=== PATIENT | female | born 1965 | race Two or more races ===

== ENCOUNTER → 2020-05-14 12:33 | Outpatient (REF) | payer OTHER, SELFPAY ==
--- NOTE | 2020-05-14 13:00 | CA_ITS ---
Transthoracic Echocardiogram Patient (Last, First, Middle): Michelle Berkowitz, Gender: Female Date of : 1965 Age: 54 Procedure Date: 05/14/2020 Procedure Type: Transthoracic Echocardiogram Location: OP Height: 157.48 cm Weight: 81.65 kg BSA: 1.83 m2 Heart Rate: bpm BP: 154 / 70 mmHg [employer]airer: QAMAR Villalta MD: Garry Bonner MD Symptoms: r06.02 sob Study Quality: Good ECG Rhythm: Sinus Conclusions: - The left ventricular systolic function is normal. The visually estimated ejection fraction is between 55-60%. - E/E prime ratio is between 8 and 15 consistent with indeterminate filling pressures. Evidence suggests grade I (mild) diastolic dysfunction. - There is mild mitral valve regurgitation. Findings Left Ventricle Normal left ventricular cavity size. There is normal left ventricular wall thickness. The left ventricular systolic function is normal. The visually estimated ejection fraction is between 55-60%. There is no evidence of regional wall motion abnormalities. E/E prime ratio is between 8 and 15 consistent with indeterminate filling pressures. Evidence suggests grade I (mild) diastolic dysfunction. Right Ventricle Normal right ventricular cavity size and systolic function. Atria Both atria are normal in size. Aortic Valve There is a normal trileaflet aortic valve. There is no aortic valve stenosis. Trivial to mild aortic regurgitation. Mitral Valve The mitral valve appears normal. There is mild mitral valve regurgitation. There is no mitral valve stenosis. Pulmonic Valve The pulmonic valve was not well visualized. Tricuspid Valve Normal tricuspid valve structure. There is trace tricuspid valve regurgitation. The pulmonary artery systolic pressure is normal. Great Vessels The aortic annulus, sinuses of valsalva, and asc aorta are normal in size. Venous The inferior vena cava is normal in size and collapses greater than 50% with inspiration. Pericardium/Pleural There is no evidence of pericardial effusion. Prior Study Comparison No significant change compared to prior study dated: 03/24/2017. Measurements 2D Linear Measurements RVIDd: 2.94 RVIDd Index: 1.61 IVSd: 0.96 0.6-0.9/0.6-1.0 cm LVIDd: 4.19 3.9-5.3/4.2-5.9 cm LVIDd Index: 2.29 2.4-3.2/2.2-3.1 cm/m2 LVIDs: 3.01 2.0-3.6 cm LVPWd: 1.27 0.7-1.1 cm Ao Root: 2.70 2.1-3.5 cm LA Diam: 3.50 2.7-3.8/3.0-4.0 cm LAIDs Index: 1.91 1.5-2.3 cm/m2 LV Mass: 198.69 67-162/88-224 g LV Mass Index: 108.57 43-95/49-115 g/m2 LVOT Diam: 2.10 3.0+(-)1.3 cm 2D Systolic Function EF 4C: 52.30 >55% EF 2C: 56.10 >55% EF BiP: 54.50 >55% Mitral Valve MV Pk E: 0.72 MV PK A: 0.79 MV Decel Time: 211.00 E/A: 0.90 E'Lateral: 5.61 E'Medial: 5.03 E/E' Med: 14.40 E/E' Lat: 12.90 Aortic Valve AoV Pk Fausto: 1.62 AoV Mn Fausto: 1.05 AoV VTI: 0.31 AoV Pk Grad: 10.00 Aov Mn Grad: 5.00 ARELI Cont.VTI: 2.39 AI Pk Fausto: 3.96 AI Schuyler: 1.08 LVOT LVOT Pk Fausto: 1.00 LVOT Mn Fausto: 0.72 LVOT VTI: 0.22 LVOT Pk Grad: 4.00 LVOT Mn Grad: 2.00 LVOT Diam: 2.10 LVOT Area: 3.46 Diastolic Function MV Pk E: 0.72 MV Pk A: 0.79 E/A: 0.90 E'Medial: 5.03 E/E' Med: 14.40 E' Laterial: 5.61 E/E' Lat: 12.90 Tricuspid Valve TR Pk Fausto: 1.79 TR Pk Grad: 13.00 RA Press: 3.00 RVSP: 16.00 Great Vessels Aorta Ao Root-2D: 2.70 2.0-3.7 cm Ao Asc: 2.70 2.1-3.4 cm Ao Arch: 2.60 Updated in Other Vendor System with Status of Final Garry Bonner MD electronically signed on 05/15/2020 2:23:17 PM with status of Final
[2020-05-14 14:33] LABS: MANUAL DIFF FLAG NO
[2020-05-14 14:38] LABS: Basophils Percent Auto 0.8 % (0-2); Eosinophils Absolute Auto 0.1 X10*3/uL (0.0-0.4); Eosinophils Percent Auto 2.3 % (0-4); Hemoglobin 11.7 g/dl (12.0-16.0); Imm Gran Abs Auto 0.01 X10*3/uL (0.00-0.03); Imm Gran Pct Auto 0.2 % (0.0-0.4); Lymphocytes Absolute Auto 1.9 X10*3/uL (1.2-4.9); Mean Corpuscular HGB Conc 31.6 g/dl (31.0-35.0); Mean Corpuscular Hemoglobin 27.1 pg (27.0-33.0); Mean Corpuscular Volume 85.6 fL (80-98); Mean Platelet Volume 11.9 fL (9.4-12.3); Monocytes Absolute Auto 0.4 X10*3/uL (0.1-1.2); Monocytes Percent Auto 7.9 % (2-11); Neutrophils Absolute Auto 2.7 X10*3/uL (2.0-8.3); Neutrophils Percent Auto 51.8 % (45-73); Platelet Count 279 X10*3/uL (160-400); Red Blood Count 4.32 X10*6/uL (4.20-5.50); White Blood Count 5.2 X10*3/uL (4.8-10.8)
[2020-05-14 14:41] LABS: Glucose Urine UA NEG (NEG); Leukocyte Esterase Urine NEG (NEG); Nitrite Urine NEG (NEG); Urine Blood NEG (NEG); Urine Ketones NEG (NEG); Urine Protein NEG (NEG-TRACE)
[2020-05-14 14:42] LABS: Appearance Urine HAZY; Color Urine YELLOW
[2020-05-14 15:20] LABS: Estimated Average Glucose 148 mg/dL; Hemoglobin A1c % 6.8 %
[2020-05-14 15:38] LABS: Creatinine Urine 83.65 mg/dL; Microalbumin Urine < 5.0 mg/L
[2020-05-14 15:47] LABS: Alanine Aminotransferase 15 U/L (0-31); Alkaline Phosphatase 70 U/L (39-117); Anion Gap 9 (12-20); Aspartate Amino Transferase 15 U/L (5-31); Bilirubin Total 0.5 mg/dL (0.0-1.0); Blood Urea Nitrogen 10 mg/dL (9-16); Calcium 9.1 mg/dL (8.4-10.2); Carbon Dioxide 33 mmol/L (22-29); Chloride 105 mmol/L (96-108); Cholesterol 138 mg/dL; Estimated Glomerular Filt Rate > 60; Glucose Random 118 mg/dL (60-115); HDL Cholesterol 36 mg/dL; LDL Cholesterol Calculated 81 mg/dl; Potassium 4.5 mmol/l (3.3-5.1); Sodium 142 mmol/L (135-145); Total Protein 7.3 g/dL (6.5-8.0); Triglycerides 107 mg/dL
[2020-05-14 16:03] LABS: Free T4 (Free Thyroxine) 1.16 ng/dL (0.71-1.85); Thyroid Stimulating Hormone 2.81 mIU/mL (0.32-4.0)
[2020-05-14 16:15] LABS: Folate 5.5 ng/mL (> or = 4.0); Vitamin B12 301 pg/mL (200-900)
[2020-05-19 15:52] LABS: Vitamin A 33 mcg/dL (38-98)
== END ==
LOC: HO.CARD 12:33
PROVIDERS: PCP Internal Medicine; Referring Provider Nurse Practitioner Gerontology; Visit Provider Internal Medicine
DX: E11.65 Type 2 diabetes mellitus with hyperglycemia (principal); E11.22 Type 2 diabetes mellitus with diabetic chronic kidney disease; I12.9 Hypertensive chronic kidney disease with stage 1 through stage 4 chronic kidney disease, or unspecified chronic kidney disease; N18.2 Chronic kidney disease, stage 2 (mild); E78.5 Hyperlipidemia, unspecified; M51.36 Other intervertebral disc degeneration, lumbar region; E03.9 Hypothyroidism, unspecified; E66.9 Obesity, unspecified; E53.8 Deficiency of other specified B group vitamins; R06.02 Shortness of breath
CPT/HCPCS: 36415; 80053; 80061; 81003; 82043; 82607; 82746; 83036; 84439; 84443; 84590; 85025; 93306

== ENCOUNTER 2020-05-21 16:54 | Outpatient (REF) | payer OTHER, SELFPAY ==
[2020-05-21 18:28] LABS: Thyroid Stimulating Hormone 7.09 mIU/mL (0.32-4.0)
== END 2020-05-21 16:55 | disposition home or self-care (01) ==
LOC: HO.MAMMO 16:54
PROVIDERS: Absent Provider Nurse Practitioner Gerontology; PCP Internal Medicine; Visit Provider Internal Medicine
DX: E06.3 Autoimmune thyroiditis (principal)
CPT/HCPCS: 84443

== ENCOUNTER → 2020-06-09 11:00 | Outpatient (BNVA) | payer OTHER, SELFPAY | PROVIDERS: PCP Internal Medicine; Referring Provider Internal Medicine; Visit Provider Internal Medicine | DX: M79.602 Pain in left arm (principal); E66.09 Other obesity due to excess calories; Z68.34 Body mass index [BMI] 34.0-34.9, adult; I10 Essential (primary) hypertension; E11.8 Type 2 diabetes mellitus with unspecified complications; E78.5 Hyperlipidemia, unspecified | CPT/HCPCS: 99212 ==

== ENCOUNTER 2020-07-01 11:08 | Outpatient (REF) | payer OTHER, SELFPAY ==
--- NOTE | 2020-07-01 | US_ITS ---
EXAMINATION: US THYROID CLINICAL INFORMATION: Nontoxic multinodular goiter. COMPARISON: Thyroid ultrasound 10/10/2019 and 07/06/2018. Ultrasound-guided thyroid biopsy 12/20/2019. TECHNIQUE: Linear transducer menjivar-scale and color Doppler examination with attention to the region of the thyroid. FINDINGS: SIZE: Measurements of the thyroid lobes and nodules are given in sagittal, anteroposterior and transverse dimensions respectively. Right Thyroid Lobe: 5.0 x 2.0 x 1.8 cm, volume 9.5 mL. Previously 5.1 x 2.1 x 1.9 cm, volume 10.6 mL. Parenchyma: The gland echotexture is heterogeneous. Thyroid vascularity is normal. Left Thyroid Lobe: 3.7 x 2.1 x 1.5 cm, volume 5.9 mL. Previously 4.6 x 2.2 x 1.9 cm, volume 10.1 mL. Parenchyma: The gland echotexture is heterogeneous. Thyroid vascularity is normal. Isthmus: 0.6 cm in maximum AP dimension. Previously 0.6 cm. RIGHT THYROID LOBE: There are 2 nodules seen. 1. Location: Lower pole. Size: 1.3 x 1.2 x 1.5 cm. Previous: 1.4 x 1.4 x 1.2 cm. Nodule characteristics: Hyperechoic with a hypoechoic rind and peripheral flow. 2. Location: Lower pole. Size: 0.6 x 0.7 x 0.6 cm. Previous: 1.2 x 1.2 x 1.4 cm. Nodule characteristics: Hyperechoic, hypoechoic rind with peripheral flow. ISTHMUS: No nodules. LEFT THYROID LOBE: No nodules. NODES: No lymphadenopathy is seen in the tissue surrounding the thyroid gland. US/US thyroid IMPRESSION: No significant change in size of the nodules in right lobe from previous study 07/06/2018. Previously seen thyroid nodule in right lobe is not visualized at this time.
== END 2020-07-01 11:09 | disposition home or self-care (01) ==
LOC: HO.US 11:08
PROVIDERS: PCP Internal Medicine; Visit Provider Internal Medicine Endocrinology, Diabetes & Metabolism
DX: E04.2 Nontoxic multinodular goiter (principal)
CPT/HCPCS: 76536

== ENCOUNTER 2020-07-15 13:35 | Outpatient (REF) | payer OTHER, SELFPAY ==
[2020-07-15 16:16] LABS: Free T4 (Free Thyroxine) 1.07 ng/dL (0.71-1.85); Thyroid Stimulating Hormone 6.74 uIU/mL (0.32-4.0)
== END 2020-07-15 13:36 | disposition home or self-care (01) ==
LOC: HO.LAB 13:35
PROVIDERS: Absent Provider Nurse Practitioner Gerontology; PCP Internal Medicine; Visit Provider Internal Medicine Endocrinology, Diabetes & Metabolism
DX: E03.8 Other specified hypothyroidism (principal); E04.2 Nontoxic multinodular goiter; E06.3 Autoimmune thyroiditis
CPT/HCPCS: 84439; 84443; 99212

== ENCOUNTER 2020-08-07 12:20 | Outpatient (REF) | payer OTHER, SELFPAY ==
[2020-08-07 12:55] LABS: MANUAL DIFF FLAG NO
[2020-08-07 13:02] LABS: Basophils Percent Auto 0.8 % (0-2); Eosinophils Absolute Auto 0.1 X10*3/uL (0.0-0.4); Eosinophils Percent Auto 2.2 % (0-4); Hematocrit 35.8 % (37-47); Hemoglobin 11.3 g/dl (12.0-16.0); Imm Gran Abs Auto 0.01 X10*3/uL (0.00-0.03); Imm Gran Pct Auto 0.2 % (0.0-0.4); Lymphocytes Absolute Auto 1.7 X10*3/uL (1.2-4.9); Lymphocytes Percent Auto 34.7 % (20-40); Mean Corpuscular HGB Conc 31.6 g/dl (31.0-35.0); Mean Corpuscular Hemoglobin 27.1 pg (27.0-33.0); Mean Corpuscular Volume 85.9 fL (80-98); Mean Platelet Volume 11.3 fL (9.4-12.3); Monocytes Absolute Auto 0.3 X10*3/uL (0.1-1.2); Monocytes Percent Auto 6.7 % (2-11); Neutrophils Absolute Auto 2.7 X10*3/uL (2.0-8.3); Neutrophils Percent Auto 55.4 % (45-73); Platelet Count 290 X10*3/uL (160-400); Red Blood Count 4.17 X10*6/uL (4.20-5.50); Red Cell Distribution Width 12.1 % (11.0-16.0); White Blood Count 4.9 X10*3/uL (4.8-10.8)
[2020-08-07 13:06] LABS: Glucose Urine UA NEG (NEG); Leukocyte Esterase Urine NEG (NEG); Nitrite Urine NEG (NEG); Urine Blood NEG (NEG); Urine Ketones NEG (NEG); Urine Protein NEG (NEG-TRACE)
[2020-08-07 13:07] LABS: Appearance Urine CLEAR; Color Urine YELLOW
[2020-08-07 13:30] LABS: Alanine Aminotransferase 15 U/L (0-31); Alkaline Phosphatase 80 U/L (39-117); Anion Gap 11 (12-20); Aspartate Amino Transferase 13 U/L (5-31); Bilirubin Total 0.4 mg/dL (0.0-1.0); Blood Urea Nitrogen 12 mg/dL (9-16); Carbon Dioxide 30 mmol/L (22-29); Chloride 105 mmol/L (96-108); Cholesterol 113 mg/dL; Estimated Glomerular Filt Rate 54; Glucose Fasting 128 mg/dL (60-99); HDL Cholesterol 37 mg/dL; LDL Cholesterol Calculated 63 mg/dl; Potassium 4.5 mmol/l (3.3-5.1); Sodium 141 mmol/L (135-145); Total Protein 7.2 g/dL (6.5-8.0); Triglycerides 69 mg/dL
[2020-08-07 13:52] LABS: TSH reflex Free T4 0.25 mIU/mL (0.32-4.0); Vitamin D 25-OH Total 22.5 ng/mL (>30)
[2020-08-07 13:58] LABS: Creatinine Urine 142.53 mg/dL; Microalbumin Urine < 5.0 mg/L
[2020-08-07 14:08] LABS: Folate 10.9 ng/mL (> or = 4.0); Vitamin B12 158 pg/mL (200-900)
[2020-08-07 14:28] LABS: Free T4 (Free Thyroxine) 1.23 ng/dL (0.71-1.85)
== END 2020-08-07 12:21 | disposition home or self-care (01) ==
LOC: HO.LAB 12:20
PROVIDERS: Visit Provider Internal Medicine
DX: E11.22 Type 2 diabetes mellitus with diabetic chronic kidney disease (principal); I12.9 Hypertensive chronic kidney disease with stage 1 through stage 4 chronic kidney disease, or unspecified chronic kidney disease; N18.2 Chronic kidney disease, stage 2 (mild); Z79.4 Long term (current) use of insulin; E53.8 Deficiency of other specified B group vitamins; E78.00 Pure hypercholesterolemia, unspecified; E66.9 Obesity, unspecified; E55.9 Vitamin D deficiency, unspecified
CPT/HCPCS: 36415; 80053; 80061; 81003; 82043; 82306; 82607; 82746; 84439; 84443; 85025

== ENCOUNTER 2020-09-05 10:21 | Outpatient (REF) | payer OTHER, SELFPAY | END 2020-09-05 10:22 | disposition home or self-care (01) | LOC: HO.WFDLDS 10:21 | PROVIDERS: PCP Internal Medicine; Visit Provider Internal Medicine | DX: Z20.822 Contact with and (suspected) exposure to COVID-19 (principal) | CPT/HCPCS: 36415; U0003; U0005 ==

== ENCOUNTER 2020-09-26 11:53 | Outpatient (REF) | payer OTHER, SELFPAY | END 2020-09-26 11:54 | disposition home or self-care (01) | LOC: HO.WFDLDS 11:53 | PROVIDERS: PCP Internal Medicine; Visit Provider Internal Medicine | DX: Z20.822 Contact with and (suspected) exposure to COVID-19 (principal) | CPT/HCPCS: 36415; C9803; U0003; U0005 ==

== ENCOUNTER 2020-11-07 10:20 | Outpatient (REF) | payer OTHER, SELFPAY ==
[2020-11-07 11:25] LABS: MANUAL DIFF FLAG NO
[2020-11-07 11:40] LABS: Basophils Percent Auto 0.7 % (0-2); Eosinophils Absolute Auto 0.2 X10*3/uL (0.0-0.4); Eosinophils Percent Auto 3.4 % (0-4); Hematocrit 36.5 % (37-47); Hemoglobin 11.4 g/dl (12.0-16.0); Imm Gran Abs Auto 0.02 X10*3/uL (0.00-0.03); Imm Gran Pct Auto 0.3 % (0.0-0.4); Lymphocytes Absolute Auto 2.1 X10*3/uL (1.2-4.9); Lymphocytes Percent Auto 35.5 % (20-40); Mean Corpuscular HGB Conc 31.2 g/dl (31.0-35.0); Mean Corpuscular Hemoglobin 26.6 pg (27.0-33.0); Mean Corpuscular Volume 85.3 fL (80-98); Mean Platelet Volume 11.5 fL (9.4-12.3); Monocytes Absolute Auto 0.5 X10*3/uL (0.1-1.2); Monocytes Percent Auto 8.1 % (2-11); Platelet Count 284 X10*3/uL (160-400); Red Blood Count 4.28 X10*6/uL (4.20-5.50); Red Cell Distribution Width 12.4 % (11.0-16.0); White Blood Count 5.8 X10*3/uL (4.8-10.8)
[2020-11-07 11:44] LABS: Glucose Urine UA NEG (NEG); Leukocyte Esterase Urine NEG (NEG); Nitrite Urine NEG (NEG); Urine Blood NEG (NEG); Urine Ketones NEG (NEG); Urine Protein NEG (NEG-TRACE)
[2020-11-07 11:52] LABS: Appearance Urine CLEAR; Color Urine YELLOW
[2020-11-07 12:02] LABS: Estimated Average Glucose 169 mg/dL; Hemoglobin A1c % 7.5 %
[2020-11-07 12:05] LABS: Creatinine Urine 80.61 mg/dL; Microalbumin Urine < 5.0 mg/L
[2020-11-07 12:17] LABS: Alanine Aminotransferase 22 U/L (0-31); Alkaline Phosphatase 80 U/L (39-117); Anion Gap 11 (12-20); Aspartate Amino Transferase 14 U/L (5-31); Bilirubin Total 0.3 mg/dL (0.0-1.0); Blood Urea Nitrogen 16 mg/dL (9-16); Calcium 9.4 mg/dL (8.4-10.2); Carbon Dioxide 30 mmol/L (22-29); Chloride 104 mmol/L (96-108); Cholesterol 150 mg/dL; Estimated Glomerular Filt Rate 48; Glucose Fasting 177 mg/dL (60-99); HDL Cholesterol 43 mg/dL; LDL Cholesterol Calculated 89 mg/dl; Potassium 4.7 mmol/L (3.3-5.1); Sodium 140 mmol/L (135-145); Total Protein 7.2 g/dL (6.5-8.0); Triglycerides 90 mg/dL
[2020-11-07 12:28] LABS: Free T4 (Free Thyroxine) 0.69 ng/dL (0.71-1.85); Thyroid Stimulating Hormone 8.49 uIU/mL (0.32-4.0)
[2020-11-07 12:33] LABS: Folate 9.3 ng/mL (> or = 4.0); Vitamin B12 293 pg/mL (200-900)
== END 2020-11-07 10:21 | disposition home or self-care (01) ==
LOC: HO.LAB 10:20
PROVIDERS: Absent Provider Nurse Practitioner Gerontology; PCP Internal Medicine; Visit Provider Internal Medicine Endocrinology, Diabetes & Metabolism
DX: E11.22 Type 2 diabetes mellitus with diabetic chronic kidney disease (principal); I12.9 Hypertensive chronic kidney disease with stage 1 through stage 4 chronic kidney disease, or unspecified chronic kidney disease; N18.2 Chronic kidney disease, stage 2 (mild); E66.9 Obesity, unspecified; E53.8 Deficiency of other specified B group vitamins; E78.00 Pure hypercholesterolemia, unspecified; E03.9 Hypothyroidism, unspecified; Z79.4 Long term (current) use of insulin
CPT/HCPCS: 36415; 80053; 80061; 81003; 82043; 82607; 82746; 83036; 84439; 84443; 85025

== ENCOUNTER → 2020-12-03 08:09 | Outpatient (BNVA) | payer OTHER, SELFPAY | PROVIDERS: PCP Internal Medicine; Visit Provider Nurse Practitioner Gerontology ==

== ENCOUNTER 2021-01-09 13:38 | Outpatient (REF) | payer OTHER, SELFPAY ==
--- NOTE | ~2021-01-09 | XR_ITS ---
EXAMINATION: BILATERAL KNEES CLINICAL INFORMATION: Bilateral knee pain COMPARISON: None TECHNIQUE: 4 views each knee FINDINGS: Left: There is some minimal narrowing of the medial compartment with the patellofemoral compartment with some posterior osteophytes. No joint effusion is seen. No chondrocalcinosis is present. Right: Some mild tricompartmental degenerative changes are present with some narrowing of the medial compartment and some lateral femoral condyle osteophytes in the lateral compartment. Some posterior patellar osteophytes are present. A joint effusion is not seen. No chondrocalcinosis. XR/XR knee RT 4V IMPRESSION: Mild degenerative changes both knees, bicompartmental left, tricompartmental on right
--- NOTE | ~2021-01-09 | XR_ITS ---
EXAMINATION: BILATERAL KNEES CLINICAL INFORMATION: Bilateral knee pain COMPARISON: None TECHNIQUE: 4 views each knee FINDINGS: Left: There is some minimal narrowing of the medial compartment with the patellofemoral compartment with some posterior osteophytes. No joint effusion is seen. No chondrocalcinosis is present. Right: Some mild tricompartmental degenerative changes are present with some narrowing of the medial compartment and some lateral femoral condyle osteophytes in the lateral compartment. Some posterior patellar osteophytes are present. A joint effusion is not seen. No chondrocalcinosis. XR/XR knee LT 4V IMPRESSION: Mild degenerative changes both knees, bicompartmental left, tricompartmental on right
--- NOTE | ~2021-01-09 | XR_ITS ---
EXAMINATION: XR HIP, LEFT CLINICAL INFORMATION: Left hip pain. COMPARISON: 08/21/2015 left hip radiographs. TECHNIQUE: Two views of the left hip. FINDINGS: Mild left hip degenerative joint changes are seen. There is no acute fracture or dislocation. The soft tissues are unremarkable. XR/XR hip LT min 2V IMPRESSION: Mild left hip degenerative joint changes most consistent with osteoarthritis. These findings appear similar, if not minimally increased from the previous study.
[2021-01-09 15:14] LABS: Free T4 (Free Thyroxine) 1.66 ng/dL (0.71-1.85); Thyroid Stimulating Hormone 0.05 uIU/mL (0.32-4.0)
== END 2021-01-09 13:39 | disposition home or self-care (01) ==
LOC: HO.LAB 13:38
PROVIDERS: Absent Provider Internal Medicine Endocrinology, Diabetes & Metabolism; PCP Internal Medicine; Visit Provider Internal Medicine
DX: M25.552 Pain in left hip (principal); M25.562 Pain in left knee; M25.561 Pain in right knee; E03.9 Hypothyroidism, unspecified
CPT/HCPCS: 36415; 73502; 73564; 84439; 84443

== ENCOUNTER 2021-02-09 12:29 | Outpatient (REF) | payer OTHER, SELFPAY ==
[2021-02-09 13:33] LABS: MANUAL DIFF FLAG NO
[2021-02-09 13:35] LABS: Basophils Percent Auto 0.5 % (0-2); Eosinophils Absolute Auto 0.2 X10*3/uL (0.0-0.4); Eosinophils Percent Auto 2.5 % (0-4); Hematocrit 37.4 % (37-47); Hemoglobin 12.1 g/dl (12.0-16.0); Imm Gran Abs Auto 0.01 X10*3/uL (0.00-0.03); Imm Gran Pct Auto 0.2 % (0.0-0.4); Lymphocytes Absolute Auto 2.2 X10*3/uL (1.2-4.9); Mean Corpuscular HGB Conc 32.4 g/dl (31.0-35.0); Mean Corpuscular Hemoglobin 27.1 pg (27.0-33.0); Mean Corpuscular Volume 83.7 fL (80-98); Mean Platelet Volume 11.3 fL (9.4-12.3); Monocytes Absolute Auto 0.5 X10*3/uL (0.1-1.2); Neutrophils Absolute Auto 3.1 X10*3/uL (2.0-8.3); Neutrophils Percent Auto 51.8 % (45-73); Platelet Count 335 X10*3/uL (160-400); Red Blood Count 4.47 X10*6/uL (4.20-5.50); Red Cell Distribution Width 12.3 % (11.0-16.0)
[2021-02-09 14:02] LABS: Alanine Aminotransferase 20 U/L (0-31); Albumin Level 4.2 g/dL (3.5-5.0); Alkaline Phosphatase 88 U/L (39-117); Anion Gap 15 (12-20); Aspartate Amino Transferase 16 U/L (5-31); Bilirubin Total 0.5 mg/dL (0.0-1.0); Blood Urea Nitrogen 13 mg/dL (9-16); Calcium 10.1 mg/dL (8.4-10.2); Carbon Dioxide 26 mmol/L (22-29); Chloride 104 mmol/L (96-108); Cholesterol 212 mg/dL; Estimated Glomerular Filt Rate 53; Glucose Fasting 133 mg/dL (60-99); HDL Cholesterol 45 mg/dL; LDL Cholesterol Calculated 141 mg/dl; Potassium 4.7 mmol/L (3.3-5.1); Sodium 140 mmol/L (135-145); Total Protein 7.7 g/dL (6.5-8.0); Triglycerides 132 mg/dL
[2021-02-09 14:17] LABS: Estimated Average Glucose 166 mg/dL; Hemoglobin A1c % 7.4 %
[2021-02-09 14:26] LABS: Free T4 (Free Thyroxine) 1.15 ng/dL (0.71-1.85); Thyroid Stimulating Hormone 4.73 uIU/mL (0.32-4.0); Vitamin D 25-OH Total 33.9 ng/mL (>30)
[2021-02-09 14:48] LABS: Glucose Urine UA NEG (NEG); Leukocyte Esterase Urine NEG (NEG); Nitrite Urine NEG (NEG); Urine Blood NEG (NEG); Urine Ketones NEG (NEG); Urine Protein NEG (NEG-TRACE)
[2021-02-09 14:52] LABS: Appearance Urine CLEAR; Color Urine YELLOW
[2021-02-09 15:12] LABS: Creatinine Urine 93.32 mg/dL; Microalbumin Urine < 5.0 mg/L
== END 2021-02-09 12:30 | disposition home or self-care (01) ==
LOC: HO.LAB 12:29
PROVIDERS: Absent Provider Internal Medicine; PCP Internal Medicine; Visit Provider Internal Medicine Endocrinology, Diabetes & Metabolism
DX: E11.9 Type 2 diabetes mellitus without complications (principal); E78.00 Pure hypercholesterolemia, unspecified; E03.9 Hypothyroidism, unspecified; I10 Essential (primary) hypertension; E55.9 Vitamin D deficiency, unspecified
CPT/HCPCS: 36415; 80053; 80061; 81003; 82043; 82306; 83036; 84439; 84443; 85025

== ENCOUNTER → 2021-03-04 09:11 | Outpatient (BNVA) | payer OTHER, SELFPAY | PROVIDERS: PCP Internal Medicine; Visit Provider Nurse Practitioner Gerontology | DX: E11.22 Type 2 diabetes mellitus with diabetic chronic kidney disease (principal); I12.9 Hypertensive chronic kidney disease with stage 1 through stage 4 chronic kidney disease, or unspecified chronic kidney disease; N18.2 Chronic kidney disease, stage 2 (mild); E78.5 Hyperlipidemia, unspecified; E55.9 Vitamin D deficiency, unspecified; E66.09 Other obesity due to excess calories; E06.3 Autoimmune thyroiditis; Z68.34 Body mass index [BMI] 34.0-34.9, adult; Z79.4 Long term (current) use of insulin | CPT/HCPCS: 82947; 99212 ==

== ENCOUNTER 2021-04-21 09:59 | Emergency (ER) | payer OTHER, SELFPAY ==
--- NOTE | ~2021-04-21 | XR_ITS ---
EXAMINATION: XR CHEST CLINICAL INFORMATION: Chest pain COMPARISON: None TECHNIQUE: Frontal view of the chest was obtained. FINDINGS: The lungs are well-expanded and clear. Heart size and pulmonary vascularity is normal. No gross bony abnormality. XR/XR chest 1V IMPRESSION: Unremarkable chest exam.
--- NOTE | 2021-04-21 10:04 | ECG_ITS ---
Test Reason : CHEST PAIN Blood Pressure : / mmHG Vent. Rate : 074 BPM Atrial Rate : 074 BPM P-R Int : 156 ms QRS Dur : 086 ms QT Int : 398 ms P-R-T Axes : 101 030 096 degrees QTc Int : 441 ms Normal sinus rhythm Nonspecific T wave abnormality Cannot rule out Anterior infarct , age undetermined Abnormal ECG When compared with ECG of 19-FEB-2017 06:28, T wave inversion no longer evident in Anterior leads Referred By: Generic ED Physician Electronically Signed By:CARLY MEEKS
--- NOTE | 2021-04-21 10:20 | ED.CHESTPAIN ---
HPI - Chest Pain General Chief Complaint: Chest Pain Stated Complaint: Chest pain for 3 days Time Seen by Provider: 04/21/21 10:18 Source: patient Mode of arrival: ambulatory Limitations: no limitations History of Present Illness HPI narrative: 55 years old female came in for evaluation of chest pain. Chest pain started 3 days ago, initially started as painful screw wheezing of the right arm that radiated to the left arm with numbness down to the left arm and forearm with the arm pressure feels left-sided chest pressure, described as intermittent for the past 3 days, moderate in severity about 6/10, happened during rest, no aggravating factor, no relieving factor, pain relief and its own after few minutes. Patient declined any trauma to the chest. Patient declined recent travel, no prolonged had lower extremity swelling or tenderness, no history of PE or DVT. Related Data Home Medications Medication Instructions Recorded Confirmed albuterol sulfate 90 mcg/actuation 2 puff PO QID PRN 05/16/20 03/04/21 aerosol inhaler cyclobenzaprine 10 mg tablet 10 mg PO TID 05/16/20 03/04/21 lorazepam 0.5 mg tablet 0.5 mg PO TID PRN 05/16/20 03/04/21 paroxetine HCl 40 mg tablet 40 mg PO DAILY 05/16/20 03/04/21 risperidone 1 mg tablet 1 mg PO BEDTIME 05/16/20 03/04/21 ferrous fumarate 325 mg (106 mg 325 mg PO QWEEK tab 12/03/20 03/04/21 iron) tablet Previous Rx's Medication Instructions Recorded blood sugar diagnostic (FreeStyle #100 ea 05/16/20 Lite Strips) albuterol sulfate 90 mcg/actuation 2 puff INHALATION Q6H PRN 30 Days 08/11/20 aerosol inhaler (ProAir HFA) #18 g Tirosint 175 mcg capsule 175 mcg PO DAILY 30 Days #30 cap NS 11/07/20 (levothyroxine) dulaglutide 3 mg/0.5 mL 3 mg SUBCUT QWEEK 28 Days #2 ml 12/03/20 subcutaneous pen injector (Trulicity) insulin glargine 100 unit/mL (3 20 unit SUBCUT QPM #15 ml 12/03/20 mL) subcutaneous pen (Lantus Solostar U-100 Insulin) metformin 1,000 mg tablet 1,000 mg PO BID #60 tab 02/07/21 cholecalciferol (vitamin D3) 50 50 mcg PO DAILY #30 cap 02/09/21 mcg (2,000 unit) capsule alzcmbaxze-fbbxeugeitmzx-nnljbfuy 1 cap PO BID-TID PRN 30 Days #60 02/11/21 50 mg-325 mg-40 mg capsule cap orphenadrine citrate 100 mg 100 mg PO BID PRN 30 Days #60 tab 02/12/21 tablet,extended release topiramate 50 mg tablet 50 mg PO BEDTIME 90 Days #90 tab 02/12/21 atorvastatin 80 mg tablet 80 mg PO BEDTIME #90 tab 03/04/21 lisinopril 30 mg tablet 30 mg PO DAILY #90 tab 03/04/21 Allergies Allergy/AdvReac Type Severity Reaction Status Date / Time aspirin [ASPIRIN] Allergy Severe RASH, Verified 04/21/21 10:44 itchiness Penicillins [PENICILLINS] Allergy Mild RASH Verified 04/21/21 10:44 Review of Systems Review of Systems: All other systems are reviewed and are negative Constitutional: Reports as per HPI and Reports no additional constitutional complaints Eyes: Reports as per HPI and Reports no additional eye complaints Reports system reviewed and no additional complaints, except as documented Cardiovascular: Reports as per HPI and Reports no additional cardiovascular complaints Respiratory: Reports as per HPI and Reports no additional respiratory complaints Gastrointestinal: Reports as per HPI and Reports no additional gastrointestinal complaints Genitourinary: Reports no additional female genitourinary complaints Musculoskeletal: Reports no additional musculoskeletal complaints Skin/Breast: Reports system reviewed and no additional complaints, except as docu Psychiatric: Reports no additional psychiatric complaints Endocrine: Reports no additional endocrine complaints Hematologic/Lymphatic: Reports no additional hematologic/lymphatic complaints Allergic/Immunologic: Reports no additional allergic/immunologic complaints Reports system reviewed and no additional complaints, except as documented and Reports Abnormal speech present COUNTS INCLUDE 234 BEDS AT THE [facility] Past Medical History Medical History Abnormal thyroid biopsy Acquired hypothyroidism Anxiety Asthma Autoimmune thyroiditis B12 deficiency Benign essential hypertension Chronic abdominal pain Chronic kidney disease, stage 2 (mild) Depression Essential hypertension Hernia Hx of headache Hyperlipidemia LDL goal <100 Hypothyroidism IBS (irritable bowel syndrome) Knee pain, bilateral Left hip pain Lumbar degenerative disc disease Lumbar disc disease Neck pain Non-toxic multinodular goiter Nonintractable headache Obesity (BMI 30-39.9) Obesity due to excess calories Other and unspecified hyperlipidemia Pure hypercholesterolemia Tendonitis Type 2 diabetes mellitus with diabetic chronic kidney disease Type 2 diabetes mellitus with hyperglycemia Type 2 diabetes mellitus with unspecified complications Visual loss Vitamin B12 deficiency Vitamin D deficiency Surgical History History of hernia repair Hx of exploratory laparotomy S/P laparoscopy (~11/20/10) Family History Family History Father Medical history unknown Mother Medical history unknown Social History Social History Housing: Apartment Alcohol intake: never Patient Tobacco Use Status: Never used Tobacco Second Hand Smoke Exposure: Yes Use of substances other than those prescribed or required for medical reasons: No Advance Directives: No Advance Directives Information Provided: No Patient : No service: No Current occupational status: disabled Physical Exam Vital Signs: Vital Signs: Last Vital Signs Temp 98.2 F 04/21/21 10:44 Pulse 71 04/21/21 10:44 Resp 18 04/21/21 10:44 BP 138/70 04/21/21 10:44 Pulse Ox 98 04/21/21 10:44 Body Mass Index 32.3 Vital signs have been reviewed as appeared to be correct. Blood pressure normal. Heart rate normal. Respiration rate normal. Temperature normal. Oxygen saturation normal. Appearance: Alert. Oriented X3. No acute distress. Head: Normal external exam. Normocephalic. Atraumatic. No Moran signs noted. No raccoon eyes noted Eyes: PERRLA. EOMI. Conjunctiva and sclera normal. Eyelids normal. ENT: TM's Normal. Pharynx normal. Uvula midline. Moist mucous membranes. No trismus noted. No drooling noted. No muffled voice noted. Neck: Normal inspection. Neck supple. FROM. No adenopathy. Thyroid Normal. No meningeal signs. No neck mass noted. CVS: Normal heart rate and rhythm. Heart sound normal. No murmurs noted. Pulses normal throughout. Respiratory: No respiratory distress. Painless inspiration. Breath sounds normal. No wheezes/rales/rhonchi noted. Chest nontender. No accessory muscle usage noted or decreased air movement noted. Abdomen: Soft and nontender. Bowel sounds normal in all 4 quadrants. No distention noted. No organomegaly noted. No visible injury noted. Back: No CVA tenderness. Full range of motion noted. Skin: Skin warm and dry. Normal skin color. Normal skin turgor. No rashes/lesions/lacerations noted. Extremities: No lower extremity edema. Extremities exhibit normal range of motion. Extremities nontender. Neuro: Oriented X 3. Cranial nerve exam: II-XII are grossly intact No motor deficit. No sensory deficit. Reflexes normal. Course Course Course Narrative: Assessment and plan. 55-year-old female with 3 days of chest pain, patient had unremarkable labs including high sensitive troponin and D-dimer, unremarkable chest x-ray, unremarkable EKG. Patient was reassured and will discharge to follow-up with PCP and Cardiology referral as per PCP. [facility] - Chest Pain Medical Records Data Attestation: I reviewed the patient's medical records. Lab Data Attestation: I reviewed the patient's lab results. Result diagrams: 04/21/21 11:00 04/21/21 11:00 Labs: Lab Results 04/21/21 04/21/21 04/21/21 Range/Units 10:59 10:59 10:59 WBC (4.8-10.8) X10*3/uL RBC (4.20-5.50) X10*6/uL Hgb (12.0-16.0) g/dl Hct (37-47) % MCV (80-98) fL MCH (27.0-33.0) pg MCHC (31.0-35.0) g/dl RDW (11.0-16.0) % Plt Count (160-400) X10*3/uL MPV (9.4-12.3) fL Immature Gran % (Auto) (0.0-0.4) % Neut % (Auto) (45-73) % Lymph % (Auto) (20-40) % [place] % (Auto) (2-11) % Eos % (Auto) (0-4) % Baso % (Auto) (0-2) % Lymph # (Auto) (1.2-4.9) X10*3/uL [place] # (Auto) (0.1-1.2) X10*3/uL Eos # (Auto) (0.0-0.4) X10*3/uL Baso # (Auto) (0.0-0.2) X10*3/uL Abs Immat Gran (auto) (0.00-0.03) X10*3/uL Absolute Neuts (auto) (2.0-8.3) X10*3/uL Absolute Nucleated RBC (0.0-0.012) X10*3/uL Nucleated RBC % (auto) (0.0-0.2) /100WBC D-Dimer < 200 NG/ML Sodium (135-145) mmol/L Potassium (3.3-5.1) mmol/L Chloride (96-108) mmol/L Carbon Dioxide (22-29) mmol/L Anion Gap (12-20) BUN (9-16) mg/dL Creatinine (0.5-1.4) mg/dL Estim Creat Clear Calc Estimated GFR Random Glucose (60-115) mg/dL Calcium (8.4-10.2) mg/dL Total Creatine Kinase (26-140) U/L Troponin I High Sens < 3.5 (<3.5-17.0) ng/L B-Natriuretic Peptide < 10 (<100) pg/mL Lipase (8-78) U/L Urine Color Urine Appearance Urine pH (5.0-8.0) Ur Specific [place] (1.005-1.025) Urine Protein (NEG-TRACE) MG/DL Urine Glucose (UA) (NEG) MG/DL Urine Ketones (NEG) MG/DL Urine Blood (NEG) Urine Nitrite (NEG) Ur Leukocyte Esterase (NEG) 04/21/21 04/21/21 04/21/21 Range/Units 10:59 11:00 11:00 WBC 6.2 (4.8-10.8) X10*3/uL RBC 4.35 (4.20-5.50) X10*6/uL Hgb 11.7 L (12.0-16.0) g/dl Hct 37.0 (37-47) % MCV 85.1 (80-98) fL MCH 26.9 L (27.0-33.0) pg MCHC 31.6 (31.0-35.0) g/dl RDW 12.6 (11.0-16.0) % Plt Count 309 (160-400) X10*3/uL MPV 11.5 (9.4-12.3) fL Immature Gran % (Auto) 0.3 (0.0-0.4) % Neut % (Auto) 49.5 (45-73) % Lymph % (Auto) 37.4 (20-40) % [place] % (Auto) 9.9 (2-11) % Eos % (Auto) 2.1 (0-4) % Baso % (Auto) 0.8 (0-2) % Lymph # (Auto) 2.3 (1.2-4.9) X10*3/uL [place] # (Auto) 0.6 (0.1-1.2) X10*3/uL Eos # (Auto) 0.1 (0.0-0.4) X10*3/uL Baso # (Auto) 0.1 (0.0-0.2) X10*3/uL Abs Immat Gran (auto) 0.02 (0.00-0.03) X10*3/uL Absolute Neuts (auto) 3.1 (2.0-8.3) X10*3/uL Absolute Nucleated RBC 0.000 (0.0-0.012) X10*3/uL Nucleated RBC % (auto) 0.0 (0.0-0.2) /100WBC D-Dimer NG/ML Sodium 142 (135-145) mmol/L Potassium 4.4 (3.3-5.1) mmol/L Chloride 106 (96-108) mmol/L Carbon Dioxide 30 H (22-29) mmol/L Anion Gap 10 L (12-20) BUN 12 (9-16) mg/dL Creatinine 0.97 (0.5-1.4) mg/dL Estim Creat Clear Calc 62.7 Estimated GFR 59 Random Glucose 116 H (60-115) mg/dL Calcium 9.9 (8.4-10.2) mg/dL Total Creatine Kinase 71 (26-140) U/L Troponin I High Sens (<3.5-17.0) ng/L B-Natriuretic Peptide (<100) pg/mL Lipase 54 (8-78) U/L Urine Color YELLOW Urine Appearance CLEAR Urine pH 6.0 (5.0-8.0) Ur Specific [place] 1.010 (1.005-1.025) Urine Protein NEG (NEG-TRACE) MG/DL Urine Glucose (UA) NEG (NEG) MG/DL Urine Ketones NEG (NEG) MG/DL Urine Blood NEG (NEG) Urine Nitrite NEG (NEG) Ur Leukocyte Esterase NEG (NEG) Imaging Data Chest x-ray: Radiologist's impression: Unremarkable chest exam. ECG Data ECG #1: Attestation: I personally reviewed and interpreted this ECG as follows: Interpretation: Normal sinus rhythm at 74 beats per minutes, normal axis deviation, no ST-T changes. Discharge Plan Discharge Clinical Impression: Chest pain Patient Disposition: Home, Self-Care Instructions: Chest Pain (ED) Prescriptions: No Action levothyroxine [Tirosint] 175 mcg capsule 175 mcg PO DAILY 30 Days Qty: 30 RF: 8 metformin 1,000 mg tablet 1,000 mg PO BID Qty: 60 RF: 0 cholecalciferol (vitamin D3) 50 mcg (2,000 unit) capsule 50 mcg PO DAILY Qty: 30 RF: 3 jbwamikbyz-vgdsxfeeqaeqy-bogp 50-325-40 mg capsule 1 cap PO BID-TID PRN (Reason: headaches) 30 Days Qty: 60 RF: 0 albuterol sulfate [ProAir HFA] 90 mcg/actuation HFA aerosol inhaler 2 puff inhalation Q6H PRN (Reason: shortness of breath or wheezing) 30 Days Qty: 18 RF: 5 risperidone 1 mg tablet 1 mg PO BEDTIME RF: 0 paroxetine HCl 40 mg tablet 40 mg PO DAILY RF: 0 lorazepam 0.5 mg tablet 0.5 mg PO TID PRNRF: 0 albuterol sulfate 90 mcg/actuation HFA aerosol inhaler 2 puff PO QID PRNRF: 0 cyclobenzaprine 10 mg tablet 10 mg PO TID RF: 0 (DME) FreeStyle Lite Strips Strip See Rx Instructions .ROUTE .MEDSUPPLY Qty: 100 RF: 11 orphenadrine citrate 100 mg tablet extended release 100 mg PO BID PRN (Reason: pain) 30 Days Qty: 60 RF: 3 topiramate 50 mg tablet 50 mg PO BEDTIME 90 Days Qty: 90 RF: 1 ferrous fumarate 325 mg (106 mg iron) tablet 325 mg PO QWEEK RF: 0 Trulicity 3 mg/0.5 mL pen injector 3 mg subcut QWEEK 28 Days Qty: 2 RF: 3 Lantus Solostar U-100 Insulin 100 unit/mL (3 mL) insulin pen 20 unit subcut QPM Qty: 15 RF: 0 lisinopril 30 mg tablet 30 mg PO DAILY Qty: 90 RF: 1 atorvastatin 80 mg tablet 80 mg PO BEDTIME Qty: 90 RF: 0 Referrals: Hernesto Obregon MD [Primary Care Provider] - 2 days Garry Bonner MD [Physician] - 2 days
[2021-04-21 10:44] VITALS: BP 138/70; PULSE 71; RESP 18; TEMP 36.8; O2SAT 98; BMI 32.3
[2021-04-21 11:06] LABS: MANUAL DIFF FLAG NO
[2021-04-21 11:08] LABS: Basophils Absolute Auto 0.1 X10*3/uL (0.0-0.2); Basophils Percent Auto 0.8 % (0-2); Eosinophils Absolute Auto 0.1 X10*3/uL (0.0-0.4); Eosinophils Percent Auto 2.1 % (0-4); Hemoglobin 11.7 g/dl (12.0-16.0); Imm Gran Abs Auto 0.02 X10*3/uL (0.00-0.03); Imm Gran Pct Auto 0.3 % (0.0-0.4); Lymphocytes Absolute Auto 2.3 X10*3/uL (1.2-4.9); Lymphocytes Percent Auto 37.4 % (20-40); Mean Corpuscular HGB Conc 31.6 g/dl (31.0-35.0); Mean Corpuscular Hemoglobin 26.9 pg (27.0-33.0); Mean Corpuscular Volume 85.1 fL (80-98); Mean Platelet Volume 11.5 fL (9.4-12.3); Monocytes Absolute Auto 0.6 X10*3/uL (0.1-1.2); Monocytes Percent Auto 9.9 % (2-11); Neutrophils Absolute Auto 3.1 X10*3/uL (2.0-8.3); Neutrophils Percent Auto 49.5 % (45-73); Platelet Count 309 X10*3/uL (160-400); Red Blood Count 4.35 X10*6/uL (4.20-5.50); Red Cell Distribution Width 12.6 % (11.0-16.0); White Blood Count 6.2 X10*3/uL (4.8-10.8)
[2021-04-21 11:17] LABS: Appearance Urine CLEAR; Color Urine YELLOW; Glucose Urine UA NEG (NEG); Leukocyte Esterase Urine NEG (NEG); Nitrite Urine NEG (NEG); Urine Blood NEG (NEG); Urine Ketones NEG (NEG); Urine Protein NEG (NEG-TRACE)
[2021-04-21 11:20] LABS: D Dimer < 200 NG/ML
[2021-04-21 11:23] LABS: Anion Gap 10 (12-20); Blood Urea Nitrogen 12 mg/dL (9-16); Calcium 9.9 mg/dL (8.4-10.2); Carbon Dioxide 30 mmol/L (22-29); Chloride 106 mmol/L (96-108); Creatinine Clr Calc Pharmacy 62.7; Estimated Glomerular Filt Rate 59; Glucose Random 116 mg/dL (60-115); Lipase 54 U/L (8-78); Potassium 4.4 mmol/L (3.3-5.1); Sodium 142 mmol/L (135-145)
[2021-04-21 11:28] LABS: Troponin-I High Sensitivity < 3.5 ng/L (<3.5-17.0)
[2021-04-21 11:29] LABS: B Type Natriuretic Peptide < 10 pg/mL (<100)
[2021-04-21 12:40] VITALS: BP 149/65; PULSE 73; RESP 18
== END 2021-04-21 12:41 | disposition home or self-care (01) ==
PROVIDERS: Emergency Provider Emergency Medicine; PCP Internal Medicine
DX: R07.9 Chest pain, unspecified (principal); M79.601 Pain in right arm; R20.0 Anesthesia of skin; R06.02 Shortness of breath; Z79.899 Other long term (current) drug therapy
CPT/HCPCS: 36415; 71045; 80048; 81003; 82550; 83690; 83880; 84484; 85025; 85379; 93005; 99283; 99284

== ENCOUNTER → 2021-04-23 14:06 | Outpatient (BNVA) | payer OTHER, SELFPAY | PROVIDERS: PCP Internal Medicine; Referring Provider Internal Medicine; Visit Provider Nurse Practitioner Family | DX: R07.89 Other chest pain (principal); I10 Essential (primary) hypertension; E66.9 Obesity, unspecified | CPT/HCPCS: 99212 ==

== ENCOUNTER 2021-05-12 10:42 | Outpatient (REF) | payer OTHER, SELFPAY ==
[2021-05-12 10:48] LABS: MANUAL DIFF FLAG NO
[2021-05-12 11:05] LABS: Basophils Percent Auto 0.6 % (0-2); Eosinophils Absolute Auto 0.1 X10*3/uL (0.0-0.4); Eosinophils Percent Auto 2.5 % (0-4); Hematocrit 35.1 % (37-47); Hemoglobin 11.3 g/dl (12.0-16.0); Imm Gran Abs Auto 0.02 X10*3/uL (0.00-0.03); Imm Gran Pct Auto 0.4 % (0.0-0.4); Lymphocytes Absolute Auto 1.7 X10*3/uL (1.2-4.9); Lymphocytes Percent Auto 33.1 % (20-40); Mean Corpuscular HGB Conc 32.2 g/dl (31.0-35.0); Mean Corpuscular Hemoglobin 27.2 pg (27.0-33.0); Mean Corpuscular Volume 84.4 fL (80-98); Mean Platelet Volume 11.2 fL (9.4-12.3); Monocytes Absolute Auto 0.5 X10*3/uL (0.1-1.2); Monocytes Percent Auto 8.8 % (2-11); Neutrophils Absolute Auto 2.8 X10*3/uL (2.0-8.3); Neutrophils Percent Auto 54.6 % (45-73); Platelet Count 271 X10*3/uL (160-400); Red Blood Count 4.16 X10*6/uL (4.20-5.50); Red Cell Distribution Width 12.7 % (11.0-16.0); White Blood Count 5.1 X10*3/uL (4.8-10.8)
[2021-05-12 11:12] LABS: Estimated Average Glucose 157 mg/dL; Hemoglobin A1C 149.3607 umol/L; Hemoglobin A1c % 7.1 %
[2021-05-12 11:31] LABS: Alanine Aminotransferase 18 U/L (0-31); Alkaline Phosphatase 77 U/L (39-117); Anion Gap 10 (12-20); Aspartate Amino Transferase 15 U/L (5-31); Bilirubin Total 0.3 mg/dL (0.0-1.0); Blood Urea Nitrogen 14 mg/dL (9-16); Calcium 9.4 mg/dL (8.4-10.2); Carbon Dioxide 30 mmol/L (22-29); Chloride 108 mmol/L (96-108); Cholesterol 145 mg/dL; Estimated Glomerular Filt Rate 53; Glucose Fasting 166 mg/dL (60-99); HDL Cholesterol 39 mg/dL; LDL Cholesterol Calculated 84 mg/dl; Potassium 4.7 mmol/L (3.3-5.1); Sodium 143 mmol/L (135-145); Total Protein 7.2 g/dL (6.5-8.0); Triglycerides 114 mg/dL
[2021-05-12 11:34] LABS: Appearance Urine CLEAR; Color Urine STRAW; Glucose Urine UA NEG (NEG); Leukocyte Esterase Urine NEG (NEG); Nitrite Urine NEG (NEG); Urine Blood NEG (NEG); Urine Ketones NEG (NEG); Urine Protein NEG (NEG-TRACE)
[2021-05-12 11:53] LABS: Free T4 (Free Thyroxine) 0.99 ng/dL (0.71-1.85)
[2021-05-12 12:05] LABS: Folate 6.5 ng/mL (> or = 4.0); Vitamin B12 237 pg/mL (200-900)
[2021-05-12 12:30] LABS: Creatinine Urine 65.95 mg/dL; Microalbumin Urine < 5.0 mg/L
== END 2021-05-12 10:43 | disposition home or self-care (01) ==
LOC: HO.LAB 10:42
PROVIDERS: Absent Provider Internal Medicine; PCP Internal Medicine; Visit Provider Nurse Practitioner Gerontology
DX: E53.8 Deficiency of other specified B group vitamins (principal); I12.9 Hypertensive chronic kidney disease with stage 1 through stage 4 chronic kidney disease, or unspecified chronic kidney disease; E11.22 Type 2 diabetes mellitus with diabetic chronic kidney disease; N18.2 Chronic kidney disease, stage 2 (mild); E03.9 Hypothyroidism, unspecified; E78.00 Pure hypercholesterolemia, unspecified; Z79.4 Long term (current) use of insulin
CPT/HCPCS: 36415; 80053; 80061; 81003; 82043; 82607; 82746; 83036; 84439; 84443; 85025

== ENCOUNTER 2021-05-15 13:45 | Outpatient (REF) | payer OTHER, SELFPAY ==
--- NOTE | ~2021-05-15 | XR_ITS ---
EXAMINATION: XR SHOULDER, LEFT CLINICAL INFORMATION: Left shoulder pain status post fall 4 days ago. COMPARISON: None TECHNIQUE: AP external rotation, Grashey, scapular Y, and axillary views of the left shoulder. FINDINGS: The bones and soft tissues are normal. No fracture. Glenohumeral and acromioclavicular alignment is anatomic with normal joint space. No abnormal soft tissue calcifications. XR/XR shoulder LT min 2V IMPRESSION: Unremarkable left shoulder.
== END 2021-05-15 13:46 | disposition home or self-care (01) ==
LOC: HO.XRAY 13:45
PROVIDERS: PCP Internal Medicine; Visit Provider Internal Medicine
DX: M25.512 Pain in left shoulder (principal); Z91.81 History of falling
CPT/HCPCS: 73030

== ENCOUNTER 2021-06-30 10:00 | Outpatient (REF) | payer OTHER, SELFPAY ==
--- NOTE | ~2021-06-30 | XR_ITS ---
EXAMINATION: XR CHEST CLINICAL INFORMATION: Dyspnea COMPARISON: Previous chest x-ray April 2021 TECHNIQUE: 2 views of the chest were obtained. FINDINGS: The cardiac silhouette does not appear enlarged. Hilar and mediastinal contours are unremarkable. There are new nodular opacities in the peripheral right mid and lower lung and left lower lung. Largest nodular opacity measures 1 cm in between the left seventh and eighth anterior ribs at the lateral costophrenic angle. This is a new finding from recent exam June 2021 favoring an infectious or inflammatory process. There is no pleural effusion or pneumothorax. Bony structures are unremarkable. XR/XR chest 2V IMPRESSION: New bibasilar peripheral nodular opacities, question representing an infectious or inflammatory process/infiltrate. Chest x-ray follow-up following treatment recommended. Findings will be communicated by the [place] work flow sales floor manager Jaylin Loja.
== END 2021-06-30 10:01 | disposition home or self-care (01) ==
LOC: HO.XRAY 10:00
PROVIDERS: PCP Internal Medicine; Visit Provider Internal Medicine
DX: R06.00 Dyspnea, unspecified (principal)
CPT/HCPCS: 71046

== ENCOUNTER 2021-07-15 09:10 | Outpatient (REF) | payer OTHER, SELFPAY ==
--- NOTE | 2021-07-15 09:13 | EMG_ITS ---
This is a 55-year-old woman with a 6 month history of bilateral upper extremity pain, numbness, and tingling. Neurological examination is normal. No Tinel or Phalen sign. IMPRESSION: Rule out carpal tunnel syndrome. Nerve conduction EMG study: Early carpal tunnel syndrome bilaterally. Normal EMG of the left C5-T1 innervated muscles. MD MINOO Putnam/DEANGELO / [phone]
== END 2021-07-15 09:11 | disposition home or self-care (01) ==
LOC: HO.NEURO 09:10
PROVIDERS: PCP Internal Medicine; Visit Provider Internal Medicine
DX: G62.9 Polyneuropathy, unspecified (principal)
CPT/HCPCS: 95885; 95913

== ENCOUNTER 2021-07-17 09:38 | Outpatient (REF) | payer OTHER, SELFPAY ==
--- NOTE | ~2021-07-17 | XR_ITS ---
EXAMINATION: CR CHEST CLINICAL INFORMATION: Other nonspecific abnormal finding of lung field. Previous chest x-ray had shown new bibasilar peripheral nodular opacities, question representing infectious or inflammatory process. COMPARISON: Chest x-ray dated 06/30/2021. TECHNIQUE: 2 views of the chest were obtained. FINDINGS: The cardiomediastinal silhouette is within normal limits in size. Mild asymmetric elevation of the right hemidiaphragm is again seen with crowding of bronchovascular markings in the right lung base. There is a faint nodular density versus summation shadow in the lateral right lower lung, superimposed upon the inferior margin of the anterior right fifth rib. Other previously seen nodular opacities in the lung bases are not reproduced on this exam. No focal consolidation, effusion or pneumothorax is seen. Bony structures are unremarkable. XR/XR chest 2V IMPRESSION: Single nodular opacity remains in the lower right chest, superimposed upon the anterior right fifth rib. While this nodular density remains indeterminate in etiology, a benign etiology is favored given resolution of other previously seen nodular opacities in the lower lungs and relatively short time interval of appearance of these nodular densities with previous chest x-ray from 04/21/2021 showing no focal nodularity. Close clinical correlation is requested. Depending on clinical risk factors, additional imaging with CT scan of the chest versus continued serial plain film follow-up could be performed.
== END 2021-07-17 09:39 | disposition home or self-care (01) ==
LOC: HO.XRAY 09:38
PROVIDERS: Absent Provider Internal Medicine; PCP Internal Medicine; Visit Provider Internal Medicine Endocrinology, Diabetes & Metabolism
DX: R91.8 Other nonspecific abnormal finding of lung field (principal)
CPT/HCPCS: 71046

== ENCOUNTER 2021-07-17 09:41 | Outpatient (REF) | payer OTHER, SELFPAY ==
[2021-07-17 10:30] LABS: COVID-19 Test Negative (Negative)
[2021-07-17 10:52] LABS: Free T4 (Free Thyroxine) 1.13 ng/dL (0.71-1.85); Thyroid Stimulating Hormone 2.58 uIU/mL (0.32-4.0)
== END 2021-07-17 09:42 | disposition home or self-care (01) ==
LOC: HO.LAB 09:41
PROVIDERS: Internal Medicine Endocrinology, Diabetes & Metabolism; Visit Provider Internal Medicine
DX: Z20.822 Contact with and (suspected) exposure to COVID-19 (principal); E03.8 Other specified hypothyroidism; E04.2 Nontoxic multinodular goiter; E06.3 Autoimmune thyroiditis
CPT/HCPCS: 36415; 84439; 84443; 87635; C9803

== ENCOUNTER 2021-08-31 13:43 | Outpatient (REF) | payer OTHER, SELFPAY | END 2021-08-31 13:44 | disposition home or self-care (01) | LOC: HO.LNP 13:43 | PROVIDERS: Visit Provider Hospitalist | DX: Z20.822 Contact with and (suspected) exposure to COVID-19 (principal); R06.02 Shortness of breath; J45.20 Mild intermittent asthma, uncomplicated | CPT/HCPCS: U0003; U0005 ==

== ENCOUNTER 2021-09-14 11:46 | Outpatient (REF) | payer OTHER, SELFPAY ==
--- NOTE | ~2021-09-14 | XR_ITS ---
EXAMINATION: XR CHEST CLINICAL INFORMATION: Other nonspecific abnormal finding or lung fletcher. COMPARISON: Chest radiograph 07/17/2021. TECHNIQUE: 2 views of the chest were obtained. FINDINGS: No significant abnormality is noted involving the heart, lungs, mediastinum, bony thorax or soft tissues. Previously seen equivocal right lung nodule is not appreciated on the current exam. XR/XR chest 2V IMPRESSION: Normal chest.
== END 2021-09-14 11:47 | disposition home or self-care (01) ==
LOC: HO.XRAY 11:46
PROVIDERS: PCP Internal Medicine; Visit Provider Internal Medicine
DX: R91.8 Other nonspecific abnormal finding of lung field (principal)
CPT/HCPCS: 71046

== ENCOUNTER → 2021-10-08 12:38 | Outpatient (BNVA) | payer OTHER, SELFPAY | PROVIDERS: PCP Internal Medicine; Visit Provider Internal Medicine Endocrinology, Diabetes & Metabolism | DX: E03.8 Other specified hypothyroidism (principal); E06.3 Autoimmune thyroiditis; E04.2 Nontoxic multinodular goiter | CPT/HCPCS: 99212 ==

== ENCOUNTER → 2021-10-27 12:45 | Outpatient (BNVA) | payer OTHER, SELFPAY | PROVIDERS: PCP Internal Medicine; Visit Provider Nurse Practitioner Gerontology | DX: E11.22 Type 2 diabetes mellitus with diabetic chronic kidney disease (principal); I12.9 Hypertensive chronic kidney disease with stage 1 through stage 4 chronic kidney disease, or unspecified chronic kidney disease; N18.2 Chronic kidney disease, stage 2 (mild); E78.5 Hyperlipidemia, unspecified; E06.3 Autoimmune thyroiditis; E55.9 Vitamin D deficiency, unspecified; E66.09 Other obesity due to excess calories; Z68.32 Body mass index [BMI] 32.0-32.9, adult | CPT/HCPCS: 82947; 99212 ==

== ENCOUNTER 2021-11-03 10:29 | Outpatient (REF) | payer OTHER, SELFPAY ==
--- NOTE | ~2021-11-03 | US_ITS ---
EXAMINATION: US THYROID CLINICAL INFORMATION: Nontoxic multinodular goiter. COMPARISON: Ultrasound thyroid 07/01/2020. Ultrasound thyroid soft tissue neck 10/10/2019. TECHNIQUE: Linear transducer grayscale and color Doppler examination with attention to the region of the thyroid. FINDINGS: SIZE: Measurements of the thyroid lobes and nodules are given in sagittal, anteroposterior and transverse dimensions respectively. Right Thyroid Lobe: 4.6 x 1.7 x 2.0 cm, volume 8.2 mL. Previously 5.0 x 2.0 x 1.8 cm, volume 9.5 mL. Parenchyma: The gland echotexture is heterogeneous. Thyroid vascularity is normal. Left Thyroid Lobe: 3.5 x 1.4 x 1.6 cm, volume 4.1 mL. Previously 3.7 x 2.1 x 1.5 cm, volume 5.9 mL. Parenchyma: The gland echotexture is heterogeneous. Thyroid vascularity is normal. Isthmus: 0.5 cm in maximum AP dimension. Previously 0.6 cm. Estimated total number of nodules greater than or equal to 1 cm: 1. Help Desk Support nodules are described as follows: 1. Location: Right lower pole. Size: 1.4 x 1.2 x 1.2 cm, volume 1.0 mL. Previously: 1.3 x 1.2 x 1.5 cm, volume 1.2 mL. Nodule characteristics: Composition: Solid (2). Echogenicity: Hyperechoic (1). Shape: Not taller than wide (0). Margins: Ill-defined (0). Echogenic Foci: None (0). ACR TI-RADS total points: 1 Previous: 1 ACR TI-RADS category: 3 Previous: 1 Significant change in size (>/= 20% in 2 dimensions and minimal increase of 2 mm or 50% or greater increase in volume): None Change in features: None Change in ACR TI-RADS risk category: Not applicable 2. Location: Right lower pole. Size: 0.6 x 0.6 x 0.6 cm, volume 0.1 mL. Previously: 0.6 x 0.7 x 0.6 cm, volume 0.1 mL. Nodule characteristics: Composition: Solid (2). Echogenicity: Hyperechoic (1). Shape: Not taller than wide (0). Margins: Smooth (0). Echogenic Foci: None (0). ACR TI-RADS total points: 3 Previous: 1 ACR TI-RADS category: 3 Previous: 1 Significant change in size (>/= 20% in 2 dimensions and minimal increase of 2 mm or 50% or greater increase in volume): None Change in features: None Change in ACR TI-RADS risk category: Not applicable NODES: No lymphadenopathy is seen in the tissue surrounding the thyroid gland. US/US thyroid IMPRESSION: No major change in the size of the nodules and thyroid gland. ACR TI-RADS RECOMMENDATION REFERENCE: Ultrasound-guided fine-needle aspiration, followup ultrasound, no further follow up. * TR1 (0 point) and TR 2 (2 points): No FNA or follow up * TR3 (3 points): FNA if more than or equal to 2.5 cm in maximum dimension, followup ultrasound in 1, 3 and 5 years if 1.5 to 2.4 cm in maximum dimension. * TR4 (4-6 points): FNA if more than or equal to 1.5 cm in maximum dimension, followup ultrasound in 1, 2, 3 and 5 years if 1 to 1.4 cm in maximum dimension. * TR5 (more than or equal to 7 points): FNA if more than or equal to 1 cm in maximum dimension, followup ultrasound every year for 5 years if 0.5 to 0.9 cm in maximum dimension. * TR3, TR4 or TR5 nodules that are below the size threshold for follow up receive no follow up.
[2021-11-03 11:11] LABS: MANUAL DIFF FLAG NO
[2021-11-03 11:48] LABS: Basophils Absolute Auto 0.1 X10*3/uL (0.0-0.2); Basophils Percent Auto 0.9 % (0-2); Eosinophils Absolute Auto 0.1 X10*3/uL (0.0-0.4); Eosinophils Percent Auto 2.5 % (0-4); Hemoglobin 11.7 g/dl (12.0-16.0); Imm Gran Abs Auto 0.02 X10*3/uL (0.00-0.03); Imm Gran Pct Auto 0.4 % (0.0-0.4); Lymphocytes Absolute Auto 2.3 X10*3/uL (1.2-4.9); Lymphocytes Percent Auto 40.4 % (20-40); Mean Corpuscular HGB Conc 32.5 g/dl (31.0-35.0); Mean Corpuscular Hemoglobin 27.9 pg (27.0-33.0); Mean Corpuscular Volume 85.9 fL (80.0-98.0); Mean Platelet Volume 11.2 fL (9.4-12.3); Monocytes Absolute Auto 0.5 X10*3/uL (0.1-1.2); Monocytes Percent Auto 9.5 % (2-11); Neutrophils Absolute Auto 2.6 x10*3/uL (2.0-8.3); Neutrophils Percent Auto 46.3 % (45-73); Platelet Count 313 X10*3/uL (160-400); Red Blood Count 4.19 X10*6/uL (4.20-5.50); Red Cell Distribution Width 12.5 % (11.0-16.0); White Blood Count 5.6 X10*3/uL (4.8-10.8)
[2021-11-03 12:01] LABS: Estimated Average Glucose 180 mg/dL; Hemoglobin A1c % 7.9 %
[2021-11-03 12:27] LABS: Alanine Aminotransferase 18 U/L (0-31); Alkaline Phosphatase 74 U/L (39-117); Anion Gap 10 (12-20); Aspartate Amino Transferase 15 U/L (5-31); Bilirubin Total 0.3 mg/dL (0.0-1.0); Blood Urea Nitrogen 7 mg/dL (9-16); Calcium 9.4 mg/dL (8.4-10.2); Carbon Dioxide 28 mmol/L (22-29); Chloride 105 mmol/L (96-108); Cholesterol 171 mg/dL; Estimated Glomerular Filt Rate 54; Glucose Fasting 131 mg/dL (60-99); HDL Cholesterol 35 mg/dL; LDL Cholesterol Calculated 115 mg/dl; Potassium 4.4 mmol/L (3.3-5.1); Sodium 139 mmol/L (135-145); Total Protein 7.2 g/dL (6.5-8.0); Triglycerides 109 mg/dL
[2021-11-03 12:30] LABS: Appearance Urine CLEAR; Color Urine YELLOW; Glucose Urine UA NEG (NEG); Leukocyte Esterase Urine NEG (NEG); Nitrite Urine NEG (NEG); PH 5.5 (5.0-8.0); Urine Blood NEG (NEG); Urine Ketones NEG (NEG); Urine Protein NEG (NEG-TRACE)
[2021-11-03 12:52] LABS: Free T4 (Free Thyroxine) 1.11 ng/dL (0.71-1.85)
[2021-11-03 13:04] LABS: Creatinine Urine 74.31 mg/dL; Microalbumin Urine < 5.0 mg/L
== END 2021-11-03 10:30 | disposition home or self-care (01) ==
LOC: HO.US 10:29
PROVIDERS: PCP Internal Medicine; Visit Provider Internal Medicine Endocrinology, Diabetes & Metabolism
DX: E55.9 Vitamin D deficiency, unspecified (principal); I10 Essential (primary) hypertension; E03.9 Hypothyroidism, unspecified; E04.2 Nontoxic multinodular goiter; E11.9 Type 2 diabetes mellitus without complications; E78.00 Pure hypercholesterolemia, unspecified
CPT/HCPCS: 36415; 76536; 80053; 80061; 81003; 82043; 82306; 83036; 84439; 84443; 85025

== ENCOUNTER → 2022-01-12 13:12 | Outpatient (BNVA) | payer OTHER, SELFPAY | PROVIDERS: PCP Internal Medicine; Visit Provider Registered Nurse Diabetes Educator | DX: E11.9 Type 2 diabetes mellitus without complications (principal) | CPT/HCPCS: 95250 ==

== ENCOUNTER → 2022-01-26 13:55 | Outpatient (BNVA) | payer OTHER, SELFPAY | PROVIDERS: PCP Internal Medicine; Visit Provider Nurse Practitioner Gerontology | DX: E11.22 Type 2 diabetes mellitus with diabetic chronic kidney disease (principal); I12.9 Hypertensive chronic kidney disease with stage 1 through stage 4 chronic kidney disease, or unspecified chronic kidney disease; N18.2 Chronic kidney disease, stage 2 (mild); E06.3 Autoimmune thyroiditis; E55.9 Vitamin D deficiency, unspecified; E78.5 Hyperlipidemia, unspecified; E66.09 Other obesity due to excess calories; Z68.34 Body mass index [BMI] 34.0-34.9, adult; Z79.4 Long term (current) use of insulin; Z79.899 Other long term (current) drug therapy | CPT/HCPCS: 82947; 83036; 99212 ==

== ENCOUNTER 2022-04-10 10:19 | Outpatient (REF) | payer OTHER, SELFPAY ==
--- NOTE | ~2022-04-10 | MM_ITS ---
EXAMINATION: MM SCREENING DIGITAL BREAST TOMOSYNTHESIS, BILATERAL CLINICAL INFORMATION: Screening. Asymptomatic. The lifetime risk of breast cancer based on the Tyrer-Cuzick Model is 4%. COMPARISON: Mammography: 07/16/2019, 07/10/2018, 07/06/2017 TECHNIQUE: Digital breast tomosynthesis is performed in both the craniocaudal and mediolateral oblique views along with computer-aided detection (CAD). Synthesized 2D images are generated from the tomosynthesis. Additional left cleavage view is provided. FINDINGS: The breasts are almost entirely fatty (ACR BI-RADS breast composition Category a). There are no significant masses, abnormal calcifications, or other abnormalities. Background fibroglandular densities and stromal markings are similar to prior studies. No developing density. No significant changes. MM/MM tomosynthesis screening BI IMPRESSION: No mammographic evidence of malignancy. ASSESSMENT: BI-RADS 1: Negative RECOMMENDATION: Routine annual mammography screening. This patient's information was entered into a reminder system with a target due date for their next mammogram.
== END 2022-04-10 10:20 | disposition home or self-care (01) ==
LOC: HO.MAMMO 10:19
PROVIDERS: PCP Internal Medicine; Visit Provider Internal Medicine
DX: Z12.31 Encounter for screening mammogram for malignant neoplasm of breast (principal)
CPT/HCPCS: 77063; 77067

== ENCOUNTER 2022-04-22 11:41 | Outpatient (REF) | payer OTHER, SELFPAY ==
[2022-04-22 12:23] LABS: MANUAL DIFF FLAG NO
[2022-04-22 12:54] LABS: Basophils Absolute Auto 0.1 X10*3/uL (0.0-0.2); Basophils Percent Auto 0.9 % (0-2); Eosinophils Absolute Auto 0.1 X10*3/uL (0.0-0.4); Eosinophils Percent Auto 2.2 % (0-4); Hematocrit 38.5 % (37.0-47.0); Hemoglobin 12.3 g/dl (12.0-16.0); Imm Gran Abs Auto 0.01 X10*3/uL (0.00-0.03); Imm Gran Pct Auto 0.2 % (0.0-0.4); Lymphocytes Absolute Auto 2.1 X10*3/uL (1.2-4.9); Mean Corpuscular HGB Conc 31.9 g/dl (31.0-35.0); Mean Corpuscular Hemoglobin 27.4 pg (27.0-33.0); Mean Corpuscular Volume 85.7 fL (80.0-98.0); Mean Platelet Volume 11.9 fL (9.4-12.3); Monocytes Absolute Auto 0.5 X10*3/uL (0.1-1.2); Monocytes Percent Auto 8.7 % (2-11); Platelet Count 274 X10*3/uL (160-400); Red Blood Count 4.49 X10*6/uL (4.20-5.50); Red Cell Distribution Width 12.4 % (11.0-16.0); White Blood Count 5.8 X10*3/uL (4.8-10.8)
[2022-04-22 13:05] LABS: Appearance Urine Clear; Color Urine Yellow; Glucose Urine UA Negative (Negative); Leukocyte Esterase Urine Negative (Negative); Nitrite Urine Negative (Negative); Specific Gravity - Urine 1.015 (1.005-1.025); Urine Blood Negative (Negative); Urine Ketones Negative (Negative); Urine Protein Negative (Neg-Trace)
[2022-04-22 13:13] LABS: Estimated Average Glucose 194 mg/dL; Hemoglobin A1c % 8.4 %
[2022-04-22 13:24] LABS: Alanine Aminotransferase 17 U/L (0-31); Albumin Level 4.3 g/dL (3.5-5.0); Alkaline Phosphatase 82 U/L (39-117); Anion Gap 14 (12-20); Aspartate Amino Transferase 16 U/L (5-31); Bilirubin Total 0.4 mg/dL (0.0-1.0); Blood Urea Nitrogen 13 mg/dL (9-16); Calcium 9.6 mg/dL (8.4-10.2); Carbon Dioxide 27 mmol/L (22-29); Chloride 103 mmol/L (96-108); Cholesterol 197 mg/dL; Estimated Glomerular Filt Rate 45; Glucose Fasting 155 mg/dL (60-99); HDL Cholesterol 37 mg/dL; LDL Cholesterol Calculated 139 mg/dl; Potassium 4.2 mmol/L (3.3-5.1); Sodium 140 mmol/L (135-145); Total Protein 7.7 g/dL (6.5-8.0); Triglycerides 107 mg/dL
[2022-04-22 13:28] LABS: Creatinine Urine 127.05 mg/dL; Microalbumin Urine < 5.0 mg/L
[2022-04-22 13:37] LABS: Free T4 (Free Thyroxine) 0.98 ng/dL (0.71-1.85); Thyroid Stimulating Hormone 9.36 uIU/mL (0.32-4.0); Vitamin D 25-OH Total 22.6 ng/mL (>30)
== END 2022-04-22 11:42 | disposition home or self-care (01) ==
LOC: HO.LAB 11:41
PROVIDERS: PCP Internal Medicine; Visit Provider Internal Medicine
DX: E78.00 Pure hypercholesterolemia, unspecified (principal); E11.9 Type 2 diabetes mellitus without complications; E03.9 Hypothyroidism, unspecified; E55.9 Vitamin D deficiency, unspecified; I10 Essential (primary) hypertension
CPT/HCPCS: 36415; 80053; 80061; 81003; 82043; 82306; 83036; 84439; 84443; 85025

== ENCOUNTER → 2022-04-29 13:20 | Outpatient (BNVA) | payer OTHER, SELFPAY | PROVIDERS: PCP Internal Medicine; Visit Provider Internal Medicine Endocrinology, Diabetes & Metabolism | DX: E11.8 Type 2 diabetes mellitus with unspecified complications (principal); E03.8 Other specified hypothyroidism; E06.3 Autoimmune thyroiditis; E78.5 Hyperlipidemia, unspecified; E04.2 Nontoxic multinodular goiter; E78.00 Pure hypercholesterolemia, unspecified | CPT/HCPCS: 82947; 99212 ==

== ENCOUNTER 2022-05-11 10:01 | Outpatient (REF) | payer OTHER, SELFPAY ==
[2022-05-11 10:26] LABS: MANUAL DIFF FLAG NO
[2022-05-11 10:56] LABS: Basophils Percent Auto 0.7 % (0-2); Eosinophils Absolute Auto 0.1 X10*3/uL (0.0-0.4); Eosinophils Percent Auto 1.8 % (0-4); Hematocrit 35.6 % (37.0-47.0); Hemoglobin 11.7 g/dl (12.0-16.0); Imm Gran Abs Auto 0.02 X10*3/uL (0.00-0.03); Imm Gran Pct Auto 0.3 % (0.0-0.4); Lymphocytes Absolute Auto 2.1 X10*3/uL (1.2-4.9); Lymphocytes Percent Auto 35.5 % (20-40); Mean Corpuscular HGB Conc 32.9 g/dl (31.0-35.0); Mean Corpuscular Hemoglobin 27.8 pg (27.0-33.0); Mean Corpuscular Volume 84.6 fL (80.0-98.0); Mean Platelet Volume 11.2 fL (9.4-12.3); Monocytes Absolute Auto 0.5 X10*3/uL (0.1-1.2); Monocytes Percent Auto 8.7 % (2-11); Neutrophils Absolute Auto 3.2 x10*3/uL (2.0-8.3); Platelet Count 284 X10*3/uL (160-400); Red Blood Count 4.21 X10*6/uL (4.20-5.50)
[2022-05-11 11:03] LABS: Estimated Average Glucose 177 mg/dL; Hemoglobin A1c % 7.8 %
[2022-05-11 11:11] LABS: Alanine Aminotransferase 20 U/L (0-31); Albumin Level 4.3 g/dL (3.5-5.0); Alkaline Phosphatase 81 U/L (39-117); Anion Gap 13 (12-20); Aspartate Amino Transferase 19 U/L (5-31); Bilirubin Total 0.2 mg/dL (0.0-1.0); Blood Urea Nitrogen 14 mg/dL (9-16); Calcium 9.7 mg/dL (8.4-10.2); Carbon Dioxide 26 mmol/L (22-29); Chloride 105 mmol/L (96-108); Cholesterol 171 mg/dL; Estimated Glomerular Filt Rate 47; Glucose Fasting 147 mg/dL (60-99); HDL Cholesterol 37 mg/dL; LDL Cholesterol Calculated 118 mg/dl; Potassium 4.2 mmol/L (3.3-5.1); Sodium 140 mmol/L (135-145); Total Protein 7.6 g/dL (6.5-8.0); Triglycerides 82 mg/dL
[2022-05-11 11:34] LABS: TSH reflex Free T4 3.02 uIU/mL (0.32-4.0); Vitamin D 25-OH Total 22.5 ng/mL (>30)
[2022-05-11 11:53] LABS: Appearance Urine Clear; Color Urine Yellow; Glucose Urine UA >=1000 mg/dL (Negative); Leukocyte Esterase Urine Negative (Negative); Nitrite Urine Negative (Negative); PH 5.5 (5.0-9.0); Specific Gravity - Urine 1.025 (1.005-1.025); UMIC TRIGGER UACC YES; Urine Blood Negative (Negative); Urine Ketones Negative (Negative); Urine Protein Negative (Neg-Trace)
[2022-05-11 12:01] LABS: Bacteria Urine Trace (None Seen); Hyaline Casts Urine 0-2 /LPF (0-2); RBC Urine 0-2 /HPF (0-2); WBC Urine 0-5 /HPF (0-5)
[2022-05-11 12:15] LABS: Creatinine Urine 97.07 mg/dL; Microalbumin Urine < 5.0 mg/L
== END 2022-05-11 10:02 | disposition home or self-care (01) ==
LOC: HO.LAB 10:01
PROVIDERS: Absent Provider Internal Medicine; PCP Internal Medicine; Visit Provider Internal Medicine Endocrinology, Diabetes & Metabolism
DX: E78.00 Pure hypercholesterolemia, unspecified (principal); E11.8 Type 2 diabetes mellitus with unspecified complications; E04.2 Nontoxic multinodular goiter; E03.8 Other specified hypothyroidism; E06.3 Autoimmune thyroiditis; E78.5 Hyperlipidemia, unspecified; I10 Essential (primary) hypertension; E55.9 Vitamin D deficiency, unspecified
CPT/HCPCS: 36415; 80048; 80053; 80061; 81001; 82043; 82306; 83036; 84443; 85025

== ENCOUNTER 2022-05-24 14:00 | Outpatient (REF) | payer OTHER, SELFPAY ==
[2022-05-24 15:38] LABS: Appearance Urine Clear; Color Urine Yellow; Glucose Urine UA >=1000 mg/dL (Negative); Leukocyte Esterase Urine Negative (Negative); Nitrite Urine Negative (Negative); PH 5.5 (5.0-9.0); UMIC TRIGGER UACC YES; Urine Blood Negative (Negative); Urine Ketones Negative (Negative); Urine Protein Negative (Neg-Trace)
[2022-05-24 15:40] LABS: Cholesterol 118 mg/dL; HDL Cholesterol 36 mg/dL; LDL Cholesterol Calculated 64 mg/dl; Triglycerides 93 mg/dL
[2022-05-24 15:43] LABS: Bacteria Urine 1+ (None Seen); Hyaline Casts Urine 0-2 /LPF (0-2); RBC Urine 0-2 /HPF (0-2); WBC Urine 0-5 /HPF (0-5)
[2022-05-24 16:01] LABS: Free T4 (Free Thyroxine) 1.25 ng/dL (0.71-1.85); Thyroid Stimulating Hormone 0.55 uIU/mL (0.32-4.0)
== END 2022-05-24 14:01 | disposition home or self-care (01) ==
LOC: HO.LAB 14:00
PROVIDERS: PCP Internal Medicine; Visit Provider Internal Medicine Endocrinology, Diabetes & Metabolism
DX: E11.8 Type 2 diabetes mellitus with unspecified complications (principal); E03.8 Other specified hypothyroidism; E04.2 Nontoxic multinodular goiter; E06.3 Autoimmune thyroiditis; E78.5 Hyperlipidemia, unspecified
CPT/HCPCS: 36415; 80061; 81001; 84439; 84443; 99211

== ENCOUNTER 2022-06-15 15:57 | Outpatient (AMB) | payer OTHER, SELFPAY ==
[2022-06-15 16:00] VITALS: BP 126/84; PULSE 85; O2SAT 98; BMI 31.6
--- NOTE | 2022-06-15 16:00 | A.OFFPC_ITS ---
Vital Signs 06/15/22 16:00 Height 5 ft 2 in Weight 173 lb BMI 31.6 BP 126/84 Blood Pressure Location Rt brachial Position Sitting Pulse 85 Pulse Source Pulse Oximeter Pulse Oximetry (%) 98 Oxygen Delivery Method Room Air Intake Visit Reasons: Shoulder pain Intake Note: Patient is here for shoulder pain she is experiencing. She states that this pain / discomfort has been going on for 3 months. 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 Required: No Accompanied by: Self / Same As Patient Allergies aspirin [ASPIRIN] Allergy (Severe, Verified 04/29/23 15:23) RASH, itchiness Penicillins [PENICILLINS] Allergy (Mild, Verified 04/29/23 15:23) RASH Medication List - Last Reconciled 05/01/23 by Hernesto Obregon MD [ABDOMINAL BINDER (elastic) - LARGE As directed] albuterol sulfate 90 mcg/actuation 2 puffs PO QID PRN albuterol sulfate 90 mcg/actuation (ProAir HFA) 2 puffs inhalation Q6H PRN 30 days albuterol sulfate 2.5 mg (3 mL) continuous nebulization Q6H PRN 30 days atorvastatin 80 mg PO BEDTIME blood pressure monitor As directed blood sugar diagnostic (FreeStyle Lite Strips) As directed 3 times a day gyygzjylhi-mpxjntcypnrdi-zzoz 50-325-40 mg 1 cap PO BID-TID PRN 30 days cholecalciferol (vitamin D3) 50 mcg PO DAILY cyclobenzaprine 10 mg PO TID PRN 30 days dapagliflozin propanediol (Farxiga) 5 mg PO DAILY dulaglutide (Trulicity) 4.5 mg (0.5 mL) subcut QWEEK ferrous fumarate 325 mg PO QWEEK flash glucose scanning reader (FreeStyle Galina 2 Elmo) As directed flash glucose sensor (FreeStyle Galina 2 Sensor kit) As directed change every 14 days insulin glargine (Lantus Solostar U-100 Insulin) 20 units (0.2 mL) subcut QPM lancets (FreeStyle Lancets) As directed checks 4 X/day lidocaine 5% 1 patch topical DAILY PRN 30 days lisinopril 30 mg PO DAILY lorazepam 0.5 mg PO TID PRN 30 days lubiprostone 24 mcg PO DAILY 30 days metformin 1,000 mg PO BID miscellaneous medical supply 1 ea miscellaneous DAILY montelukast 10 mg PO QPM 90 days [NEBULIZER and all related accessories As directed] orphenadrine citrate ER 100 mg PO BID PRN 30 days paroxetine HCl 40 mg PO DAILY 30 days risperidone 1 mg PO BEDTIME 30 days Tirosint (levothyroxine) 175 mcg PO DAILY 30 days NS tirzepatide (Mounjaro) 5 mg (0.5 mL) subcut QWEEK topiramate 50 mg PO BEDTIME 90 days tramadol 50 mg PO TID PRN Tobacco use date assessed: 01/27/22 HPI Shoulder pain HPI Details Patient comes in today for her follow up visit States that she has been experiencing increased pain over her left shoulder for the past few months Does not recall any recent injury or trauma to her shoulder She denies any fever or sore throat; denies any headaches or dizziness Denies any chest pains, no increased shortness of breath but feels that her asthma symptoms have been flaring up more often than usual lately States that her asthma has been well-controlled for a while now and she rarely has to use her Albuterol inhaler but recently has been noticing some on and off chest tightness - states that these are quickly relieved when she uses her Albuterol inhaler Denies any recent cough/cold symptoms lately No nausea/vomiting, no abdominal pain No change in bowel habits noted Had her follow-up labs done last month - to discuss her results [facility] Medical History Recurrent ventral incisional hernia Bipolar depression Anxiety Depression Left hip pain B12 deficiency Abnormal thyroid biopsy Non-toxic multinodular goiter Hypothyroidism Other and unspecified hyperlipidemia Type 2 diabetes mellitus with unspecified complications Obesity (BMI 30-39.9) Lumbar degenerative disc disease Vitamin B12 deficiency Acquired hypothyroidism Nonintractable headache Pure hypercholesterolemia Benign essential hypertension Chronic kidney disease, stage 2 (mild) Type 2 diabetes mellitus with diabetic chronic kidney disease Knee pain, bilateral Anxiety IBS (irritable bowel syndrome) Visual loss Tendonitis Neck pain Hernia Chronic abdominal pain Lumbar disc disease Depression Asthma Hx of headache Type 2 diabetes mellitus with hyperglycemia Autoimmune thyroiditis Hyperlipidemia LDL goal <100 Essential hypertension Vitamin D deficiency Obesity due to excess calories Surgical History S/P laparoscopy (~11/20/10) History of hernia repair Hx of exploratory laparotomy Family History Father Medical history unknown Mother Medical history unknown Social History Housing: Apartment Alcohol intake: never Patient Tobacco Use Status: Never used Tobacco e-Cigarette/Vaping Use: Never Used Second Hand Smoke Exposure: Yes service: No Current occupational status: disabled Cognitive needs: No Hearing needs: No Vision needs: Yes Questionnaire Thrive Questionnaire Date Thrive assessed: 01/27/22 STALIN-7 AMB Questionnaire STALIN-7 Date STALIN - 7 assessed: 01/27/22 Source: Developed by Drs. Ryland Guzman, Livia Donohue, Kristian Heredia and colleagues, with an educational ojno from [employer]. Review of Systems Const Denies chills, Reports fatigue, Denies fever(s) and Denies headache(s) ENT Denies dysphagia, Denies dizziness, Denies otalgia, Denies headache(s), Denies nasal congestion, Denies odynophagia and Denies sore throat Card Denies chest pain, Denies palpitations and Denies dyspnea Resp Denies chest congestion (but notes that her chest feels slightly tight at times lately), Denies cough, Denies dyspnea and Denies wheezing GI Denies abdominal pain, Denies constipation, Denies dysphagia, Denies heartburn, Denies diarrhea, Denies nausea, Denies odynophagia and Denies vomiting Denies difficulty voiding, Denies nocturia and Denies dysuria Musc Reports back pain and Reports arthralgias (both knees and left hip, on and off; chronic, over the left shoulder) Neuro Denies dizziness and Denies headache(s) Endo Reports fatigue and Denies palpitations Aller/Immun Denies wheezing Physical exam (Primary Care) Vital Signs: Last Vital Signs Pulse 85 06/15/22 16:00 BP 126/84 06/15/22 16:00 Pulse Ox 98 06/15/22 16:00 Oxygen Delivery Method Room Air 06/15/22 16:00 BMI result Body Mass Index 31.6 Tobacco/Smoking Status: Tobacco use Status Tobacco use date assessed 01/27/22 06/15/22 16:01 Patient Tobacco Use Status Never used Tobacco 06/15/22 16:01 Thrive Assessment: Date of Thrive Assessment Date Thrive assessed 01/27/22 06/15/22 16:01 Const General: no acute distress and alert HENMT Ears: TM's normal bilaterally and EAC's normal Throat: Yes posterior oropharynx normal and Yes tonsils normal (no TP congestion noted) Neck Neck: Yes no lymphadenopathy and Yes supple Resp Auscultation: clear to auscultation bilaterally, no crackles, no rales and no wheezes Cardio Rate: regular rate Rhythm: regular rhythm Heart sounds: no murmurs GI Palpation (GI): Soft to palpation and nontender Auscultation: normal bowel sounds Back/Spine/Pelvis Thoracic/Lumbar Spine: lumbar spinal tenderness Skin Rashes: no rashes Extrem General: Yes no clubbing, cyanosis or edema Left upper extremity: shoulder/upper arm Details: tenderness and abnormal ROM (limited ROM due to pain) Results Reviewed Results Reviewed: Laboratory Tests 05/11/22 05/11/22 05/11/22 10:23 10:23 10:23 WBC 6.0 Hgb 11.7 L Hct 35.6 L Plt Count 284 Sodium 140 Potassium 4.2 Creatinine 1.18 Estimated GFR 47 Fasting Glucose 147 H Hemoglobin A1c % 7.8 Calcium 9.7 AST 19 ALT 20 Triglycerides Cholesterol LDL Cholesterol, Calc HDL Cholesterol 25-OH Vitamin D Total 22.5 TSH Free T4 Ur Specific [place] Urine Protein Urine Glucose (UA) Urine Blood 05/24/22 05/24/22 14:28 14:34 WBC Hgb Hct Plt Count Sodium Potassium Creatinine Estimated GFR Fasting Glucose Hemoglobin A1c % Calcium AST ALT Triglycerides 93 Cholesterol 118 D LDL Cholesterol, Calc 64 HDL Cholesterol 36 25-OH Vitamin D Total TSH 0.55 Free T4 1.25 Ur Specific [place] 1.020 Urine Protein Negative Urine Glucose (UA) >=1000 H Urine Blood Negative Assessment and Plan Assessment & Plan (1) Left shoulder pain: Code(s): M25.512 - Pain in left shoulder Qualifiers: Chronicity: acute Qualified Code(s): M25.512 - Pain in left shoulder Plan: Patient states that her left shoulder has been bothering her for almost 3 months now X-rays of the shoulder done last year in May 2021 came out normal Will send for repeat left shoulder x-rays for further evaluation (2) Type 2 diabetes mellitus with diabetic chronic kidney disease: Code(s): E11.22 - Type 2 diabetes mellitus with diabetic chronic kidney disease Qualifiers: Chronic kidney disease stage: stage 2 (mild) Diabetes mellitus long distance operator insulin use: with alf use Qualified Code(s): E11.22 - Type 2 diabetes mellitus with diabetic chronic kidney disease; N18.2 - Chronic kidney disease, stage 2 (mild); Z79.4 - terminal makeup operator (current) use of insulin Plan: HgbA1c was at 7.8% on her labs done last month (in-office HgbA1c was at 7.3% when she was seen at the endocrinology office a few months ago) - goal is < 7.0% Reinforced diabetic diet Continue Trulicity 4.5 mg SQ once a week, Metformin 1000 mg BID, Basaglar 25 units SQ at bedtime Follow up with endocrinology as scheduled (3) Benign essential hypertension: Code(s): I10 - Essential (primary) hypertension Plan: Reinforced low sodium diet - goal is systolic BP of at least 120 mm or less Continue Lisinopril 30 mg QD (4) Pure hypercholesterolemia: Code(s): E78.00 - Pure hypercholesterolemia, unspecified Plan: Results of her labs done last month reviewed and discussed with patient Reinforced low cholesterol diet Continue Atorvastatin 20 mg QD Will recheck her labs again in 3 months for follow up (5) Chronic kidney disease, stage 2 (mild): Code(s): N18.2 - Chronic kidney disease, stage 2 (mild) Plan: Stable - will continue to monitor her renal function regularly/closely (6) Neuropathy: Code(s): G62.9 - Polyneuropathy, unspecified Plan: Patient's recurrent right hand numbness/symptoms suggest neuropathy as the most likely etiology EMG and NCV done a few months ago revealed findings of early CTS bilaterally Is encouraged to continue wearing her wrist braces as needed to help manage her symptoms (7) Acquired hypothyroidism: Code(s): E03.9 - Hypothyroidism, unspecified Plan: Her TFTs were normal on her labs done last month Continue Tirosint 175 mcg QD Will continue to monitor her TFTs regularly Follow up with endocrinology as scheduled (8) Asthma: Code(s): J45.909 - Unspecified asthma, uncomplicated Qualifiers: Asthma severity: moderate Asthma persistence: persistent Asthma complication type: uncomplicated Qualified Code(s): J45.40 - Moderate pe rsistent asthma, uncomplicated Plan: Continue Albuterol HFA 1 to 2 inhalations Q 6 hours PRN Will start her additionally on Montelukast 10 mg Q PM to help get her asthma symptoms back under control (9) Lumbar degenerative disc disease: Code(s): M51.36 - Other intervertebral disc degeneration, lumbar region Plan: Reinforced activity and weight lifting restrictions Continue Cyclobenzaprine 10 mg TID PRN and Orphenadrine 100 mg BID PRN with food; Lidocaine patches help as well (10) Vitamin B12 deficiency: Code(s): E53.8 - Deficiency of other specified B group vitamins Plan: Continue Vitamin B12 1000 mcg QD and B12 injection once a month (11) Vitamin D deficiency: Code(s): E55.9 - Vitamin D deficiency, unspecified Plan: Advised that her Vitamin D level is still low on her recent labs Continue Vitamin D3 2000 units QD for now (12) Obesity (BMI 30-39.9): Code(s): E66.9 - Obesity, unspecified Plan: Reinforced diet/exercise as tolerated/ lose weight Plan Follow up in 3 months Orders: Orders XR shoulder LT min 2V /16/22 M25.512 - Pain in left shoulder Lipid Panel 3 Months E78.00 - Pure hypercholesterolemia, unspecified Comprehensive Simpson. Panel Fast 3 Months E78.00 - Pure hypercholesterolemia, unspecified Hemoglobin A1c 3 Months E11.9 - Type 2 diabetes mellitus without complications Medications: New montelukast 10 mg PO QPM 90 tabs 1RF 90 days Coding Level of Care Code Est Pt Level 4 (65573) Diagnoses Acute pain of left shoulder M25.512 Chronicity: acute Type 2 diabetes mellitus with stage 2 chronic kidney disease, with long-term current use of insulin E11.22; N18.2; Z79.4 Chronic kidney disease stage: stage 2 (mild) Diabetes mellitus alf insulin use: with long distance operator use Benign essential hypertension I10 Pure hypercholesterolemia E78.00 Chronic kidney disease, stage 2 (mild) N18.2 Neuropathy G62.9 Acquired hypothyroidism E03.9 Moderate persistent asthma without complication J45.40 Asthma severity: moderate Asthma persistence: persistent Asthma complication type: uncomplicated Lumbar degenerative disc disease M51.36 Vitamin B12 deficiency E53.8 Vitamin D deficiency E55.9 Obesity (BMI 30-39.9) E66.9
== END 2022-06-15 16:36 | disposition home or self-care (01) ==
LOC: HO.HMGH 15:57
PROVIDERS: PCP Internal Medicine; Visit Provider Internal Medicine
DX: M25.512 Pain in left shoulder (principal); E11.22 Type 2 diabetes mellitus with diabetic chronic kidney disease; I12.9 Hypertensive chronic kidney disease with stage 1 through stage 4 chronic kidney disease, or unspecified chronic kidney disease; N18.2 Chronic kidney disease, stage 2 (mild)
CPT/HCPCS: 99214

== ENCOUNTER 2022-06-16 12:59 | Outpatient (REF) | payer OTHER, SELFPAY ==
--- NOTE | ~2022-06-16 | XR_ITS ---
EXAMINATION: XR SHOULDER, LEFT CLINICAL INFORMATION: M25.512 - Pain in left shoulder COMPARISON: Radiographs left shoulder 05/13/2017 TECHNIQUE: Left shoulder is imaged in 4 views. FINDINGS: No fracture, dislocation, or destructive process. Glenohumeral joint is normal. The acromioclavicular alignment normal. There is minor spurring from the superior lateral acromium likely at origin deltoid. No visible rotator cuff calcifications. XR/XR shoulder LT min 2V IMPRESSION: -No fracture, dislocation, or visible rotator cuff calcifications. -Minor spurring superior lateral acromium at origin deltoid.
== END 2022-06-16 13:00 | disposition home or self-care (01) ==
LOC: HO.XRAY 12:59
PROVIDERS: PCP Internal Medicine; Visit Provider Internal Medicine
DX: M25.512 Pain in left shoulder (principal)
CPT/HCPCS: 73030

== ENCOUNTER 2022-07-19 10:14 | Outpatient (REF) | payer OTHER, SELFPAY ==
[2022-07-19 11:04] LABS: Appearance Urine Clear; Color Urine Yellow; Glucose Urine UA >=1000 mg/dL (Negative); Leukocyte Esterase Urine Negative (Negative); Nitrite Urine Negative (Negative); PH 5.5 (5.0-9.0); UMIC TRIGGER UACC YES; Urine Blood Negative (Negative); Urine Ketones Negative (Negative); Urine Protein Negative (Neg-Trace)
[2022-07-19 11:15] LABS: Bacteria Urine 2+ (None Seen); Hyaline Casts Urine 0-2 /LPF (0-2); RBC Urine 0-2 /HPF (0-2); WBC Urine 0-5 /HPF (0-5)
[2022-07-19 11:50] LABS: Vitamin D 25-OH Total 26.1 ng/mL (>30)
== END 2022-07-19 10:15 | disposition home or self-care (01) ==
LOC: HO.LAB 10:14
PROVIDERS: PCP Internal Medicine; Visit Provider Internal Medicine Endocrinology, Diabetes & Metabolism
DX: E55.9 Vitamin D deficiency, unspecified (principal)
CPT/HCPCS: 36415; 81001; 81003; 82306

== ENCOUNTER → 2022-07-29 12:15 | Outpatient (BNVA) | payer OTHER, SELFPAY | PROVIDERS: PCP Internal Medicine; Visit Provider Internal Medicine Endocrinology, Diabetes & Metabolism | DX: E11.8 Type 2 diabetes mellitus with unspecified complications (principal); E03.8 Other specified hypothyroidism; E06.3 Autoimmune thyroiditis; E04.2 Nontoxic multinodular goiter; E78.00 Pure hypercholesterolemia, unspecified | CPT/HCPCS: 82947; 99212 ==

== ENCOUNTER 2022-09-15 11:46 | Outpatient (REF) | payer OTHER, SELFPAY ==
[2022-09-15 13:15] LABS: Estimated Average Glucose 169 mg/dL; Hemoglobin A1c % 7.5 %
[2022-09-15 13:30] LABS: Alanine Aminotransferase 19 U/L (0-31); Albumin Level 4.1 g/dL (3.5-5.0); Alkaline Phosphatase 78 U/L (39-117); Anion Gap 14 (12-20); Aspartate Amino Transferase 19 U/L (5-31); Bilirubin Total 0.3 mg/dL (0.0-1.0); Blood Urea Nitrogen 11 mg/dL (9-16); Calcium 9.7 mg/dL (8.4-10.2); Carbon Dioxide 28 mmol/L (22-29); Chloride 107 mmol/L (96-108); Cholesterol 130 mg/dL; Estimated Glomerular Filt Rate 57; Glucose Fasting 151 mg/dL (60-99); HDL Cholesterol 41 mg/dL; LDL Cholesterol Calculated 74 mg/dl; Potassium 4.8 mmol/L (3.3-5.1); Sodium 144 mmol/L (135-145); Triglycerides 75 mg/dL
[2022-09-15 13:34] LABS: Appearance Urine Clear; Color Urine Yellow; Glucose Urine UA Negative (Negative); Leukocyte Esterase Urine Negative (Negative); Nitrite Urine Negative (Negative); Specific Gravity - Urine 1.015 (1.005-1.025); Urine Blood Negative (Negative); Urine Ketones Negative (Negative); Urine Protein Negative (Neg-Trace)
== END 2022-09-15 11:47 | disposition home or self-care (01) ==
LOC: HO.LAB 11:46
PROVIDERS: PCP Internal Medicine; Visit Provider Internal Medicine
DX: E78.00 Pure hypercholesterolemia, unspecified (principal); E11.9 Type 2 diabetes mellitus without complications; I10 Essential (primary) hypertension
CPT/HCPCS: 36415; 80053; 80061; 81003; 83036

== ENCOUNTER 2022-11-29 12:48 | Outpatient (REF) | payer OTHER, SELFPAY ==
[2022-11-29 13:24] LABS: MANUAL DIFF FLAG NO
[2022-11-29 14:22] LABS: Basophils Absolute Auto 0.1 X10*3/uL (0.0-0.2); Basophils Percent Auto 0.8 % (0-2); Eosinophils Absolute Auto 0.1 X10*3/uL (0.0-0.4); Hematocrit 37.3 % (37.0-47.0); Hemoglobin 11.9 g/dl (12.0-16.0); Imm Gran Abs Auto 0.01 X10*3/uL (0.00-0.03); Imm Gran Pct Auto 0.2 % (0.0-0.4); Lymphocytes Absolute Auto 2.2 X10*3/uL (1.2-4.9); Lymphocytes Percent Auto 36.5 % (20-40); Mean Corpuscular HGB Conc 31.9 g/dl (31.0-35.0); Mean Corpuscular Volume 84.6 fL (80.0-98.0); Mean Platelet Volume 11.6 fL (9.4-12.3); Monocytes Absolute Auto 0.5 X10*3/uL (0.1-1.2); Monocytes Percent Auto 7.6 % (2-11); Neutrophils Absolute Auto 3.1 x10*3/uL (2.0-8.3); Neutrophils Percent Auto 52.9 % (45-73); Platelet Count 278 X10*3/uL (160-400); Red Blood Count 4.41 X10*6/uL (4.20-5.50); Red Cell Distribution Width 12.4 % (11.0-16.0); White Blood Count 5.9 X10*3/uL (4.8-10.8)
[2022-11-29 14:28] LABS: Appearance Urine Clear; Color Urine Yellow; Glucose Urine UA Negative (Negative); Leukocyte Esterase Urine Negative (Negative); Nitrite Urine Negative (Negative); PH 5.5 (5.0-9.0); Specific Gravity - Urine 1.015 (1.005-1.025); Urine Blood Negative (Negative); Urine Ketones Negative (Negative); Urine Protein Negative (Neg-Trace)
[2022-11-29 14:40] LABS: Estimated Average Glucose 180 mg/dL; Hemoglobin A1c % 7.9 %
[2022-11-29 15:00] LABS: Alanine Aminotransferase 23 U/L (0-31); Albumin Level 3.9 g/dL (3.5-5.0); Alkaline Phosphatase 83 U/L (39-117); Anion Gap 12 (12-20); Aspartate Amino Transferase 18 U/L (5-31); Bilirubin Total 0.3 mg/dL (0.0-1.0); Blood Urea Nitrogen 14 mg/dL (9-16); Calcium 9.2 mg/dL (8.4-10.2); Carbon Dioxide 28 mmol/L (22-29); Chloride 108 mmol/L (96-108); Cholesterol 186 mg/dL; Estimated Glomerular Filt Rate 57; Glucose Fasting 157 mg/dL (60-99); HDL Cholesterol 43 mg/dL; LDL Cholesterol Calculated 117 mg/dl; Potassium 4.5 mmol/L (3.3-5.1); Sodium 143 mmol/L (135-145); Triglycerides 133 mg/dL
[2022-11-29 15:22] LABS: Folate 5.4 ng/mL (> or = 4.0); Free T4 (Free Thyroxine) 0.49 ng/dL (0.71-1.85); Thyroid Stimulating Hormone 15.02 uIU/mL (0.32-4.0); Vitamin B12 210 pg/mL (200-900)
== END 2022-11-29 12:49 | disposition home or self-care (01) ==
LOC: HO.LAB 12:48
PROVIDERS: Absent Provider Internal Medicine; PCP Internal Medicine; Visit Provider Internal Medicine Endocrinology, Diabetes & Metabolism
DX: E11.9 Type 2 diabetes mellitus without complications (principal); R30.0 Dysuria; E55.9 Vitamin D deficiency, unspecified; E78.00 Pure hypercholesterolemia, unspecified; E53.8 Deficiency of other specified B group vitamins; I10 Essential (primary) hypertension; E03.9 Hypothyroidism, unspecified; M75.102 Unspecified rotator cuff tear or rupture of left shoulder, not specified as traumatic
CPT/HCPCS: 36415; 80053; 80061; 81003; 82043; 82306; 82607; 82746; 83036; 84439; 84443; 85025; 99202

== ENCOUNTER → 2022-12-23 15:49 | Outpatient (BNVA) | payer OTHER, SELFPAY | PROVIDERS: PCP Internal Medicine; Visit Provider Internal Medicine Endocrinology, Diabetes & Metabolism | DX: E03.8 Other specified hypothyroidism (principal); E11.8 Type 2 diabetes mellitus with unspecified complications; E06.3 Autoimmune thyroiditis; E04.2 Nontoxic multinodular goiter; E78.00 Pure hypercholesterolemia, unspecified; E03.9 Hypothyroidism, unspecified | CPT/HCPCS: 82947; 99212 ==

== ENCOUNTER 2022-12-31 11:00 | Outpatient (RCR) | payer OTHER, SELFPAY ==
--- NOTE | 2022-12-14 14:41 | MHC.PT.EP ---
[facility] [place] [facility] [place] [facility] [place] [facility] [address] Volodymyr Villarreal [address] [phone] F: [phone] F: [phone] F: [phone] F: [phone] Physical Therapy Plan of Care Date of Evaluation: Date of Surgery: Diagnosis: PT eval and treat. M75.102 Unspecified rotato cuff tear or rupture of left shoulder not specified as traumatic, painful arc syndrome of left shoulder signed by Elsie Venegas PA-C 11/29/22 Assessment: PT is RHD 57 y/o female, referred to PT by [facility] orthopedics date of referral PT jennifer. M75.102 Unspecified rotator cuff tear or rupture of left shoulder not specified as traumatic, painful arc syndrome of left shoulder signed by Elsie Venegas PA-C 11/29/22, pt's xray shows X-rays of the left shoulder, obtained on 06/16/2022, revealed:-No fracture, dislocation, or visible rotator cuff calcifications. -Minor spurring superior lateral acromium at origin deltoid. Pt expressing onset of sx which began in March 2022, shortly after lifting/supporting/unclear as to exact event involving a vibrating wood board when helping her . She reports inability to lift her arm approximately two days later after this incident with worsening night pain with inability to lift arm, roll, or sleep on L side. Pt expresses pain at rest in L UE. Pt has not tried icing but has reported use of lidocaine patches with some relief. Pt exhibits impaired AROM/AAROM of the L shoulder, painful arc, (+) Fields Santosh, impaired GH/scapulohumeral mechanics, and impaired elevation of the L shoulder with concern for RTC compromise/injury observed. Pt would benefit from attending skilled PT at a frequency of 2x/week x 4 weeks to address impairments, implement HEP, and restore mobility. 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 PMH is complex including significant diagnosis including, DMII hyperglycemia, asthma, bipolar disorder (reports currently being managed by Dr. Obregon PCP does not have an active psychiatrist per pt), HTN, and depression. 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 Pt is currently on disability secondary to medical conditions. Concern for RTC compromise is present and may benefit from MRI to rule out RTC pathology (+) history of hooked acromion. Pt would benefit from attending skilled PT services at afrequency of2x/week x 4 weeks to address impairment, implement HEP, and restore functional mobility tolerance to resume PLOF. Frequency and Duration: The patient will be seen 2x/week x 4 weeks Short Term Goals: 1. AAROM L shoulder flexion 100 degrees. 2. AAROM L shoulder scaption 100 degrees. 3. Reduce pain by 25% L shoulder. 4. Initiate AAROM shoulder program for the L UE. 5. Improve postural education/awareness in relationship to sx. Computer Support Specialist Goals: 1. I HEP. 2. Demonstrate strength shoulder 4/5 globally. 3. AAROM program to decrease IR to midline. 4. Functional adventism of L UE for ADLS/IADLS. Treatment Plan: Modalities to reduce pain, spasms and effusion. Manual therapy to restore motion and function. Therapeutic exercise to improve strength and flexibility. Neuromuscular re-education for posture and balance. Therapeutic activities to return to functional activities of daily living. Electronically signed by: Belén Scott, PT, DPT Please sign and return to therapist. Thank you for your referral.
== END 2023-07-19 11:18 | disposition home or self-care (01) ==
LOC: HO.PTWFD 11:00
PROVIDERS: PCP Internal Medicine; Visit Provider Physician Assistant
DX: M75.102 Unspecified rotator cuff tear or rupture of left shoulder, not specified as traumatic (principal)
CPT/HCPCS: 97110; 97140; 97162; 97535

== ENCOUNTER → 2023-01-10 12:52 | Outpatient (BNVA) | payer OTHER, SELFPAY | PROVIDERS: PCP Internal Medicine; Visit Provider Physician Assistant | DX: M75.102 Unspecified rotator cuff tear or rupture of left shoulder, not specified as traumatic (principal) | CPT/HCPCS: 99212 ==

== ENCOUNTER 2023-03-07 10:33 | Outpatient (REF) | payer OTHER, SELFPAY ==
[2023-03-07 14:14] LABS: MANUAL DIFF FLAG NO
[2023-03-07 14:32] LABS: Basophils Percent Auto 0.7 % (0-2); Eosinophils Absolute Auto 0.1 X10*3/uL (0.0-0.4); Eosinophils Percent Auto 1.7 % (0-4); Hematocrit 40.7 % (37.0-47.0); Hemoglobin 12.7 g/dl (12.0-16.0); Imm Gran Abs Auto 0.01 X10*3/uL (0.00-0.03); Imm Gran Pct Auto 0.2 % (0.0-0.4); Lymphocytes Absolute Auto 2.1 X10*3/uL (1.2-4.9); Lymphocytes Percent Auto 35.4 % (20-40); Mean Corpuscular HGB Conc 31.2 g/dl (31.0-35.0); Mean Corpuscular Volume 83.2 fL (80.0-98.0); Mean Platelet Volume 11.5 fL (9.4-12.3); Monocytes Absolute Auto 0.4 X10*3/uL (0.1-1.2); Neutrophils Absolute Auto 3.2 x10*3/uL (2.0-8.3); Platelet Count 344 X10*3/uL (160-400); Red Blood Count 4.89 X10*6/uL (4.20-5.50); Red Cell Distribution Width 12.2 % (11.0-16.0); White Blood Count 5.9 X10*3/uL (4.8-10.8)
[2023-03-07 15:01] LABS: Alanine Aminotransferase 18 U/L (0-31); Albumin Level 3.8 g/dL (3.5-5.0); Alkaline Phosphatase 70 U/L (39-117); Anion Gap 11 (12-20); Aspartate Amino Transferase 16 U/L (5-31); Bilirubin Total 0.3 mg/dL (0.0-1.0); Blood Urea Nitrogen 9 mg/dL (9-16); Calcium 9.3 mg/dL (8.4-10.2); Carbon Dioxide 29 mmol/L (22-29); Chloride 104 mmol/L (96-108); Cholesterol 151 mg/dL; Estimated Glomerular Filt Rate 59; Glucose Fasting 179 mg/dL (60-99); HDL Cholesterol 42 mg/dL; LDL Cholesterol Calculated 92 mg/dl; Potassium 3.8 mmol/L (3.3-5.1); Sodium 140 mmol/L (135-145); Total Protein 7.2 g/dL (6.5-8.0); Triglycerides 87 mg/dL
[2023-03-07 15:04] LABS: Cholesterol 154 mg/dL; HDL Cholesterol 42 mg/dL; LDL Cholesterol Calculated 95 mg/dl; Triglycerides 86 mg/dL
[2023-03-07 15:05] LABS: Appearance Urine Clear; Color Urine Yellow; Glucose Urine UA >=1000 mg/dL (Negative); Leukocyte Esterase Urine Negative (Negative); Nitrite Urine Negative (Negative); UMIC TRIGGER UACC YES; Urine Blood Negative (Negative); Urine Ketones Negative (Negative); Urine Protein Negative (Neg-Trace)
[2023-03-07 15:08] LABS: Bacteria Urine 2+ (None Seen); Hyaline Casts Urine 0-2 /LPF (0-2); RBC Urine 0-2 /HPF (0-2); WBC Urine 0-5 /HPF (0-5)
[2023-03-07 15:09] LABS: Free T4 (Free Thyroxine) 0.42 ng/dL (0.71-1.85)
[2023-03-07 15:10] LABS: Free T4 (Free Thyroxine) 0.47 ng/dL (0.71-1.85); Thyroid Stimulating Hormone 50.62 uIU/mL (0.32-4.0); Vitamin D 25-OH Total 43.3 ng/mL (>30)
[2023-03-07 15:19] LABS: Estimated Average Glucose 180 mg/dL; Hemoglobin A1c % 7.9 %
[2023-03-07 15:21] LABS: Folate 7.3 ng/mL (> or = 4.0); Vitamin B12 420 pg/mL (200-900)
[2023-03-07 16:03] LABS: Creatinine Urine 158.44 mg/dL; Microalbum/Creatinine Ratio Ur 6.3 ug/mg cr
== END 2023-03-07 10:34 | disposition home or self-care (01) ==
LOC: HO.WFDLDS 10:33
PROVIDERS: Internal Medicine Endocrinology, Diabetes & Metabolism; Visit Provider Internal Medicine
DX: E78.00 Pure hypercholesterolemia, unspecified (principal); E11.9 Type 2 diabetes mellitus without complications; I10 Essential (primary) hypertension; E53.8 Deficiency of other specified B group vitamins; E55.9 Vitamin D deficiency, unspecified; E03.9 Hypothyroidism, unspecified
CPT/HCPCS: 36415; 80053; 80061; 81001; 81003; 82043; 82306; 82607; 82746; 83036; 84439; 84443; 85025

== ENCOUNTER 2023-03-24 10:52 | Outpatient (AMB) | payer OTHER, SELFPAY ==
--- NOTE | 2023-03-24 10:53 | A.OFFVIS_ITS ---
Intake Vital Signs 03/24/23 10:54 Height 5 ft 2 in Weight 169 lb 8.568 oz BMI 31.0 BP 132/68 Blood Pressure Location Lt brachial Position Sitting Pulse 68 Pulse Source Pulse Oximeter Intake Visit Reasons: DM/hypothyroidism and MNG Intake Note: Patient presents today to follow up on Type 2 Diabetes Mellitus, Hypothyroidism and MNG. Patient receives DME supplies through: Last Diabetic Eye exam: 2 years ago Last Podiatry Visit: 03/10/2023 Random Glucose: 116 mg/dl HgA1C: 7.5% Clerical Assistant Required: No Accompanied by: Self / Same As Patient Allergies aspirin [ASPIRIN] Allergy (Severe, Verified 03/24/23 11:03) RASH, itchiness Penicillins [PENICILLINS] Allergy (Mild, Verified 03/24/23 11:03) RASH HPI HPI Comments History of Present Illness Details Patient is 57 yo female with DM type 2 diagnosed 2013 who presents for management of diabetes and hypothyroidism. Past medical history: DM2, hypothyroidism, MNG , HTN, HLD, asthma, osteoarthritis 1) Diabetes Type 2 diabetes diagnosed in 2013. . She was really checking blood glucose in advised check frequently. Her Trulicity was increased. Diabetes medication: Lantus 20 units once a day. Trulicity 4.5 mg per week. metformin 1000mg BID, Farxiga 5 mg QD Symptoms reported: occasional cramping numbness/tingling in legs. Hypoglycemia: denies Hyperglycemia: denies urinary frequency, nocturia, polydypsia Blood glucose monitoring: [employer] download shows she is wearing the sensor 90% of the time average glucose is 145 with G mi of 6.8% and variability 23.2%. 86% of glucoses are in target range with 14% hyperglycemia and no hypoglycemia Exercise: limited due to pain in knees. Saw optho in 2 yrs ago. Needs to make appt 2) Hypothyroidism Tironsint 175mcg daily and once a month takes 2 pills since October 2020 Pt reports that takes Tirosint on daily basis at 6am and if forgets will take 2 the next day. Takes iron once a week at 1pm well after Tirosint administration. was out of medicine for 1 1/2 weeks . Family Hx: none known Laboratory Tests 08/10/21 11/03/21 11/03/21 14:22 11:10 11:10 Creatinine 1.04 Estimated GFR 54 Hgb A1c (Clinic) 7.2 H Hemoglobin A1c % 7.9 Triglycerides 109 Cholesterol 171 LDL Cholesterol, C alc 115 HDL Cholesterol 35 25-OH Vitamin D To bobyb 20.0 TSH 3.30 Free T4 1.11 Microalb/Creat Rat io 11/03/21 11:10 Creatinine Estimated GFR Hgb A1c (Clinic) Hemoglobin A1c % Triglycerides Cholesterol LDL Cholesterol, C alc HDL Cholesterol 25-OH Vitamin D To bobby TSH Free T4 Microalb/Creat Rat io [facility]NP [facility] Medical History Abnormal thyroid biopsy Acquired hypothyroidism Anxiety Anxiety Asthma Autoimmune thyroiditis B12 deficiency Benign essential hypertension Bipolar depression Chronic abdominal pain Chronic kidney disease, stage 2 (mild) Depression Depression Essential hypertension Hernia Hx of headache Hyperlipidemia LDL goal <100 Hypothyroidism IBS (irritable bowel syndrome) Knee pain, bilateral Left hip pain Lumbar degenerative disc disease Lumbar disc disease Neck pain Non-toxic multinodular goiter Nonintractable headache Obesity (BMI 30-39.9) Obesity due to excess calories Other and unspecified hyperlipidemia Pure hypercholesterolemia Recurrent ventral incisional hernia Tendonitis Type 2 diabetes mellitus with diabetic chronic kidney disease Type 2 diabetes mellitus with hyperglycemia Type 2 diabetes mellitus with unspecified complications Visual loss Vitamin B12 deficiency Vitamin D deficiency Surgical History History of hernia repair Hx of exploratory laparotomy S/P laparoscopy (~11/20/10) Family History Father Medical history unknown Mother Medical history unknown Social History Housing: Apartment Alcohol intake: never Patient Tobacco Use Status: Never used Tobacco e-Cigarette/Vaping Use: Never Used Second Hand Smoke Exposure: Yes service: No Current occupational status: disabled Cognitive needs: No Hearing needs: No Vision needs: Yes Physical Exam Vital Signs: Last Vital Signs Pulse 68 03/24/23 10:54 BP 132/68 03/24/23 10:54 BMI result Body Mass Index 31.0 Absence of Cushingoid features. Absence of acromegalic features. Neck exam reveals nl size thyroid about 15 gms. No thyroid nodules palpable. No carotid bruits present. Lungs CTA. Heart S1 S2, Reg R/R. No M/R/ G. Skin exam reveals absence of vitiligo or acanthosis nigricans. Abdominal exam reveals Soft NT/ND with NA BS. No organomegaly present. Neck Other: . Extrem Other: Visual exam of foot performed. No ulcerations or open lesions. No onchomycosis, no callouses.Pulses 2 + distally Sensation intact to monofilament exam. Vibratory sensation sensed is intact with 128 Hz tuning fork Results AMB Hemoglobin A1c AMB Hemoglobin A1c 7.5 % Last Edit by Gilma Thurman on 03/24/23 11:20 Results Reviewed Results Reviewed: 03/24/23 11:08 Glucose, Whole Blood Routine Laboratory Last Values Glucose (Clinic) 116 mg/dL (60-115) H 03/24/23 11:08 Hgb A1c (Clinic) 7.5 % (4.0-6.0) H 03/24/23 11:14 Assessment & Plan Assessment & Plan (1) Type 2 diabetes mellitus with unspecified complications: Code(s): E11.8 - Type 2 diabetes mellitus with unspecified complications Plan: This is a 57-year-old female with history of type 2 diabetes being treated with metformin, Trulicity, Farxiga and Lantus with good improved but not at goal glycemic control and known microvascular complications namely CKD. The plan is to change the Trulicity to Mounjaro 2.5 mg Q weekly and titrate as tolerated. Went over side effects of Mounjaro including but not limited to nausea, vomiting risk of pancreatitis. 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 She appears to be clinically euthyroid . She missed several doses recently. She has been on consistent dose for the l plan is to recheck TSH and free T4 in weeks time adjust the tirosint (3) Non-toxic multinodular goiter: Code(s): E04.2 - Nontoxic multinodular goiter Plan: She is status post FNA of a right thyroid nodule with indeterminate cytology and negative Affirma. Recent thyroid ultrasound shows stability in the size of the nodule Plan is continued observation. Perhaps repeat thyroid ultrasound could be performed in 1 year's time (4) Pure hypercholesterolemia: Code(s): E78.00 - Pure hypercholesterolemia, unspecified Plan: LDL cholesterol at goal on 80 mg of atorvastatin (5) Acquired hypothyroidism: Code(s): E03.9 - Hypothyroidism, unspecified Orders: Orders AMB Hemoglobin A1c Today E11.8 - Type 2 diabetes mellitus with unspecified complications Medications: Refilled dapagliflozin propanediol (Farxiga) 5 mg PO DAILY 30 tabs 5RF Coding Level of Care Code Est Pt Level 4 (08656) Diagnoses Type 2 diabetes mellitus with unspecified complications E11.8 Hypothyroidism E03.8; E06.3 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
[2023-03-24 10:54] VITALS: BP 132/68; PULSE 68; BMI 31.0
[2023-03-24 11:13] LABS: Glucose, Whole Blood 116 mg/dL (60-115)
== END 2023-03-24 11:47 | disposition home or self-care (01) ==
PROVIDERS: PCP Internal Medicine; Visit Provider Internal Medicine Endocrinology, Diabetes & Metabolism
DX: E11.8 Type 2 diabetes mellitus with unspecified complications (principal); E03.8 Other specified hypothyroidism; E06.3 Autoimmune thyroiditis; E04.2 Nontoxic multinodular goiter; E78.00 Pure hypercholesterolemia, unspecified; E03.9 Hypothyroidism, unspecified
CPT/HCPCS: 99214

== ENCOUNTER → 2023-03-24 10:52 | Outpatient (BNVA) | payer OTHER, SELFPAY | PROVIDERS: Visit Provider Internal Medicine Endocrinology, Diabetes & Metabolism | DX: E11.22 Type 2 diabetes mellitus with diabetic chronic kidney disease (principal); N18.2 Chronic kidney disease, stage 2 (mild); E03.8 Other specified hypothyroidism; E06.3 Autoimmune thyroiditis; E04.2 Nontoxic multinodular goiter; E78.00 Pure hypercholesterolemia, unspecified; E03.9 Hypothyroidism, unspecified; Z79.4 Long term (current) use of insulin; Z79.899 Other long term (current) drug therapy | CPT/HCPCS: 82947; 83036; 99212 ==

== ENCOUNTER 2023-04-16 10:17 | Outpatient (REF) | payer OTHER, SELFPAY ==
--- NOTE | ~2023-04-16 | MM_ITS ---
EXAMINATION: MM SCREENING DIGITAL BREAST TOMOSYNTHESIS, BILATERAL CLINICAL INFORMATION: Screening. Asymptomatic. COMPARISON: Mammography: This study is compared with prior exams dating back to 2017. TECHNIQUE: Digital breast tomosynthesis is performed in both the craniocaudal and mediolateral oblique views along with computer-aided detection (CAD). Synthesized 2D images are generated from the tomosynthesis. FINDINGS: The breasts are almost entirely fatty (ACR BI-RADS breast composition Category a). There are no significant masses, abnormal calcifications, or other abnormalities. MM/MM tomosynthesis screening BI IMPRESSION: No mammographic evidence of malignancy. ASSESSMENT: BI-RADS BI-RADS 1 - Negative RECOMMENDATION: Routine annual mammography screening. 1 year F/U This examination should not preclude the clinical evaluation of a suspicious palpable abnormality. This patient's information was entered into a reminder system with a target due date for their next mammogram.
== END 2023-04-16 10:18 | disposition home or self-care (01) ==
LOC: HO.MAMMO 10:17
PROVIDERS: PCP Internal Medicine; Visit Provider Internal Medicine
DX: Z12.31 Encounter for screening mammogram for malignant neoplasm of breast (principal)
CPT/HCPCS: 77063; 77067

== ENCOUNTER → 2023-04-16 10:30 | Outpatient (BNV) | payer OTHER, SELFPAY | PROVIDERS: PCP Internal Medicine; Visit Provider Radiology Diagnostic Radiology | DX: Z12.31 Encounter for screening mammogram for malignant neoplasm of breast (principal) | CPT/HCPCS: 77063; 77067 ==

== ENCOUNTER 2023-04-29 14:44 | Outpatient (AMB) | payer OTHER, SELFPAY ==
[2023-04-29 14:45] VITALS: BP 122/78; PULSE 80; O2SAT 99; BMI 31.6
--- NOTE | 2023-04-29 14:45 | MHC.PC.OV ---
Vital Signs 04/29/23 14:45 Height 5 ft 2 in Weight 173 lb BMI 31.6 BP 122/78 Blood Pressure Location Lt brachial Position Sitting Pulse 80 Pulse Source Pulse Oximeter Pulse Oximetry (%) 99 Oxygen Delivery Method Room Air Intake Visit Reasons: Fell in [facility] Radio Broadcaster Required: No Accompanied by: Self / Same As Patient Allergies aspirin [ASPIRIN] Allergy (Severe, Verified 04/29/23 15:23) RASH, itchiness Penicillins [PENICILLINS] Allergy (Mild, Verified 04/29/23 15:23) RASH Medication List - Last Reconciled 04/29/23 by Hernesto Obregon MD [ABDOMINAL BINDER (elastic) - LARGE As directed] albuterol sulfate 90 mcg/actuation 2 puffs PO QID PRN albuterol sulfate 90 mcg/actuation (ProAir HFA) 2 puffs inhalation Q6H PRN 30 days albuterol sulfate 2.5 mg (3 mL) continuous nebulization Q6H PRN 30 days atorvastatin 80 mg PO BEDTIME blood pressure monitor As directed blood sugar diagnostic (FreeStyle Lite Strips) As directed 3 times a day iwyynsjdjh-[id number]-[id number] 50-325-40 mg 1 cap PO BID-TID PRN 30 days cholecalciferol (vitamin D3) 50 mcg PO DAILY cyclobenzaprine 10 mg PO TID PRN 30 days dapagliflozin propanediol (Farxiga) 5 mg PO DAILY dulaglutide (Trulicity) 4.5 mg (0.5 mL) subcut QWEEK ferrous fumarate 325 mg PO QWEEK flash glucose scanning reader (FreeStyle [place] 2 [place]) As directed flash glucose sensor (FreeStyle Galina 2 Sensor kit) As directed change every 14 days insulin glargine (Lantus Solostar U-100 Insulin) 20 units (0.2 mL) subcut QPM lancets (FreeStyle Lancets) As directed checks 4 X/day lidocaine 5% 1 patch topical DAILY PRN 30 days lisinopril 30 mg PO DAILY lorazepam 0.5 mg PO TID PRN 30 days lubiprostone 24 mcg PO DAILY 30 days metformin 1,000 mg PO BID miscellaneous medical supply 1 ea miscellaneous DAILY montelukast 10 mg PO QPM 90 days orphenadrine citrate ER 100 mg PO BID PRN 30 days paroxetine HCl 40 mg PO DAILY 30 days risperidone 1 mg PO BEDTIME 30 days Tirosint (levothyroxine) 175 mcg PO DAILY 30 days NS tirzepatide (Mounjaro) 5 mg (0.5 mL) subcut QWEEK topiramate 50 mg PO BEDTIME 90 days Tobacco use date assessed: 04/29/23 Dental Screening Dental Screen Date: 04/29/23 Did you have a dental visit in the last 12 months?: No Did you have a dental problem in the last 6 months where you did not have access to dental care?: No Was dental information given to patient?: Patient has dentist HPI Fell in [facility] HPI Details Patient comes in today for follow-up of her recent injuries She reportedly slipped and fell when she was at her local [employer] earlier today Relates that she stepped on a wet area, slipped and fell sitting down on the floor with her right leg bent under her and the left leg straightened up in front of her States that she has been experiencing increased pain over her left knee since Has also been experiencing increased pain over her sacral area right around where she fell sitting down and notes that the pain over her sacral area as well as over her left knee increase with movement and activity States that she did not going to get medical attention when she fell and instead called up here to schedule an appointment for today Would like to get something to help with the pain while we are checking her out States that she also need a prescription for a new nebulizer as her old unit broke down recently She denies any headaches or dizziness - did not hit her head when she fell earlier today Denies any chest pains, no increased shortness of breath No nausea/vomiting, no abdominal pain No change in bowel habits noted [facility] Medical History Recurrent ventral incisional hernia Bipolar depression Anxiety Depression Left hip pain B12 deficiency Abnormal thyroid biopsy Non-toxic multinodular goiter Hypothyroidism Other and unspecified hyperlipidemia Type 2 diabetes mellitus with unspecified complications Obesity (BMI 30-39.9) Lumbar degenerative disc disease Vitamin B12 deficiency Acquired hypothyroidism Nonintractable headache Pure hypercholesterolemia Benign essential hypertension Chronic kidney disease, stage 2 (mild) Type 2 diabetes mellitus with diabetic chronic kidney disease Knee pain, bilateral Anxiety IBS (irritable bowel syndrome) Visual loss Tendonitis Neck pain Hernia Chronic abdominal pain Lumbar disc disease Depression Asthma Hx of headache Type 2 diabetes mellitus with hyperglycemia Autoimmune thyroiditis Hyperlipidemia LDL goal <100 Essential hypertension Vitamin D deficiency Obesity due to excess calories Surgical History S/P laparoscopy (~11/20/10) History of hernia repair Hx of exploratory laparotomy Family History Father Medical history unknown Mother Medical history unknown Social History Housing: Apartment Alcohol intake: never Patient Tobacco Use Status: Never used Tobacco e-Cigarette/Vaping Use: Never Used Second Hand Smoke Exposure: Yes service: No Current occupational status: disabled Cognitive needs: No Hearing needs: No Vision needs: Yes Questionnaire PHQ-9 Over the last 2 weeks, how often have you been bothered by any of the following problems? 1. Little interest or pleasure in doing things: not at all 2. Feeling down, depressed, or hopeless: not at all 3. Trouble falling or staying asleep, or sleeping too much: not at all 4. Feeling tired or having little energy: not at all 5. Poor appetite or overeating: not at all 6. Feeling bad about yourself - or that you are a failure or have let yourself or your family down: not at all 7. Trouble concentrating on things, such as reading the newspaper or watching television: not at all 8. Moving or speaking so slowly that other people could have noticed. Or the opposite - being so fidgety or restless that you have been moving around a lot more than usual: not at all 9. Thoughts that you would be better off or of hurting yourself in some way: not at all Total score: 0 Depression Screening Interpretation: Negative 41783 - PHQ-9 Billing: Yes Source: Developed by Drs. Ryland Guzman, Livia Donohue, Kristian Heredia and colleagues, with an educational jono from [employer]. Thrive Questionnaire Date Thrive assessed: 04/29/23 I am a: Patient What is your living situation today?: I have a steady place to live Within the past 12 months, did the food you bought not last and you didn't have the money to get more?: Never true Within the past 12 months, did you worry whether your food would run out before you got money to buy more?: Never true Do you have trouble paying for medicines?: No Do you have trouble getting transportation to medical appointments?: No Do you have trouble paying your heating and electricity bill?: No Do you have trouble taking care of your child, family member or friend?: No Do you have trouble with day-to-day activities such as bathing, preparing meals, shopping, managing finances, etc.?: No Are you currently unemployed and looking for a job?: No Are you interested in more education?: No Please select the resources that you would like help with: None Currently or been in a relationship where the following occur: no concerns reported AUDIT C Alcohol Use Questionnaire (AUDIT-C) 1. How often do you have a drink containing alcohol?: Never 3. How often do you have six or more drinks on one occasion?: Never Total Score: 0 Score Reviewed/Action Taken: Yes STALIN-7 AMB Questionnaire STALIN-7 Date STALIN - 7 assessed: 04/29/23 Feeling nervous, anxious, or on edge: 1 = Several days Not being able to stop or control worryin = Several days Worrying too much about different things: 0 = Not at all Trouble relaxin = Not at all Being so restless that it is hard to sit still: 0 = Not at all Becoming easily annoyed or irritable: 0 = Not at all Feeling afraid as if something awful might happen: 0 = Not at all Total STALIN-7 score (0-4 normal; 5-9 mild; 10-14 moderate; 15-21 severe): 2 Source: Developed by Drs. Ryland Guzman, Livia Donohue, Kristian Heredia and colleagues, with an educational jono from [employer]. Review of Systems Const Denies chills, Reports fatigue, Denies fever(s) and Denies headache(s) ENT Denies dysphagia, Denies dizziness, Denies otalgia, Denies headache(s), Denies neck pain, Denies odynophagia and Denies sore throat Card Denies chest pain, Denies palpitations and Denies dyspnea Resp Denies cough, Denies dyspnea and Denies wheezing GI Denies abdominal pain, Denies constipation, Denies dysphagia, Denies heartburn, Denies diarrhea, Denies nausea, Denies odynophagia and Denies vomiting Denies difficulty voiding, Denies nocturia and Denies dysuria Musc Details: increased pain over her sacral/coccygreal area (tailbone) and over her left knee since her fall this morning Reports back pain, Reports arthralgias (left shoulder, both knees and left hip) and Denies neck pain Skin/Breast Denies rash Neuro Denies dizziness and Denies headache(s) Endo Reports fatigue and Denies palpitations Aller/Immun Denies wheezing Physical exam (Primary Care) Vital Signs: Last Vital Signs Pulse 80 04/29/23 14:45 BP 122/78 04/29/23 14:45 Pulse Ox 99 04/29/23 14:45 Oxygen Delivery Method Room Air 04/29/23 14:45 BMI result Body Mass Index 31.6 Tobacco/Smoking Status: Tobacco use Status Tobacco use date assessed 04/29/23 04/29/23 14:51 Patient Tobacco Use Status Never used Tobacco 04/29/23 14:51 e-Cigarette/Vaping Use Never Used 04/29/23 14:51 PHQ-9: PHQ-9 Score PHQ-9: Total score 0 04/29/23 15:34 Depression Screening Interpretation: Negative Thrive Assessment: Date of Thrive Assessment Date Thrive assessed 04/29/23 04/29/23 14:51 Currently or been in a relationship where the following occur: no concerns reported Const General: no acute distress and alert HENMT Ears: TM's normal bilaterally and EAC's normal Throat: Yes posterior oropharynx normal and Yes tonsils normal (no TP congestion noted) Neck Neck: Yes no lymphadenopathy and Yes supple Resp Auscultation: clear to auscultation bilaterally, no rales and no wheezes Cardio Rate: regular rate Rhythm: regular rhythm Heart sounds: no murmurs GI Palpation (GI): Soft to palpation and nontender Auscultation: normal bowel sounds Back/Spine/Pelvis Thoracic/Lumbar Spine: lumbar spinal tenderness Sacrum: tenderness midline Coccyx: Coccyx tenderness present on direct palpation Extrem General: Yes no clubbing, cyanosis or edema Left upper extremity: shoulder/upper arm Details: tenderness and abnormal ROM (limited ROM due to pain) Left lower extremity: knee Details: tenderness; no swelling Assessment and Plan Assessment & Plan (1) Coccygeal pain: Code(s): M53.3 - Sacrococcygeal disorders, not elsewhere classified Plan: S/P earlier this morning - see HPI for details Will send patient for sacral and coccygeal as well as pelvic x-rays for further evaluation Will start her again for now on Tramadol 50 mg TID PRN for pain (2) Status post fall: Code(s): Z91.81 - History of falling Plan: Slipped and fell on wet floor reportedly at her local [employer] store in [place] earlier this morning - recalled that she fell sitting down on her butt with her right leg slightly bent under her and her left leg straight out in front of her (3) Left knee pain: Code(s): M25.562 - Pain in left knee Qualifiers: Chronicity: unspecified Qualified Code(s): M25.562 - Pain in left knee Plan: Possibly may have sustained a left knee strain or hyperextension injury, depending on how she fell earlier this morning Will send her for knee x-rays for further evaluation Advised that depending on how her x-rays come out, may need to refer her to orthopedics for further management (4) Asthma, mild intermittent, well-controlled: Code(s): J45.20 - Mild intermittent asthma, uncomplicated Plan: Continue Albuterol HFA 1 to 2 inhalations Q 6 hours PRN Per request, will provide her with Rx for a nebulizer unit to replace her old one that broke down recently - Rx will be faxed over to medical supply store Plan Follow up in 2 to 3 months Orders: Orders XR pelvis min 3V 04/29/23 M25.559 - Pain in unspecified hip, Z91.81 - History of falling XR knee LT 3V 04/29/23 M25.562 - Pain in left knee, Z91.81 - History of falling XR sacrum coccyx min 2V 04/29/23 M53.3 - Sacrococcygeal disorders, not elsewhere classified, Z91.81 - History of falling Medications: New tramadol 50 mg PO TID PRN 20 tabs 0RF pain [NEBULIZER and all related accessories] As directed 1 ea 0RF J45.909 - Unspecified asthma, uncomplicated Coding Level of Care Code Est Pt Level 3 (42863) Diagnoses Coccygeal pain M53.3 Status post fall Z91.81 Left knee pain, unspecified chronicity M25.562 Chronicity: unspecified Asthma, mild intermittent, well-controlled J45.20
== END 2023-04-29 15:43 | disposition home or self-care (01) ==
PROVIDERS: PCP Internal Medicine; Visit Provider Internal Medicine
DX: M53.3 Sacrococcygeal disorders, not elsewhere classified (principal); Z91.81 History of falling; M25.562 Pain in left knee; J45.20 Mild intermittent asthma, uncomplicated
CPT/HCPCS: 99213

== ENCOUNTER 2023-05-03 10:45 | Outpatient (REF) | payer OTHER, SELFPAY | END 2023-05-03 10:46 | disposition home or self-care (01) | LOC: HO.XRAY 10:45 | PROVIDERS: PCP Internal Medicine; Visit Provider Internal Medicine | DX: M25.562 Pain in left knee (principal); M53.3 Sacrococcygeal disorders, not elsewhere classified; M25.551 Pain in right hip; M25.552 Pain in left hip; Z91.81 History of falling | CPT/HCPCS: 72190; 72220; 73562 ==

== ENCOUNTER 2023-06-27 14:38 | Outpatient (REF) | payer OTHER, SELFPAY ==
[2023-06-27 16:15] LABS: Free T4 (Free Thyroxine) 0.92 ng/dL (0.71-1.85); Thyroid Stimulating Hormone 4.46 uIU/mL (0.32-4.0)
== END 2023-06-27 14:39 | disposition home or self-care (01) ==
LOC: HO.LAB 14:38
PROVIDERS: Internal Medicine Endocrinology, Diabetes & Metabolism; PCP Internal Medicine; Visit Provider Internal Medicine
DX: E03.8 Other specified hypothyroidism (principal); E06.3 Autoimmune thyroiditis
CPT/HCPCS: 36415; 84439; 84443

== ENCOUNTER 2023-07-01 15:39 | Outpatient (AMB) | payer OTHER, SELFPAY ==
--- NOTE | 2023-07-01 15:49 | A.OFFPC_ITS ---
Vital Signs 07/01/23 15:56 Height 4 ft 11.25 in Weight 170 lb 8 oz BMI 34.1 BP 144/78 H Blood Pressure Location Lt brachial Position Sitting Pulse 84 Pulse Source Pulse Oximeter Pulse Oximetry (%) 97 Oxygen Delivery Method Room Air Intake Visit Reasons: 2mon F/U- NEEDS PHQ9+THRIVE Net Technical Architect Required: No Accompanied by: Self / Same As Patient Allergies aspirin [ASPIRIN] Allergy (Severe, Verified 07/03/23 14:12) RASH, itchiness Penicillins [PENICILLINS] Allergy (Mild, Verified 07/03/23 14:12) RASH Medication List - Last Reconciled 07/03/23 by Hernesto Obregon MD [ABDOMINAL BINDER (elastic) - LARGE As directed] albuterol sulfate 90 mcg/actuation 2 puffs PO QID PRN albuterol sulfate 90 mcg/actuation (ProAir HFA) 2 puffs inhalation Q6H PRN 30 days albuterol sulfate 2.5 mg (3 mL) continuous nebulization Q6H PRN 30 days atorvastatin 80 mg PO BEDTIME blood pressure monitor As directed blood sugar diagnostic (FreeStyle Lite Strips) As directed 3 times a day gunnxsnxsp-[id number]-qbdk 50-325-40 mg 1 cap PO BID-TID PRN 30 days cholecalciferol (vitamin D3) 50 mcg PO DAILY cyclobenzaprine 10 mg PO TID PRN 30 days dapagliflozin propanediol (Farxiga) 5 mg PO DAILY ferrous fumarate 325 mg PO QWEEK flash glucose scanning reader (FreeStyle [place] 2 [place]) As directed flash glucose sensor (FreeStyle [place]ina 2 Sensor kit) As directed change every 14 days insulin glargine (Lantus Solostar U-100 Insulin) 20 units (0.2 mL) subcut QPM lancets (FreeStyle Lancets) As directed checks 4 X/day lidocaine 5% 1 patch topical DAILY PRN 30 days lisinopril 30 mg PO DAILY lorazepam 0.5 mg PO TID PRN 30 days lubiprostone 24 mcg PO DAILY 30 days metformin 1,000 mg PO BID miscellaneous medical supply 1 ea miscellaneous DAILY montelukast 10 mg PO QPM 90 days [NEBULIZER and all related accessories As directed] orphenadrine citrate ER 100 mg PO BID PRN 30 days paroxetine HCl 40 mg PO DAILY 30 days risperidone 1 mg PO BEDTIME 30 days Tirosint (levothyroxine) 200 mcg PO DAILY NS tirzepatide (Mounjaro) 5 mg (0.5 mL) subcut QWEEK topiramate 50 mg PO BEDTIME 90 days tramadol 50 mg PO TID PRN Tobacco use date assessed: 04/29/23 HPI 2mon F/U- NEEDS PHQ9+THRIVE HPI Details Patient comes in today for her follow up visit States that she is still experiencing some pain over her left knee as well as over her sacral area from a couple of months ago but they have improved a lot lately Would like to know if her previous x-rays done show anything of concern States that she has been experiencing increasing pain over her left knee for the past few weeks, especially over the back of the knee Denies any recent injury or trauma to her left knee States that she feels okay otherwise She denies any headaches or dizziness Denies any chest pains, no SOB No nausea/vomiting but reports experiencing on and off lower abdominal pain and discomfort often over the past few months No change in bowel habits noted Needs her Lisinopril Rx refilled Would also like to go over the results of her labs done over the past couple of months [facility] Medical History Recurrent ventral incisional hernia Bipolar depression Anxiety Depression Left hip pain B12 deficiency Abnormal thyroid biopsy Non-toxic multinodular goiter Hypothyroidism Other and unspecified hyperlipidemia Type 2 diabetes mellitus with unspecified complications Obesity (BMI 30-39.9) Lumbar degenerative disc disease Vitamin B12 deficiency Acquired hypothyroidism Nonintractable headache Pure hypercholesterolemia Benign essential hypertension Chronic kidney disease, stage 2 (mild) Type 2 diabetes mellitus with diabetic chronic kidney disease Knee pain, bilateral Anxiety IBS (irritable bowel syndrome) Visual loss Tendonitis Neck pain Hernia Chronic abdominal pain Lumbar disc disease Depression Asthma Hx of headache Type 2 diabetes mellitus with hyperglycemia Autoimmune thyroiditis Hyperlipidemia LDL goal <100 Essential hypertension Vitamin D deficiency Obesity due to excess calories Surgical History S/P laparoscopy (~11/20/10) History of hernia repair Hx of exploratory laparotomy Family History Father Medical history unknown Mother Medical history unknown Social History Housing: Apartment Alcohol intake: never Patient Tobacco Use Status: Never used Tobacco e-Cigarette/Vaping Use: Never Used Second Hand Smoke Exposure: Yes service: No Current occupational status: disabled Cognitive needs: No Hearing needs: No Vision needs: Yes Questionnaire Thrive Questionnaire Date Thrive assessed: 04/29/23 STALIN-7 AMB Questionnaire STALIN-7 Date STALIN - 7 assessed: 04/29/23 Source: Developed by Drs. Ryland Guzman, Livia Donohue, Kristian Heredia and colleagues, with an educational jono from [employer]. Review of Systems Const Denies chills, Reports fatigue, Denies fever(s) and Denies headache(s) ENT Denies dysphagia, Denies dizziness, Denies otalgia, Denies headache(s), Denies neck pain, Denies odynophagia and Denies sore throat Card Denies chest pain, Denies palpitations and Denies dyspnea Resp Denies cough, Denies dyspnea and Denies wheezing GI Reports abdominal pain (on and off, mostly over the lower abdomen), Denies constipation, Denies dysphagia, Denies heartburn, Denies diarrhea, Denies nausea, Denies odynophagia and Denies vomiting Denies difficulty voiding, Denies nocturia and Denies dysuria Musc Details: increased pain over her sacral/coccygreal area (tailbone) and over her left knee since her fall this morning Reports back pain, Reports arthralgias (on and off in the left shoulder, both knees and left hip, worse in L knee) and Denies neck pain Skin/Breast Denies rash Neuro Denies dizziness and Denies headache(s) Endo Reports fatigue and Denies palpitations Aller/Immun Denies wheezing Physical exam (Primary Care) Vital Signs: Last Vital Signs Pulse 84 07/01/23 15:56 BP 144/78 H 07/01/23 15:56 Pulse Ox 97 07/01/23 15:56 Oxygen Delivery Method Room Air 07/01/23 15:56 BMI result Body Mass Index 34.1 Tobacco/Smoking Status: Tobacco use Status Tobacco use date assessed 04/29/23 07/01/23 15:49 Patient Tobacco Use Status Never used Tobacco 07/01/23 15:49 e-Cigarette/Vaping Use Never Used 07/01/23 15:49 Thrive Assessment: Date of Thrive Assessment Date Thrive assessed 04/29/23 07/01/23 15:49 Const General: no acute distress and alert HENMT Ears: TM's normal bilaterally and EAC's normal Throat: Yes posterior oropharynx normal and Yes tonsils normal (no TP congestion noted) Neck Neck: Yes no lymphadenopathy and Yes supple Resp Auscultation: clear to auscultation bilaterally, no rales and no wheezes Cardio Rate: regular rate Rhythm: regular rhythm Heart sounds: no murmurs GI Palpation (GI): Soft to palpation and nontender Auscultation: normal bowel sounds Back/Spine/Pelvis Thoracic/Lumbar Spine: lumbar spinal tenderness Sacrum: tenderness (mild) midline Coccyx: Coccyx tenderness present (minimal) on direct palpation Skin Rashes: no rashes Extrem General: Yes no clubbing, cyanosis or edema Left upper extremity: shoulder/upper arm Details: tenderness and abnormal ROM (limited ROM due to pain) Left lower extremity: knee (increased) Details: tenderness (especially over the back of the knee); no swelling Results AMB Hemoglobin A1c AMB Hemoglobin A1c 6.9 % Last Edit by WALT Koenig on 07/01/23 17:05 Results Reviewed Results Reviewed: Laboratory Last Values Hgb A1c (Clinic) 6.9 % (4.0-6.0) H 07/01/23 16:07 Laboratory Tests 03/07/23 03/07/23 03/07/23 10:40 10:40 10:40 WBC 5.9 Hgb 12.7 Hct 40.7 Plt Count 344 Sodium 140 Potassium 3.8 Creatinine 0.96 Estimated GFR 59 Fasting Glucose 179 H Hgb A1c (Clinic) Hemoglobin A1c % 7.9 AST 16 ALT 18 Triglycerides Cholesterol 154 LDL Cholesterol, Calc HDL Cholesterol 42 Vitamin B12 420 25-OH Vitamin D Total 43.3 TSH Free T4 Ur Specific [place] Urine Protein Urine Glucose (UA) Urine Blood Microalb/Creat Ratio 03/07/23 06/27/23 06/27/23 10:40 14:45 14:45 WBC Hgb Hct Plt Count Sodium Potassium Creatinine Estimated GFR Fasting Glucose Hgb A1c (Clinic) Hemoglobin A1c % AST ALT Triglycerides 86 Cholesterol LDL Cholesterol, Calc 95 HDL Cholesterol Vitamin B12 25-OH Vitamin D Total TSH 4.46 H Free T4 0.92 Ur Specific [place] 1.020 Urine Protein Negative Urine Glucose (UA) >=1000 H Urine Blood Negative Microalb/Creat Ratio 6.3 07/01/23 16:07 WBC Hgb Hct Plt Count Sodium Potassium Creatinine Estimated GFR Fasting Glucose Hgb A1c (Clinic) 6.9 H Hemoglobin A1c % AST ALT Triglycerides Cholesterol LDL Cholesterol, Calc HDL Cholesterol Vitamin B12 25-OH Vitamin D Total TSH Free T4 Ur Specific [place] Urine Protein Urine Glucose (UA) Urine Blood Microalb/Creat Ratio Assessment and Plan Assessment & Plan (1) Type 2 diabetes mellitus with diabetic chronic kidney disease: Code(s): E11.22 - Type 2 diabetes mellitus with diabetic chronic kidney disease Qualifiers: Diabetes mellitus senior care insulin use: with marine oil terminal superintendent use Chronic kidney disease stage: stage 2 (mild) Qualified Code(s): E11.22 - Type 2 diabetes mellitus with diabetic chronic kidney disease; N18.2 - Chronic kidney disease, stage 2 (mild); Z79.4 - residential (current) use of insulin Plan: In-office HgbA1c done today is at 6.9% (HbA1c was at 7.9% a few months ago) - goal is < 7.0% Reinforced diabetic diet Continue Mounjaro 5 mg SQ once a week, Metformin 1000 mg BID, Lantus 20 units SQ at bedtime and Farxiga 5 mg QD Follow up with endocrinology (Dr. Fields) as scheduled (2) Pure hypercholesterolemia: Code(s): E78.00 - Pure hypercholesterolemia, unspecified Plan: Results of her labs done back in March 2023 reviewed and discussed with patient Reinforced low cholesterol diet Continue Atorvastatin 20 mg QD Will recheck her labs and fasting lipids in 3 months for follow up (3) Benign essential hypertension: Code(s): I10 - Essential (primary) hypertension Plan: Reinforced low sodium diet - goal is systolic BP of at least 120 mm or less Continue Lisinopril 30 mg QD - Rx refilled (4) Chronic kidney disease, stage 2 (mild): Code(s): N18.2 - Chronic kidney disease, stage 2 (mild) Plan: Stable - will continue to monitor her renal function regularly/closely (5) Acquired hypothyroidism: Code(s): E03.9 - Hypothyroidism, unspecified Plan: Her TFTs done a few days ago came back much improved from a few months ago - TSH is almost back to normal at 4.46; free T4 is normal She is currently on Tirosint 200 mcg QD Will continue to monitor her TFTs regularly Follow up with endocrinology as scheduled (6) Neuropathy: Code(s): G62.9 - Polyneuropathy, unspecified Plan: Patient's recurrent right hand numbness/symptoms suggest neuropathy as the most likely etiology EMG and NCV done a few months ago revealed findings of early CTS bilaterally She is encouraged to continue wearing her wrist braces as needed to help manage her symptoms (7) Vitamin B12 deficiency: Code(s): E53.8 - Deficiency of other specified B group vitamins Plan: Continue Vitamin B12 1000 mcg QD (8) Vitamin D deficiency: Code(s): E55.9 - Vitamin D deficiency, unspecified Plan: Continue Vitamin D3 2000 units QD Will recheck her Vitamin D level in 3 months for follow up (9) Osteoarthritis of left knee: Code(s): M17.12 - Unilateral primary osteoarthritis, left knee Qualifiers: Osteoarthritis type: primary Qualified Code(s): M17.12 - Unilateral primary osteoarthritis, left knee Plan: X-rays of the left knee done a couple of months ago (May 2023) revealed (+) mild tricompartmental arthritis that is slightly progressed from 2020 As patient has been complaining of increasing left knee pain for the past few weeks, will refer her to orthopedics for further evaluation and management (10) Lumbar degenerative disc disease: Code(s): M51.36 - Other intervertebral disc degeneration, lumbar region Plan: Reinforced activity and weight lifting restrictions Continue Cyclobenzaprine 10 mg TID PRN and Orphenadrine 100 mg BID PRN with food; Lidocaine patches help as well Repeat lumbar spine, sacral spine and coccygeal x-rays done a couple of months ago revealed no acute osseus abnormalities although her imaging studies have demonstrated findings of multiple calcified fibroids (11) Fibroids: Code(s): D21.9 - Benign neoplasm of connective and other soft tissue, unspecified Plan: Will send patient for abdominal and pelvic US to further evaluate the calcified fibroids seen again on her recent imaging studies Will refer patient to OB-Manager Configuration for further evaluation and management of her fibroids Discussed that these may be contributing to patient's recent recurrent abdominal pain and discomfort (12) Anxiety: Code(s): F41.9 - Anxiety disorder, unspecified Plan: Continue Lorazepam 0.5 mg TID PRN (13) Bipolar depression: Code(s): F31.9 - Bipolar disorder, unspecified Plan: Continue Paroxetine 40 mg QD, Topiramate 50 mg Q HS and Risperidone 1 mg Q HS Follow up with psychiatry as scheduled (14) Obesity (BMI 30-39.9): Code(s): E66.9 - Obesity, unspecified Plan: Reinforced diet/exercise as tolerated/ lose weight Plan Follow up in 3 months Orders: Orders Complete Blood Count Auto Diff 3 Months I10 - Essential (primary) hypertension Lipid Panel 3 Months E78.00 - Pure hypercholesterolemia, unspecified Hemoglobin A1c 3 Months E11.9 - Type 2 diabetes mellitus without complications TSH reflex Free T4 3 Months E78.00 - Pure hypercholesterolemia, unspecified UA CC w/rflx Micro + Cult 3 Months R30.0 - Dysuria Vitamin D 25-OH Total 3 Months E55.9 - Vitamin D deficiency, unspecified AMB Hemoglobin A1c 12 E11.8 - Type 2 diabetes mellitus with unspecified complications US pelvic complete 12 D21.9 - Benign neoplasm of connective and other soft tissue, unspecified, R10.9 - Unspecified abdominal pain US abdomen complete 12 D21.9 - Benign neoplasm of connective and other soft tissue, unspecified, R10.9 - Unspecified abdominal pain Comprehensive [place]. Panel Fast 3 Months E78.00 - Pure hypercholesterolemia, unspecified Microalbumin, Random (w Creat) 3 Months E11.9 - Type 2 diabetes mellitus without complications Referrals Orthopedics Referral M17.12 - Unilateral primary osteoarthritis, left knee DIGITAL CAMPAIGN MANAGER Referral D21.9 - Benign neoplasm of connective and other soft tissue, unspecified Medications: Refilled lisinopril 30 mg PO DAILY 90 tabs 0RF Coding Level of Care Code Est Pt Level 4 (37077) Diagnoses Type 2 diabetes mellitus with stage 2 chronic kidney disease, with long-term current use of insulin E11.22; N18.2; Z79.4 Diabetes mellitus senior care insulin use: with senior care use Chronic kidney disease stage: stage 2 (mild) Pure hypercholesterolemia E78.00 Benign essential hypertension I10 Chronic kidney disease, stage 2 (mild) N18.2 Acquired hypothyroidism E03.9 Neuropathy G62.9 Vitamin B12 deficiency E53.8 Vitamin D deficiency E55.9 Primary osteoarthritis of left knee M17.12 Osteoarthritis type: primary Lumbar degenerative disc disease M51.36 Fibroids D21.9 Anxiety F41.9 Bipolar depression F31.9 Obesity (BMI 30-39.9) E66.9
[2023-07-01 15:56] VITALS: BP 144/78; PULSE 84; O2SAT 97; BMI 34.1
== END 2023-07-01 16:58 | disposition home or self-care (01) ==
PROVIDERS: PCP Internal Medicine; Visit Provider Internal Medicine
DX: E11.8 Type 2 diabetes mellitus with unspecified complications (principal)
CPT/HCPCS: 83036; 99214

== ENCOUNTER 2023-07-15 10:32 | Outpatient (AMB) | payer OTHER, SELFPAY ==
--- NOTE | 2023-07-15 10:43 | A.OFFVIS_ITS ---
Intake Intake Visit Reasons: New Prob- OA Left knee Intake Note: Lyric is a Allergies aspirin [ASPIRIN] Allergy (Severe, Verified 07/03/23 14:12) RASH, itchiness Penicillins [PENICILLINS] Allergy (Mild, Verified 07/03/23 14:12) RASH HPI New Prob- OA Left knee HPI Details 57-year-old female, who is [place] speak ing, presents in the office today for an evaluation of left knee pain. PFSH Medical History Recurrent ventral incisional hernia Bipolar depression Anxiety Depression Left hip pain B12 deficiency Abnormal thyroid biopsy Non-toxic multinodular goiter Hypothyroidism Other and unspecified hyperlipidemia Type 2 diabetes mellitus with unspecified complications Obesity (BMI 30-39.9) Lumbar degenerative disc disease Vitamin B12 deficiency Acquired hypothyroidism Nonintractable headache Pure hypercholesterolemia Benign essential hypertension Chronic kidney disease, stage 2 (mild) Type 2 diabetes mellitus with diabetic chronic kidney disease Knee pain, bilateral Anxiety IBS (irritable bowel syndrome) Visual loss Tendonitis Neck pain Hernia Chronic abdominal pain Lumbar disc disease Depression Asthma Hx of headache Type 2 diabetes mellitus with hyperglycemia Autoimmune thyroiditis Hyperlipidemia LDL goal <100 Essential hypertension Vitamin D deficiency Obesity due to excess calories Surgical History S/P laparoscopy (~11/20/10) History of hernia repair Hx of exploratory laparotomy Family History Father Medical history unknown Mother Medical history unknown Social History Housing: Apartment Alcohol intake: never Patient Tobacco Use Status: Never used Tobacco e-Cigarette/Vaping Use: Never Used Second Hand Smoke Exposure: Yes service: No Current occupational status: disabled Cognitive needs: No Hearing needs: No Vision needs: Yes Review of Systems Const All systems reviewed & are unremarkable except as noted in HPI and below Physical Exam Const General: cooperative, healthy appearing and no acute distress Resp Effort & Inspection: normal respiratory effort and able to speak in complete sentences Cardio Rate: regular rate Peripheral pulses: Peripheral pulses 2+ throughout GI Palpation (GI): Soft to palpation Skin Lesions: no lesions Rashes: no rashes Extrem Other: Left knee: Normal to inspection. No ecchymosis, erythema, or joint effusion. Mild tenderness to palpation to the medial or lateral joint lines. Full knee extension and flexion. Mild crepitus felt with ROM. Negative Nan's. NVI. Assessment & Plan Assessment & Plan (1) Osteoarthritis of left knee: Code(s): M17.12 - Unilateral primary osteoarthritis, left knee Qualifiers: Osteoarthritis type: primary Qualified Code(s): M17.12 - Unilateral primary osteoarthritis, left knee Plan Ms. Berkowitz is a 57-year-old female, who is [place]an speaking, presents in the office today for an evaluation of left knee pain. The patient was offered a cortisone injection while in the office today, but she is hesitant to move forward with this at this time. I offered the patient physical therapy which she would like to move forward with before proceeding with cortisone injection. She was given my card should she choose to get the injection at a later time. She was also given a reaction knee brace, off the shelf. Follow up will be PRN, or sooner if needed. X-rays of the left knee which were obtained while in the office today and were reviewed by me, Elsie Venegas PA-C, revealed osteoarthritis. Orders: Orders XR knee standing BI Today M25.569 - Pain in unspecified knee XR knee LT 1V Today M25.569 - Pain in unspecified knee PT Evaluation and Treatment Today M17.12 - Unilateral primary osteoarthritis, left knee Patient Instructions: Scribed for Elsie Venegas PA-C by Liliana Ambrose medical claims representative, on 07/15/2023 at 10:45 am, EST. Coding Level of Care Code Est Pt Level 3 (96784) Diagnoses Primary osteoarthritis of left knee M17.12 Osteoarthritis type: primary
== END 2023-07-15 11:06 | disposition home or self-care (01) ==
PROVIDERS: PCP Internal Medicine; Visit Provider Physician Assistant
DX: M17.12 Unilateral primary osteoarthritis, left knee (principal)
CPT/HCPCS: 99213

== ENCOUNTER 2023-07-15 13:10 | Outpatient (REF) | payer OTHER, SELFPAY ==
--- NOTE | ~2023-07-15 | XR_ITS ---
EXAMINATION: XR KNEE AP STANDING CLINICAL INFORMATION: Pain COMPARISON: None available. TECHNIQUE: AP bilateral standing view of the knees was obtained. FINDINGS: Mild spurring. No significant joint space narrowing. No fracture or dislocation. XR/XR knee standing BI IMPRESSION: Mild spurring. No acute bony pathology.
--- NOTE | ~2023-07-15 | XR_ITS ---
EXAMINATION: XR KNEE AP STANDING CLINICAL INFORMATION: Pain COMPARISON: None available. TECHNIQUE: AP bilateral standing view of the knees was obtained. FINDINGS: Mild spurring. No significant joint space narrowing. No fracture or dislocation. XR/XR knee LT 1V IMPRESSION: Mild spurring. No acute bony pathology.
== END 2023-07-15 13:11 | disposition home or self-care (01) ==
LOC: HO.HOSX 13:10
PROVIDERS: Visit Provider Physician Assistant
DX: M17.12 Unilateral primary osteoarthritis, left knee (principal)
CPT/HCPCS: 73560; 73565; 99212

== ENCOUNTER 2023-08-09 09:46 | Outpatient (REF) | payer OTHER, SELFPAY ==
--- NOTE | ~2023-08-09 | US_ITS ---
EXAMINATION: US PELVIS CLINICAL INFORMATION: Leiomyoma, postmenopausal. COMPARISON: CT abdomen and pelvis 02/19/2017. TECHNIQUE: Ultrasound of the pelvis is performed using both transabdominal and transvaginal transducers along with Doppler. Transvaginal imaging is performed due to inadequate visualization transabdominally. Radiologist was not in attendance. Images were later provided for interpretation. FINDINGS: The uterus measures 9.3 x 6.8 x 8.4 cm, volume 278 mL. Multiple echogenic shadowing foci characteristic of calcified fibroids with measurements as follows: Right 5.3 x 5.7 x 5.1 cm superior fibroid is best appreciated on transabdominal ultrasound images. Left lower uterine segment 5.4 x 4.0 x 4.3 cm fibroid is best seen on transabdominal ultrasound images. A 1.3 x 1.2 x 1.4 cm fibroid. A 2.6 x 2.8 x 2.5 cm mid fibroid. Left ovary not visualized. Right ovary seen only on transabdominal ultrasound images and measures 1.7 x 1.8 x 1.9 cm, volume 3.2 mL. Limited visualization of the right ovary due to enlarged uterus with multiple shadowing calcified fibroids as well as abdominal wall scar tissue per salsa dance instructor. Precise measurements of uterus are of limited accuracy due to limited visualization. Endometrium could not be visualized due to uterine fibroids. US/US pelvic and transvaginal IMPRESSION: 1. Enlarged fibroid uterus. 2. Left ovary not visualized. 3. Right ovary seen only on transabdominal ultrasound images and is grossly unremarkable. 4. Endometrium could not be visualized. 5. Pelvic MRI employing intravenous contrast could be considered for better visualization based on the clinical assessment.
--- NOTE | ~2023-08-09 | US_ITS ---
EXAMINATION: US ABDOMEN COMPLETE CLINICAL INFORMATION: Abdominal pain. COMPARISON: X-ray abdomen 05/19/2018. CT abdomen and pelvis 02/19/2017. Ultrasound abdomen 09/16/2011 and 08/28/2010. TECHNIQUE: Real-time imaging of the abdominal viscera. Limited visualization due to bowel gas. FINDINGS: PANCREAS: Limited visualization of pancreatic tail and head. Imaged portion of pancreatic body is unremarkable. ABDOMINAL AORTA: Mid to distal abdominal aorta obscured by bowel gas. INFERIOR VENA CAVA: Imaged portion is unremarkable. LIVER: Hepatomegaly, 16.3 cm. Increased hepatic parenchymal heterogeneity and echogenicity could be associated with hepatocellular disease/hepatic steatosis and substantially limits visualization. Correlation with liver function tests and clinical exam recommended to determine further management. Mildly lobulated anterior wall of the left hepatic lobe. Hypoechoic areas within the liver adjacent to the gallbladder are characteristic of areas of focal sparing. GALLBLADDER: No mural thickening. Punctate 2 mm mural echogenic focus may represent a focal mural calcification. No mobile gallstones identified. COMMON BILE DUCT: Normal in caliber measuring 0.4 cm in diameter. RIGHT KIDNEY: No hydronephrosis. No renal calculi. Limited visualization. The kidney measures 11.0 cm in maximum dimension. LEFT KIDNEY: No hydronephrosis. No renal calculi. Limited visualization. The kidney measures 10.1 cm in maximum dimension. SPLEEN: Normal. The spleen measures 9.5 cm in maximum dimension. FREE FLUID: None. US/US abdomen complete IMPRESSION: 1. Hepatomegaly, 16.3 cm. Increased hepatic parenchymal heterogeneity and echogenicity could be associated with hepatocellular disease/hepatic steatosis and substantially limits visualization. Mildly lobulated anterior wall of the left hepatic lobe. Hypoechoic areas within the liver adjacent to the gallbladder are characteristic of areas of focal sparing. Correlation with liver function tests and clinical exam recommended to determine further management. 2. Punctate 2 mm mural echogenic focus may represent a focal mural calcification. No mobile gallstones identified. 3. Limited visualization due to bowel gas and body habitus.
== END 2023-08-09 09:47 | disposition home or self-care (01) ==
LOC: HO.US 09:46
PROVIDERS: PCP Internal Medicine; Visit Provider Internal Medicine
DX: R10.9 Unspecified abdominal pain (principal); D21.9 Benign neoplasm of connective and other soft tissue, unspecified
CPT/HCPCS: 76700; 76830; 76856

== ENCOUNTER 2023-08-31 08:03 | Outpatient (REF) | payer OTHER, SELFPAY ==
[2023-08-31 09:24] LABS: Thyroid Stimulating Hormone 2.53 uIU/mL (0.32-4.0)
== END 2023-08-31 08:04 | disposition home or self-care (01) ==
LOC: HO.LAB 08:03
PROVIDERS: PCP Internal Medicine; Visit Provider Internal Medicine Endocrinology, Diabetes & Metabolism
DX: E04.2 Nontoxic multinodular goiter (principal); E11.9 Type 2 diabetes mellitus without complications; E03.8 Other specified hypothyroidism; I10 Essential (primary) hypertension; E78.00 Pure hypercholesterolemia, unspecified; Z79.899 Other long term (current) drug therapy
CPT/HCPCS: 36415; 82947; 84439; 84443; 99212

== ENCOUNTER 2023-08-31 08:03 | Outpatient (AMB) | payer OTHER, SELFPAY ==
[2023-08-31 08:04] VITALS: BP 138/68; PULSE 72; BMI 34.9
--- NOTE | 2023-08-31 08:04 | MHC.OFFVIS ---
Intake Vital Signs 08/31/23 08:04 Height 4 ft 11.25 in Weight 174 lb 6.17 oz BMI 34.9 BP 138/68 Blood Pressure Location Lt brachial Position Sitting Pulse 72 Pulse Source Pulse Oximeter Intake Visit Reasons: f/u Type 2 DM/hypothyroidism/MNG Intake Note: Patient presents today to follow up on D2MT, Hypothyroidism and MNG. Last Diabetic Eye exam: 2021 Last Podiatry Visit: 07/2023 Random Glucose: 149 mg/dl HgA1c:6.9% 07/01/23 Lab Technician Required: No Accompanied by: Self / Same As Patient Allergies aspirin [ASPIRIN] Allergy (Severe, Verified 08/31/23 08:10) RASH, itchiness Penicillins [PENICILLINS] Allergy (Mild, Verified 08/31/23 08:10) RASH Medication List - Last Reconciled 08/31/23 by Ryland Fields MD [ABDOMINAL BINDER (elastic) - LARGE As directed] albuterol sulfate 90 mcg/actuation 2 puffs PO QID PRN albuterol sulfate 90 mcg/actuation (ProAir HFA) 2 puffs inhalation Q6H PRN 30 days albuterol sulfate 2.5 mg (3 mL) continuous nebulization Q6H PRN 30 days atorvastatin 80 mg PO BEDTIME blood pressure monitor As directed blood sugar diagnostic (FreeStyle Lite Strips) As directed 3 times a day chysljlozx-zcxathhprmuic-erwr 50-325-40 mg 1 cap PO BID-TID PRN 30 days cholecalciferol (vitamin D3) 50 mcg PO DAILY cyclobenzaprine 10 mg PO TID PRN 30 days dapagliflozin propanediol (Farxiga) 5 mg PO DAILY ferrous fumarate 325 mg PO QWEEK flash glucose scanning reader (FreeStyle Galina 2 Needles) As directed flash glucose sensor (FreeStyle Galina 2 Sensor kit) USE DIRECTED CHANGE EVERY 14 DAYS insulin glargine (Lantus Solostar U-100 Insulin) 20 units (0.2 mL) subcut QPM lancets (FreeStyle Lancets) As directed checks 4 X/day lidocaine 5% 1 patch topical DAILY PRN 30 days lisinopril 30 mg PO DAILY lorazepam 0.5 mg PO TID PRN 30 days metformin 1,000 mg PO BID miscellaneous medical supply 1 ea miscellaneous DAILY montelukast 10 mg PO QPM 90 days [NEBULIZER and all related accessories As directed] orphenadrine citrate ER 100 mg PO BID PRN 30 days paroxetine HCl 40 mg PO DAILY 30 days risperidone 1 mg PO BEDTIME 30 days Tirosint (levothyroxine) 200 mcg PO DAILY NS tirzepatide (Mounjaro) 5 mg (0.5 mL) subcut QWEEK topiramate 50 mg PO BEDTIME 90 days tramadol 50 mg PO TID PRN HPI HPI Comments History of Present Illness Details Patient is 57 yo female with DM type 2 diagnosed 2013 who presents for management of diabetes and hypothyroidism. Past medical history: DM2, hypothyroidism, MNG , HTN, HLD, asthma, osteoarthritis 1) Diabetes Type 2 diabetes diagnosed in 2013. . She was really checking blood glucose in advised check frequently. Her Trulicity was increased. Diabetes medication: Lantus 20 units once a day.Mounjaro 5 mg per week. metformin 1000mg BID, Farxiga 5 mg QD Symptoms reported: occasional cramping numbness/tingling in legs. Hypoglycemia: denies Hyperglycemia: denies urinary frequency, nocturia, polydypsia Blood glucose monitoring: [employer] download shows she is wearing the sensor 92% of the time average glucose is 174 with G mi of 7.5% and variability 20.2%. 63% of glucoses are in target range with 36% hyperglycemia and no hypoglycemia Exercise: limited due to pain in knees. Saw optho Needs to make appt 2) Hypothyroidism Tironsint 200mcg daily Family Hx: none known Laboratory Tests 08/10/21 11/03/21 11/03/21 14:22 11:10 11:10 Creatinine 1.04 Estimated GFR 54 Hgb A1c (Clinic) 7.2 H Hemoglobin A1c % 7.9 Triglycerides 109 Cholesterol 171 LDL Cholesterol, C alc 115 HDL Cholesterol 35 25-OH Vitamin D To bobby 20.0 TSH 3.30 Free T4 1.11 Microalb/Creat Rat io 11/03/21 11:10 Creatinine Estimated GFR Hgb A1c (Clinic) Hemoglobin A1c % Triglycerides Cholesterol LDL Cholesterol, C alc HDL Cholesterol 25-OH Vitamin D To bobby TSH Free T4 Microalb/Creat Rat io [facility] Medical History Recurrent ventral incisional hernia Bipolar depression Anxiety Depression Left hip pain B12 deficiency Abnormal thyroid biopsy Non-toxic multinodular goiter Hypothyroidism Other and unspecified hyperlipidemia Type 2 diabetes mellitus with unspecified complications Obesity (BMI 30-39.9) Lumbar degenerative disc disease Vitamin B12 deficiency Acquired hypothyroidism Nonintractable headache Pure hypercholesterolemia Benign essential hypertension Chronic kidney disease, stage 2 (mild) Type 2 diabetes mellitus with diabetic chronic kidney disease Knee pain, bilateral Anxiety IBS (irritable bowel syndrome) Visual loss Tendonitis Neck pain Hernia Chronic abdominal pain Lumbar disc disease Depression Asthma Hx of headache Type 2 diabetes mellitus with hyperglycemia Autoimmune thyroiditis Hyperlipidemia LDL goal <100 Essential hypertension Vitamin D deficiency Obesity due to excess calories Surgical History S/P laparoscopy (~11/20/10) History of hernia repair Hx of exploratory laparotomy Family History Father Medical history unknown Mother Medical history unknown Social History Housing: Apartment Alcohol intake: never Patient Tobacco Use Status: Never used Tobacco e-Cigarette/Vaping Use: Never Used Second Hand Smoke Exposure: Yes service: No Current occupational status: disabled Cognitive needs: No Hearing needs: No Vision needs: Yes Physical Exam Absence of Cushingoid features. Absence of acromegalic features. Neck exam reveals nl size thyroid about 15 gms. No thyroid nodules palpable. No carotid bruits present. Lungs CTA. Heart S1 S2, Reg R/R. No M/R/ G. Skin exam reveals absence of vitiligo or acanthosis nigricans. Abdominal exam reveals Soft NT/ND with NA BS. No organomegaly present. Neck Other: . Extrem Other: Visual exam of foot performed. No ulcerations or open lesions. No onchomycosis, no callouses.Pulses 2 + distally Sensation intact to monofilament exam. Vibratory sensation sensed is intact with 128 Hz tuning fork Assessment & Plan Assessment & Plan (1) Type 2 diabetes mellitus with unspecified complications: Code(s): E11.8 - Type 2 diabetes mellitus with unspecified complications Plan: This is a 57-year-old female with history of type 2 diabetes being treated with metformin, Trulicity, Farxiga and Lantus with excellent improved at goal glycemic control and known microvascular complications namely CKD. The plan is to continue the current management. 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 She appears to be clinically euthyroid . She missed several doses recently. She has been on consistent dose for the l plan is to recheck TSH and free T4 in . If TSH is in normal range, patient returned to the care of her primary care provider and back to endocrinology as needed (3) Non-toxic multinodular goiter: Code(s): E04.2 - Nontoxic multinodular goiter Plan: She is status post FNA of a right thyroid nodule with indeterminate cytology and negative Affirma. Recent thyroid ultrasound shows stability in the size of the nodule Plan is continued observation. Perhaps repeat thyroid ultrasound could be performed in 1 year's time. 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
[2023-08-31 08:19] LABS: Glucose, Whole Blood 149 mg/dL (60-115)
== END 2023-08-31 09:21 | disposition home or self-care (01) ==
PROVIDERS: PCP Internal Medicine; Visit Provider Internal Medicine Endocrinology, Diabetes & Metabolism
DX: E11.8 Type 2 diabetes mellitus with unspecified complications (principal); E03.8 Other specified hypothyroidism; E06.3 Autoimmune thyroiditis; E04.2 Nontoxic multinodular goiter; E78.00 Pure hypercholesterolemia, unspecified; E03.9 Hypothyroidism, unspecified
CPT/HCPCS: 99214

== ENCOUNTER 2023-10-03 11:06 | Outpatient (REF) | payer OTHER, SELFPAY ==
[2023-10-03 12:06] LABS: MANUAL DIFF FLAG NO
[2023-10-03 12:59] LABS: Basophils Absolute Auto 0.1 X10*3/uL (0.0-0.2); Basophils Percent Auto 0.8 % (0-2); Eosinophils Absolute Auto 0.1 X10*3/uL (0.0-0.4); Eosinophils Percent Auto 2.1 % (0-4); Hematocrit 39.7 % (37.0-47.0); Hemoglobin 12.7 g/dl (12.0-16.0); Imm Gran Abs Auto 0.02 X10*3/uL (0.00-0.03); Imm Gran Pct Auto 0.3 % (0.0-0.4); Lymphocytes Absolute Auto 2.4 X10*3/uL (1.2-4.9); Lymphocytes Percent Auto 39.2 % (20-40); Mean Corpuscular Hemoglobin 27.4 pg (27.0-33.0); Mean Corpuscular Volume 85.6 fL (80.0-98.0); Mean Platelet Volume 11.3 fL (9.4-12.3); Monocytes Absolute Auto 0.4 X10*3/uL (0.1-1.2); Monocytes Percent Auto 7.2 % (2-11); Neutrophils Absolute Auto 3.1 x10*3/uL (2.0-8.3); Neutrophils Percent Auto 50.4 % (45-73); Platelet Count 305 X10*3/uL (160-400); Red Blood Count 4.64 X10*6/uL (4.20-5.50); Red Cell Distribution Width 12.1 % (11.0-16.0); White Blood Count 6.1 X10*3/uL (4.8-10.8)
[2023-10-03 13:05] LABS: Estimated Average Glucose 160 mg/dL; Hemoglobin A1c % 7.2 % (<6.0)
[2023-10-03 13:22] LABS: Appearance Urine Clear; Color Urine Yellow; Glucose Urine UA >=1000 mg/dL (Negative); Leukocyte Esterase Urine Negative (Negative); Nitrite Urine Negative (Negative); PH 5.5 (5.0-9.0); UMIC TRIGGER UACC YES; Urine Blood Negative (Negative); Urine Ketones Negative (Negative); Urine Protein Negative (Neg-Trace)
[2023-10-03 13:29] LABS: Bacteria Urine None Seen (None Seen); RBC Urine 0-2 /HPF (0-2); Squamous Epithelial Cell Urine 0-2 /HPF (0-2); WBC Urine 0-5 /HPF (0-5)
[2023-10-03 13:51] LABS: Creatinine Urine 48.59 mg/dL; Microalbumin Urine < 5.0 mg/L
[2023-10-03 13:51] LABS: Alanine Aminotransferase 21 U/L (0-31); Alkaline Phosphatase 88 U/L (39-117); Anion Gap 10 (12-20); Aspartate Amino Transferase 20 U/L (5-31); Bilirubin Total 0.3 mg/dL (0.0-1.0); Blood Urea Nitrogen 14 mg/dL (9-16); Calcium 9.4 mg/dL (8.4-10.2); Carbon Dioxide 29 mmol/L (22-29); Chloride 109 mmol/L (96-108); Cholesterol 192 mg/dL (<200); Estimated Glomerular Filt Rate 49; Glucose Fasting 153 mg/dL (60-99); HDL Cholesterol 43 mg/dL (>40); LDL Cholesterol Calculated 129 mg/dL (<100); Potassium 4.4 mmol/L (3.3-5.1); Sodium 144 mmol/L (135-145); Total Protein 7.9 g/dL (6.5-8.0); Triglycerides 102 mg/dL (<150)
[2023-10-03 14:03] LABS: TSH reflex Free T4 12.68 uIU/mL (0.32-4.0); Vitamin D 25-OH Total 13.3 ng/mL (>30)
== END 2023-10-03 11:07 | disposition home or self-care (01) ==
LOC: HO.LAB 11:06
PROVIDERS: PCP Internal Medicine; Visit Provider Internal Medicine
DX: I10 Essential (primary) hypertension (principal); E78.00 Pure hypercholesterolemia, unspecified; E11.9 Type 2 diabetes mellitus without complications; E55.9 Vitamin D deficiency, unspecified; D25.9 Leiomyoma of uterus, unspecified; N90.4 Leukoplakia of vulva
CPT/HCPCS: 36415; 80053; 80061; 81001; 81003; 82043; 82306; 82570; 83036; 84439; 84443; 85025; 99202

== ENCOUNTER 2023-10-03 11:13 | Outpatient (AMB) | payer OTHER, SELFPAY ==
[2023-10-03 11:17] VITALS: BP 116/62; BMI 35.2
--- NOTE | 2023-10-03 11:17 | MHC.OFFVIS ---
Intake Vital Signs 10/03/23 11:17 Height 4 ft 11 in Weight 174 lb 2.643 oz BMI 35.2 BP 116/62 Intake Visit Reasons: Calcified Fibroid/PCP Referral/DO NOT RS Brake Shoe Rebuilder Required: Yes Brake Shoe Rebuilder Language: Gold Nib Grinder Name: Dora GARCIA Information Interpreted: non-clinical & clinical Subsystems Engineer: Subsystems Engineer Present (Dora GARCIA) Accompanied by: Self / Same As Patient Allergies aspirin [ASPIRIN] Allergy (Severe, Verified 10/03/23 11:22) RASH, itchiness Penicillins [PENICILLINS] Allergy (Mild, Verified 10/03/23 11:22) RASH Post menopausal: Yes HPI HPI Comments History of Present Illness Details The patient is presenting referred regarding myomas on ultrasound. The patient has been experiencing pelvic pressure no pain or vaginal bleeding. Last co testing was many years ago. Last mammogram was 04/23 Pelvic ultrasound done in 08/24 showed the following: The uterus measures 9.3 x 6.8 x 8.4 cm, volume 278 mL. Multiple echogenic shadowing foci characteristic of calcified fibroids with measurements as follows: Right 5.3 x 5.7 x 5.1 cm superior fibroid is best appreciated on transabdominal ultrasound images. Left lower uterine segment 5.4 x 4.0 x 4.3 cm fibroid is best seen on transabdominal ultrasound images. A 1.3 x 1.2 x 1.4 cm fibroid. A 2.6 x 2.8 x 2.5 cm mid fibroid. Left ovary not visualized. Right ovary seen only on transabdominal ultrasound images and measures 1.7 x 1.8 x 1.9 cm, volume 3.2 mL. Limited visualization of the right ovary due to enlarged uterus with multiple shadowing calcified fibroids as well as abdominal wall scar tissue per seed cleaner operator. Precise measurements of uterus are of limited accuracy due to limited visualization. Endometrium could not be visualized due to uterine fibroids. CT scan done in 2016 showed a right fundal 5.8 cm peripherally calcified leiomyoma with a 4.7 cm myoma in the left uterine body with additional smaller fibroid that measured at the time [facility] Medical History Recurrent ventral incisional hernia Bipolar depression Anxiety Depression Left hip pain B12 deficiency Abnormal thyroid biopsy Non-toxic multinodular goiter Hypothyroidism Other and unspecified hyperlipidemia Type 2 diabetes mellitus with unspecified complications Obesity (BMI 30-39.9) Lumbar degenerative disc disease Vitamin B12 deficiency Acquired hypothyroidism Nonintractable headache Pure hypercholesterolemia Benign essential hypertension Chronic kidney disease, stage 2 (mild) Type 2 diabetes mellitus with diabetic chronic kidney disease Knee pain, bilateral Anxiety IBS (irritable bowel syndrome) Visual loss Tendonitis Neck pain Hernia Chronic abdominal pain Lumbar disc disease Depression Asthma Hx of headache Type 2 diabetes mellitus with hyperglycemia Autoimmune thyroiditis Hyperlipidemia LDL goal <100 Essential hypertension Vitamin D deficiency Obesity due to excess calories Surgical History S/P laparoscopy (~11/20/10) History of hernia repair Hx of exploratory laparotomy Family History Father Medical history unknown Mother Medical history unknown Social History Household Members: Spouse Housing: Apartment Alcohol intake: never Patient Tobacco Use Status: Never used Tobacco e-Cigarette/Vaping Use: Never Used Second Hand Smoke Exposure: Yes service: No Current occupational status: disabled Cognitive needs: No Hearing needs: No Vision needs: Yes Review of Systems Const All systems reviewed & are unremarkable except as noted in HPI and below Physical Exam Vital Signs: Last Vital Signs BP 116/62 10/03/23 11:17 BMI result Body Mass Index 35.2 General: Yes no CVA tenderness External Female Exam: normal appearance of the urethra and other (Bilateral vulvar leukoplakia) Speculum Exam - Vagina: normal appearance of the vagina, normal palpation, no lesions and no masses Speculum Exam - Cervix: normal appearance of the cervix, normal palpation, no lesions, no masses and nontender Bimanual exam- vagina & uterus: normal bimanual exam, normal palpation, normal palpation, uterine shape normal, No Cervical tenderness present, non-tender and enlarged Bimanual Exam- Adnexa, other: normal adnexae Back/Spine/Pelvis Back: no CVA tenderness Assessment & Plan Assessment & Plan (1) Uterine myoma: Code(s): D25.9 - Leiomyoma of uterus, unspecified Plan: Discussed with the patient the findings on pelvic ultrasound & the risk of myosarcoma; discussed with the patient the options of treatment including expectant management versus hysterectomy; the pros and cons, risks benefits of each approach were discussed with the patient including the fact that in cases of myosarcoma, surgical treatment can lead to early diagnosis and positively affects the prognosis; after further discussion, the patient decided to proceed with expectant management. Will repeat pelvic ultrasound in 11/21, 3 months from previous ultrasound. Instructions given to patient to call in case any of the following occurs: pressure symptoms, abnormal uterine bleeding, pelvic pain; and to schedule a follow-up ultrasound appointment . All questions answered, the patient verbalized understanding and agreed with the plan . 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 Instructions given the patient to schedule him vulvar biopsy appointment. All questions answered, the patient verbalized understanding. Coding Level of Care Code New Pt Level 3 (54205) Diagnoses Uterine myoma D25.9 Vulvar leukoplakia N90.4
== END 2023-10-03 11:53 | disposition home or self-care (01) ==
PROVIDERS: PCP Internal Medicine; Visit Provider Obstetrics & Gynecology
DX: D25.9 Leiomyoma of uterus, unspecified (principal); N90.4 Leukoplakia of vulva
CPT/HCPCS: 99203

== ENCOUNTER 2023-10-03 11:48 | Outpatient (REF) | payer OTHER, SELFPAY ==
[2023-10-07 02:49] LABS: HPV mRNA E6/E7 rflx Not Detected (Not Detected)
== END 2023-10-03 11:49 | disposition home or self-care (01) ==
LOC: HO.LNP 11:48
PROVIDERS: Visit Provider Obstetrics & Gynecology
DX: Z12.4 Encounter for screening for malignant neoplasm of cervix (principal); Z11.51 Encounter for screening for human papillomavirus (HPV); D25.9 Leiomyoma of uterus, unspecified
CPT/HCPCS: 87624; 88142

== ENCOUNTER 2023-10-06 11:40 | Outpatient (AMB) | payer OTHER, SELFPAY ==
[2023-10-06 11:54] VITALS: BP 132/80; PULSE 92; O2SAT 97; BMI 35.2
--- NOTE | 2023-10-06 11:54 | MHC.PC.OV ---
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 Required: No Accompanied by: Self / Same As Patient Allergies aspirin [ASPIRIN] Allergy (Severe, Verified 10/06/23 12:28) RASH, itchiness Penicillins [PENICILLINS] Allergy (Mild, Verified 10/06/23 12:28) RASH Medication List - Last Reconciled 10/06/23 by Hernesto Obregon MD [ABDOMINAL BINDER (elastic) - LARGE As directed] albuterol sulfate 90 mcg/actuation 2 puffs PO QID PRN albuterol sulfate 90 mcg/actuation (ProAir HFA) 2 puffs inhalation Q6H PRN 30 days albuterol sulfate 2.5 mg (3 mL) continuous nebulization Q6H PRN 30 days atorvastatin 80 mg PO BEDTIME blood pressure monitor As directed blood sugar diagnostic (FreeStyle Lite Strips) As directed 3 times a day gtzdbljxaa-puchamjbibyrk-dsow 50-325-40 mg 1 cap PO BID-TID PRN 30 days cholecalciferol (vitamin D3) 50 mcg PO DAILY cyclobenzaprine 10 mg PO TID PRN 30 days dapagliflozin propanediol (Farxiga) 5 mg PO DAILY ferrous fumarate 325 mg PO QWEEK flash glucose scanning reader (FreeStyle [place] 2 [place]) As directed flash glucose sensor (FreeStyle [place] 2 Sensor kit) USE DIRECTED CHANGE EVERY 14 DAYS insulin glargine (Lantus Solostar U-100 Insulin) 20 units (0.2 mL) subcut QPM lancets (FreeStyle Lancets) As directed checks 4 X/day lidocaine 5% 1 patch topical DAILY PRN 30 days lisinopril 30 mg PO DAILY lorazepam 0.5 mg PO TID PRN 30 days metformin 1,000 mg PO BID miscellaneous medical supply 1 ea miscellaneous DAILY montelukast 10 mg PO QPM 90 days [NEBULIZER and all related accessories As directed] orphenadrine citrate ER 100 mg PO BID PRN 30 days paroxetine HCl 40 mg PO DAILY 30 days risperidone 1 mg PO BEDTIME 30 days Tirosint (levothyroxine) 200 mcg PO DAILY NS tirzepatide (Mounjaro) 5 mg (0.5 mL) subcut QWEEK topiramate 50 mg PO BEDTIME 90 days tramadol 50 mg PO TID PRN Tobacco use date assessed: 10/06/23 Dental Screening Dental Screen Date: 10/06/23 Did you have a dental visit in the last 12 months?: Yes Did you have a dental problem in the last 6 months where you did not have access to dental care?: No Was dental information given to patient?: Patient has dentist HPI 3 month f/u HPI Details Patient comes in today for her follow up visit States that she is presently experiencing increased pain over her lower back after standing up in line outside the local social security office here in [place] for an hour or so earlier this morning States that she feels okay otherwise She denies any headaches or dizziness Denies any chest pains, no shortness of breath No nausea/vomiting, no abdominal pain No change in bowel habits noted Had her follow up labs done a few days ago - to discuss her results [facility] Medical History (Updated 10/07/23 @ 03:43 by Hernesto Obregon MD) Chronic kidney disease, stage III (moderate) Recurrent ventral incisional hernia Bipolar depression Anxiety Depression Left hip pain B12 deficiency Abnormal thyroid biopsy Non-toxic multinodular goiter Hypothyroidism Other and unspecified hyperlipidemia Type 2 diabetes mellitus with unspecified complications Obesity (BMI 30-39.9) Lumbar degenerative disc disease Vitamin B12 deficiency Acquired hypothyroidism Nonintractable headache Pure hypercholesterolemia Benign essential hypertension Chronic kidney disease, stage 2 (mild) Type 2 diabetes mellitus with diabetic chronic kidney disease Knee pain, bilateral Anxiety IBS (irritable bowel syndrome) Visual loss Tendonitis Neck pain Hernia Chronic abdominal pain Lumbar disc disease Depression Asthma Hx of headache Type 2 diabetes mellitus with hyperglycemia Autoimmune thyroiditis Hyperlipidemia LDL goal <100 Essential hypertension Vitamin D deficiency Obesity due to excess calories Surgical History S/P laparoscopy (~11/20/10) History of hernia repair Hx of exploratory laparotomy Family History Father Medical history unknown Mother Medical history unknown Social History Household Members: Spouse Housing: Apartment Alcohol intake: never Patient Tobacco Use Status: Never used Tobacco e-Cigarette/Vaping Use: Never Used Second Hand Smoke Exposure: Yes service: No Current occupational status: disabled Cognitive needs: No Hearing needs: No Vision needs: Yes Questionnaire PHQ-9 Over the last 2 weeks, how often have you been bothered by any of the following problems? 1. Little interest or pleasure in doing things: not at all 2. Feeling down, depressed, or hopeless: not at all 3. Trouble falling or staying asleep, or sleeping too much: not at all 4. Feeling tired or having little energy: not at all 5. Poor appetite or overeating: not at all 6. Feeling bad about yourself - or that you are a failure or have let yourself or your family down: not at all 7. Trouble concentrating on things, such as reading the newspaper or watching television: not at all 8. Moving or speaking so slowly that other people could have noticed. Or the opposite - being so fidgety or restless that you have been moving around a lot more than usual: not at all 9. Thoughts that you would be better off or of hurting yourself in some way: not at all Total score: 0 Depression Screening Interpretation: Negative Depression Screening Done: Yes 70090 - PHQ-9 Billing: Yes Source: Developed by Drs. Ryland Guzman, Livia Donohue, Kristian Heredia and colleagues, with an educational jono from [employer]. Thrive Questionnaire Date Thrive assessed: 10/06/23 I am a: Patient What is your living situation today?: I have a steady place to live Within the past 12 months, did the food you bought not last and you didn't have the money to get more?: Never true Within the past 12 months, did you worry whether your food would run out before you got money to buy more?: Never true Do you have trouble paying for medicines?: No Do you have trouble getting transportation to medical appointments?: No Do you have trouble paying your heating and electricity bill?: No Do you have trouble taking care of your child, family member or friend?: No Do you have trouble with day-to-day activities such as bathing, preparing meals, shopping, managing finances, etc.?: No Are you currently unemployed and looking for a job?: No Are you interested in more education?: No Please select the resources that you would like help with: None Currently or been in a relationship where the following occur: no concerns reported THRIVE Score: 0 AUDIT C Alcohol Use Questionnaire (AUDIT-C) 1. How often do you have a drink containing alcohol?: Never 3. How often do you have six or more drinks on one occasion?: Never Total Score: 0 Score Reviewed/Action Taken: Yes STALIN-7 AMB Questionnaire STALIN-7 Date STALIN - 7 assessed: 10/06/23 Feeling nervous, anxious, or on edge: 0 = Not at all Not being able to stop or control worryin = Not at all Worrying too much about different things: 0 = Not at all Trouble relaxin = Not at all Being so restless that it is hard to sit still: 0 = Not at all Becoming easily annoyed or irritable: 0 = Not at all Feeling afraid as if something awful might happen: 0 = Not at all Total STALIN-7 score (0-4 normal; 5-9 mild; 10-14 moderate; 15-21 severe): 0 Source: Developed by Drs. Ryland Guzman, Livia Donohue, Kristian Heredia and colleagues, with an educational jono from [employer]. Review of Systems Const Denies chills, Reports fatigue, Denies fever(s) and Denies headache(s) ENT Denies dysphagia, Denies dizziness, Denies otalgia, Denies headache(s), Denies neck pain, Denies odynophagia and Denies sore throat Card Denies chest pain, Denies palpitations and Denies dyspnea Resp Denies cough, Denies dyspnea and Denies wheezing GI Denies abdominal pain, Denies constipation, Denies dysphagia, Denies heartburn, Denies diarrhea, Denies nausea, Denies odynophagia and Denies vomiting Denies difficulty voiding, Denies nocturia and Denies dysuria Musc Reports back pain (over the lower back - chronic), Reports arthralgias (on and off in the left shoulder, both knees and left hip) and Denies neck pain Skin/Breast Denies rash Neuro Denies dizziness and Denies headache(s) Endo Reports fatigue and Denies palpitations Aller/Immun Denies wheezing Physical exam (Primary Care) Vital Signs: Last Vital Signs Pulse 92 10/06/23 11:54 BP 132/80 10/06/23 11:54 Pulse Ox 97 10/06/23 11:54 Oxygen Delivery Method Room Air 10/06/23 11:54 BMI result Body Mass Index 35.2 Tobacco/Smoking Status: Tobacco use Status Tobacco use date assessed 10/06/23 10/06/23 11:55 Patient Tobacco Use Status Never used Tobacco 10/06/23 11:55 e-Cigarette/Vaping Use Never Used 10/06/23 11:55 PHQ-9: PHQ-9 Score PHQ-9: Total score 0 10/06/23 12:34 Depression Screening Interpretation: Negative Thrive Assessment: Date of Thrive Assessment Date Thrive assessed 10/06/23 10/06/23 11:55 Currently or been in a relationship where the following occur: no concerns reported Const General: no acute distress and alert HENMT Ears: TM's normal bilaterally and EAC's normal Throat: Yes posterior oropharynx normal and Yes tonsils normal (no TP congestion noted) Neck Neck: Yes no lymphadenopathy and Yes supple Resp Auscultation: clear to auscultation bilaterally, no rales and no wheezes Cardio Rate: regular rate Rhythm: regular rhythm Heart sounds: no murmurs GI Palpation (GI): Soft to palpation and nontender Auscultation: normal bowel sounds Back/Spine/Pelvis Thoracic/Lumbar Spine: lumbar spinal tenderness Sacrum: tenderness (mild) midline Skin Rashes: no rashes Extrem General: Yes no clubbing, cyanosis or edema Left upper extremity: shoulder/upper arm Details: tenderness and abnormal ROM (limited ROM due to pain) Results Reviewed Results Reviewed: Laboratory Tests 10/03/23 10/03/23 11:55 12:04 WBC 6.1 Hgb 12.7 Hct 39.7 Plt Count 305 Sodium 144 Potassium 4.4 Creatinine 1.13 Estimated GFR 49 Fasting Glucose 153 H Hemoglobin A1c % 7.2 H Calcium 9.4 AST 20 ALT 21 Triglycerides 102 Cholesterol 192 LDL Cholesterol, Calc 129 H HDL Cholesterol 43 25-OH Vitamin D Total 13.3 L TSH 12.68 H Free T4 1.10 Ur Specific Left Hand 1.020 Urine Protein Negative Urine Glucose (UA) >=1000 H Urine Blood Negative Urine Nitrite Negative Ur Leukocyte Esterase Negative Assessment and Plan Assessment & Plan (1) Pure hypercholesterolemia: Code(s): E78.00 - Pure hypercholesterolemia, unspecified Plan: Results of her labs done a few days ago reviewed and discussed with patient - patient is cautioned that her cholesterol levels have all increased from previous Reinforced low cholesterol diet Continue Atorvastatin 20 mg QD Will recheck her labs and fasting lipids in 3 months for follow up (2) Type 2 diabetes mellitus with diabetic chronic kidney disease: Code(s): E11.22 - Type 2 diabetes mellitus with diabetic chronic kidney disease Qualifiers: Chronic kidney disease stage: stage 2 (mild) Diabetes mellitus buttermaker insulin use: with buttermaker use Qualified Code(s): E11.22 - Type 2 diabetes mellitus with diabetic chronic kidney disease; N18.2 - Chronic kidney disease, stage 2 (mild); Z79.4 - terminologist (current) use of insulin Plan: HgbA1c was at 7.2% on her labs done a few days ago (in-office HgbA1c was previously at 6.9% a few months ago) - goal is < 7.0% Reinforced diabetic diet Continue Mounjaro 5 mg SQ once a week, Metformin 1000 mg BID, Lantus 20 units SQ at bedtime and Farxiga 5 mg QD Follow up with endocrinology (Dr. Fields) as scheduled (3) Benign essential hypertension: Code(s): I10 - Essential (primary) hypertension Plan: Reinforced low sodium diet - goal is systolic BP of at least 120 mm or less Continue Lisinopril 30 mg QD (4) Chronic kidney disease, stage III (moderate): Code(s): N18.30 - Chronic kidney disease, stage 3 unspecified Qualifiers: Chronic kidney disease stage 3 subtype: stage 3a (GFR 45-59) Qualified Code(s): N18.31 - Chronic kidney disease, stage 3a Plan: Patient is cautioned that her renal function appears to have declined slightly from previous on her recent labs and she is now into early stage 3 CKD Have again stressed to her the importance of strict control of her diabetes and high blood pressure to slow down the progression of her CKD Will continue to monitor her renal function regularly/closely (5) Acquired hypothyroidism: Code(s): E03.9 - Hypothyroidism, unspecified Plan: Her TFTs done a few days ago came back again with elevated TSH; free T4 remains normal She is currently on Tirosint 200 mcg QD and is instructed to check with Dr. Fields's office [facility] to see how he wants to address this based on her recent TFT results Follow up with endocrinology as scheduled (6) Neuropathy: Code(s): G62.9 - Polyneuropathy, unspecified Plan: Patient's recurrent right hand numbness/symptoms suggest neuropathy as the most likely etiology of her symptoms EMG and NCV done a few months ago revealed findings of early CTS bilaterally She is encouraged to continue wearing her wrist braces as needed to help manage her symptoms (7) Vitamin B12 deficiency: Code(s): E53.8 - Deficiency of other specified B group vitamins Plan: Continue Vitamin B12 1000 mcg QD (8) Vitamin D deficiency: Code(s): E55.9 - Vitamin D deficiency, unspecified Plan: She is cautioned that her Vitamin D level has dropped significantly on her recent labs Continue Vitamin D3 2000 units QD Will recheck her Vitamin D level in 3 months for follow up (9) Osteoarthritis of left knee: Code(s): M17.12 - Unilateral primary osteoarthritis, left knee Qualifiers: Osteoarthritis type: primary Qualified Code(s): M17.12 - Unilateral primary osteoarthritis, left knee Plan: X-rays of the left knee done in May 2023 revealed (+) mild tricompartmental arthritis that has progressed slightly from 2020 Follow up with orthopedics as scheduled (10) Lumbar degenerative disc disease: Code(s): M51.36 - Other intervertebral disc degeneration, lumbar region Plan: Reinforced activity and weight lifting restrictions Continue Cyclobenzaprine 10 mg TID PRN and Orphenadrine 100 mg BID PRN with food; Lidocaine patches help as well Repeat lumbar spine, sacral spine and coccygeal x-rays done a few months ago revealed no acute osseus abnormalities although her imaging studies have demonstrated findings of multiple calcified fibroids (11) Fibroids: Code(s): D21.9 - Benign neoplasm of connective and other soft tissue, unspecified Plan: Abdominal and pelvic US done a couple of months ago (August 2023) revealed (+) punctate 2 mm mural echogenic focus that may represent a focal mural calcification. No mobile gallstones identified Hepatomegaly was also incidentally noted on her recent abdominal sonogram Follow up with gynecology for this issue as scheduled (12) Anxiety: Code(s): F41.9 - Anxiety disorder, unspecified Plan: Continue Lorazepam 0.5 mg TID PRN (13) Bipolar depression: Code(s): F31.9 - Bipolar disorder, unspecified Plan: Continue Paroxetine 40 mg QD, Topiramate 50 mg Q HS and Risperidone 1 mg Q HS Follow up with psychiatry as scheduled (14) Obesity (BMI 30-39.9): Code(s): E66.9 - Obesity, unspecified Plan: Reinforced diet/exercise as tolerated/ lose weight Plan Follow up in 3 months Orders: Orders Complete Blood Count Auto Diff 3 Months D64.9 - Anemia, unspecified Lipid Panel 3 Months E78.00 - Pure hypercholesterolemia, unspecified Thyroid Stimulating Hormone 3 Months E03.9 - Hypothyroidism, unspecified Free T4 (Free Thyroxine) 3 Months E03.9 - Hypothyroidism, unspecified Comprehensive [place]. Panel Fast 3 Months E78.00 - Pure hypercholesterolemia, unspecified UA CC w/rflx Micro + Cult 3 Months R30.0 - Dysuria Microalbumin, Random (w Creat) 3 Months E11.9 - Type 2 diabetes mellitus without complications Vitamin D 25-OH Total 3 Months E55.9 - Vitamin D deficiency, unspecified Hemoglobin A1c 3 Months E11.9 - Type 2 diabetes mellitus without complications Coding Level of Care Code Est Pt Level 4 (87583) Diagnoses Pure hypercholesterolemia E78.00 Type 2 diabetes mellitus with stage 2 chronic kidney disease, with long-term current use of insulin E11.22; N18.2; Z79.4 Chronic kidney disease stage: stage 2 (mild) Diabetes mellitus [facility] insulin use: with [facility] use Benign essential hypertension I10 Stage 3a chronic kidney disease N18.31 Chronic kidney disease stage 3 subtype: stage 3a (GFR 45-59) Acquired hypothyroidism E03.9 Neuropathy G62.9 Vitamin B12 deficiency E53.8 Vitamin D deficiency E55.9 Primary osteoarthritis of left knee M17.12 Osteoarthritis type: primary Lumbar degenerative disc disease M51.36 Fibroids D21.9 Anxiety F41.9 Bipolar depression F31.9 Obesity (BMI 30-39.9) E66.9
== END 2023-10-06 12:40 | disposition home or self-care (01) ==
PROVIDERS: PCP Internal Medicine; Visit Provider Internal Medicine
DX: I12.9 Hypertensive chronic kidney disease with stage 1 through stage 4 chronic kidney disease, or unspecified chronic kidney disease (principal); E11.22 Type 2 diabetes mellitus with diabetic chronic kidney disease; Z79.4 Long term (current) use of insulin; N18.31 Chronic kidney disease, stage 3a; F31.9 Bipolar disorder, unspecified; E78.00 Pure hypercholesterolemia, unspecified; E03.9 Hypothyroidism, unspecified; G62.9 Polyneuropathy, unspecified; E53.8 Deficiency of other specified B group vitamins; E55.9 Vitamin D deficiency, unspecified; M17.12 Unilateral primary osteoarthritis, left knee; M51.36 Other intervertebral disc degeneration, lumbar region
CPT/HCPCS: 99214

== ENCOUNTER 2023-11-09 11:04 | Outpatient (REF) | payer OTHER, SELFPAY ==
--- NOTE | ~2023-11-09 | US_ITS ---
EXAMINATION: US PELVIS CLINICAL INFORMATION: Fibroid uterus. COMPARISON: Pelvic ultrasound 08/09/2023. TECHNIQUE: Ultrasound of the pelvis is performed using both transabdominal and transvaginal transducers along with color Doppler. Transvaginal imaging is performed due to inadequate visualization transabdominally. FINDINGS: Uterus: Bulky fibroid uterus measuring 11.2 x 5.5 x 6.1 cm. The endometrial stripe is not distinctly seen. The uterine volume is 200 mL. Multiple fibroids are grossly stable with for measured as follows: Fundus: 5.2 x 5.0 x 4.1 cm compared to 5.5 x 5.0 x 5.6 cm. Posterior body: 1.6 x 2.1 x 1.6 cm compared to 2.6 x 2.8 x 2.5 cm. Anterior body: 1.1 x 0.9 x 0.9 cm compared to 1.3 x 1.2 x 1.4 cm. Lower uterine segment: 5.7 x 4.8 x 4.1 cm compared to 5.6 x 3.2 x 4.0 cm. Adnexa: The ovaries are not seen. US/US pelvic and transvaginal IMPRESSION: Fibroid uterus. Nonvisualization of the ovaries.
== END 2023-11-09 11:05 | disposition home or self-care (01) ==
LOC: HO.US 11:04
PROVIDERS: PCP Internal Medicine; Visit Provider Obstetrics & Gynecology
DX: D25.9 Leiomyoma of uterus, unspecified (principal)
CPT/HCPCS: 76830; 76856

== ENCOUNTER 2024-01-02 11:53 | Outpatient (REF) | payer OTHER, SELFPAY ==
[2024-01-02 12:27] LABS: MANUAL DIFF FLAG NO
[2024-01-02 12:40] LABS: Basophils Absolute Auto 0.1 X10*3/uL (0.0-0.2); Basophils Percent Auto 0.7 % (0-2); Eosinophils Absolute Auto 0.1 X10*3/uL (0.0-0.4); Eosinophils Percent Auto 1.3 % (0-4); Hematocrit 40.3 % (37.0-47.0); Hemoglobin 13.2 g/dl (12.0-16.0); Imm Gran Abs Auto 0.03 X10*3/uL (0.00-0.03); Imm Gran Pct Auto 0.4 % (0.0-0.4); Lymphocytes Absolute Auto 2.6 X10*3/uL (1.2-4.9); Lymphocytes Percent Auto 38.2 % (20-40); Mean Corpuscular HGB Conc 32.8 g/dl (31.0-35.0); Mean Corpuscular Hemoglobin 27.6 pg (27.0-33.0); Mean Corpuscular Volume 84.3 fL (80.0-98.0); Mean Platelet Volume 10.8 fL (9.4-12.3); Monocytes Absolute Auto 0.5 X10*3/uL (0.1-1.2); Monocytes Percent Auto 7.9 % (2-11); Neutrophils Absolute Auto 3.5 x10*3/uL (2.0-8.3); Neutrophils Percent Auto 51.5 % (45-73); Platelet Count 310 X10*3/uL (160-400); Red Blood Count 4.78 X10*6/uL (4.20-5.50); White Blood Count 6.8 X10*3/uL (4.8-10.8)
[2024-01-02 12:41] LABS: Appearance Urine Cloudy; Color Urine Yellow; Glucose Urine UA Negative (Negative); Leukocyte Esterase Urine Negative (Negative); Nitrite Urine Negative (Negative); PH 5.5 (5.0-9.0); Specific Gravity - Urine 1.015 (1.005-1.025); Urine Blood Negative (Negative); Urine Ketones Negative (Negative); Urine Protein Negative (Neg-Trace)
[2024-01-02 12:48] LABS: Estimated Average Glucose 169 mg/dL; Hemoglobin A1c % 7.5 % (<6.0)
[2024-01-02 13:08] LABS: Alanine Aminotransferase 18 U/L (0-31); Albumin Level 4.1 g/dL (3.5-5.0); Alkaline Phosphatase 87 U/L (39-117); Anion Gap 11 (12-20); Aspartate Amino Transferase 14 U/L (5-31); Bilirubin Total 0.3 mg/dL (0.0-1.0); Blood Urea Nitrogen 14 mg/dL (9-16); Calcium 9.6 mg/dL (8.4-10.2); Carbon Dioxide 28 mmol/L (22-29); Chloride 105 mmol/L (96-108); Cholesterol 184 mg/dL (<200); Estimated Glomerular Filt Rate 59; Glucose Fasting 131 mg/dL (60-99); HDL Cholesterol 39 mg/dL (>40); LDL Cholesterol Calculated 124 mg/dL (<100); Potassium 4.1 mmol/L (3.3-5.1); Sodium 140 mmol/L (135-145); Total Protein 7.8 g/dL (6.5-8.0); Triglycerides 107 mg/dL (<150)
[2024-01-02 13:23] LABS: Free T4 (Free Thyroxine) 1.24 ng/dL (0.71-1.85); Thyroid Stimulating Hormone 1.25 uIU/mL (0.32-4.0); Vitamin D 25-OH Total 22.4 ng/mL (>30)
[2024-01-02 13:43] LABS: Creatinine Urine 92.29 mg/dL; Microalbumin Urine < 5.0 mg/L
== END 2024-01-02 11:54 | disposition home or self-care (01) ==
LOC: HO.LAB 11:53
PROVIDERS: PCP Internal Medicine; Visit Provider Internal Medicine
DX: E03.9 Hypothyroidism, unspecified (principal); R30.0 Dysuria; E11.9 Type 2 diabetes mellitus without complications; E78.00 Pure hypercholesterolemia, unspecified; E55.9 Vitamin D deficiency, unspecified; D64.9 Anemia, unspecified
CPT/HCPCS: 36415; 56605; 80053; 80061; 81003; 82043; 82306; 82570; 83036; 84439; 84443; 85025

== ENCOUNTER 2024-01-02 12:31 | Outpatient (AMB) | payer OTHER, SELFPAY ==
--- NOTE | 2024-01-02 12:40 | MHC.OFFVIS ---
Vital Signs 01/02/24 12:45 Height 4 ft 11 in Weight 174 lb 2.643 oz BMI 35.2 Intake Visit Reasons: Vulvar biopsy Beef Skinner Required: Yes Beef Skinner Language: Pediatric Oncologist Name: Dora GARCIA Information Interpreted: non-clinical & clinical C4 Planner: C4 Planner Present (Dora GARCIA) Accompanied by: Self / Same As Patient Allergies aspirin [ASPIRIN] Allergy (Severe, Verified 01/02/24 12:46) RASH, itchiness Penicillins [PENICILLINS] Allergy (Mild, Verified 01/02/24 12:46) RASH Post menopausal: Yes HPI Comments Details: Presenting for vulvar biopsy [facility] Medical History (Updated 10/07/23 @ 03:43 by Hernesto Obregon MD) Chronic kidney disease, stage III (moderate) Recurrent ventral incisional hernia Bipolar depression Anxiety Depression Left hip pain B12 deficiency Abnormal thyroid biopsy Non-toxic multinodular goiter Hypothyroidism Other and unspecified hyperlipidemia Type 2 diabetes mellitus with unspecified complications Obesity (BMI 30-39.9) Lumbar degenerative disc disease Vitamin B12 deficiency Acquired hypothyroidism Nonintractable headache Pure hypercholesterolemia Benign essential hypertension Chronic kidney disease, stage 2 (mild) Type 2 diabetes mellitus with diabetic chronic kidney disease Knee pain, bilateral Anxiety IBS (irritable bowel syndrome) Visual loss Tendonitis Neck pain Hernia Chronic abdominal pain Lumbar disc disease Depression Asthma Hx of headache Type 2 diabetes mellitus with hyperglycemia Autoimmune thyroiditis Hyperlipidemia LDL goal <100 Essential hypertension Vitamin D deficiency Obesity due to excess calories Surgical History S/P laparoscopy (~11/20/10) History of hernia repair Hx of exploratory laparotomy Family History Father Medical history unknown Mother Medical history unknown Social History Household Members: Spouse Housing: Apartment Alcohol intake: never Patient Tobacco Use Status: Never used Tobacco e-Cigarette/Vaping Use: Never Used Second Hand Smoke Exposure: Yes service: No Current occupational status: disabled Cognitive needs: No Hearing needs: No Vision needs: Yes Physical Exam Vital Signs: BMI result Body Mass Index 35.2 Office Procedures ASSOCIATE MEDIA DIRECTOR Biopsy Before the procedure was started d/w patient the procedure, alternatives ( do nothing, medical rx), & all the risks associated with the procedure ( bleeding , infection, vulvar scarring, painful intercourse, injury to vessels, possible need for transfusion with all its risks) then patient signed the consent. Preop dx: Left vulvar leukoplakia Op: Left vulvar leukoplakia biopsy Post op: Same Anesthesia: Lidocaine 1% 3cc used Procedure: Using betadine the area was scrubbed and draped in the usual manner. 3 cc of lidocaine was used for anesthesia at the left vulvar lesion area ; using punch biopsy and pickup the Left vulvar leukoplakia area was biopsied. Pressure was used for hemostasis. The patient tolerated the procedure well. Discharge Instructions: The patient was instructed to schedule an appointment in 2 weeks for follow-up and to call if temp>100.4, area of the biopsy redness or pain, nausea/vomiting. This note was generated with a voice recognition program. Some errors may have been overlooked during the review of this note. Sometimes these errors may affect the content or meaning of a given sentence. 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
[2024-01-02 12:45] VITALS: BMI 35.2
== END 2024-01-02 13:09 | disposition home or self-care (01) ==
LOC: HO.HWS 12:31
PROVIDERS: PCP Internal Medicine; Visit Provider Obstetrics & Gynecology
DX: N90.4 Leukoplakia of vulva (principal)
CPT/HCPCS: 56605

== ENCOUNTER 2024-01-02 12:59 | Outpatient (REF) | payer OTHER, SELFPAY | END 2024-01-02 13:00 | disposition home or self-care (01) | LOC: HO.LNP 12:59 | PROVIDERS: Visit Provider Obstetrics & Gynecology | DX: N90.4 Leukoplakia of vulva (principal) | CPT/HCPCS: 88305; 88312 ==

== ENCOUNTER 2024-01-18 12:30 | Outpatient (AMB) | payer OTHER, SELFPAY ==
[2024-01-18 12:36] VITALS: BP 122/70; PULSE 72; O2SAT 98; BMI 35.2
--- NOTE | 2024-01-18 12:36 | MHC.PC.OV ---
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 Required: No Allergies aspirin [ASPIRIN] Allergy (Severe, Verified 01/18/24 13:29) RASH, itchiness Penicillins [PENICILLINS] Allergy (Mild, Verified 01/18/24 13:29) RASH Medication List - Last Reconciled 01/18/24 by Hernesto Obregon MD [ABDOMINAL BINDER (elastic) - LARGE As directed] albuterol sulfate 90 mcg/actuation 2 puffs PO QID PRN albuterol sulfate 90 mcg/actuation (ProAir HFA) 2 puffs inhalation Q6H PRN 30 days albuterol sulfate 2.5 mg (3 mL) continuous nebulization Q6H PRN 30 days atorvastatin 80 mg PO BEDTIME blood pressure monitor As directed blood sugar diagnostic (FreeStyle Lite Strips) As directed 3 times a day rcubpsckfe-fqewevnlgypya-zbsy 50-325-40 mg 1 cap PO BID-TID PRN 30 days cholecalciferol (vitamin D3) 50 mcg PO DAILY [Commode As directed] cyclobenzaprine 10 mg PO TID PRN 30 days dapagliflozin propanediol (Farxiga) 5 mg PO DAILY ferrous fumarate 325 mg PO QWEEK flash glucose scanning reader (FreeStyle Galina 2 [place]) As directed flash glucose sensor (FreeStyle Galina 2 Sensor kit) USE DIRECTED CHANGE EVERY 14 DAYS insulin glargine (Lantus Solostar U-100 Insulin) 20 units (0.2 mL) subcut QPM lancets (FreeStyle Lancets) As directed checks 4 X/day lidocaine 5% 1 patch topical DAILY PRN 30 days lisinopril 30 mg PO DAILY lorazepam 0.5 mg PO TID PRN 30 days metformin 1,000 mg PO BID miscellaneous medical supply 1 ea miscellaneous DAILY montelukast 10 mg PO QPM 90 days [NEBULIZER and all related accessories As directed] orphenadrine citrate ER 100 mg PO BID PRN 30 days [OVER TOILET COMMODE CHAIR As directed] paroxetine HCl 40 mg PO DAILY 30 days risperidone 1 mg PO BEDTIME 30 days Tirosint (levothyroxine) 200 mcg PO DAILY NS tirzepatide (Mounjaro) 5 mg (0.5 mL) subcut QWEEK topiramate 50 mg PO BEDTIME 90 days tramadol 50 mg PO TID PRN Tobacco use date assessed: 10/06/23 Dental Screening Dental Screen Date: 10/06/23 HPI hyperlipidemia, hypothyroidism, DM HPI Details Patient comes in today for her follow up visit States that she feels okay States that her only issue right now is that her glucometer sensor (Freestyle Galina 2) is not staying on and falls off a day or two later after she puts it (sensor is supposed to stay on for a couple of weeks) States that she spoke with the [employer] for the glucometer and they even sent her a replacement, which did the same thing She has been advised to have her PCP try sending in Rx for the new Freestyle galina 3 system but this is not yet available in the prescription system for [place] She denies any headaches or dizziness Denies any chest pains, no shortness of breath No nausea/vomiting, no abdominal pain No change in bowel habits noted Had her follow up labs done a couple of weeks ago - to discuss her results [facility] Medical History Chronic kidney disease, stage III (moderate) Recurrent ventral incisional hernia Bipolar depression Anxiety Depression Left hip pain B12 deficiency Abnormal thyroid biopsy Non-toxic multinodular goiter Hypothyroidism Other and unspecified hyperlipidemia Type 2 diabetes mellitus with unspecified complications Obesity (BMI 30-39.9) Lumbar degenerative disc disease Vitamin B12 deficiency Acquired hypothyroidism Nonintractable headache Pure hypercholesterolemia Benign essential hypertension Chronic kidney disease, stage 2 (mild) Type 2 diabetes mellitus with diabetic chronic kidney disease Knee pain, bilateral Anxiety IBS (irritable bowel syndrome) Visual loss Tendonitis Neck pain Hernia Chronic abdominal pain Lumbar disc disease Depression Asthma Hx of headache Type 2 diabetes mellitus with hyperglycemia Autoimmune thyroiditis Hyperlipidemia LDL goal <100 Essential hypertension Vitamin D deficiency Obesity due to excess calories Surgical History S/P laparoscopy (~11/20/10) History of hernia repair Hx of exploratory laparotomy Family History Father Medical history unknown Mother Medical history unknown Social History Household Members: Spouse Housing: Apartment Alcohol intake: never Patient Tobacco Use Status: Never used Tobacco e-Cigarette/Vaping Use: Never Used Second Hand Smoke Exposure: Yes service: No Current occupational status: disabled Cognitive needs: No Hearing needs: No Vision needs: Yes Questionnaire PHQ-9 Over the last 2 weeks, how often have you been bothered by any of the following problems? 1. Little interest or pleasure in doing things: not at all 2. Feeling down, depressed, or hopeless: not at all 3. Trouble falling or staying asleep, or sleeping too much: not at all 4. Feeling tired or having little energy: not at all 5. Poor appetite or overeating: not at all 6. Feeling bad about yourself - or that you are a failure or have let yourself or your family down: not at all 7. Trouble concentrating on things, such as reading the newspaper or watching television: not at all 8. Moving or speaking so slowly that other people could have noticed. Or the opposite - being so fidgety or restless that you have been moving around a lot more than usual: not at all 9. Thoughts that you would be better off or of hurting yourself in some way: not at all Total score: 0 Depression Screening Interpretation: Negative Depression Screening Done: Yes 39411 - PHQ-9 Billing: Yes Source: Developed by Drs. Ryland Guzman, Livia Donohue, Kristian Heredia and colleagues, with an educational jono from [employer]. Thrive Questionnaire Date Thrive assessed: 01/18/24 I am a: Patient What is your living situation today?: I have a steady place to live Within the past 12 months, did the food you bought not last and you didn't have the money to get more?: Never true Within the past 12 months, did you worry whether your food would run out before you got money to buy more?: Never true Do you have trouble paying for medicines?: No Do you have trouble getting transportation to medical appointments?: No Do you have trouble paying your heating and electricity bill?: No Do you have trouble taking care of your child, family member or friend?: No Do you have trouble with day-to-day activities such as bathing, preparing meals, shopping, managing finances, etc.?: No Are you currently unemployed and looking for a job?: No Are you interested in more education?: No Please select the resources that you would like help with: None Currently or been in a relationship where the following occur: no concerns reported THRIVE Score: 0 AUDIT C Alcohol Use Questionnaire (AUDIT-C) 1. How often do you have a drink containing alcohol?: Never 3. How often do you have six or more drinks on one occasion?: Never Total Score: 0 Score Reviewed/Action Taken: Yes STALIN-7 AMB Questionnaire STALIN-7 Date STALIN - 7 assessed: 10/06/23 Source: Developed by Drs. Ryland Guzman, Livia Donohue, Kristian Heredia and colleagues, with an educational jono from [employer]. Review of Systems Const Denies chills, Reports fatigue, Denies fever(s) and Denies headache(s) ENT Denies dysphagia, Denies dizziness, Denies otalgia, Denies headache(s), Denies neck pain, Denies odynophagia and Denies sore throat Card Denies chest pain, Denies palpitations and Denies dyspnea Resp Denies cough, Denies dyspnea and Denies wheezing GI Denies abdominal pain, Denies constipation, Denies dysphagia, Denies heartburn, Denies diarrhea, Denies nausea, Denies odynophagia and Denies vomiting Denies difficulty voiding, Denies nocturia, Denies dysuria and Denies urinary urgency Musc Reports back pain (over the lower back - chronic), Reports arthralgias (on and off in the left shoulder, both knees and left hip) and Denies neck pain Skin/Breast Denies rash Neuro Denies dizziness and Denies headache(s) Endo Reports fatigue and Denies palpitations Aller/Immun Denies wheezing Physical exam (Primary Care) Vital Signs: Last Vital Signs Pulse 72 01/18/24 12:36 BP 122/70 01/18/24 12:36 Pulse Ox 98 01/18/24 12:36 Oxygen Delivery Method Room Air 01/18/24 12:36 BMI result Body Mass Index 35.2 Tobacco/Smoking Status: Tobacco use Status Tobacco use date assessed 10/06/23 01/18/24 12:37 Patient Tobacco Use Status Never used Tobacco 01/18/24 12:37 e-Cigarette/Vaping Use Never Used 01/18/24 12:37 PHQ-9: PHQ-9 Score PHQ-9: Total score 0 01/18/24 12:45 Depression Screening Interpretation: Negative Thrive Assessment: Date of Thrive Assessment Date Thrive assessed 10/06/23 01/18/24 12:37 Currently or been in a relationship where the following occur: no concerns reported Const General: no acute distress and alert HENMT Ears: TM's normal bilaterally and EAC's normal Throat: Yes posterior oropharynx normal and Yes tonsils normal (no TP congestion noted) Neck Neck: Yes no lymphadenopathy and Yes supple Thyroid: Thyroid normal Resp Auscultation: clear to auscultation bilaterally, no rales and no wheezes Cardio Rate: regular rate Rhythm: regular rhythm Heart sounds: no murmurs GI Palpation (GI): Soft to palpation and nontender Auscultation: normal bowel sounds Back/Spine/Pelvis Thoracic/Lumbar Spine: lumbar spinal tenderness Sacrum: tenderness (mild) midline Skin Rashes: no rashes Extrem General: Yes no clubbing, cyanosis or edema Left upper extremity: shoulder/upper arm Details: tenderness and abnormal ROM (limited ROM due to pain) Results Reviewed Results Reviewed: Laboratory Tests 01/02/24 01/02/24 12:16 12:21 WBC 6.8 Hgb 13.2 Hct 40.3 Plt Count 310 Sodium 140 Potassium 4.1 Creatinine 0.96 Estimated GFR 59 Fasting Glucose 131 H Hemoglobin A1c % 7.5 H Calcium 9.6 AST 14 ALT 18 Triglycerides 107 Cholesterol 184 LDL Cholesterol, Calc 124 H HDL Cholesterol 39 L 25-OH Vitamin D Total 22.4 L TSH 1.25 Free T4 1.24 Ur Specific [place] 1.015 Urine Protein Negative Urine Glucose (UA) Negative Urine Blood Negative Ur Leukocyte Esterase Negative Microalb/Creat Ratio TNP Assessment and Plan Assessment & Plan (1) Pure hypercholesterolemia: Code(s): E78.00 - Pure hypercholesterolemia, unspecified Plan: Results of her labs done a couple of weeks ago reviewed and discussed with patient - her lipids have improved slightly from previous Reinforced low cholesterol diet Continue Atorvastatin 20 mg QD Will recheck her labs and fasting lipids in 3 months for follow up (2) Type 2 diabetes mellitus with diabetic chronic kidney disease: Code(s): E11.22 - Type 2 diabetes mellitus with diabetic chronic kidney disease Qualifiers: Diabetes mellitus [facility] insulin use: with marine oil terminal 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 Fields) as scheduled She is currently having issues with her Freestyle Galina 2 sensor and was advised to have PCP try sending in Rx for the Freestyle Galina 3 sensor but as this is not yet available in [facility], am unable to send this in now (3) Benign essential hypertension: Code(s): I10 - Essential (primary) hypertension Plan: Reinforced low sodium diet - goal is systolic BP of at least 120 mm or less Continue Lisinopril 30 mg QD (4) Chronic kidney disease, stage III (moderate): Code(s): N18.30 - Chronic kidney disease, stage 3 unspecified Qualifiers: Chronic kidney disease stage 3 subtype: stage 3a (GFR 45-59) Qualified Code(s): N18.31 - Chronic kidney disease, stage 3a Plan: Patient is advised that her renal function appears to have stabilized again on her recent labs Have again stressed to her the importance of strict control of her diabetes and high blood pressure to slow down the progression of her CKD Will continue to monitor her renal function regularly/closely (5) Acquired hypothyroidism: Code(s): E03.9 - Hypothyroidism, unspecified Plan: Her TFTs done a couple of weeks ago came back again with elevated TSH; free T4 remains normal She is currently on Tirosint 200 mcg QD Follow up with endocrinology (Dr. Fields) as scheduled (6) Neuropathy: Code(s): G62.9 - Polyneuropathy, unspecified Plan: Patient's recurrent right hand numbness/symptoms suggest neuropathy as the most likely etiology of her symptoms EMG and NCV done a few months ago revealed findings of early CTS bilaterally She is encouraged to continue wearing her wrist braces as needed to help manage her symptoms (7) Vitamin B12 deficiency: Code(s): E53.8 - Deficiency of other specified B group vitamins Plan: Continue Vitamin B12 1000 mcg QD (8) Vitamin D deficiency: Code(s): E55.9 - Vitamin D deficiency, unspecified Plan: Improving - continue Vitamin D3 2000 units QD Will recheck her Vitamin D level in 3 months for follow up (9) Osteoarthritis of left knee: Code(s): M17.12 - Unilateral primary osteoarthritis, left knee Qualifiers: Osteoarthritis type: primary Qualified Code(s): M17.12 - Unilateral primary osteoarthritis, left knee Plan: X-rays of the left knee done in May 2023 revealed (+) mild tricompartmental arthritis that has progressed slightly from 2020 Follow up with orthopedics as scheduled (10) Lumbar degenerative disc disease: Code(s): M51.36 - Other intervertebral disc degeneration, lumbar region Plan: Reinforced activity and weight lifting restrictions Continue Cyclobenzaprine 10 mg TID PRN and Orphenadrine 100 mg BID PRN with food; Lidocaine patches help as well Repeat lumbar spine, sacral spine and coccygeal x-rays done a few months ago revealed no acute osseus abnormalities although her imaging studies have demonstrated findings of multiple calcified fibroids (11) Fibroids: Code(s): D21.9 - Benign neoplasm of connective and other soft tissue, unspecified Plan: Abdominal and pelvic US done a couple of months ago (August 2023) revealed (+) punctate 2 mm mural echogenic focus that may represent a focal mural calcification. No mobile gallstones identified Hepatomegaly was also incidentally noted on her recent abdominal sonogram Follow up with gynecology for this issue as scheduled (12) Anxiety: Code(s): F41.9 - Anxiety disorder, unspecified Plan: Continue Lorazepam 0.5 mg TID PRN (13) Bipolar depression: Code(s): F31.9 - Bipolar disorder, unspecified Plan: Continue Paroxetine 40 mg QD, Topiramate 50 mg Q HS and Risperidone 1 mg Q HS Follow up with psychiatry as scheduled (14) Obesity (BMI 30-39.9): Code(s): E66.9 - Obesity, unspecified Plan: Reinforced diet/exercise as tolerated/ lose weight Plan Follow up in 3 months Orders: Orders Microalbumin, Random (w Creat) 3 Months E11.9 - Type 2 diabetes mellitus without complications Free T4 (Free Thyroxine) 3 Months E03.9 - Hypothyroidism, unspecified Lipid Panel 3 Months E78.00 - Pure hypercholesterolemia, unspecified Hemoglobin A1c 3 Months E11.9 - Type 2 diabetes mellitus without complications UA CC w/rflx Micro + Cult 3 Months R30.0 - Dysuria Vitamin D 25-OH Total 3 Months E55.9 - Vitamin D deficiency, unspecified Complete Blood Count Auto Diff 3 Months D64.9 - Anemia, unspecified Comprehensive [place]. Panel Fast 3 Months E78.00 - Pure hypercholesterolemia, unspecified Thyroid Stimulating Hormone 3 Months E03.9 - Hypothyroidism, unspecified Vitamin B12 and Folate 3 Months E53.8 - Deficiency of other specified B group vitamins Medications: Refilled tirzepatide (Mounjaro) 5 mg (0.5 mL) subcut QWEEK 2 mL 4RF Coding Level of Care Code Est Pt Level 4 (93548) Complex EM visit Add On G2211 Diagnoses Pure hypercholesterolemia E78.00 Type 2 diabetes mellitus with stage 2 chronic kidney disease, with long-term current use of insulin E11.22; N18.2; Z79.4 Diabetes mellitus [facility] insulin use: with 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
== END 2024-01-18 13:42 | disposition home or self-care (01) ==
PROVIDERS: PCP Internal Medicine; Visit Provider Internal Medicine
DX: E78.00 Pure hypercholesterolemia, unspecified (principal); E11.22 Type 2 diabetes mellitus with diabetic chronic kidney disease; I12.9 Hypertensive chronic kidney disease with stage 1 through stage 4 chronic kidney disease, or unspecified chronic kidney disease; N18.31 Chronic kidney disease, stage 3a; Z79.4 Long term (current) use of insulin; E03.9 Hypothyroidism, unspecified; G62.9 Polyneuropathy, unspecified; E53.8 Deficiency of other specified B group vitamins; E55.9 Vitamin D deficiency, unspecified; M17.12 Unilateral primary osteoarthritis, left knee; F31.9 Bipolar disorder, unspecified
CPT/HCPCS: 99214; G2211

== ENCOUNTER 2024-02-16 10:23 | Outpatient (AMB) | payer OTHER, SELFPAY ==
--- NOTE | 2024-02-16 10:33 | A.OFFVIS_ITS ---
Vital Signs 02/16/24 10:35 Height 4 ft 11 in Weight 171 lb 15.369 oz BMI 34.7 Intake Visit Reasons: biopsy and u/s results Shipping Clerk Crating Required: Yes Shipping Clerk Crating Language: Propulsion Systems Engineer Services: Shipping Clerk Crating Present (in person) Shipping Clerk Crating Name: Dora GARCIA Information Interpreted: non-clinical & clinical Accompanied by: Grand Child Allergies aspirin [ASPIRIN] Allergy (Severe, Verified 02/16/24 10:36) RASH, itchiness Penicillins [PENICILLINS] Allergy (Mild, Verified 02/16/24 10:36) RASH HPI Comments Details: The patient is scheduled tele health visit for follow-up regarding pelvic ultrasound and vulvar biopsy pathology: Vulvar biopsy pathology showed the following: Lichen sclerosus et atrophicus. Pelvic ultrasound done in 11/22 showed the following: Uterus: Bulky fibroid uterus measuring 11.2 x 5.5 x 6.1 cm. The endometrial stripe is not distinctly seen. The uterine volume is 200 mL. Multiple fibroids are grossly stable with for measured as follows: Fundus: 5.2 x 5.0 x 4.1 cm compared to 5.5 x 5.0 x 5.6 cm. Posterior body: 1.6 x 2.1 x 1.6 cm compared to 2.6 x 2.8 x 2.5 cm. Anterior body: 1.1 x 0.9 x 0.9 cm compared to 1.3 x 1.2 x 1.4 cm. Lower uterine segment: 5.7 x 4.8 x 4.1 cm compared to 5.6 x 3.2 x 4.0 cm. Adnexa: The ovaries are not seen [facility] Medical History Chronic kidney disease, stage III (moderate) Recurrent ventral incisional hernia Bipolar depression Anxiety Depression Left hip pain B12 deficiency Abnormal thyroid biopsy Non-toxic multinodular goiter Hypothyroidism Other and unspecified hyperlipidemia Type 2 diabetes mellitus with unspecified complications Obesity (BMI 30-39.9) Lumbar degenerative disc disease Vitamin B12 deficiency Acquired hypothyroidism Nonintractable headache Pure hypercholesterolemia Benign essential hypertension Chronic kidney disease, stage 2 (mild) Type 2 diabetes mellitus with diabetic chronic kidney disease Knee pain, bilateral Anxiety IBS (irritable bowel syndrome) Visual loss Tendonitis Neck pain Hernia Chronic abdominal pain Lumbar disc disease Depression Asthma Hx of headache Type 2 diabetes mellitus with hyperglycemia Autoimmune thyroiditis Hyperlipidemia LDL goal <100 Essential hypertension Vitamin D deficiency Obesity due to excess calories Surgical History S/P laparoscopy (~11/20/10) History of hernia repair Hx of exploratory laparotomy Family History Father Medical history unknown Mother Medical history unknown Social History Household Members: Spouse Housing: Apartment Alcohol intake: never Patient Tobacco Use Status: Never used Tobacco e-Cigarette/Vaping Use: Never Used Second Hand Smoke Exposure: Yes service: No Current occupational status: disabled Cognitive needs: No Hearing needs: No Vision needs: Yes Review of Systems Const All systems reviewed & are unremarkable except as noted in HPI and below Reports as per HPI and Reports no additional complaints GI Reports no additional complaints Reports no additional complaints Physical Exam Vital Signs: BMI result Body Mass Index 34.7 Telehealth Telehealth Telehealth Platform: Telephone Location of provider rendering services: practice address Location of patient: address on file Patient Identification confirmed using: Name, : Yes Telehealth method: video Patient verbally consented to treatment: Yes Patient verbally consented to billing insurance company: Yes Patient informed of any privacy concerns related to visit: Yes Assessment & Plan Assessment & Plan (1) Lichen sclerosus: Code(s): L90.0 - Lichen sclerosus et atrophicus Category: Medical Plan: Discussed with the patient the pathology results showing lichen sclerosis. Explained to the patient that Lichen sclerosus refers to a benign, chronic, progressive dermatologic condition characterized by marked inflammation, epithelial thinning accompanied by pruritus and pain. In addition, discussed with the patient that there is a small increased risk of squamous cell cancer of the vulva in patients with lichen sclerosus. Adequate treatment of the disease seems to be associated with a reduced risk of development of neoplasia. Instructed the patient to schedule an appointment in a year to examine the affected area, with possible biopsy of suspicious lesions, in addition explained to the patient that she should look at the skin of the affected area and touch with fingertips monthly to search for thickened lumps or sores that do not heal & to report such findings for inspection & possible biopsy to rule out vulvar cancer Will prescribe Clobetasol propionate 0.05% ointment to be applied daily at night for 4 weeks, followed by maintenance therapy two to three times per week . (2) Uterine myoma: Code(s): D25.9 - Leiomyoma of uterus, unspecified Category: Medical Plan: Discussed with the patient the findings on pelvic ultrasound & the risk of myosarcoma; discussed with the patient the options of treatment including expectant management versus hysterectomy; the pros and cons, risks benefits of each approach were discussed with the patient including the fact that in cases of myosarcoma, surgical treatment can lead to early diagnosis and positively affects the prognosis; after further discussion, the patient decided to proceed with expectant management. Will repeat pelvic ultrasound periodically. Instructions given to patient to call in case any of the following occurs: pressure symptoms, abnormal uterine bleeding, pelvic pain; and to schedule a 6 months US and follow-up appointment . All questions answered, the patient verbalized understanding and agreed with the plan . I spent a total of 20 minutes reviewing the chart, talking to the patient via phone and documenting in the medical record. Orders: Orders US pelvic and transvaginal 6 Months D25.9 - Leiomyoma of uterus, unspecified Medications: New clobetasol 0.05% Then maintenance therapy for 2-3 times per week 1 appl topical BID 4 weeks 45 grams 1RF Coding Level of Care Code Est Pt Level 1 (13638) Diagnoses Lichen sclerosus L90.0 Uterine myoma D25.9
[2024-02-16 10:35] VITALS: BMI 34.7
== END 2024-02-16 13:38 | disposition home or self-care (01) ==
PROVIDERS: PCP Internal Medicine; Visit Provider Obstetrics & Gynecology
DX: L90.0 Lichen sclerosus et atrophicus (principal); D25.9 Leiomyoma of uterus, unspecified

== ENCOUNTER → 2024-02-16 10:23 | Outpatient (BNVA) | payer OTHER, SELFPAY | PROVIDERS: PCP Internal Medicine; Visit Provider Obstetrics & Gynecology | DX: L90.0 Lichen sclerosus et atrophicus (principal); D25.9 Leiomyoma of uterus, unspecified; Z71.2 Person consulting for explanation of examination or test findings | CPT/HCPCS: 99211 ==

== ENCOUNTER 2024-04-30 13:01 | Outpatient (REF) | payer OTHER, SELFPAY ==
[2024-04-30 13:16] LABS: MANUAL DIFF FLAG NO
[2024-04-30 13:30] LABS: Basophils Percent Auto 0.6 % (0-2); Eosinophils Absolute Auto 0.1 X10*3/uL (0.0-0.4); Eosinophils Percent Auto 2.4 % (0-4); Hematocrit 38.5 % (37.0-47.0); Hemoglobin 12.5 g/dl (12.0-16.0); Imm Gran Abs Auto 0.02 X10*3/uL (0.00-0.03); Imm Gran Pct Auto 0.4 % (0.0-0.4); Lymphocytes Percent Auto 36.2 % (20-40); Mean Corpuscular HGB Conc 32.5 g/dl (31.0-35.0); Mean Corpuscular Hemoglobin 27.5 pg (27.0-33.0); Mean Corpuscular Volume 84.6 fL (80.0-98.0); Mean Platelet Volume 10.9 fL (9.4-12.3); Monocytes Absolute Auto 0.4 X10*3/uL (0.1-1.2); Monocytes Percent Auto 7.8 % (2-11); Neutrophils Absolute Auto 2.9 x10*3/uL (2.0-8.3); Neutrophils Percent Auto 52.6 % (45-73); Platelet Count 260 X10*3/uL (160-400); Red Blood Count 4.55 X10*6/uL (4.20-5.50); Red Cell Distribution Width 12.1 % (11.0-16.0); White Blood Count 5.4 X10*3/uL (4.8-10.8)
[2024-04-30 13:43] LABS: Estimated Average Glucose 174 mg/dL; Hemoglobin A1c % 7.7 % (<6.0)
[2024-04-30 14:10] LABS: Appearance Urine Clear; Color Urine Yellow; Glucose Urine UA >=1000 mg/dL (Negative); Leukocyte Esterase Urine Negative (Negative); Nitrite Urine Negative (Negative); PH 5.5 (5.0-9.0); UMIC TRIGGER UACC YES; Urine Blood Negative (Negative); Urine Ketones Negative (Negative); Urine Protein Negative (Neg-Trace)
[2024-04-30 14:12] LABS: Alanine Aminotransferase 24 U/L (0-31); Albumin Level 4.1 g/dL (3.5-5.0); Alkaline Phosphatase 88 U/L (39-117); Anion Gap 10 (12-20); Aspartate Amino Transferase 17 U/L (5-31); Bilirubin Total 0.4 mg/dL (0.0-1.0); Blood Urea Nitrogen 14 mg/dL (9-16); Carbon Dioxide 28 mmol/L (22-29); Chloride 109 mmol/L (96-108); Cholesterol 186 mg/dL (<200); Estimated Glomerular Filt Rate 52; Glucose Fasting 182 mg/dL (60-99); HDL Cholesterol 40 mg/dL (>40); LDL Cholesterol Calculated 127 mg/dL (<100); Potassium 4.2 mmol/L (3.3-5.1); Sodium 143 mmol/L (135-145); Total Protein 7.7 g/dL (6.5-8.0); Triglycerides 95 mg/dL (<150)
[2024-04-30 14:26] LABS: Bacteria Urine 1+ (None Seen); Hyaline Casts Urine 0-2 /LPF (0-2); RBC Urine 0-2 /HPF (0-2); WBC Urine 0-5 /HPF (0-5)
[2024-04-30 14:39] LABS: Creatinine Urine 69.27 mg/dL; Microalbumin Urine < 5.0 mg/L
[2024-04-30 15:05] LABS: Free T4 (Free Thyroxine) 1.24 ng/dL (0.71-1.85); Thyroid Stimulating Hormone 0.26 uIU/mL (0.32-4.0); Vitamin D 25-OH Total 27.8 ng/mL (>30)
[2024-04-30 15:08] LABS: Folate 8.3 ng/mL (> or = 4.0); Vitamin B12 271 pg/mL (200-900)
== END 2024-04-30 13:02 | disposition home or self-care (01) ==
LOC: HO.LAB 13:01
PROVIDERS: PCP Internal Medicine; Visit Provider Internal Medicine
DX: D64.9 Anemia, unspecified (principal); E53.8 Deficiency of other specified B group vitamins; E03.9 Hypothyroidism, unspecified; E55.9 Vitamin D deficiency, unspecified; E11.9 Type 2 diabetes mellitus without complications; E78.00 Pure hypercholesterolemia, unspecified
CPT/HCPCS: 36415; 80053; 80061; 81001; 81003; 82043; 82306; 82570; 82607; 82746; 83036; 84439; 84443; 85025

== ENCOUNTER 2024-05-08 12:44 | Outpatient (REF) | payer OTHER, SELFPAY | END 2024-05-08 12:45 | disposition home or self-care (01) | LOC: HO.XRAY 12:44 | PROVIDERS: PCP Internal Medicine; Visit Provider Internal Medicine | DX: E78.00 Pure hypercholesterolemia, unspecified (principal); I12.9 Hypertensive chronic kidney disease with stage 1 through stage 4 chronic kidney disease, or unspecified chronic kidney disease; E11.22 Type 2 diabetes mellitus with diabetic chronic kidney disease; N18.31 Chronic kidney disease, stage 3a; E03.9 Hypothyroidism, unspecified; G62.9 Polyneuropathy, unspecified; E53.8 Deficiency of other specified B group vitamins; E55.9 Vitamin D deficiency, unspecified; M51.360 Other intervertebral disc degeneration, lumbar region with discogenic back pain only; M54.6 Pain in thoracic spine; M17.12 Unilateral primary osteoarthritis, left knee; D21.9 Benign neoplasm of connective and other soft tissue, unspecified; F41.9 Anxiety disorder, unspecified; F31.9 Bipolar disorder, unspecified; E66.9 Obesity, unspecified; Z68.33 Body mass index [BMI] 33.0-33.9, adult; Z79.4 Long term (current) use of insulin; Z79.899 Other long term (current) drug therapy | CPT/HCPCS: 72072; 96127; 99212 ==

== ENCOUNTER 2024-05-08 12:44 | Outpatient (AMB) | payer OTHER, SELFPAY ==
[2024-05-08 12:48] VITALS: BP 116/68; PULSE 90; O2SAT 98; BMI 33.6
--- NOTE | 2024-05-08 12:48 | MHC.PC.OV ---
Vital Signs 05/08/24 12:48 Height 4 ft 11 in Weight 166 lb 8 oz BMI 33.6 BP 116/68 Blood Pressure Location Lt brachial Position Sitting Pulse 90 Pulse Source Pulse Oximeter Pulse Oximetry (%) 98 Oxygen Delivery Method Room Air Intake Visit Reasons: DM, hyperlipidemia, HTN, hypothyroidism Maintenance Groundskeeper Required: No Accompanied by: Self / Same As Patient Allergies aspirin [ASPIRIN] Allergy (Severe, Verified 05/08/24 13:03) RASH, itchiness Penicillins [PENICILLINS] Allergy (Mild, Verified 05/08/24 13:03) RASH Medication List - Last Reconciled 05/08/24 by Hernesto Obregon MD [ABDOMINAL BINDER (elastic) - LARGE As directed] albuterol sulfate 90 mcg/actuation 2 puffs PO QID PRN albuterol sulfate 90 mcg/actuation (Ventolin HFA) 2 puffs inhalation Q6H PRN 30 days albuterol sulfate 2.5 mg (3 mL) continuous nebulization Q6H PRN 30 days atorvastatin 80 mg PO BEDTIME 90 days blood pressure monitor As directed blood sugar diagnostic (FreeStyle Lite Strips) As directed 3 times a day blood-glucose meter,continuous (FreeStyle [place] 3 [place]) As directed blood-glucose sensor (FreeStyle Galina 3 Sensor device) As directed [id number]-pmjubcqhpdboy-lqjg 50-325-40 mg 1 cap PO BID-TID PRN 30 days cholecalciferol (vitamin D3) 50 mcg PO DAILY 90 days clobetasol 0.05% 1 appl topical BID 4 weeks [Commode As directed] cyclobenzaprine 10 mg PO TID PRN 30 days dapagliflozin propanediol (Farxiga) 5 mg PO DAILY ferrous fumarate 325 mg PO QWEEK flash glucose scanning reader (FreeStyle [place] 2 [place]) As directed flash glucose sensor (FreeStyle [place] 2 Sensor kit) USE DIRECTED CHANGE EVERY 14 DAYS insulin glargine-yfgn 20 units (0.2 mL) subcut QPM lancets (FreeStyle Lancets) As directed checks 4 X/day lidocaine 5% 1 patch topical DAILY PRN 30 days lisinopril 30 mg PO DAILY lorazepam 0.5 mg PO TID PRN 30 days metformin 1,000 mg PO BID miscellaneous medical supply 1 ea miscellaneous DAILY montelukast 10 mg PO QPM 90 days [NEBULIZER and all related accessories As directed] orphenadrine citrate ER 100 mg PO BID PRN 30 days [OVER TOILET COMMODE CHAIR As directed] paroxetine HCl 40 mg PO DAILY 30 days risperidone 1 mg PO BEDTIME 30 days Tirosint (levothyroxine) 200 mcg PO DAILY NS tirzepatide (Mounjaro) 5 mg (0.5 mL) subcut QWEEK topiramate 50 mg PO BEDTIME 90 days tramadol 50 mg PO TID PRN Tobacco use date assessed: 05/08/24 Dental Screening Dental Screen Date: 05/08/24 Did you have a dental visit in the last 12 months?: Yes Did you have a dental problem in the last 6 months where you did not have access to dental care?: No Was dental information given to patient?: Patient has dentist HPI DM, hyperlipidemia, HTN, hypothyroidism HPI Details Patient comes in today for her follow up visit States that she feels okay but reports experiencing increased pain over the middle of her back lately She denies any recent injury or trauma to her back She also apparently sprained her right hand/wrist about a week ago when she tried to pull/lift something up and felt a sharp pain in her right wrist area in the process Her right wrist currently has a strap/brace on and states that her right wrist pain has been slowly improving lately She denies any headaches or dizziness Denies any chest pains, no shortness of breath No nausea/vomiting, no abdominal pain No change in bowel habits noted Needs her Lidocaine patch and thyroid Rx refilled today Had her follow up labs done last week - to discuss her results [facility] Medical History Chronic kidney disease, stage III (moderate) Recurrent ventral incisional hernia Bipolar depression Anxiety Depression Left hip pain B12 deficiency Abnormal thyroid biopsy Non-toxic multinodular goiter Hypothyroidism Other and unspecified hyperlipidemia Type 2 diabetes mellitus with unspecified complications Obesity (BMI 30-39.9) Lumbar degenerative disc disease Vitamin B12 deficiency Acquired hypothyroidism Nonintractable headache Pure hypercholesterolemia Benign essential hypertension Chronic kidney disease, stage 2 (mild) Type 2 diabetes mellitus with diabetic chronic kidney disease Knee pain, bilateral Anxiety IBS (irritable bowel syndrome) Visual loss Tendonitis Neck pain Hernia Chronic abdominal pain Lumbar disc disease Depression Asthma Hx of headache Type 2 diabetes mellitus with hyperglycemia Autoimmune thyroiditis Hyperlipidemia LDL goal <100 Essential hypertension Vitamin D deficiency Obesity due to excess calories Surgical History S/P laparoscopy (~11/20/10) History of hernia repair Hx of exploratory laparotomy Family History Father Medical history unknown Mother Medical history unknown Social History Household Members: Spouse Housing: Apartment Alcohol intake: never Patient Tobacco Use Status: Never used Tobacco e-Cigarette/Vaping Use: Never Used Second Hand Smoke Exposure: Yes service: No Current occupational status: disabled Cognitive needs: No Hearing needs: No Vision needs: Yes Questionnaire PHQ-9 Over the last 2 weeks, how often have you been bothered by any of the following problems? 1. Little interest or pleasure in doing things: not at all 2. Feeling down, depressed, or hopeless: not at all 3. Trouble falling or staying asleep, or sleeping too much: not at all 4. Feeling tired or having little energy: not at all 5. Poor appetite or overeating: not at all 6. Feeling bad about yourself - or that you are a failure or have let yourself or your family down: not at all 7. Trouble concentrating on things, such as reading the newspaper or watching television: not at all 8. Moving or speaking so slowly that other people could have noticed. Or the opposite - being so fidgety or restless that you have been moving around a lot more than usual: not at all 9. Thoughts that you would be better off or of hurting yourself in some way: not at all Total score: 0 Depression Screening Interpretation: Negative Depression Screening Done: Yes 44050 - PHQ-9 Billing: Yes Source: Developed by Drs. Ryland Guzman, Livia Donohue, Kristian Heredia and colleagues, with an educational jono from [employer]. Thrive Questionnaire Date Thrive assessed: 05/08/24 I am a: Patient What is your living situation today?: I have a steady place to live Within the past 12 months, did the food you bought not last and you didn't have the money to get more?: Never true Within the past 12 months, did you worry whether your food would run out before you got money to buy more?: Never true Do you have trouble paying for medicines?: No Do you have trouble getting transportation to medical appointments?: No Do you have trouble paying your heating and electricity bill?: No Do you have trouble taking care of your child, family member or friend?: No Do you have trouble with day-to-day activities such as bathing, preparing meals, shopping, managing finances, etc.?: No Are you currently unemployed and looking for a job?: No Are you interested in more education?: No Please select the resources that you would like help with: None Currently or been in a relationship where the following occur: No concerns reported THRIVE Score: 0 AUDIT C Alcohol Use Questionnaire (AUDIT-C) 1. How often do you have a drink containing alcohol?: Never 3. How often do you have six or more drinks on one occasion?: Never Total Score: 0 Score Reviewed/Action Taken: Yes STALIN-7 AMB Questionnaire STALIN-7 Date STALIN - 7 assessed: 05/08/24 Feeling nervous, anxious, or on edge: 0 = Not at all Not being able to stop or control worryin = Not at all Worrying too much about different things: 0 = Not at all Trouble relaxin = Not at all Being so restless that it is hard to sit still: 0 = Not at all Becoming easily annoyed or irritable: 0 = Not at all Feeling afraid as if something awful might happen: 0 = Not at all Total STALIN-7 score (0-4 normal; 5-9 mild; 10-14 moderate; 15-21 severe): 0 Source: Developed by Drs. Ryland Guzman, Livia Donohue, Kristian Heredia and colleagues, with an educational jono from [employer]. Review of Systems Const Denies chills, Reports fatigue, Denies fever(s) and Denies headache(s) ENT Denies dysphagia, Denies dizziness, Denies otalgia, Denies headache(s), Denies neck pain, Denies odynophagia and Denies sore throat Card Denies chest pain, Denies palpitations and Denies dyspnea Resp Denies cough, Denies dyspnea and Denies wheezing GI Denies abdominal pain, Denies constipation, Denies dysphagia, Denies heartburn, Denies diarrhea, Denies nausea, Denies odynophagia and Denies vomiting Denies difficulty voiding, Denies nocturia, Denies dysuria and Denies urinary urgency Musc Reports back pain (increased over the middle of her back lately), Reports arthralgias (on & off in the left shoulder,both knees and left hip; right wrist recently) and Denies neck pain Skin/Breast Denies rash Neuro Denies dizziness and Denies headache(s) Endo Reports fatigue and Denies palpitations Aller/Immun Denies wheezing Physical exam (Primary Care) Vital Signs: Last Vital Signs Pulse 90 05/08/24 12:48 BP 116/68 05/08/24 12:48 Pulse Ox 98 05/08/24 12:48 Oxygen Delivery Method Room Air 05/08/24 12:48 BMI result Body Mass Index 33.6 Tobacco/Smoking Status: Tobacco use Status Tobacco use date assessed 05/08/24 05/08/24 12:53 Patient Tobacco Use Status Never used Tobacco 05/08/24 12:53 e-Cigarette/Vaping Use Never Used 05/08/24 12:53 PHQ-9: PHQ-9 Score PHQ-9: Total score 0 05/08/24 13:23 Depression Screening Interpretation: Negative Thrive Assessment: Date of Thrive Assessment Date Thrive assessed 05/08/24 05/08/24 12:53 Currently or been in a relationship where the following occur: No concerns reported Const General: no acute distress and alert HENMT Ears: TM's normal bilaterally and EAC's normal Throat: Yes posterior oropharynx normal and Yes tonsils normal (no TP congestion noted) Neck Neck: Yes no lymphadenopathy and Yes supple Thyroid: Thyroid normal Resp Auscultation: clear to auscultation bilaterally, no rales and no wheezes Cardio Rate: regular rate Rhythm: regular rhythm Heart sounds: no murmurs GI Palpation (GI): Soft to palpation and nontender Auscultation: normal bowel sounds Back/Spine/Pelvis Thoracic/Lumbar Spine: paraspinal muscle tenderness bilaterally in the mid thoracic and in the lower thoracic and lumbar spinal tenderness Sacrum: tenderness (mild) midline Skin Rashes: no rashes Extrem General: Yes no clubbing, cyanosis or edema Right upper extremity: wrist Details: tenderness and normal ROM; no swelling Left upper extremity: shoulder/upper arm Details: tenderness and abnormal ROM (limited ROM due to pain) Results Reviewed Results Reviewed: Laboratory Tests 04/30/24 04/30/24 13:12 13:14 WBC 5.4 Hgb 12.5 Hct 38.5 Plt Count 260 Sodium 143 Potassium 4.2 Creatinine 1.07 Estimated GFR 52 Fasting Glucose 182 H Hemoglobin A1c % 7.7 H Calcium 10.0 AST 17 ALT 24 Triglycerides 95 Cholesterol 186 LDL Cholesterol, Calc 127 H HDL Cholesterol 40 L Vitamin B12 271 25-OH Vitamin D Total 27.8 L TSH 0.26 L Free T4 1.24 Ur Specific [place] 1.020 Urine Protein Negative Urine Glucose (UA) >=1000 H Urine Blood Negative Urine Nitrite Negative Ur Leukocyte Esterase Negative Microalb/Creat Ratio TNP Coding Level of Care Code Est Pt Level 4 (88388) Diagnoses Pure hypercholesterolemia E78.00 Type 2 diabetes mellitus with stage 2 chronic kidney disease, with long-term current use of insulin E11.22; N18.2; Z79.4 Diabetes mellitus technician terminal and repeater insulin use: with correction use Chronic kidney disease stage: stage 2 (mild) Benign essential hypertension I10 Stage 3a chronic kidney disease N18.31 Chronic kidney disease stage 3 subtype: stage 3a (GFR 45-59) Acquired hypothyroidism E03.9 Neuropathy G62.9 Vitamin B12 deficiency E53.8 Vitamin D deficiency E55.9 Degeneration of intervertebral disc of lumbar region with discogenic back pain M51.360 Disc-related pain type: discogenic back pain only Bilateral thoracic back pain, unspecified chronicity M54.6 Chronicity: unspecified Back pain laterality: bilateral Primary osteoarthritis of left knee M17.12 Osteoarthritis type: primary Fibroids D21.9 Anxiety F41.9 Bipolar depression F31.9 Obesity (BMI 30-39.9) E66.9 Assessment & Plan Assessment & Plan (1) Pure hypercholesterolemia: Code(s): E78.00 - Pure hypercholesterolemia, unspecified Category: Medical Plan: Results of her labs done last week reviewed and discussed with patient Reinforced low cholesterol diet Continue Atorvastatin 20 mg QD Will recheck her labs and fasting lipids in 3 months for follow up (2) Type 2 diabetes mellitus with diabetic chronic kidney disease: Code(s): E11.22 - Type 2 diabetes mellitus with diabetic chronic kidney disease Category: Medical Qualifiers: Diabetes mellitus correction insulin use: with technician terminal and repeater use Chronic kidney disease stage: stage 2 (mild) Qualified Code(s): E11.22 - Type 2 diabetes mellitus with diabetic chronic kidney disease; N18.2 - Chronic kidney disease, stage 2 (mild); Z79.4 - retirement (current) use of insulin Plan: Her HgbA1c was at 7.7% on her labs done last week (was at 7.5% a few months ago) - goal is < 7.0% Reinforced diabetic diet Continue Mounjaro 5 mg SQ once a week, Metformin 1000 mg BID, Lantus 20 units SQ at bedtime and Farxiga 5 mg QD Follow up with [facility] Endocrinology as scheduled (3) Benign essential hypertension: Code(s): I10 - Essential (primary) hypertension Category: Medical Plan: Reinforced low sodium diet - goal is systolic BP of at least 120 mm or less Continue Lisinopril 30 mg QD (4) Chronic kidney disease, stage III (moderate): Code(s): N18.30 - Chronic kidney disease, stage 3 unspecified Category: Medical Qualifiers: Chronic kidney disease stage 3 subtype: stage 3a (GFR 45-59) Qualified Code(s): N18.31 - Chronic kidney disease, stage 3a Plan: Her renal function appears to be stable on her recent labs Have again stressed to her the importance of strict control of her diabetes and high blood pressure to slow down the progression of her CKD Will continue to monitor her renal function regularly/closely (5) Acquired hypothyroidism: Code(s): E03.9 - Hypothyroidism, unspecified Category: Medical Plan: Her TSH is still low but free T4 is normal on her recent labs Continue Tirosint 200 mcg QD - Rx refilled Follow up with endocrinology (Dr. Fields) as scheduled (6) Neuropathy: Code(s): G62.9 - Polyneuropathy, unspecified Category: Medical Plan: Patient's recurrent right hand numbness/symptoms suggest neuropathy as the most likely etiology of her symptoms EMG and NCV done a few months ago revealed findings of early CTS bilaterally She is encouraged to continue wearing her wrist braces as needed to help manage her symptoms (7) Vitamin B12 deficiency: Code(s): E53.8 - Deficiency of other specified B group vitamins Category: Medical Plan: Continue Vitamin B12 1000 mcg QD (8) Vitamin D deficiency: Code(s): E55.9 - Vitamin D deficiency, unspecified Category: Medical Plan: Continue Vitamin D3 2000 units QD (9) Lumbar degenerative disc disease: Code(s): M51.36 - Other intervertebral disc degeneration, lumbar region Category: Medical Qualifiers: Disc-related pain type: discogenic back pain only Qualified Code(s): M51.360 - Other intervertebral disc degeneration, lumbar region with discogenic back pain only Plan: Reinforced activity and weight lifting restrictions Continue Cyclobenzaprine 10 mg TID PRN and Orphenadrine 100 mg BID PRN with food; Lidocaine patches help as well Repeat lumbar spine, sacral spine and coccygeal x-rays done a few months ago revealed no acute osseus abnormalities although her imaging studies have demonstrated findings of multiple calcified fibroids (10) Thoracic back pain: Code(s): M54.6 - Pain in thoracic spine Category: Medical Qualifiers: Chronicity: unspecified Back pain laterality: bilateral Qualified Code(s): M54.6 - Pain in thoracic spine Plan: Will send her for x-rays of the thoracic spine for further evaluation (11) Osteoarthritis of left knee: Code(s): M17.12 - Unilateral primary osteoarthritis, left knee Category: Medical Qualifiers: Osteoarthritis type: primary Qualified Code(s): M17.12 - Unilateral primary osteoarthritis, left knee Plan: X-rays of the left knee done in May 2023 revealed (+) mild tricompartmental arthritis that has progressed slightly from 2020 Follow up with orthopedics as scheduled (12) Fibroids: Code(s): D21.9 - Benign neoplasm of connective and other soft tissue, unspecified Category: Medical Plan: Abdominal and pelvic US done back in August 2023 revealed (+) punctate 2 mm mural echogenic focus that may represent a focal mural calcification. No mobile gallstones identified. Hepatomegaly was also incidentally noted on her recent abdominal sonogram Follow up with gynecology as scheduled (13) Anxiety: Code(s): F41.9 - Anxiety disorder, unspecified Category: Medical Plan: Continue Lorazepam 0.5 mg TID PRN (14) Bipolar depression: Code(s): F31.9 - Bipolar disorder, unspecified Category: Medical Plan: Continue Paroxetine 40 mg QD, Topiramate 50 mg Q HS and Risperidone 1 mg Q HS Follow up with psychiatry as scheduled (15) Obesity (BMI 30-39.9): Code(s): E66.9 - Obesity, unspecified Category: Medical Plan: Reinforced diet/exercise as tolerated/ lose weight Plan Follow up in 3 months Orders: Orders XR thoracic spine 3V 05/08/24 M54.9 - Dorsalgia, unspecified Comprehensive [place]. Panel Fast 3 Months E78.00 - Pure hypercholesterolemia, unspecified Hemoglobin A1c 3 Months E11.9 - Type 2 diabetes mellitus without complications Lipid Panel 3 Months E78.00 - Pure hypercholesterolemia, unspecified Complete Blood Count Auto Diff 3 Months D64.9 - Anemia, unspecified Thyroid Stimulating Hormone 3 Months E03.9 - Hypothyroidism, unspecified Free T4 (Free Thyroxine) 3 Months E03.9 - Hypothyroidism, unspecified Vitamin D 25-OH Total 3 Months E55.9 - Vitamin D deficiency, unspecified Microalbumin, Random (w Creat) 3 Months E11.9 - Type 2 diabetes mellitus without complications UA CC w/rflx Micro + Cult 3 Months R30.0 - Dysuria Medications: Refilled Tirosint (levothyroxine) 200 mcg PO DAILY 30 caps 5RF NS lidocaine 5% leave on most painful area for up to 12 hrs 1 patch topical DAILY PRN 30 ea 0RF pain 30 days
== END 2024-05-08 13:16 | disposition home or self-care (01) ==
PROVIDERS: PCP Internal Medicine; Visit Provider Internal Medicine
DX: I12.9 Hypertensive chronic kidney disease with stage 1 through stage 4 chronic kidney disease, or unspecified chronic kidney disease (principal); E11.22 Type 2 diabetes mellitus with diabetic chronic kidney disease; Z79.4 Long term (current) use of insulin; N18.31 Chronic kidney disease, stage 3a; F31.9 Bipolar disorder, unspecified; E78.00 Pure hypercholesterolemia, unspecified; E03.9 Hypothyroidism, unspecified; G62.9 Polyneuropathy, unspecified; E53.8 Deficiency of other specified B group vitamins; E55.9 Vitamin D deficiency, unspecified; M51.360 Other intervertebral disc degeneration, lumbar region with discogenic back pain only; M54.6 Pain in thoracic spine

== ENCOUNTER 2024-05-17 11:11 | Outpatient (AMB) | payer OTHER, SELFPAY ==
[2024-05-17 11:17] VITALS: BP 138/80; PULSE 65; BMI 35.3
--- NOTE | 2024-05-17 11:17 | MHC.OFFVIS ---
Vital Signs 05/17/24 11:17 Height 4 ft 11 in Weight 174 lb 13.225 oz BMI 35.3 BP 138/80 Blood Pressure Location Lt brachial Position Sitting Pulse 65 Pulse Source Pulse Oximeter Intake Visit Reasons: DM, hyperlipidemia, HTN, hypothyroidism/LVM Intake Note: Patient presents today for D2MT, hyperlipidemia, HTN, hypothyroidism follow up visit. Last Diabetic Eye exam: 3 years ago Last Podiatry Visit: Doesn't have one Random Glucose: 226 mg/dl HgA1c:7.7% 04/30/24 Credit Professional Required: No Accompanied by: Self / Same As Patient Allergies aspirin [ASPIRIN] Allergy (Severe, Verified 05/17/24 11:24) RASH, itchiness Penicillins [PENICILLINS] Allergy (Mild, Verified 05/17/24 11:24) RASH Medication List - Last Reconciled 05/17/24 by Deysi Batista MD [ABDOMINAL BINDER (elastic) - LARGE As directed] albuterol sulfate 90 mcg/actuation 2 puffs PO QID PRN albuterol sulfate 90 mcg/actuation (Ventolin HFA) 2 puffs inhalation Q6H PRN 30 days albuterol sulfate 2.5 mg (3 mL) continuous nebulization Q6H PRN 30 days atorvastatin 80 mg PO BEDTIME 90 days blood pressure monitor As directed blood sugar diagnostic (FreeStyle Lite Strips) As directed 3 times a day blood-glucose meter,continuous (FreeStyle Galina 3 Story) As directed blood-glucose sensor (FreeStyle Galina 3 Sensor device) As directed dirjwjcrxf-niesxkbpivtoy-lydf 50-325-40 mg 1 cap PO BID-TID PRN 30 days cholecalciferol (vitamin D3) 50 mcg PO DAILY 90 days clobetasol 0.05% 1 appl topical BID 4 weeks [Commode As directed] cyclobenzaprine 10 mg PO TID PRN 30 days dapagliflozin propanediol (Farxiga) 5 mg PO DAILY ferrous fumarate 325 mg PO QWEEK flash glucose scanning reader (FreeStyle Galina 2 Story) As directed flash glucose sensor (FreeStyle Galina 2 Sensor kit) USE DIRECTED CHANGE EVERY 14 DAYS insulin glargine-yfgn 30 units subcut QPM lancets (FreeStyle Lancets) As directed checks 4 X/day lidocaine 5% 1 patch topical DAILY PRN 30 days lisinopril 30 mg PO DAILY lorazepam 0.5 mg PO TID PRN 30 days metformin 1,000 mg PO BID miscellaneous medical supply 1 ea miscellaneous DAILY montelukast 10 mg PO QPM 90 days [NEBULIZER and all related accessories As directed] orphenadrine citrate ER 100 mg PO BID PRN 30 days [OVER TOILET COMMODE CHAIR As directed] paroxetine HCl 40 mg PO DAILY 30 days risperidone 1 mg PO BEDTIME 30 days Tirosint (levothyroxine) 175 mcg PO DAILY NS tirzepatide (Mounjaro) 5 mg (0.5 mL) subcut QWEEK topiramate 50 mg PO BEDTIME 90 days tramadol 50 mg PO TID PRN HPI Comments Details: Patient is 58 yo female with DM type 2 who presents for management of diabetes and hypothyroidism and MNG. 1) Diabetes mellitus 2 Type 2 diabetes diagnosed in 2013. . [facility] Diabetes medication: Lantus 30 units once daily at night Mounjaro 5 mg per week. metformin 1000mg BID, Farxiga 5 mg QD Complications Mild neuropathy , doesnt see podiatry No retinopathy , hasnt seen an eye doctor in 3 years , has history of [place] CKD stage 2/3, GFR 59 No microalbuminuria , labs 04/30/24 urine microalbumin <5 No AL or stroke No MASLD, FIB 4 per labs 04/24 is 0.8 Hypoglycemia: denies Hyperglycemia: denies urinary frequency, nocturia, polydypsia Continuous glucose sensor Interpretation Continuous glucose sensor was downloaded fromMay 04 to May 17 Average glucose :208 GMI 8.3% Standard deviation: 20.6% % readings above target: 68% % readings in hypoglycemic range: 0% % readings in target: 25% Low alert is set at:70 High alert is set at: [] Blood glucose patterns observed: post prandial and fasting hyperglycemia Weight stable at 174 lbs over this year 2) Hypothyroidism Tirosint 200mcg daily Taking it approprately, adherent But previously she missed 2 weeks doses earlier this year mónica smith when her TSH was high in 12 range and subsequenlty dose was increased But now most recent labs from 04/24 0.26, free t4 1.24 No symptoms of hypothyrodiism or hyperthyrodism Mother had thyroid problems, no one with thyroid cancer 3)Thyroid nodules Patient also has history of multinodular goiter. Diagnosed 2017. Underwent biopsy of the right lower pole 1.4 cm nodules sometime in which was atypia of indeterminate significance. Afirma was benign. Denies compressive symptoms. Last ultrasound October 2021 shows stable size of both the right-sided nodules. We will have her repeat 1 more ultrasound now and if this shows stable size of the nodules, no need for further repeat ultrasounds unless any clinical changes. US THYROID 11/20 CLINICAL INFORMATION: Nontoxic multinodular goiter. COMPARISON: Ultrasound thyroid 07/01/2020. Ultrasound thyroid soft tissue neck 10/10/2019. TECHNIQUE: Linear transducer grayscale and color Doppler examination with attention to the region of the thyroid. FINDINGS: SIZE: Measurements of the thyroid lobes and nodules are given in sagittal, anteroposterior and transverse dimensions respectively. Right Thyroid Lobe: 4.6 x 1.7 x 2.0 cm, volume 8.2 mL. Previously 5.0 x 2.0 x 1.8 cm, volume 9.5 mL. Parenchyma: The gland echotexture is heterogeneous. Thyroid vascularity is normal. Left Thyroid Lobe: 3.5 x 1.4 x 1.6 cm, volume 4.1 mL. Previously 3.7 x 2.1 x 1.5 cm, volume 5.9 mL. Parenchyma: The gland echotexture is heterogeneous. Thyroid vascularity is normal. Isthmus: 0.5 cm in maximum AP dimension. Previously 0.6 cm. Estimated total number of nodules greater than or equal to 1 cm: 1. Residential Service Technician nodules are described as follows: 1. Location: Right lower pole. Size: 1.4 x 1.2 x 1.2 cm, volume 1.0 mL. Previously: 1.3 x 1.2 x 1.5 cm, volume 1.2 mL. Nodule characteristics: Composition: Solid (2). Echogenicity: Hyperechoic (1). Shape: Not taller than wide (0). Margins: Ill-defined (0). Echogenic Foci: None (0). ACR TI-RADS total points: 1 Previous: 1 ACR TI-RADS category: 3 Previous: 1 Significant change in size (>/= 20% in 2 dimensions and minimal increase of 2 mm or 50% or greater increase in volume): None Change in features: None Change in ACR TI-RADS risk category: Not applicable 2. Location: Right lower pole. Size: 0.6 x 0.6 x 0.6 cm, volume 0.1 mL. Previously: 0.6 x 0.7 x 0.6 cm, volume 0.1 mL. Nodule characteristics: Composition: Solid (2). Echogenicity: Hyperechoic (1). Shape: Not taller than wide (0). Margins: Smooth (0). Echogenic Foci: None (0). ACR TI-RADS total points: 3 Previous: 1 ACR TI-RADS category: 3 Previous: 1 Significant change in size (>/= 20% in 2 dimensions and minimal increase of 2 mm or 50% or greater increase in volume): None Change in features: None Change in ACR TI-RADS risk category: Not applicable NODES: No lymphadenopathy is seen in the tissue surrounding the thyroid gland. US/US thyroid IMPRESSION: No major change in the size of the nodules and thyroid gland. 4) HLD LDL at 124 , on atorvastatin 80 mg daily ,adherent 5) HTN Within goals On lisinopril 30 mg daily Review of systems Constitutional: no fevers, chills or weight loss HEENT: no changes in vision Cardiac: No chest pain, discomfort or palpitations. Pulmonary: No SOB GI:No abdominal pain, no nausea or vomiting, no anorexia, no blood in stool : no burning micturition, dysuria or increase in urinary frequency Physical exam General: sitting comfortably in no acute distress HEENT: normocephalic/atraumatic, moist oral mucosa Neck: supple, symmetrical, no thyromegaly , no dorsocervical or supraclavicular fat pads Cardiac: normal heart sounds Pulm: normal breath sounds B/L, no added breath sounds Abd: not distended, no tenderness Extremities: no edema, no signs of myxedema Neuro: AAO x3, Speech: normal, no facial droop, moving all 4 extremities Skin: no rash Foot exam: intact sensation to monofilament, intact pulses, intact vibration [facility] Medical History (Updated 05/17/24 @ 12:54 by Deysi Batista MD) HLD (hyperlipidemia) Chronic kidney disease, stage III (moderate) Recurrent ventral incisional hernia Bipolar depression Anxiety Depression Left hip pain B12 deficiency Abnormal thyroid biopsy Non-toxic multinodular goiter Hypothyroidism Other and unspecified hyperlipidemia Type 2 diabetes mellitus with unspecified complications Obesity (BMI 30-39.9) Lumbar degenerative disc disease Vitamin B12 deficiency Acquired hypothyroidism Nonintractable headache Pure hypercholesterolemia Benign essential hypertension Chronic kidney disease, stage 2 (mild) Type 2 diabetes mellitus with diabetic chronic kidney disease Knee pain, bilateral Anxiety IBS (irritable bowel syndrome) Visual loss Tendonitis Neck pain Hernia Chronic abdominal pain Lumbar disc disease Depression Asthma Hx of headache Type 2 diabetes mellitus with hyperglycemia Autoimmune thyroiditis Hyperlipidemia LDL goal <100 Essential hypertension Vitamin D deficiency Obesity due to excess calories Surgical History S/P laparoscopy (~11/20/10) History of hernia repair Hx of exploratory laparotomy Family History Father Medical history unknown Mother Medical history unknown Social History Household Members: Spouse Housing: Apartment Alcohol intake: never Patient Tobacco Use Status: Never used Tobacco e-Cigarette/Vaping Use: Never Used Second Hand Smoke Exposure: Yes service: No Current occupational status: disabled Cognitive needs: No Hearing needs: No Vision needs: Yes Physical Exam Vital Signs: Last Vital Signs Pulse 65 05/17/24 11:17 BP 138/80 05/17/24 11:17 BMI result Body Mass Index 35.3 Office Procedures Glucose Monitoring Details Details: see HPI 39014 - Glucose monitoring, continuous-physician I&R Procedure code (CPT) selection complete Results Reviewed Results Reviewed: Laboratory Tests 03/07/23 08/31/23 10/03/23 10:40 08:42 12:04 Plt Count Creatinine Estimated GFR Hemoglobin A1c % 7.9 7.2 H AST ALT Triglycerides Cholesterol LDL Cholesterol, Calc HDL Cholesterol Vitamin B12 TSH 2.53 12.68 H Free T4 Urine Creatinine Urine Microalbumin 01/02/24 04/30/24 04/30/24 12:21 13:12 13:14 Plt Count 260 Creatinine 1.07 Estimated GFR 52 Hemoglobin A1c % 7.5 H 7.7 H AST 17 ALT 24 Triglycerides 95 Cholesterol 186 LDL Cholesterol, Calc 127 H HDL Cholesterol 40 L Vitamin B12 271 TSH 1.25 0.26 L Free T4 1.24 1.24 Urine Creatinine 69.27 Urine Microalbumin < 5.0 US THYROID 11/20 CLINICAL INFORMATION: Nontoxic multinodular goiter. COMPARISON: Ultrasound thyroid 07/01/2020. Ultrasound thyroid soft tissue neck 10/10/2019. TECHNIQUE: Linear transducer grayscale and color Doppler examination with attention to the region of the thyroid. FINDINGS: SIZE: Measurements of the thyroid lobes and nodules are given in sagittal, anteroposterior and transverse dimensions respectively. Right Thyroid Lobe: 4.6 x 1.7 x 2.0 cm, volume 8.2 mL. Previously 5.0 x 2.0 x 1.8 cm, volume 9.5 mL. Parenchyma: The gland echotexture is heterogeneous. Thyroid vascularity is normal. Left Thyroid Lobe: 3.5 x 1.4 x 1.6 cm, volume 4.1 mL. Previously 3.7 x 2.1 x 1.5 cm, volume 5.9 mL. Parenchyma: The gland echotexture is heterogeneous. Thyroid vascularity is normal. Isthmus: 0.5 cm in maximum AP dimension. Previously 0.6 cm. Estimated total number of nodules greater than or equal to 1 cm: 1. Residential Service Technician nodules are described as follows: 1. Location: Right lower pole. Size: 1.4 x 1.2 x 1.2 cm, volume 1.0 mL. Previously: 1.3 x 1.2 x 1.5 cm, volume 1.2 mL. Nodule characteristics: Composition: Solid (2). Echogenicity: Hyperechoic (1). Shape: Not taller than wide (0). Margins: Ill-defined (0). Echogenic Foci: None (0). ACR TI-RADS total points: 1 Previous: 1 ACR TI-RADS category: 3 Previous: 1 Significant change in size (>/= 20% in 2 dimensions and minimal increase of 2 mm or 50% or greater increase in volume): None Change in features: None Change in ACR TI-RADS risk category: Not applicable 2. Location: Right lower pole. Size: 0.6 x 0.6 x 0.6 cm, volume 0.1 mL. Previously: 0.6 x 0.7 x 0.6 cm, volume 0.1 mL. Nodule characteristics: Composition: Solid (2). Echogenicity: Hyperechoic (1). Shape: Not taller than wide (0). Margins: Smooth (0). Echogenic Foci: None (0). ACR TI-RADS total points: 3 Previous: 1 ACR TI-RADS category: 3 Previous: 1 Significant change in size (>/= 20% in 2 dimensions and minimal increase of 2 mm or 50% or greater increase in volume): None Change in features: None Change in ACR TI-RADS risk category: Not applicable NODES: No lymphadenopathy is seen in the tissue surrounding the thyroid gland. US/US thyroid IMPRESSION: No major change in the size of the nodules and thyroid gland. 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 Most recent labs show her TSH is low at 0.26, with normal free T4 at 1.24 from 04/30/2024. Earlier this year her TSH was in the range of 12, but she endorses that likely that was the. When she was out of her medication for 2 weeks. Her dose of Tirosint at that time had gone up 200 mcg daily. I will go back to 175 mcg dosage. Plan: -decrease thyroxine to 175 mcg daily -repeat TSH, free T4 in 6 weeks (2) Non-toxic multinodular goiter: Code(s): E04.2 - Nontoxic multinodular goiter Category: Medical Plan: Patient with a history of thyroid nodules at least since 2018. Underwent biopsy of the right lower pole 1.4 cm nodules sometime in which was atypia of indeterminate significance. Afirma was benign. Denies compressive symptoms. Last ultrasound October 2021 shows stable size of both the right-sided nodules. We will have her repeat 1 more ultrasound now and if this shows stable size of the nodules, no need for further repeat ultrasounds unless any clinical changes. Plan: -ordered repeat thyroid ultrasound (3) Type 2 diabetes mellitus with diabetic chronic kidney disease: Code(s): E11.22 - Type 2 diabetes mellitus with diabetic chronic kidney disease Category: Medical Qualifiers: Diabetes mellitus group home insulin use: with vermin exterminator use Chronic kidney disease stage: stage 2 (mild) Qualified Code(s): E11.22 - Type 2 diabetes mellitus with diabetic chronic kidney disease; N18.2 - Chronic kidney disease, stage 2 (mild); Z79.4 - snf (current) use of insulin Plan: Patient with insulin-dependent type 2 diabetes mellitus with complication of CKD stage 3. A1c of 7.5% from April 2024, however her GMI is at 8.3%. Blood sugar readings have been elevated mostly in the 200s with postprandial hyperglycemia as well as high fasting blood sugar readings. Hi will go up on her Lantus dosing. She is also only on Mounjaro 5 mg weekly. We will plan to titrate up the dose and go up to 7.5 mg weekly with plan for further up titration if she does not achieve target blood sugar readings in the next 4-8 weeks. We will continue Farxiga and metformin as it is. Plan: -increase Mounjaro to 7.5 mg weekly with further plan for up titration to 10 mg weekly in the next 4-8 weeks if does not achieve target blood sugar readings. I have asked patient to call us or message on the portal if she does not see her blood sugars come down to less than 200. -increase Lantus to 32 units daily at bedtime, and if continues to have fasting blood sugar readings greater than 140 after 1 week of titrating up, to go up to 34 units at bedtime -continue Farxiga 5 mg daily -continue metformin 1000 mg b.i.d. -advised 150 minutes of exercise in a week -she is very overdue for eye visit, no history of retinopathy, ophthalmology referral placed -foot exam unremarkable today, has a mild history of neuropathy . Advised daily foot exams -urine microalbumin less than 5 from 04/24. Has CKD stage 3. Continue lisinopril 30 mg daily -follow up in 3 months (4) Essential hypertension: Code(s): I10 - Essential (primary) hypertension Category: Medical Plan: Blood pressure is within goal. Advised low-salt diet. Plan: -continue lisinopril 30 mg daily. (5) HLD (hyperlipidemia): Code(s): E78.5 - Hyperlipidemia, unspecified Category: Medical Qualifiers: Hyperlipidemia type: mixed hyperlipidemia Qualified Code(s): E78.2 - Mixed hyperlipidemia Plan: LDL at 127, is above goal. She has been on atorvastatin 80 mg daily which was titrated up from 40 mg daily at least for the past year. LDL goal is less than 70 mg/dL. Plan: -start ezetimibe 10 mg daily -continue atorvastatin 80 mg daily -repeat lipid panel in 3 months (6) Obesity (BMI 30-39.9): Code(s): E66.9 - Obesity, unspecified Category: Medical Plan: Patient is BMI 35.3 kg per m2 Weight has been static at 174 lb over the past year. We will increase Mounjaro to 7.5 mg weekly as mentioned above, and we will plan to titrate up further depending on blood sugars and weight response. Plan: -increase majority 7.5 mg weekly -advised 30 minutes of exercise daily or 150 minutes in a week Plan I spent 45 minutes in reviewing the record, seeing the patient and documenting in the medical record. Orders: Orders Free T4 (Free Thyroxine) 6 Weeks E03.8 - Other specified hypothyroidism, E04.2 - Nontoxic multinodular goiter, E06.3 - Autoimmune thyroiditis Basic Metabolic Panel 3 Months E11.22 - Type 2 diabetes mellitus with diabetic chronic kidney disease, N18.2 - Chronic kidney disease, stage 2 (mild), Z79.4 - superintendent container terminal (current) use of insulin Hemoglobin A1c 3 Months E11.22 - Type 2 diabetes mellitus with diabetic chronic kidney disease, N18.2 - Chronic kidney disease, stage 2 (mild), Z79.4 - snf (current) use of insulin Thyroid Stimulating Hormone 6 Weeks E03.8 - Other specified hypothyroidism, E04.2 - Nontoxic multinodular goiter, E06.3 - Autoimmune thyroiditis US thyroid Today E03.8 - Other specified hypothyroidism, E04.2 - Nontoxic multinodular goiter, E06.3 - Autoimmune thyroiditis Lipid Panel 3 Months E11.22 - Type 2 diabetes mellitus with diabetic chronic kidney disease, N18.2 - Chronic kidney disease, stage 2 (mild), Z79.4 - superintendent container terminal (current) use of insulin AMB Glucose Monitoring Today E11.22 - Type 2 diabetes mellitus with diabetic chronic kidney disease, N18.2 - Chronic kidney disease, stage 2 (mild), Z79.4 - superintendent container terminal (current) use of insulin Referrals Ophthalmology Referral E11.22 - Type 2 diabetes mellitus with diabetic chronic kidney disease, N18.2 - Chronic kidney disease, stage 2 (mild), Z79.4 - superintendent container terminal (current) use of insulin Medications: New Tirosint (levothyroxine) 175 mcg PO DAILY 30 caps 8RF NS tirzepatide (Mounjaro) 7.5 mg (0.5 mL) subcut QWEEK 6 mL 3RF ezetimibe 10 mg PO DAILY 30 tabs 7RF insulin glargine (Lantus Solostar U-100 Insulin) 32 units (0.32 mL) subcut DAILY 15 mL 8RF Refilled dapagliflozin propanediol (Farxiga) 5 mg PO DAILY 30 tabs 5RF Discontinued tirzepatide (Mounjaro) Discontinued Reason: Patient Completed Course 5 mg (0.5 mL) subcut QWEEK 2 mL 4RF Tirosint (levothyroxine) Discontinued Reason: Patient Completed Course 200 mcg PO DAILY 30 caps 5RF NS Patient Instructions: Increase Mounjaro to 7.5 mg weekly If your blood sugars are still high after 4 injections in the 200s call us to increase dose further to 10 mg Increase insulin lantus to 32 units at bedtime, if fasting sugars still higher than 140 mg/dl in 1 week, increase lantus to 34 units daily at bedtime Continue metformin, farxiga as it is Start ezetimibe 10 mg daily for your cholesterol Continue atorvastatin 80 mg daily Do diabetes labs in 3 months fasting Decrease tirosint to 175 mg daily Do thyroid labs in 6 weeks Do thyroid ultrasound Follow up in 3months See eye doctor Coding Level of Care Code Est Pt Level 4 (84744) Complex EM visit Add On G2211 Diagnoses 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
[2024-05-17 11:30] LABS: Glucose, Whole Blood 226 mg/dL (60-115)
== END 2024-05-17 12:18 | disposition home or self-care (01) ==
PROVIDERS: PCP Internal Medicine; Visit Provider Student in an Organized Health Care Education/Training Program
DX: E03.8 Other specified hypothyroidism (principal); E06.3 Autoimmune thyroiditis; E04.2 Nontoxic multinodular goiter; E11.22 Type 2 diabetes mellitus with diabetic chronic kidney disease; N18.2 Chronic kidney disease, stage 2 (mild); Z79.4 Long term (current) use of insulin; I12.9 Hypertensive chronic kidney disease with stage 1 through stage 4 chronic kidney disease, or unspecified chronic kidney disease; E78.2 Mixed hyperlipidemia; E66.9 Obesity, unspecified
CPT/HCPCS: 95251; 99214; G2211

== ENCOUNTER → 2024-05-17 11:11 | Outpatient (BNVA) | payer OTHER, SELFPAY | PROVIDERS: PCP Internal Medicine; Visit Provider Student in an Organized Health Care Education/Training Program | DX: E11.22 Type 2 diabetes mellitus with diabetic chronic kidney disease (principal); I12.9 Hypertensive chronic kidney disease with stage 1 through stage 4 chronic kidney disease, or unspecified chronic kidney disease; N18.2 Chronic kidney disease, stage 2 (mild); E03.8 Other specified hypothyroidism; E04.2 Nontoxic multinodular goiter; E78.2 Mixed hyperlipidemia; E66.9 Obesity, unspecified; Z79.4 Long term (current) use of insulin | CPT/HCPCS: 82947; 99212 ==

== ENCOUNTER 2024-05-23 13:58 | Outpatient (REF) | payer OTHER, SELFPAY | END 2024-05-23 13:59 | disposition home or self-care (01) | LOC: HO.US 13:58 | PROVIDERS: PCP Internal Medicine; Visit Provider Student in an Organized Health Care Education/Training Program | DX: E03.8 Other specified hypothyroidism (principal); E06.3 Autoimmune thyroiditis; E04.2 Nontoxic multinodular goiter | CPT/HCPCS: 76536 ==

== ENCOUNTER 2024-08-06 11:24 | Outpatient (REF) | payer OTHER, SELFPAY ==
--- NOTE | ~2024-08-06 | US_ITS ---
EXAMINATION: US PELVIS TRANSABDOMINAL AND TRANSVAGINAL HISTORY: D25.9 - Leiomyoma of uterus, unspecified COMPARISON: Comparison is made with the prior examination dated 11/09/2023. TECHNIQUE: Transabdominal and endovaginal real-time 2D menjivar-scale ultrasound was performed. FINDINGS: Uterus: Again seen are multiple uterine fibroids including a fundal fibroid measuring 5.6 x 4.9 x 4.1 cm (previously 5.2 x 5.0 x 4.1 cm), fibroid of the uterine body measuring 2.0 x 2.2 x 2.2 cm (previously 1.6 x 2.1 x 1.6 cm), and a fibroid of the lower uterine segment measuring 5.4 x 3.0 x 3.7 cm (previously 5.7 x 4.0 x 4.1 cm). Endometrium: The endometrial stripe is not identified. Right ovary: The right ovary is not identified. Left ovary: The left ovary is not identified. Pelvic fluid: none. US/US pelvic and transvaginal IMPRESSION: Fibroid uterus as described. Electronically signed by: Ryland Benjamin MD 08/06/2024 02:20 PM [facility]
== END 2024-08-06 11:25 | disposition home or self-care (01) ==
LOC: HO.US 11:24
PROVIDERS: PCP Internal Medicine; Visit Provider Obstetrics & Gynecology
DX: D25.9 Leiomyoma of uterus, unspecified (principal)
CPT/HCPCS: 76830; 76856

== ENCOUNTER → 2024-08-06 11:26 | Outpatient (BNV) | payer OTHER, SELFPAY | PROVIDERS: PCP Internal Medicine; Visit Provider Radiology Diagnostic Radiology | DX: D25.9 Leiomyoma of uterus, unspecified (principal) | CPT/HCPCS: 76830; 76856 ==

== ENCOUNTER 2024-08-10 11:17 | Outpatient (AMB) | payer OTHER, SELFPAY ==
--- NOTE | 2024-08-10 11:21 | A.OFFVIS_ITS ---
Vital Signs 08/10/24 11:22 Height 4 ft 11 in Weight 174 lb BMI 35.1 Intake Visit Reasons: ultrasound follow up Subscription Agent Required: Yes Subscription Agent Language: Financial Operations Consultant Services: Subscription Agent Present (in person) Subscription Agent Name: Dora GARCIA Information Interpreted: non-clinical & clinical Accompanied by: Self / Same As Patient Allergies aspirin [ASPIRIN] Allergy (Severe, Verified 08/10/24 11:23) RASH, itchiness Penicillins [PENICILLINS] Allergy (Mild, Verified 08/10/24 11:23) RASH Post menopausal: Yes HPI Comments Details: Presenting for ultrasound follow-up regarding uterine myoma complaining of a lot of pelvic pressure with no vaginal bleeding . Pelvic ultrasound done on 08/06/2024 showed the following: Uterus: Again seen are multiple uterine fibroids including a fundal fibroid measuring 5.6 x 4.9 x 4.1 cm (previously 5.2 x 5.0 x 4.1 cm), fibroid of the uterine body measuring 2.0 x 2.2 x 2.2 cm (previously 1.6 x 2.1 x 1.6 cm), and a fibroid of the lower uterine segment measuring 5.4 x 3.0 x 3.7 cm (previously 5.7 x 4.0 x 4.1 cm). Endometrium: The endometrial stripe is not identified. Right ovary: The right ovary is not identified. Left ovary: The left ovary is not identified. Pelvic fluid: none. [facility] Medical History HLD (hyperlipidemia) Chronic kidney disease, stage III (moderate) Recurrent ventral incisional hernia Bipolar depression Anxiety Depression Left hip pain B12 deficiency Abnormal thyroid biopsy Non-toxic multinodular goiter Hypothyroidism Other and unspecified hyperlipidemia Type 2 diabetes mellitus with unspecified complications Obesity (BMI 30-39.9) Lumbar degenerative disc disease Vitamin B12 deficiency Acquired hypothyroidism Nonintractable headache Pure hypercholesterolemia Benign essential hypertension Chronic kidney disease, stage 2 (mild) Type 2 diabetes mellitus with diabetic chronic kidney disease Knee pain, bilateral Anxiety IBS (irritable bowel syndrome) Visual loss Tendonitis Neck pain Hernia Chronic abdominal pain Lumbar disc disease Depression Asthma Hx of headache Type 2 diabetes mellitus with hyperglycemia Autoimmune thyroiditis Hyperlipidemia LDL goal <100 Essential hypertension Vitamin D deficiency Obesity due to excess calories Surgical History S/P laparoscopy (~11/20/10) History of hernia repair Hx of exploratory laparotomy Family History Father Medical history unknown Mother Medical history unknown Social History Household Members: Spouse Housing: Apartment Alcohol intake: never Patient Tobacco Use Status: Never used Tobacco e-Cigarette/Vaping Use: Never Used Second Hand Smoke Exposure: Yes service: No Current occupational status: disabled Cognitive needs: No Hearing needs: No Vision needs: Yes Review of Systems Const All systems reviewed & are unremarkable except as noted in HPI and below Reports as per HPI and Reports no additional complaints GI Reports no additional complaints Reports no additional complaints Physical Exam Vital Signs: BMI result Body Mass Index 35.1 Assessment & Plan Assessment & Plan (1) Uterine myoma: Code(s): D25.9 - Leiomyoma of uterus, unspecified Category: Medical Plan: Discussed with the patient the findings on pelvic ultrasound & the risk of myosarcoma; discussed with the patient the options of treatment including expectant management versus surgical manage; the pros and cons, risks benefits of each approach were discussed with the patient; after further discussion, the patient decided to proceed with definitive surgical management. Discussed with the patient the different types of hysterectomies including, vaginal, laparoscopic assisted vaginal, robotic assisted laparoscopic,& abdominal with BSO. All pros, cons, r/b of each approach were discussed the patient including evidence that morbidity is less and recovery is shorter with minimally invasive approaches to hysterectomy. Discussed with the patient the lack of availability of the robot DaVinci robot and/or minimally invasive production machine tender specialist at [facility]. The patient was referred to [facility] for minimally invasive hysterectomy. Instructed the patient to call our office back in case a referral appointment is not scheduled, missed or canceled so that we will assist on rescheduling another appointment, the patient verbalized understanding agreed with the plan. Coding Level of Care Code Est Pt Level 3 (08747) Diagnoses Uterine myoma D25.9
[2024-08-10 11:22] VITALS: BMI 35.1
== END 2024-08-10 11:50 | disposition home or self-care (01) ==
LOC: HO.HWS 11:17
PROVIDERS: PCP Internal Medicine; Visit Provider Obstetrics & Gynecology
DX: D25.9 Leiomyoma of uterus, unspecified (principal)
CPT/HCPCS: 99213

== ENCOUNTER → 2024-08-10 11:17 | Outpatient (BNVA) | payer OTHER, SELFPAY | PROVIDERS: PCP Internal Medicine; Visit Provider Obstetrics & Gynecology | DX: D25.9 Leiomyoma of uterus, unspecified (principal) | CPT/HCPCS: 99212 ==

== ENCOUNTER 2024-08-17 11:49 | Outpatient (REF) | payer OTHER, SELFPAY ==
[2024-08-17 12:26] LABS: MANUAL DIFF FLAG NO
[2024-08-17 12:36] LABS: Basophils Absolute Auto 0.1 X10*3/uL (0.0-0.2); Basophils Percent Auto 0.7 % (0-2); Eosinophils Absolute Auto 0.1 X10*3/uL (0.0-0.4); Eosinophils Percent Auto 1.8 % (0-4); Hematocrit 38.9 % (37.0-47.0); Hemoglobin 12.8 g/dl (12.0-16.0); Imm Gran Abs Auto 0.02 X10*3/uL (0.00-0.03); Imm Gran Pct Auto 0.3 % (0.0-0.4); Lymphocytes Absolute Auto 2.6 X10*3/uL (1.2-4.9); Mean Corpuscular HGB Conc 32.9 g/dl (31.0-35.0); Mean Corpuscular Hemoglobin 27.9 pg (27.0-33.0); Mean Corpuscular Volume 84.9 fL (80.0-98.0); Mean Platelet Volume 10.8 fL (9.4-12.3); Monocytes Absolute Auto 0.5 X10*3/uL (0.1-1.2); Monocytes Percent Auto 6.6 % (2-11); Neutrophils Absolute Auto 3.6 x10*3/uL (2.0-8.3); Neutrophils Percent Auto 52.6 % (45-73); Platelet Count 309 X10*3/uL (160-400); Red Blood Count 4.58 X10*6/uL (4.20-5.50); Red Cell Distribution Width 12.4 % (11.0-16.0); White Blood Count 6.8 X10*3/uL (4.8-10.8)
[2024-08-17 12:43] LABS: Estimated Average Glucose 174 mg/dL; Hemoglobin A1C 206.4026 umol/L; Hemoglobin A1c % 7.7 % (<6.0); Total Hemoglobin (HGBA1C) 3433.5938 umol/L
[2024-08-17 12:51] LABS: Appearance Urine Cloudy; Color Urine Yellow; Glucose Urine UA >=1000 mg/dL (Negative); Leukocyte Esterase Urine Negative (Negative); Nitrite Urine Negative (Negative); PH 5.5 (5.0-9.0); UMIC TRIGGER UACC YES; Urine Blood Negative (Negative); Urine Ketones Negative (Negative); Urine Protein Negative (Neg-Trace)
[2024-08-17 13:02] LABS: Bacteria Urine 1+ (None Seen); Hyaline Casts Urine 0-2 /LPF (0-2); RBC Urine 0-2 /HPF (0-2); WBC Urine 0-5 /HPF (0-5)
[2024-08-17 13:14] LABS: Alanine Aminotransferase 24 U/L (0-31); Albumin Level 4.3 g/dL (3.5-5.0); Alkaline Phosphatase 93 U/L (39-117); Anion Gap 8 (12-20); Aspartate Amino Transferase 22 U/L (5-31); Bilirubin Total 0.4 mg/dL (0.0-1.0); Blood Urea Nitrogen 10 mg/dL (9-16); Calcium 8.8 mg/dL (8.4-10.2); Carbon Dioxide 28 mmol/L (22-29); Chloride 110 mmol/L (96-108); Cholesterol 181 mg/dL (<200); Estimated Glomerular Filt Rate 56; Glucose Fasting 183 mg/dL (60-99); Glucose Random 182 mg/dL (60-115); HDL Cholesterol 42 mg/dL (>40); LDL Cholesterol Calculated 122 mg/dL (<100); Potassium 3.8 mmol/L (3.3-5.1); Sodium 142 mmol/L (135-145); Total Protein 8.1 g/dL (6.5-8.0); Triglycerides 85 mg/dL (<150)
[2024-08-17 13:19] LABS: Cholesterol 178 mg/dL (<200); HDL Cholesterol 42 mg/dL (>40)
[2024-08-17 13:25] LABS: LDL Cholesterol Calculated 117 mg/dL (<100); Triglycerides 95 mg/dL (<150)
[2024-08-17 13:25] LABS: Creatinine Urine 95.44 mg/dL; Microalbumin Urine < 5.0 mg/L
[2024-08-17 13:31] LABS: Free T4 (Free Thyroxine) 1.23 ng/dL (0.71-1.85); Thyroid Stimulating Hormone 4.53 uIU/mL (0.32-4.0); Vitamin D 25-OH Total 29.1 ng/mL (>30)
[2024-08-17 13:38] LABS: Free T4 (Free Thyroxine) 1.31 ng/dL (0.71-1.85); Thyroid Stimulating Hormone 4.48 uIU/mL (0.32-4.0)
== END 2024-08-17 11:50 | disposition home or self-care (01) ==
LOC: HO.LAB 11:49
PROVIDERS: Absent Provider Student in an Organized Health Care Education/Training Program; PCP Internal Medicine; Visit Provider Internal Medicine
DX: E11.22 Type 2 diabetes mellitus with diabetic chronic kidney disease (principal); E78.00 Pure hypercholesterolemia, unspecified; D64.9 Anemia, unspecified; E03.9 Hypothyroidism, unspecified; E55.9 Vitamin D deficiency, unspecified; N18.2 Chronic kidney disease, stage 2 (mild); Z79.4 Long term (current) use of insulin; E03.8 Other specified hypothyroidism; E06.3 Autoimmune thyroiditis; E04.2 Nontoxic multinodular goiter
CPT/HCPCS: 36415; 80048; 80053; 80061; 81001; 82043; 82306; 82570; 83036; 84439; 84443; 85025

== ENCOUNTER 2024-08-22 12:30 | Outpatient (AMB) | payer OTHER, SELFPAY ==
--- NOTE | 2024-08-22 12:49 | A.OFFPC_ITS ---
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: No Accompanied by: Self / Same As Patient Allergies aspirin [ASPIRIN] Allergy (Severe, Verified 08/23/24 11:09) RASH, itchiness Penicillins [PENICILLINS] Allergy (Mild, Verified 08/23/24 11:09) RASH Medication List - Last Reconciled 08/22/24 by Hernesto Obregon MD [ABDOMINAL BINDER (elastic) - LARGE As directed] albuterol sulfate 90 mcg/actuation 2 puffs PO QID PRN albuterol sulfate 90 mcg/actuation (Ventolin HFA) 2 puffs inhalation Q6H PRN 30 days albuterol sulfate 2.5 mg (3 mL) continuous nebulization Q6H PRN 30 days atorvastatin 80 mg PO BEDTIME 90 days blood pressure monitor As directed blood sugar diagnostic (FreeStyle Lite Strips) As directed 3 times a day blood-glucose meter,continuous (FreeStyle Galina 3 Ludell) As directed blood-glucose sensor (FreeStyle Galina 3 Sensor device) As directed [id number]-mshughjvcaytk-zyzm 50-325-40 mg 1 cap PO BID-TID PRN 30 days cholecalciferol (vitamin D3) 50 mcg PO DAILY 90 days clobetasol 0.05% 1 appl topical BID 4 weeks [Commode As directed] cyclobenzaprine 10 mg PO TID PRN 30 days dapagliflozin propanediol (Farxiga) 5 mg PO DAILY duloxetine 30 mg PO DAILY ezetimibe 10 mg PO DAILY ferrous fumarate 325 mg PO QWEEK flash glucose scanning reader (FreeStyle Galina 2 Ludell) As directed flash glucose sensor (FreeStyle Galina 2 Sensor kit) USE DIRECTED CHANGE EVERY 14 DAYS insulin glargine (Lantus Solostar U-100 Insulin) 32 units (0.32 mL) subcut DAILY insulin glargine-yfgn 30 units subcut QPM lancets (FreeStyle Lancets) As directed checks 4 X/day lidocaine 5% 1 patch topical DAILY PRN 30 days lisinopril 30 mg PO DAILY lorazepam 0.5 mg PO TID PRN 30 days metformin 1,000 mg PO BID miscellaneous medical supply 1 ea miscellaneous DAILY montelukast 10 mg PO QPM 90 days [NEBULIZER and all related accessories As directed] orphenadrine citrate ER 100 mg PO BID PRN 30 days [OVER TOILET COMMODE CHAIR As directed] risperidone 1 mg PO BEDTIME 30 days sumatriptan succinate mg PO Tirosint (levothyroxine) 175 mcg PO DAILY NS tirzepatide (Mounjaro) 7.5 mg (0.5 mL) subcut QWEEK tramadol 50 mg PO TID PRN Tobacco use date assessed: 08/22/24 Dental Screening Dental Screen Date: 08/22/24 Did you have a dental visit in the last 12 months?: No Did you have a dental problem in the last 6 months where you did not have access to dental care?: No Was dental information given to patient?: Patient has dentist HPI 3mth f/u HPI Details Patient comes in today for her follow-up visit States that she currently feels okay She is still experiencing recurrent headaches; denies any dizziness States that she was seen by Dr. Gonzales for neurology follow up last month and was taken off Topiramate, Cyclobenzaprine, Paroxetine and Tramadol and instead started on Duloxetine 30 mg QD, which patient states made her feel very tired and sleepy when she took it so she stopped the Rx after trying it for a couple of days She denies any chest pains, no increased shortness of breath No nausea/vomiting, no abdominal pain No change in bowel habits noted She had her follow-up labs done a few days ago - to discuss her results [facility] Medical History HLD (hyperlipidemia) Chronic kidney disease, stage III (moderate) Recurrent ventral incisional hernia Bipolar depression Anxiety Depression Left hip pain B12 deficiency Abnormal thyroid biopsy Non-toxic multinodular goiter Hypothyroidism Other and unspecified hyperlipidemia Type 2 diabetes mellitus with unspecified complications Obesity (BMI 30-39.9) Lumbar degenerative disc disease Vitamin B12 deficiency Acquired hypothyroidism Nonintractable headache Pure hypercholesterolemia Benign essential hypertension Chronic kidney disease, stage 2 (mild) Type 2 diabetes mellitus with diabetic chronic kidney disease Knee pain, bilateral Anxiety IBS (irritable bowel syndrome) Visual loss Tendonitis Neck pain Hernia Chronic abdominal pain Lumbar disc disease Depression Asthma Hx of headache Type 2 diabetes mellitus with hyperglycemia Autoimmune thyroiditis Hyperlipidemia LDL goal <100 Essential hypertension Vitamin D deficiency Obesity due to excess calories Surgical History S/P laparoscopy (~11/20/10) History of hernia repair Hx of exploratory laparotomy Family History Father Medical history unknown Mother Medical history unknown Social History Household Members: Spouse Housing: Apartment Alcohol intake: never Patient Tobacco Use Status: Never used Tobacco e-Cigarette/Vaping Use: Never Used Second Hand Smoke Exposure: Yes service: No Current occupational status: disabled Cognitive needs: No Hearing needs: No Vision needs: Yes Questionnaire PHQ-9 Over the last 2 weeks, how often have you been bothered by any of the following problems? 1. Little interest or pleasure in doing things: not at all 2. Feeling down, depressed, or hopeless: not at all 3. Trouble falling or staying asleep, or sleeping too much: not at all 4. Feeling tired or having little energy: not at all 5. Poor appetite or overeating: not at all 6. Feeling bad about yourself - or that you are a failure or have let yourself or your family down: not at all 7. Trouble concentrating on things, such as reading the newspaper or watching television: not at all 8. Moving or speaking so slowly that other people could have noticed. Or the opposite - being so fidgety or restless that you have been moving around a lot more than usual: not at all 9. Thoughts that you would be better off or of hurting yourself in some way: not at all Total score: 0 Depression Screening Interpretation: Negative Depression Screening Done: Yes 45358 - PHQ-9 Billing: Yes Source: Developed by Drs. Ryland Guzman, Livia Donohue, Kristian Heredia and colleagues, with an educational jono from [email or web address]. Thrive Questionnaire Date Thrive assessed: 08/22/24 I am a: Patient What is your living situation today?: I have a steady place to live Within the past 12 months, did the food you bought not last and you didn't have the money to get more?: Never true Within the past 12 months, did you worry whether your food would run out before you got money to buy more?: Never true Do you have trouble paying for medicines?: No Do you have trouble getting transportation to medical appointments?: No Do you have trouble paying your heating and electricity bill?: No Do you have trouble taking care of your child, family member or friend?: No Do you have trouble with day-to-day activities such as bathing, preparing meals, shopping, managing finances, etc.?: No Are you currently unemployed and looking for a job?: No Are you interested in more education?: No Please select the resources that you would like help with: None Currently or been in a relationship where the following occur: No concerns reported THRIVE Score: 0 AUDIT C Alcohol Use Questionnaire (AUDIT-C) 1. How often do you have a drink containing alcohol?: Never 3. How often do you have six or more drinks on one occasion?: Never Total Score: 0 Score Reviewed/Action Taken: Yes STALIN-7 AMB Questionnaire STALIN-7 Date STALIN - 7 assessed: 08/22/24 Feeling nervous, anxious, or on edge: 0 = Not at all Not being able to stop or control worryin = Not at all Worrying too much about different things: 0 = Not at all Trouble relaxin = Not at all Being so restless that it is hard to sit still: 0 = Not at all Becoming easily annoyed or irritable: 0 = Not at all Feeling afraid as if something awful might happen: 0 = Not at all Total STALIN-7 score (0-4 normal; 5-9 mild; 10-14 moderate; 15-21 severe): 0 Source: Developed by Drs. Ryland Guzman, Livia Donohue, Kristian Heredia and colleagues, with an educational jono from [email or web address]. Review of Systems Const Denies chills, Reports fatigue, Denies fever(s) and Reports headache(s) (recurrent) Eyes Denies blurry vision ENT Denies dysphagia, Denies dizziness, Denies otalgia, Reports headache(s) (recurrent), Denies neck pain, Denies odynophagia and Denies sore throat Card Denies chest pain, Denies palpitations and Denies dyspnea Resp Denies chest congestion, Denies cough and Denies dyspnea GI Denies abdominal pain, Denies constipation, Denies dysphagia, Denies heartburn, Denies diarrhea, Denies nausea, Denies odynophagia and Denies vomiting Denies difficulty voiding, Denies nocturia, Denies dysuria and Denies urinary urgency Musc Reports back pain (increased over the middle of her back lately), Reports arthralgias (on & off in the left shoulder, both knees and left hip and right wrist ) and Denies neck pain Skin/Breast Denies rash Neuro Denies dizziness and Reports headache(s) (recurrent) Endo Reports fatigue and Denies palpitations Physical exam (Primary Care) Vital Signs: Last Vital Signs Pulse 72 08/22/24 12:50 BP 110/70 08/22/24 12:50 Pulse Ox 99 08/22/24 12:50 Oxygen Delivery Method Room Air 08/22/24 12:50 BMI result Body Mass Index 34.0 Tobacco/Smoking Status: Tobacco use Status Tobacco use date assessed 08/22/24 08/22/24 13:01 Patient Tobacco Use Status Never used Tobacco 08/22/24 13:01 e-Cigarette/Vaping Use Never Used 08/22/24 13:01 PHQ-9: PHQ-9 Score PHQ-9: Total score 0 08/22/24 13:31 Depression Screening Interpretation: Negative Thrive Assessment: Date of Thrive Assessment Date Thrive assessed 08/22/24 08/22/24 13:01 Currently or been in a relationship where the following occur: No concerns reported Const General: no acute distress and alert HENMT Ears: TM's normal bilaterally and EAC's normal Throat: Yes posterior oropharynx normal and Yes tonsils normal (no TP congestion noted) Neck Neck: Yes supple and No lymphadenopathy Thyroid: Thyroid normal Resp Auscultation: clear to auscultation bilaterally, no rales and no wheezes Cardio Rate: regular rate Rhythm: regular rhythm Heart sounds: no murmurs GI Palpation (GI): Soft to palpation and nontender Auscultation: normal bowel sounds General: Yes no CVA tenderness Back/Spine/Pelvis Back: no CVA tenderness Thoracic/Lumbar Spine: paraspinal muscle tenderness bilaterally in the mid thoracic and in the lower thoracic and lumbar spinal tenderness Sacrum: tenderness (mild) midline Skin Rashes: no rashes Extrem General: Yes no clubbing, cyanosis or edema Right upper extremity: wrist Details: tenderness and normal ROM; no swelling Left upper extremity: shoulder/upper arm Details: tenderness and abnormal ROM (limited ROM due to pain) Results Reviewed Results Reviewed: Laboratory Tests 08/17/24 08/17/24 12:21 12:25 WBC 6.8 Hgb 12.8 Hct 38.9 Plt Count 309 Sodium 142 Potassium 3.8 Creatinine 1.01 Estimated GFR 56 Fasting Glucose 183 H Hemoglobin A1c % 7.7 H Calcium 8.8 D AST 22 ALT 24 Triglycerides 95 Cholesterol 178 LDL Cholesterol, Calc 117 H HDL Cholesterol 42 25-OH Vitamin D Total 29.1 L TSH 4.48 H Free T4 1.31 Ur Specific Protem 1.020 Urine Protein Negative Urine Glucose (UA) >=1000 H Urine Blood Negative Urine Nitrite Negative Ur Leukocyte Esterase Negative Coding Level of Care Code Est Pt Level 4 (74884) Diagnoses Pure hypercholesterolemia E78.00 Type 2 diabetes mellitus with stage 2 chronic kidney disease, with long-term current use of insulin E11.22; N18.2; Z79.4 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 use: with watermelon harvesting supervisor use Chronic kidney disease stage: stage 2 (mild) Benign essential hypertension I10 Stage 3a chronic kidney disease N18.31 Chronic kidney disease stage 3 subtype: stage 3a (GFR 45-59) Acquired hypothyroidism E03.9 Neuropathy G62.9 Vitamin B12 deficiency E53.8 Vitamin D deficiency E55.9 Degeneration of intervertebral disc of lumbar region with discogenic back pain M51.360 Disc-related pain type: discogenic back pain only Bilateral thoracic back pain, unspecified chronicity M54.6 Chronicity: unspecified Back pain laterality: bilateral Primary osteoarthritis of left knee M17.12 Osteoarthritis type: primary Fibroids D21.9 Anxiety F41.9 Bipolar depression F31.9 Obesity (BMI 30-39.9) E66.9 Additional Codes PHQ-9 - 02602 - PHQ-9 Billing: Yes ([id number]) Assessment & Plan Assessment & Plan (1) Pure hypercholesterolemia: Code(s): E78.00 - Pure hypercholesterolemia, unspecified Category: Medical Plan: Results of her labs done a few days ago reviewed and discussed with patient Reinforced low cholesterol diet Continue Atorvastatin 20 mg QD Will recheck her labs and fasting lipids in 3 months for follow up (2) Type 2 diabetes mellitus with diabetic chronic kidney disease: Code(s): E11.22 - Type 2 diabetes mellitus with diabetic chronic kidney disease Category: Medical Qualifiers: Diabetes mellitus nursing home insulin use: with watermelon harvesting supervisor use Chronic kidney disease stage: stage 2 (mild) Qualified Code(s): E11.22 - Type 2 diabetes mellitus with diabetic chronic kidney disease; N18.2 - Chronic kidney disease, stage 2 (mild); Z79.4 - intermediate project manager (current) use of insulin Plan: Her HgbA1c was unchanged from previous at 7.7% on her labs done a few days ago - goal is < 7.0% Reinforced diabetic diet Continue Mounjaro 10 mg SQ once a week, Metformin 1000 mg BID, Lantus 34 units SQ at bedtime and Farxiga 5 mg QD Follow up with [facility] Endocrinology as scheduled (3) Benign essential hypertension: Code(s): I10 - Essential (primary) hypertension Category: Medical Plan: Reinforced low sodium diet - goal is systolic BP of at least 120 mm or less Continue Lisinopril 30 mg QD (4) Chronic kidney disease, stage III (moderate): Code(s): N18.30 - Chronic kidney disease, stage 3 unspecified Category: Medical Qualifiers: Chronic kidney disease stage 3 subtype: stage 3a (GFR 45-59) Qualified Code(s): N18.31 - Chronic kidney disease, stage 3a Plan: Her renal function appears to be stable on her recent labs Have again stressed to her the importance of strict control of her diabetes and high blood pressure to slow down the progression of her CKD Will continue to monitor her renal function regularly/closely (5) Acquired hypothyroidism: Code(s): E03.9 - Hypothyroidism, unspecified Category: Medical Plan: Her TSH is slightly elevated but free T4 is normal on her recent labs Continue Tirosint 200 mcg QD Follow up with [facility] Endocrinology as scheduled (6) Neuropathy: Code(s): G62.9 - Polyneuropathy, unspecified Category: Medical Plan: Patient's recurrent right hand numbness/symptoms suggest neuropathy as the most likely etiology of her symptoms EMG and NCV done a few months ago revealed findings of early CTS bilaterally She is encouraged to continue wearing her wrist braces as needed to help manage her symptoms (7) Vitamin B12 deficiency: Code(s): E53.8 - Deficiency of other specified B group vitamins Category: Medical Plan: Continue Vitamin B12 1000 mcg QD (8) Vitamin D deficiency: Code(s): E55.9 - Vitamin D deficiency, unspecified Category: Medical Plan: Continue Vitamin D3 2000 units QD (9) Lumbar degenerative disc disease: Code(s): M51.36 - Other intervertebral disc degeneration, lumbar region Category: Medical Qualifiers: Disc-related pain type: discogenic back pain only Qualified Code(s): M51.360 - Other intervertebral disc degeneration, lumbar region with discogenic back pain only Plan: Reinforced activity and weight lifting restrictions Continue Orphenadrine 100 mg BID PRN with food; Lidocaine patches help as well Repeat lumbar spine, sacral spine and coccygeal x-rays done a few months ago revealed no acute osseus abnormalities although her imaging studies have demonstrated findings of multiple calcified fibroids (10) Thoracic back pain: Code(s): M54.6 - Pain in thoracic spine Category: Medical Qualifiers: Chronicity: unspecified Back pain laterality: bilateral Qualified Code(s): M54.6 - Pain in thoracic spine Plan: Thoracic spine x-rays done back in May 2024 revealed (+) mild multilevel degenerative changes in the thoracic spin (11) Osteoarthritis of left knee: Code(s): M17.12 - Unilateral primary osteoarthritis, left knee Category: Medical Qualifiers: Osteoarthritis type: primary Qualified Code(s): M17.12 - Unilateral primary osteoarthritis, left knee Plan: X-rays of the left knee done in May 2023 revealed (+) mild tricompartmental arthritis that has progressed slightly from 2020 Follow up with orthopedics as scheduled (12) Fibroids: Code(s): D21.9 - Benign neoplasm of connective and other soft tissue, unspecified Category: Medical Plan: Abdominal and pelvic US done back in August 2023 revealed (+) punctate 2 mm mural echogenic focus that may represent a focal mural calcification. No mobile gallstones identified. Hepatomegaly was also incidentally noted on her recent abdominal sonogram Follow up with gynecology as scheduled (13) Anxiety: Code(s): F41.9 - Anxiety disorder, unspecified Category: Medical Plan: Continue Lorazepam 0.5 mg TID PRN (14) Bipolar depression: Code(s): F31.9 - Bipolar disorder, unspecified Category: Medical Plan: Continue Risperidone 1 mg Q HS She was taken off her Paroxetine and Topiramate by Neurology last month She was started on a trial of Duloxetine 30 mg QD but reports that she felt very tired and sleepy after taking Duloxetine so she stopped taking it after a couple of days Have advised patient to try taking it at night see if this will help mitigate some of her side effects or symptoms Follow up with psychiatry as scheduled (15) Obesity (BMI 30-39.9): Code(s): E66.9 - Obesity, unspecified Category: Medical Plan: Reinforced diet/exercise as tolerated/ lose weight Plan Follow up in 3 months Orders: Orders Comprehensive Godfrey. Panel Fast 3 Months E78.00 - Pure hypercholesterolemia, unspecified Lipid Panel 3 Months E78.00 - Pure hypercholesterolemia, unspecified Hemoglobin A1c 3 Months E11.9 - Type 2 diabetes mellitus without complications Complete Blood Count Auto Diff 3 Months D64.9 - Anemia, unspecified Thyroid Stimulating Hormone 3 Months E03.9 - Hypothyroidism, unspecified Free T4 (Free Thyroxine) 3 Months E03.9 - Hypothyroidism, unspecified Microalbumin, Random (w Creat) 3 Months E11.9 - Type 2 diabetes mellitus without complications UA CC w/rflx Micro + Cult 3 Months R30.0 - Dysuria Vitamin D 25-OH Total 3 Months E55.9 - Vitamin D deficiency, unspecified
[2024-08-22 12:50] VITALS: BP 110/70; PULSE 72; O2SAT 99; BMI 34.0
== END 2024-08-22 13:45 | disposition home or self-care (01) ==
PROVIDERS: PCP Internal Medicine; Visit Provider Internal Medicine
DX: E78.00 Pure hypercholesterolemia, unspecified (principal); E11.22 Type 2 diabetes mellitus with diabetic chronic kidney disease; N18.2 Chronic kidney disease, stage 2 (mild); Z79.4 Long term (current) use of insulin; I12.9 Hypertensive chronic kidney disease with stage 1 through stage 4 chronic kidney disease, or unspecified chronic kidney disease; N18.31 Chronic kidney disease, stage 3a; E03.9 Hypothyroidism, unspecified; G62.9 Polyneuropathy, unspecified; E53.8 Deficiency of other specified B group vitamins; E55.9 Vitamin D deficiency, unspecified; M51.360 Other intervertebral disc degeneration, lumbar region with discogenic back pain only; F31.9 Bipolar disorder, unspecified; M54.6 Pain in thoracic spine; M17.12 Unilateral primary osteoarthritis, left knee; D21.9 Benign neoplasm of connective and other soft tissue, unspecified; F41.9 Anxiety disorder, unspecified; E66.9 Obesity, unspecified

== ENCOUNTER → 2024-08-22 12:30 | Outpatient (BNVA) | payer OTHER, SELFPAY | PROVIDERS: PCP Internal Medicine; Visit Provider Internal Medicine | DX: E78.00 Pure hypercholesterolemia, unspecified (principal); I12.9 Hypertensive chronic kidney disease with stage 1 through stage 4 chronic kidney disease, or unspecified chronic kidney disease; E11.22 Type 2 diabetes mellitus with diabetic chronic kidney disease; N18.2 Chronic kidney disease, stage 2 (mild); N18.31 Chronic kidney disease, stage 3a; E03.9 Hypothyroidism, unspecified; G62.9 Polyneuropathy, unspecified; E53.9 Vitamin B deficiency, unspecified; E55.9 Vitamin D deficiency, unspecified; M51.360 Other intervertebral disc degeneration, lumbar region with discogenic back pain only; M17.12 Unilateral primary osteoarthritis, left knee; D21.9 Benign neoplasm of connective and other soft tissue, unspecified; F41.9 Anxiety disorder, unspecified; F31.9 Bipolar disorder, unspecified; E66.9 Obesity, unspecified; Z79.4 Long term (current) use of insulin | CPT/HCPCS: 96127; 99212 ==

== ENCOUNTER 2024-08-23 10:59 | Outpatient (AMB) | payer OTHER, SELFPAY ==
--- NOTE | 2024-08-23 11:00 | A.OFFVIS_ITS ---
Vital Signs 3 08/23/24 11:01 Height 4 ft 11 in Weight 171 lb 1.259 oz BMI 34.5 BP 142/60 H Blood Pressure Location Rt brachial Position Sitting Pulse 70 Pulse Source Pulse Oximeter Intake Visit Reasons: DM, hyperlipidemia, HTN, hypothyroidism Intake Note: Patient present today for Type 2 Diabetes Mellitus, hyperlipidemia, HTN and hypothyroidism. Last Diabetic eye exam: Over 2 years ago Last Podiatry Visit: Doesn't have one Random Glucose: 212 mg/dl HgA1C: 7.7% 08/17/24 Microelectronics Engineer Required: No Accompanied by: Self / Same As Patient Allergies aspirin [ASPIRIN] Allergy (Severe, Verified 08/23/24 11:09) RASH, itchiness Penicillins [PENICILLINS] Allergy (Mild, Verified 08/23/24 11:09) RASH Medication List - Last Reconciled 08/23/24 by Deysi Batista MD [ABDOMINAL BINDER (elastic) - LARGE As directed] albuterol sulfate 90 mcg/actuation 2 puffs PO QID PRN albuterol sulfate 90 mcg/actuation (Ventolin HFA) 2 puffs inhalation Q6H PRN 30 days albuterol sulfate 2.5 mg (3 mL) continuous nebulization Q6H PRN 30 days atorvastatin 80 mg PO BEDTIME 90 days blood pressure monitor As directed blood sugar diagnostic (FreeStyle Lite Strips) As directed 3 times a day blood-glucose meter,continuous (FreeStyle Galina 3 Holton) As directed blood-glucose sensor (FreeStyle Galina 3 Sensor device) As directed esmclqmenj-gqcfscyaamhif-ybwn 50-325-40 mg 1 cap PO BID-TID PRN 30 days cholecalciferol (vitamin D3) 50 mcg PO DAILY 90 days clobetasol 0.05% 1 appl topical BID 4 weeks [Commode As directed] cyclobenzaprine 10 mg PO TID PRN 30 days dapagliflozin propanediol (Farxiga) 5 mg PO DAILY duloxetine 30 mg PO DAILY ezetimibe 10 mg PO DAILY ferrous fumarate 325 mg PO QWEEK flash glucose scanning reader (FreeStyle Galina 2 Holton) As directed flash glucose sensor (FreeStyle Galina 2 Sensor kit) USE DIRECTED CHANGE EVERY 14 DAYS insulin glargine (Lantus Solostar U-100 Insulin) 32 units (0.32 mL) subcut DAILY insulin glargine-yfgn 30 units subcut QPM lancets (FreeStyle Lancets) As directed checks 4 X/day lidocaine 5% 1 patch topical DAILY PRN 30 days lisinopril 30 mg PO DAILY lorazepam 0.5 mg PO TID PRN 30 days metformin 1,000 mg PO BID miscellaneous medical supply 1 ea miscellaneous DAILY montelukast 10 mg PO QPM 90 days [NEBULIZER and all related accessories As directed] orphenadrine citrate ER 100 mg PO BID PRN 30 days [OVER TOILET COMMODE CHAIR As directed] risperidone 1 mg PO BEDTIME 30 days sumatriptan succinate mg PO Tirosint (levothyroxine) 175 mcg PO DAILY NS tirzepatide (Mounjaro) 7.5 mg (0.5 mL) subcut QWEEK tramadol 50 mg PO TID PRN HPI Comments Details: Patient is 58 yo female with DM type 2 who presents for follow up of diabetes mellitus and hypothyroidism and MNG. Last visit 05/17/24 1) Diabetes mellitus 2 Type 2 diabetes diagnosed in 2013. . [facility] med[facility] Diabetes medication: Lantus 32 units once daily at night Mounjaro 7. 5 mg per weekly metformin 1000mg BID, ( somes times she only does half a tablet at night) Farxiga 5 mg QD Complications Mild neuropathy , doesnt see podiatry No retinopathy , hasnt seen an eye doctor in 3 years , has history of [place] CKD stage 2/3, GFR 59 No microalbuminuria , labs 08/17/24 urine microalbumin <5 No TX or stroke No MASLD, FIB 4 per labs 04/24 is 0.8 Hypoglycemia: denies Hyperglycemia: denies urinary frequency, nocturia, polydypsia Continuous glucose sensor Interpretation Continuous glucose sensor was downloaded [employer] from August 10 to August 23. 2024 average glucose : 209 GMI 8.3% Standard deviation: 22 % % readings above target: 70% % readings in hypoglycemic range: 0% % readings in target: 30% Low alert is set at:70 High alert is set at: [] Blood glucose patterns observed: post prandial and fasting hyperglycemia Random Glucose: 212 mg/dl Weight down from 174 lb to 171 lb since May 2024, only down by 3 lb 2) Hypothyroidism Tirosint 200mcg daily Taking it approprately, adherent But previously she missed 2 weeks doses earlier this year likjg smith when her TSH was high in 12 range and subsequenlty dose was increased But now most recent labs from 04/24 0.26, free t4 1.24 No symptoms of hypothyrodiism or hyperthyrodism Mother had thyroid problems, no one with thyroid cancer Interval history Levothyroxine decreased to 175 mcg daily on 05/17/2024 Repeat labs 08/17/2024 showed TSH elevated at 4.48, normal free T4 of 1.3 3)Thyroid nodules Patient also has history of multinodular goiter. Diagnosed 2017. Underwent biopsy of the right lower pole 1.4 cm nodules sometime in which was atypia of indeterminate significance. Afirma was benign. Denies compressive symptoms. ultrasound October 2021 shows stable size of both the right-sided nodules. Thyroid ultrasound 05/23/2024 showed stable size of both the right-sided nodules. Another new subcentimeter 0.4 cm TR 3 category nodule noted. Given stability of the size of these nodules, no need for further follow up unless patient has any clinical changes. Interval history Last ultrasound October 2021 shows stable size of both the right-sided nodules. Thyroid ultrasound 05/23/2024 showed stable size of both the right-sided nodules. Another new subcentimeter 0.4 cm TR 3 category nodule noted. Given stability of the size of these nodules, no need for further follow up unless patient has any clinical changes. 4) HLD LDL at 124 , on atorvastatin 80 mg daily ,adherent Started ezetimibe 10 mg daily 05/17/24 LDL 122 08/17/24 5) HTN On lisinopril 30 mg daily Review of systems Constitutional: no fevers, chills or weight loss HEENT: no changes in vision Cardiac: No chest pain, discomfort or palpitations. Pulmonary: No SOB GI:No abdominal pain, no nausea or vomiting, no anorexia, no blood in stool : no burning micturition, dysuria or increase in urinary frequency Physical exam General: sitting comfortably in no acute distress HEENT: normocephalic/atraumatic, moist oral mucosa Neck: supple, symmetrical, no thyromegaly , no dorsocervical or supraclavicular fat pads Cardiac: normal heart sounds Pulm: normal breath sounds B/L, no added breath sounds Abd: not distended, no tenderness Extremities: no edema, no signs of myxedema Neuro: AAO x3, Speech: normal, no facial droop, moving all 4 extremities Skin: no rash Foot exam: intact sensation to monofilament, intact pulses, intact vibration Laboratory Tests 03/07/23 08/31/23 10/03/23 10:40 08:42 12:04 Hgb Hct Plt Count Sodium Potassium Creatinine Estimated GFR Estimat Average Glucose Hemoglobin A1c % 7.9 7.2 H AST ALT Albumin Triglycerides Cholesterol LDL Cholesterol, Calc HDL Cholesterol Vitamin B12 25-OH Vitamin D Total TSH 2.53 12.68 H Free T4 Urine Creatinine Urine Microalbumin 01/02/24 04/30/24 04/30/24 12:21 13:12 13:14 Hgb Hct Plt Count 260 Sodium Potassium Creatinine 1.07 Estimated GFR 52 Estimat Average Glucose Hemoglobin A1c % 7.5 H 7.7 H AST 17 ALT 24 Albumin Triglycerides 95 Cholesterol 186 LDL Cholesterol, Calc 127 H HDL Cholesterol 40 L Vitamin B12 271 25-OH Vitamin D Total TSH 1.25 0.26 L Free T4 1.24 1.24 Urine Creatinine 69.27 Urine Microalbumin < 5.0 08/17/24 08/17/24 08/17/24 12:21 12:25 12:25 Hgb 12.8 Hct 38.9 Plt Count 309 Sodium 142 Potassium 3.8 Creatinine 1.01 Estimated GFR 56 Estimat Average Glucose 174 Hemoglobin A1c % 7.7 H AST 22 ALT 24 Albumin 4.3 Triglycerides Cholesterol 178 LDL Cholesterol, Calc 117 H 122 H HDL Cholesterol 42 Vitamin B12 25-OH Vitamin D Total 29.1 L TSH 4.48 H Free T4 1.31 Urine Creatinine 95.44 Urine Microalbumin < 5.0 08/17/24 12:25 Hgb Hct Plt Count Sodium Potassium Creatinine Estimated GFR Estimat Average Glucose Hemoglobin A1c % AST ALT Albumin Triglycerides 95 Cholesterol LDL Cholesterol, Calc HDL Cholesterol Vitamin B12 25-OH Vitamin D Total TSH 4.53 H Free T4 Urine Creatinine Urine Microalbumin US THYROID 05/23/24 CLINICAL INFORMATION: Other specified hypothyroidism. COMPARISON: Thyroid ultrasound 11/03/2021 and 07/01/2020. TECHNIQUE: Linear transducer grayscale and color Doppler examination with attention to the region of the thyroid. FINDINGS: SIZE: Measurements of the thyroid lobes and nodules are given in sagittal, anteroposterior and transverse dimensions respectively. Right Thyroid Lobe: 5.0 x 1.8 x 1.5 cm, volume 6.8 mL. Previously 4.6 x 1.7 x 2.0 cm, volume 8.2 mL. Parenchyma: The gland echotexture is heterogeneous. Thyroid vascularity is increased. Left Thyroid Lobe: 3.3 x 1.0 x 1.1 cm, volume 1.8 mL. Previously 3.5 x 1.4 x 1.6 cm, volume 4.1 mL. Parenchyma: The gland echotexture is heterogeneous. Thyroid vascularity is normal. Isthmus: 0.45 cm in maximum AP dimension. Previously 0.50 cm. Estimated total number of nodules greater than or equal to 1 cm: 1. Senior Energy Market Coordinator nodules are described as follows: 1. Location: Right inferior. Size: 1.1 x 1.0 x 1.1 cm, volume 0.61 mL. Previously: 1.2 x 1.2 x 1.4 cm, volume 1.0 mL. Nodule characteristics: Composition: Solid (2). Echogenicity: Hyperechoic (1). Shape: Not taller than wide (0). Margins: Smooth (0). Echogenic Foci: None (0). ACR TI-RADS total points: 3 Previous: 3 ACR TI-RADS category: 3 Previous: 3 Significant change in size (>/= 20% in 2 dimensions and minimal increase of 2 mm or 50% or greater increase in volume): No Change in features: No Change in ACR TI-RADS risk category: No 2. Location: Right inferior. Size: 0.64 x 0.43 x 0.47 cm, volume 0.07 mL. Previously: 0.60 x 0.60 x 0.60 cm, volume 0.10 mL. Nodule characteristics: Composition: Solid (2). Echogenicity: Hyperechoic (1). Shape: Not taller than wide (0). Margins: Smooth (0). Echogenic Foci: None (0). ACR TI-RADS total points: 3 Previous: 3 ACR TI-RADS category: 3 Previous: 3 Significant change in size (>/= 20% in 2 dimensions and minimal increase of 2 mm or 50% or greater increase in volume): No Change in features: No Change in ACR TI-RADS risk category: No 3. Location: Right mid. Size: 0.40 x 0.32 x 0.37 cm, volume 0.02 mL. Previously: Not documented on the previous study. Nodule characteristics: Composition: Solid (2). Echogenicity: Hyperechoic (1). Shape: Not taller than wide (0). Margins: Smooth (0). Echogenic Foci: None (0). ACR TI-RADS total points: 3 ACR TI-RADS category: 3 NODES: No lymphadenopathy is seen in the tissue surrounding the thyroid gland. US/US thyroid IMPRESSION: 1. Heterogeneous, hypervascular, multinodular thyroid gland. 2. A 1.1 cm RIGHT TR 3 thyroid nodule. Subcentimeter nodules as detailed above. Continued surveillance recommended. US THYROID 11/20 CLINICAL INFORMATION: Nontoxic multinodular goiter. COMPARISON: Ultrasound thyroid 07/01/2020. Ultrasound thyroid soft tissue neck 10/10/2019. TECHNIQUE: Linear transducer grayscale and color Doppler examination with attention to the region of the thyroid. FINDINGS: SIZE: Measurements of the thyroid lobes and nodules are given in sagittal, anteroposterior and transverse dimensions respectively. Right Thyroid Lobe: 4.6 x 1.7 x 2.0 cm, volume 8.2 mL. Previously 5.0 x 2.0 x 1.8 cm, volume 9.5 mL. Parenchyma: The gland echotexture is heterogeneous. Thyroid vascularity is normal. Left Thyroid Lobe: 3.5 x 1.4 x 1.6 cm, volume 4.1 mL. Previously 3.7 x 2.1 x 1.5 cm, volume 5.9 mL. Parenchyma: The gland echotexture is heterogeneous. Thyroid vascularity is normal. Isthmus: 0.5 cm in maximum AP dimension. Previously 0.6 cm. Estimated total number of nodules greater than or equal to 1 cm: 1. Senior Energy Market Coordinator nodules are described as follows: 1. Location: Right lower pole. Size: 1.4 x 1.2 x 1.2 cm, volume 1.0 mL. Previously: 1.3 x 1.2 x 1.5 cm, volume 1.2 mL. Nodule characteristics: Composition: Solid (2). Echogenicity: Hyperechoic (1). Shape: Not taller than wide (0). Margins: Ill-defined (0). Echogenic Foci: None (0). ACR TI-RADS total points: 1 Previous: 1 ACR TI-RADS category: 3 Previous: 1 Significant change in size (>/= 20% in 2 dimensions and minimal increase of 2 mm or 50% or greater increase in volume): None Change in features: None Change in ACR TI-RADS risk category: Not applicable 2. Location: Right lower pole. Size: 0.6 x 0.6 x 0.6 cm, volume 0.1 mL. Previously: 0.6 x 0.7 x 0.6 cm, volume 0.1 mL. Nodule characteristics: Composition: Solid (2). Echogenicity: Hyperechoic (1). Shape: Not taller than wide (0). Margins: Smooth (0). Echogenic Foci: None (0). ACR TI-RADS total points: 3 Previous: 1 ACR TI-RADS category: 3 Previous: 1 Significant change in size (>/= 20% in 2 dimensions and minimal increase of 2 mm or 50% or greater increase in volume): None Change in features: None Change in ACR TI-RADS risk category: Not applicable NODES: No lymphadenopathy is seen in the tissue surrounding the thyroid gland. US/US thyroid IMPRESSION: No major change in the size of the nodules and thyroid gland. [facility] Medical History HLD (hyperlipidemia) Chronic kidney disease, stage III (moderate) Recurrent ventral incisional hernia Bipolar depression Anxiety Depression Left hip pain B12 deficiency Abnormal thyroid biopsy Non-toxic multinodular goiter Hypothyroidism Other and unspecified hyperlipidemia Type 2 diabetes mellitus with unspecified complications Obesity (BMI 30-39.9) Lumbar degenerative disc disease Vitamin B12 deficiency Acquired hypothyroidism Nonintractable headache Pure hypercholesterolemia Benign essential hypertension Chronic kidney disease, stage 2 (mild) Type 2 diabetes mellitus with diabetic chronic kidney disease Knee pain, bilateral Anxiety IBS (irritable bowel syndrome) Visual loss Tendonitis Neck pain Hernia Chronic abdominal pain Lumbar disc disease Depression Asthma Hx of headache Type 2 diabetes mellitus with hyperglycemia Autoimmune thyroiditis Hyperlipidemia LDL goal <100 Essential hypertension Vitamin D deficiency Obesity due to excess calories Surgical History S/P laparoscopy (~11/20/10) History of hernia repair Hx of exploratory laparotomy Family History Father Medical history unknown Mother Medical history unknown Social History Household Members: Spouse Housing: Apartment Alcohol intake: never Patient Tobacco Use Status: Never used Tobacco e-Cigarette/Vaping Use: Never Used Second Hand Smoke Exposure: Yes service: No Current occupational status: disabled Cognitive needs: No Hearing needs: No Vision needs: Yes Office Procedures Glucose Monitoring Details Details: see [facility] [id number] - Glucose monitoring, continuous-physician I&R Procedure code (CPT) selection complete Assessment & Plan Assessment & Plan (1) Hypothyroidism: Code(s): E03.9 - Hypothyroidism, unspecified Category: Medical Qualifiers: 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 Most recent labs show her TSH is low at 0.26, with normal free T4 at 1.24 from 04/30/2024. Earlier this year her TSH was in the range of 12, but she endorses that likely that was the. When she was out of her medication for 2 weeks. Her dose of Tirosint at that time had gone up 200 mcg daily. 05/17/2024, Tirosint decreased to 175 mcg daily. Repeat labs 08/17/2024 showed TSH elevated at 4.48, normal free T4 of 1.3, she endorses adherence to the medication TSH is only mildly elevated, plus she does not have any symptoms of hypo or hyperthyroidism Plan: -continue Tirosint 175 mcg daily -repeat TSH, free T4 in 3 months prior to follow up (2) Non-toxic multinodular goiter: Code(s): E04.2 - Nontoxic multinodular goiter Category: Medical Plan: Patient with a history of thyroid nodules at least since 2017. Underwent biopsy of the right lower pole 1.4 cm nodules sometime in which was atypia of indeterminate significance. Afirma was benign. Denies compressive symptoms. Last ultrasound October 2021 shows stable size of both the right-sided nodules. Thyroid ultrasound 05/23/2024 showed stable size of both the right-sided nodules. Another new subcentimeter 0.4 cm TR 3 category nodule noted. Given stability of the size of these nodules, no need for further follow up unless patient has any clinical changes. 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 A1c of 7.7% from August 2024 up from 7.5% from April 2024, however her GMI is at 8.3%. Blood sugar readings have been elevated mostly in the 200s with postprandial hyperglycemia as well as high fasting blood sugar readings. She says she has been under stress lately, does endorse compliance to her medications. We will go up on her Lantus dosing. We will plan to titrate up the dose of Mounjaro go up to 10 mg weekly with plan for further up titration if she does not achieve target blood sugar readings in the next 12 weeks. We will continue Farxiga and metformin as it is. Some days she has not been taking her metformin full dose. Plan: -increase Mounjaro to 10 mg weekly -increase Lantus to 34 units daily at bedtime, -continue Farxiga 5 mg daily -continue metformin 1000 mg b.i.d. -advised 150 minutes of exercise in a week -she is very overdue for eye visit, no history of retinopathy, ophthalmology referral placed -foot exam unremarkable 05/17/2024, has a mild history of neuropathy . Advised daily foot exams -urine microalbumin less than 5 from 08/17. Has CKD stage 3. Continue lisinopril 30 mg daily -follow up in 3 months (4) Essential hypertension: Code(s): I10 - Essential (primary) hypertension Category: Medical Plan: Blood pressure slightly elevated today in 140s systoic Advised low-salt diet. Plan: -continue lisinopril 30 mg daily. (5) HLD (hyperlipidemia): Code(s): E78.5 - Hyperlipidemia, unspecified Category: Medical Qualifiers: Hyperlipidemia type: mixed hyperlipidemia Qualified Code(s): E78.2 - Mixed hyperlipidemia Plan: LDL at 127, is above goal. She has been on atorvastatin 80 mg daily which was titrated up from 40 mg daily at least for the past year. Started ezetimibe 10 mg daily 05/17/24 LDL 122 08/17/24 LDL goal is less than 70 mg/dL. Plan: -continue ezetimibe 10 mg daily and atorvastatin 80 mg daily -repeat lipid panel in 3 months -if LDL remains elevated in 3 months with no difference, we will consider stronger agents such as PCSK9 inhibitors (6) Obesity (BMI 30-39.9): Code(s): E66.9 - Obesity, unspecified Category: Medical Plan: Patient is BMI 35.3 kg per m2 Weight has been static at 174 lb over the past year. She only lost 3 lb since May 2024, weight down to 171 lb after Mounjaro was increased from 5 mg to 7.5 mg weekly. She is not really showing an adequate response. We will continue to up titrate Mounjaro. Plan: -increase majority 10 mg weekly -advised 30 minutes of exercise daily or 150 minutes in a week Plan I spent 30 minutes in reviewing the record, seeing the patient and documenting in the medical record. Orders: Orders 2 AMB Glucose Monitoring Today E11.22 - Type 2 diabetes mellitus with diabetic chronic kidney disease, N18.2 - Chronic kidney disease, stage 2 (mild), Z79.4 - senior care (current) use of insulin Medications: New 2 tirzepatide (Mounjaro) 10 mg (0.5 mL) subcut QWEEK 6 mL 6RF Changed 2 From insulin glargine (Lantus Solostar U-100 Insulin) 32 units (0.32 mL) subcut DAILY 15 mL 8RF To insulin glargine (Lantus Solostar U-100 Insulin) 34 units (0.34 mL) subcut DAILY 15 mL 8RF From Tirosint (levothyroxine) 175 mcg PO DAILY 30 caps 8RF NS To Tirosint (levothyroxine) Brand name only, no substitution allowed 175 mcg PO DAILY 90 caps 4RF NS Refilled 2 metformin 1,000 mg PO BID 180 tabs 5RF dapagliflozin propanediol (Farxiga) 5 mg PO DAILY 30 tabs 6RF dapagliflozin propanediol (Farxiga) 5 mg PO DAILY 90 tabs 4RF Discontinued 2 tirzepatide (Mounjaro) Discontinued Reason: Duplicate 7.5 mg (0.5 mL) subcut QWEEK 6 mL 3RF Patient Instructions: Increase Mounjaro to 10 mg weekly Increased Lantus to 34 units daily Continue metformin 1000 mg twice daily Cotinue Farxiga 5 mg daily Buy a bidet/christian shower from [employer] for better hygiene Do blood work fasting again in 3 months before your next follow up Coding Level of Care Code Est Pt Level 4 (10088) Diagnoses 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
[2024-08-23 11:01] VITALS: BP 142/60; PULSE 70; BMI 34.5
[2024-08-23 11:15] LABS: Glucose, Whole Blood 212 mg/dL (60-115)
== END 2024-08-23 11:38 | disposition home or self-care (01) ==
PROVIDERS: PCP Internal Medicine; Visit Provider Student in an Organized Health Care Education/Training Program
DX: E03.8 Other specified hypothyroidism (principal); E06.3 Autoimmune thyroiditis; E04.2 Nontoxic multinodular goiter; E11.22 Type 2 diabetes mellitus with diabetic chronic kidney disease; N18.2 Chronic kidney disease, stage 2 (mild); Z79.4 Long term (current) use of insulin; I12.9 Hypertensive chronic kidney disease with stage 1 through stage 4 chronic kidney disease, or unspecified chronic kidney disease; E78.2 Mixed hyperlipidemia; E66.9 Obesity, unspecified
CPT/HCPCS: 95251; 99214

== ENCOUNTER → 2024-08-23 10:59 | Outpatient (BNVA) | payer OTHER, SELFPAY | PROVIDERS: PCP Internal Medicine; Visit Provider Student in an Organized Health Care Education/Training Program | DX: E03.8 Other specified hypothyroidism (principal); E11.22 Type 2 diabetes mellitus with diabetic chronic kidney disease; N18.2 Chronic kidney disease, stage 2 (mild); E06.3 Autoimmune thyroiditis; E04.2 Nontoxic multinodular goiter; E78.2 Mixed hyperlipidemia; E66.9 Obesity, unspecified; Z79.4 Long term (current) use of insulin; Z79.84 Long term (current) use of oral hypoglycemic drugs; Z68.34 Body mass index [BMI] 34.0-34.9, adult | CPT/HCPCS: 82947; 99212 ==

== ENCOUNTER 2024-10-09 11:37 | Outpatient (AMB) | payer OTHER, SELFPAY ==
--- NOTE | 2024-10-09 12:30 | AM.OFFWIN_ITS ---
Intake Vital Signs 10/09/24 12:35 Height 4 ft 11 in Weight 171 lb 8 oz BMI 34.6 BP 128/72 Blood Pressure Location Rt brachial Position Sitting Respiration 13 Pulse 87 Pulse Source Pulse Oximeter Temp 97.3 F Temp Source Oral Pulse Oximetry (%) 97 Oxygen Delivery Method Room Air Intake Visit Reasons: Sore throat (call # shes in car) Intake Note: Patient complaining of sore throat x 3 days Patient Tobacco Use Status: Never used Tobacco Allergies aspirin [ASPIRIN] Allergy (Severe, Verified 10/09/24 12:48) RASH, itchiness Penicillins [PENICILLINS] Allergy (Mild, Verified 10/09/24 12:48) RASH Medication List - Last Reconciled 10/09/24 by Pam Russ, [employer] [ABDOMINAL BINDER (elastic) - LARGE As directed] albuterol sulfate 90 mcg/actuation 2 puffs PO QID PRN albuterol sulfate 90 mcg/actuation (Ventolin HFA) 2 puffs inhalation Q6H PRN 30 days albuterol sulfate 2.5 mg (3 mL) continuous nebulization Q6H PRN 30 days atorvastatin 80 mg PO BEDTIME 90 days blood pressure monitor As directed blood sugar diagnostic (FreeStyle Lite Strips) As directed 3 times a day blood-glucose meter,continuous (FreeStyle Galina 3 Carlin) As directed blood-glucose sensor (FreeStyle Galina 3 Sensor device) As directed [id number]-[id number]-[id number] 50-325-40 mg 1 cap PO BID-TID PRN 30 days cholecalciferol (vitamin D3) 50 mcg PO DAILY 90 days clobetasol 0.05% 1 appl topical BID 4 weeks [Commode As directed] cyclobenzaprine 10 mg PO TID PRN 30 days dapagliflozin propanediol (Farxiga) 5 mg PO DAILY duloxetine 30 mg PO DAILY ezetimibe 10 mg PO DAILY ferrous fumarate 325 mg PO QWEEK flash glucose scanning reader (FreeStyle Galina 2 Carlin) As directed flash glucose sensor (FreeStyle Galina 2 Sensor kit) USE DIRECTED CHANGE EVERY 14 DAYS insulin glargine (Lantus Solostar U-100 Insulin) 34 units (0.34 mL) subcut DAILY lancets (FreeStyle Lancets) As directed checks 4 X/day lidocaine 5% 1 patch topical DAILY PRN 30 days lisinopril 30 mg PO DAILY lorazepam 0.5 mg PO TID PRN 30 days metformin 1,000 mg PO BID miscellaneous medical supply 1 ea miscellaneous DAILY montelukast 10 mg PO QPM 90 days [NEBULIZER and all related accessories As directed] orphenadrine citrate ER 100 mg PO BID PRN 30 days [OVER TOILET COMMODE CHAIR As directed] risperidone 1 mg PO BEDTIME 30 days sumatriptan succinate mg PO Tirosint (levothyroxine) 175 mcg PO DAILY NS tirzepatide (Mounjaro) 10 mg (0.5 mL) subcut QWEEK tramadol 50 mg PO TID PRN Do you need a note to return to daycare/school/sports/work: No HPI HPI Comments History of Present Illness Details History - The patient is a 59-year-old female pr esenting with a sore throat that started four days ago with significant pain noted today. - She denies fever, chills, runny nose, and earache. [place] cold when outside. - Minimal lung pain noted and attributed to asthma, not causing significant concern. - Denies significant cough. Used Vicks v apor rub for mild symptom relief. - No flu shot this season due to previou s adverse experiences and personal prefe rence. - A strep test conducted today is negati ve. Physical Exam General: Awake, alert. No apparent distress Eyes: Sclera and conjunctiva clear bilaterally Nose: Nares patent, turbinates within normal limits, no sinus tenderness with palpation bilaterally Ears: Tympanic membranes intact and clear bilaterally Throat: Moist mucosa membrane, pharynx within normal limits Cardiovascular: Regular rate and rhythm Respiratory: Clear to auscultation bilaterally, no cough Results - Tests: Negative rapid strep test. Discussion Notes I discussed with the patient the negative result from the strep test, indicating no presence of strep throat. We talked about obtaining a nasal swab to test for influenza, COVID-19, and RSV, considering her symptoms. I explained that the influenza or RSV diagnosis could be treated with appropriate antiviral medications if confirmed, like Oseltamivir for flu and antiviral options for COVID-19, which may include Paxlovid if suitable against interactions with cur rent medications (she declined paxlovid). I provided information about prescribed gargles to offer symptomatic relief for throat discomfort. The anticipated lab results timeline was conveyed, and arrangements were made to send results via the patient portal. Follow-up actions were outlined in case of differing outcomes or symptoms over the weekend. Assessment and Plan 1. Sore throat: Negative rapid strep jessica t; awaiting results for viral infections like influenza, COVID-19, or RSV via nasal swab. Meanwhile, symptomatic relief with a prescribed gargle was initiated. 2. Asthma: Asthma does not appear to be exacerbated by current symptoms. Regular asthma management continues without modification required currently. Patient Instructions - Use the prescribed throat gargle as di rected to alleviate throat discomfort. - Expect nasal swab results by tonight o r tomorrow morning and monitor for updates via the patient portal. - Contact the clinic through the portal if there are no updates by tomorrow or symptoms worsen. - Continue regular asthma medication as usual. - Seek immediate care if experiencing si gnificant new symptoms or breathing difficulties. Consent Patient was informed and verbally consented to the use of an ambient scribe for clinic note documentation during this visit. Total time spent caring for the patient today was 30 minutes. This includes time spent before the visit reviewing the chart, time spent during the visit, and time spent after the visit on documentation, reviewing laboratory results, diagnostic imaging, medications, performing a medically necessary evaluation, counseling on diagnoses, care coordination, ordering appropriate tests, ordering appropriate medications, review of tests performed by other providers, reporting test results with the patient, communication with other healthcare providers. [facility] Medical History HLD (hyperlipidemia) Chronic kidney disease, stage III (moderate) Recurrent ventral incisional hernia Bipolar depression Anxiety Depression Left hip pain B12 deficiency Abnormal thyroid biopsy Non-toxic multinodular goiter Hypothyroidism Other and unspecified hyperlipidemia Type 2 diabetes mellitus with unspecified complications Obesity (BMI 30-39.9) Lumbar degenerative disc disease Vitamin B12 deficiency Acquired hypothyroidism Nonintractable headache Pure hypercholesterolemia Benign essential hypertension Chronic kidney disease, stage 2 (mild) Type 2 diabetes mellitus with diabetic chronic kidney disease Knee pain, bilateral Anxiety IBS (irritable bowel syndrome) Visual loss Tendonitis Neck pain Hernia Chronic abdominal pain Lumbar disc disease Depression Asthma Hx of headache Type 2 diabetes mellitus with hyperglycemia Autoimmune thyroiditis Hyperlipidemia LDL goal <100 Essential hypertension Vitamin D deficiency Obesity due to excess calories Surgical History S/P laparoscopy (~11/20/10) History of hernia repair Hx of exploratory laparotomy Family History Father Medical history unknown Mother Medical history unknown Social History Household Members: Spouse Housing: Apartment Alcohol intake: never Patient Tobacco Use Status: Never used Tobacco e-Cigarette/Vaping Use: Never Used Second Hand Smoke Exposure: Yes service: No Current occupational status: disabled Cognitive needs: No Hearing needs: No Vision needs: Yes Physical Exam Vital Signs: Last Vital Signs Temp 97.3 F 10/09/24 12:35 Pulse 87 10/09/24 12:35 Resp 13 10/09/24 12:35 BP 128/72 10/09/24 12:35 Pulse Ox 97 10/09/24 12:35 Oxygen Delivery Method Room Air 10/09/24 12:35 BMI result Body Mass Index 34.6 Results AMB Rapid Strep AMB Rapid Strep Negative Last Edit by Marilu Rodriguez MA on 10/09/24 12:48 Results Reviewed Results Reviewed: Laboratory Last Values Strep Scn Rapid Clinic Negative 10/09/24 12:47 Assessment & Plan Assessment & Plan (1) Asthma, mild intermittent, well-controlled: Code(s): J45.20 - Mild intermittent asthma, uncomplicated (2) Influenza vaccination declined: Code(s): Z28.21 - Immunization not carried out because of patient refusal (3) Acute pharyngitis: Code(s): J02.9 - Acute pharyngitis, unspecified Qualifiers: Pharyngitis/tonsillitis etiology: unspecified etiology Qualified Code(s): J02.9 - Acute pharyngitis, unspecified Plan . Orders: Orders AMB Rapid Strep Screen Today Z13.9 - Encounter for screening, unspecified SARS-CoV2/FLU/RSV Today J02.9 - Acute pharyngitis, unspecified, R09.89 - Other specified symptoms and signs involving the circulatory and respiratory systems Medications: New lidocaine HCl 2% (Lidocaine Viscous) MIXED WITH 5 ML OF WATER, GARGLE AND SPIT, USE NEEDED TWICE PER DAY FOR SORE THROAT 5 mL mucous membrane BID PRN 100 mL 0RF pain Coding Level of Care Code Est Pt Level 4 (54938) Diagnoses Asthma, mild intermittent, well-controlled J45.20 Influenza vaccination declined Z28.21 Acute pharyngitis, unspecified etiology J02.9 Pharyngitis/tonsillitis etiology: unspecified etiology
[2024-10-09 12:35] VITALS: BP 128/72; PULSE 87; RESP 13; TEMP 36.3; O2SAT 97; BMI 34.6
== END 2024-10-09 13:00 | disposition home or self-care (01) ==
PROVIDERS: PCP Internal Medicine; Visit Provider Nurse Practitioner Family
DX: J45.20 Mild intermittent asthma, uncomplicated (principal); Z28.21 Immunization not carried out because of patient refusal; J02.9 Acute pharyngitis, unspecified; Z13.9 Encounter for screening, unspecified

== ENCOUNTER 2024-10-09 11:37 | Outpatient (REF) | payer OTHER, SELFPAY ==
[2024-10-09 15:24] LABS: Influenza A PCR NEGATIVE (Negative); Influenza B PCR NEGATIVE (Negative); Resp Syncy Virus RNA Qual PCR NEGATIVE (Negative); SARS COV2 PCR INHOUSE NEGATIVE (Negative)
== END 2024-10-09 11:38 | disposition home or self-care (01) ==
LOC: HO.LNP 11:37
PROVIDERS: PCP Internal Medicine; Visit Provider Nurse Practitioner Family
DX: J02.9 Acute pharyngitis, unspecified (principal); J45.20 Mild intermittent asthma, uncomplicated; Z28.21 Immunization not carried out because of patient refusal
CPT/HCPCS: 0241U; 87880; 99212

== ENCOUNTER 2024-11-20 13:50 | Outpatient (REF) | payer OTHER, SELFPAY ==
[2024-11-20 14:12] LABS: MANUAL DIFF FLAG NO
[2024-11-20 14:34] LABS: Basophils Absolute Auto 0.1 X10*3/uL (0.0-0.2); Basophils Percent Auto 1.2 % (0-2); Eosinophils Absolute Auto 0.2 X10*3/uL (0.0-0.4); Eosinophils Percent Auto 2.9 % (0-4); Hematocrit 39.1 % (37.0-47.0); Hemoglobin 12.8 g/dl (12.0-16.0); Imm Gran Abs Auto 0.02 X10*3/uL (0.00-0.03); Imm Gran Pct Auto 0.4 % (0.0-0.4); Lymphocytes Absolute Auto 2.3 X10*3/uL (1.2-4.9); Lymphocytes Percent Auto 43.6 % (20-40); Mean Corpuscular HGB Conc 32.7 g/dl (31.0-35.0); Mean Corpuscular Hemoglobin 27.9 pg (27.0-33.0); Mean Corpuscular Volume 85.2 fL (80.0-98.0); Mean Platelet Volume 11.5 fL (9.4-12.3); Monocytes Absolute Auto 0.3 X10*3/uL (0.1-1.2); Monocytes Percent Auto 6.1 % (2-11); Neutrophils Absolute Auto 2.4 x10*3/uL (2.0-8.3); Neutrophils Percent Auto 45.8 % (45-73); Platelet Count 305 X10*3/uL (160-400); Red Blood Count 4.59 X10*6/uL (4.20-5.50); Red Cell Distribution Width 12.6 % (11.0-16.0); White Blood Count 5.2 X10*3/uL (4.8-10.8)
[2024-11-20 14:42] LABS: Estimated Average Glucose 160 mg/dL; Hemoglobin A1C 191.4709 umol/L; Hemoglobin A1c % 7.2 % (<6.0); Total Hemoglobin (HGBA1C) 3456.5443 umol/L
[2024-11-20 14:46] LABS: Appearance Urine Clear; Color Urine Yellow; Glucose Urine UA Negative (Negative); Leukocyte Esterase Urine Negative (Negative); Nitrite Urine Negative (Negative); PH 5.5 (5.0-9.0); Specific Gravity - Urine 1.015 (1.005-1.025); Urine Blood Negative (Negative); Urine Ketones Negative (Negative); Urine Protein Negative (Neg-Trace)
[2024-11-20 15:04] LABS: Alanine Aminotransferase 31 U/L (0-31); Albumin Level 4.1 g/dL (3.5-5.0); Alkaline Phosphatase 78 U/L (39-117); Anion Gap 10 (12-20); Aspartate Amino Transferase 23 U/L (5-31); Bilirubin Total 0.4 mg/dL (0.0-1.0); Blood Urea Nitrogen 12 mg/dL (9-16); Calcium 9.1 mg/dL (8.4-10.2); Carbon Dioxide 28 mmol/L (22-29); Chloride 107 mmol/L (96-108); Cholesterol 209 mg/dL (<200); Estimated Glomerular Filt Rate 51; Glucose Fasting 165 mg/dL (60-99); HDL Cholesterol 44 mg/dL (>40); LDL Cholesterol Calculated 140 mg/dL (<100); Potassium 3.6 mmol/L (3.3-5.1); Sodium 141 mmol/L (135-145); Total Protein 7.4 g/dL (6.5-8.0); Triglycerides 129 mg/dL (<150)
[2024-11-20 15:19] LABS: Free T4 (Free Thyroxine) 0.47 ng/dL (0.71-1.85); Vitamin D 25-OH Total 22.3 ng/mL (>30)
[2024-11-20 16:24] LABS: Creatinine Urine 115.12 mg/dL; Microalbum/Creatinine Ratio Ur 5.2 ug/mg cr (<30)
== END 2024-11-20 13:51 | disposition home or self-care (01) ==
LOC: HO.LAB 13:50
PROVIDERS: Absent Provider Student in an Organized Health Care Education/Training Program; PCP Internal Medicine; Visit Provider Internal Medicine
DX: E78.00 Pure hypercholesterolemia, unspecified (principal); R30.0 Dysuria; E03.9 Hypothyroidism, unspecified; E55.9 Vitamin D deficiency, unspecified; E11.9 Type 2 diabetes mellitus without complications; D64.9 Anemia, unspecified
CPT/HCPCS: 36415; 80053; 80061; 81003; 82043; 82306; 82570; 83036; 84439; 84443; 85025

== ENCOUNTER 2024-11-26 12:00 | Outpatient (AMB) | payer OTHER, SELFPAY ==
--- NOTE | 2024-11-26 12:46 | A.OFFPC_ITS ---
Vital Signs 11/26/24 12:47 Height 4 ft 11 in Weight 171 lb 4 oz BMI 34.6 BP 126/84 Blood Pressure Location Lt brachial Position Sitting Pulse 87 Pulse Source Pulse Oximeter Pulse Oximetry (%) 99 Oxygen Delivery Method Room Air Intake Visit Reasons: 3 Months f/u Hypo Splasher Required: No Accompanied by: Self / Same As Patient Allergies aspirin [ASPIRIN] Allergy (Severe, Verified 11/26/24 13:18) RASH, itchiness Penicillins [PENICILLINS] Allergy (Mild, Verified 11/26/24 13:18) RASH Medication List - Last Reconciled 11/26/24 by Hernesto Obregon MD [ABDOMINAL BINDER (elastic) - LARGE As directed] albuterol sulfate 90 mcg/actuation (Ventolin HFA) 2 puffs inhalation Q6H PRN 30 days albuterol sulfate 2.5 mg (3 mL) continuous nebulization Q6H PRN 30 days atorvastatin 80 mg PO BEDTIME 90 days blood pressure monitor As directed blood sugar diagnostic (FreeStyle Lite Strips) As directed 3 times a day blood-glucose sensor (Upfront Chromatographyyle Galnia 3 Sensor device) As directed blood-glucose,management engineer,cont (FreeStyle Galina 3 [place]) As directed [id number]-[id number] 50-325-40 mg 1 cap PO BID-TID PRN 30 days cholecalciferol (vitamin D3) 50 mcg PO DAILY 90 days clobetasol 0.05% 1 appl topical BID 4 weeks [Commode As directed] cyclobenzaprine 10 mg PO TID PRN 30 days dapagliflozin propanediol (Farxiga) 5 mg PO DAILY duloxetine 30 mg PO DAILY ezetimibe 10 mg PO DAILY ferrous fumarate 325 mg PO QWEEK flash glucose scanning reader (girnarsoftStyle Galina 2 [place]) As directed flash glucose sensor (FreeStyle [place] 2 Sensor kit) USE DIRECTED CHANGE EVERY 14 DAYS insulin glargine (Lantus Solostar U-100 Insulin) 34 units (0.34 mL) subcut DAILY lancets (FreeStyle Lancets) As directed checks 4 X/day levothyroxine 175 mcg PO DAILY lidocaine 5% 1 patch topical DAILY PRN 30 days lidocaine HCl 2% (Lidocaine Viscous) 5 mL mucous membrane BID PRN lisinopril 30 mg PO DAILY lorazepam 0.5 mg PO TID PRN 30 days metformin 1,000 mg PO BID miscellaneous medical supply 1 ea miscellaneous DAILY montelukast 10 mg PO QPM 90 days [NEBULIZER and all related accessories As directed] orphenadrine citrate ER 100 mg PO BID PRN 30 days [OVER TOILET COMMODE CHAIR As directed] risperidone 1 mg PO BEDTIME 30 days sumatriptan succinate mg PO tirzepatide (Mounjaro) 10 mg (0.5 mL) subcut QWEEK tramadol 50 mg PO TID PRN Tobacco use date assessed: 11/26/24 Dental Screening Dental Screen Date: 11/26/24 Did you have a dental visit in the last 12 months?: No Did you have a dental problem in the last 6 months where you did not have access to dental care?: No Was dental information given to patient?: No HPI 3 Months f/u HPI Details Patient comes in today for her follow-up visit States that she currently feels okay Relates that she was taken off all of her previous headache medications, including Topiramate, Cyclobenzaprine, Paroxetine and Tramadol by Dr. Gonzales a few months ago States that her headaches have actually improved a lot since She was started instead on Duloxetine 30 mg QD, which patient states made her feel very tired and sleepy so she stopped taking the Rx after a couple of days She admits to also stopping several of her other medications on her own a few weeks ago - states that she is now only taking Atorvastatin and Ezetimibe for her cholesterol, Farxiga, Metformin, Lantus and Mounjaro for her diabetes, Lisinopril, Orphenadrine, Montelukast, Ferrous fumarate, Lidocaine patches, Vitamin D3 and her Albuterol inhaler (needs this refilled) She has not been taking her Tirosint for a while now as her insurance refuses to cover this She denies any dizziness Denies any chest pains, no increased shortness of breath No nausea/vomiting, no abdominal pain No change in bowel habits noted She had her follow-up labs done last week - to discuss her results [facility] Medical History HLD (hyperlipidemia) Chronic kidney disease, stage III (moderate) Recurrent ventral incisional hernia Bipolar depression Anxiety Depression Left hip pain B12 deficiency Abnormal thyroid biopsy Non-toxic multinodular goiter Hypothyroidism Other and unspecified hyperlipidemia Type 2 diabetes mellitus with unspecified complications Obesity (BMI 30-39.9) Lumbar degenerative disc disease Vitamin B12 deficiency Acquired hypothyroidism Nonintractable headache Pure hypercholesterolemia Benign essential hypertension Chronic kidney disease, stage 2 (mild) Type 2 diabetes mellitus with diabetic chronic kidney disease Knee pain, bilateral Anxiety IBS (irritable bowel syndrome) Visual loss Tendonitis Neck pain Hernia Chronic abdominal pain Lumbar disc disease Depression Asthma Hx of headache Type 2 diabetes mellitus with hyperglycemia Autoimmune thyroiditis Hyperlipidemia LDL goal <100 Essential hypertension Vitamin D deficiency Obesity due to excess calories Surgical History S/P laparoscopy (~11/20/10) History of hernia repair Hx of exploratory laparotomy Family History Father Medical history unknown Mother Medical history unknown Social History Household Members: Spouse Housing: Apartment Alcohol intake: never Patient Tobacco Use Status: Never used Tobacco e-Cigarette/Vaping Use: Never Used Second Hand Smoke Exposure: Yes service: No Current occupational status: disabled Cognitive needs: No Hearing needs: No Vision needs: Yes Questionnaire PHQ-9 Over the last 2 weeks, how often have you been bothered by any of the following problems? 1. Little interest or pleasure in doing things: not at all 2. Feeling down, depressed, or hopeless: not at all 3. Trouble falling or staying asleep, or sleeping too much: several days 4. Feeling tired or having little energy: not at all 5. Poor appetite or overeating: not at all 6. Feeling bad about yourself - or that you are a failure or have let yourself or your family down: not at all 7. Trouble concentrating on things, such as reading the newspaper or watching television: not at all 8. Moving or speaking so slowly that other people could have noticed. Or the opposite - being so fidgety or restless that you have been moving around a lot more than usual: not at all 9. Thoughts that you would be better off or of hurting yourself in some way: not at all Total score: 1 Depression Screening Interpretation: Negative Depression Screening Done: Yes 87971 - PHQ-9 Billing: Yes Source: Developed by Drs. Ryland Guzman, Livia Donohue, Kristian Heredia and colleagues, with an educational jono from [employer]. Thrive Questionnaire Date Thrive assessed: 11/26/24 I am a: Patient What is your living situation today?: I have a steady place to live Within the past 12 months, did the food you bought not last and you didn't have the money to get more?: I choose not to answer this question Within the past 12 months, did you worry whether your food would run out before you got money to buy more?: I choose not to answer this question Do you have trouble paying for medicines?: I choose not to answer this question Do you have trouble getting transportation to medical appointments?: No Do you have trouble paying your heating and electricity bill?: No Do you have trouble taking care of your child, family member or friend?: No Do you have trouble with day-to-day activities such as bathing, preparing meals, shopping, managing finances, etc.?: Yes Are you currently unemployed and looking for a job?: No Are you interested in more education?: No Please select the resources that you would like help with: None Currently or been in a relationship where the following occur: I choose not to answer THRIVE Score: 0 AUDIT C Alcohol Use Questionnaire (AUDIT-C) 1. How often do you have a drink containing alcohol?: Never 3. How often do you have six or more drinks on one occasion?: Never Total Score: 0 Score Reviewed/Action Taken: Yes STALIN-7 AMB Questionnaire STALIN-7 Date STALIN - 7 assessed: 11/26/24 Feeling nervous, anxious, or on edge: 0 = Not at all Not being able to stop or control worryin = Not at all Worrying too much about different things: 0 = Not at all Trouble relaxin = Not at all Being so restless that it is hard to sit still: 0 = Not at all Becoming easily annoyed or irritable: 0 = Not at all Feeling afraid as if something awful might happen: 0 = Not at all Total STALIN-7 score (0-4 normal; 5-9 mild; 10-14 moderate; 15-21 severe): 0 Source: Developed by Drs. Ryland Guzman, Livia Donohue, Kristian Heredia and colleagues, with an educational jono from [employer]. Review of Systems Const Denies chills, Reports fatigue, Denies fever(s) and Denies headache(s) (improved since she was taken off her headache meds by neurology) ENT Denies dysphagia, Denies dizziness, Denies otalgia, Denies headache(s) (improved since she was taken off her headache meds by neurology), Denies neck pain, Denies odynophagia and Denies sore throat Card Denies chest pain, Denies palpitations and Denies dyspnea Resp Denies chest congestion, Denies cough and Denies dyspnea GI Denies abdominal pain, Denies constipation, Denies dysphagia, Denies heartburn, Denies diarrhea, Denies nausea, Denies odynophagia and Denies vomiting Denies difficulty voiding, Denies nocturia, Denies dysuria and Denies urinary urgency Musc Reports back pain (increased over the middle of her back lately), Reports arthralgias (on & off in the left shoulder, both knees and left hip and right wrist ) and Denies neck pain Skin/Breast Denies rash Neuro Denies dizziness and Denies headache(s) (improved since she was taken off her headache meds by neurology) Endo Reports fatigue and Denies palpitations Physical exam (Primary Care) Vital Signs: Last Vital Signs Pulse 87 11/26/24 12:47 BP 126/84 11/26/24 12:47 Pulse Ox 99 11/26/24 12:47 Oxygen Delivery Method Room Air 11/26/24 12:47 BMI result Body Mass Index 34.6 Tobacco/Smoking Status: Tobacco use Status Tobacco use date assessed 11/26/24 11/26/24 12:51 Patient Tobacco Use Status Never used Tobacco 11/26/24 12:51 e-Cigarette/Vaping Use Never Used 11/26/24 12:51 PHQ-9: PHQ-9 Score PHQ-9: Total score 1 11/26/24 12:51 Depression Screening Interpretation: Negative Thrive Assessment: Date of Thrive Assessment Date Thrive assessed 11/26/24 11/26/24 12:51 Currently or been in a relationship where the following occur: I choose not to answer Const General: no acute distress and alert HENMT Ears: TM's normal bilaterally and EAC's normal Throat: Yes posterior oropharynx normal and Yes tonsils normal (no TP congestion noted) Neck Neck: Yes supple and No lymphadenopathy Thyroid: Thyroid normal Resp Auscultation: clear to auscultation bilaterally, no rales and no wheezes Cardio Rate: regular rate Rhythm: regular rhythm Heart sounds: no murmurs GI Palpation (GI): Soft to palpation and nontender Auscultation: normal bowel sounds General: Yes no CVA tenderness Back/Spine/Pelvis Back: no CVA tenderness Thoracic/Lumbar Spine: paraspinal muscle tenderness bilaterally in the mid thoracic and in the lower thoracic and lumbar spinal tenderness Sacrum: tenderness (mild) midline Skin Rashes: no rashes Extrem General: Yes no clubbing, cyanosis or edema Right upper extremity: wrist Details: tenderness and normal ROM; no swelling Left upper extremity: shoulder/upper arm Details: tenderness and abnormal ROM (limited ROM due to pain) Results Reviewed Results Reviewed: Laboratory Tests 11/20/24 11/20/24 11/20/24 14:04 14:10 Unknown WBC 5.2 Hgb 12.8 Hct 39.1 Plt Count 305 Sodium 141 Potassium 3.6 Creatinine 1.09 Estimated GFR 51 Fasting Glucose 165 H Hemoglobin A1c % 7.2 H Calcium 9.1 AST 23 ALT 31 Triglycerides 129 Cholesterol 209 H LDL Cholesterol, Calc 140 H HDL Cholesterol 44 25-OH Vitamin D Total 22.3 L TSH 55.60 H Free T4 0.47 L Ur Specific [place] 1.015 Urine Protein Negative Urine Glucose (UA) Negative Urine Blood Negative Urine Nitrite Negative Ur Leukocyte Esterase Negative Microalb/Creat Ratio 5.2 Coding Level of Care Code Est Pt Level 4 (25301) Complex EM visit Add On G2211 Diagnoses Pure hypercholesterolemia E78.00 Type 2 diabetes mellitus with stage 2 chronic kidney disease, with long-term current use of insulin E11.22; N18.2; Z79.4 Diabetes mellitus intermediate insulin use: with intermediate use Chronic kidney disease stage: stage 2 (mild) Benign essential hypertension I10 Stage 3a chronic kidney disease N18.31 Chronic kidney disease stage 3 subtype: stage 3a (GFR 45-59) Acquired hypothyroidism E03.9 Neuropathy G62.9 Moderate persistent asthma without complication J45.40 Asthma severity: moderate Asthma persistence: persistent Asthma complication type: uncomplicated Vitamin B12 deficiency E53.8 Vitamin D deficiency E55.9 Degeneration of intervertebral disc of lumbar region with discogenic back pain M51.360 Disc-related pain type: discogenic back pain only Bilateral thoracic back pain, unspecified chronicity M54.6 Chronicity: unspecified Back pain laterality: bilateral Primary osteoarthritis of left knee M17.12 Osteoarthritis type: primary Fibroids D21.9 Anxiety F41.9 Bipolar depression F31.9 Obesity (BMI 30-39.9) E66.9 Additional Codes PHQ-9 - 42198 - PHQ-9 Billing: Yes ([id number]) Assessment & Plan Assessment & Plan (1) Pure hypercholesterolemia: Code(s): E78.00 - Pure hypercholesterolemia, unspecified Category: Medical Plan: Results of her labs done last week reviewed and discussed with patient - she is cautioned that her cholesterol levels have increased from previous, likely influenced by her current thyroid issues Reinforced low cholesterol diet Continue Atorvastatin 80 mg QD and Ezetimibe 10 mg QD for now Will recheck her labs and fasting lipids in 4 months for follow up (2) Type 2 diabetes mellitus with diabetic chronic kidney disease: Code(s): E11.22 - Type 2 diabetes mellitus with diabetic chronic kidney disease Category: Medical Qualifiers: Diabetes mellitus intermediate insulin use: with intermediate use Chronic kidney disease stage: stage 2 (mild) Qualified Code(s): E11.22 - Type 2 diabetes mellitus with diabetic chronic kidney disease; N18.2 - Chronic kidney disease, stage 2 (mild); Z79.4 - 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 control servicer (current) use of insulin Plan: Her HgbA1c was at 7.2% on her labs done last week (was previously at 7.7% a few months ago) - goal is < 7.0% Reinforced diabetic diet Continue Mounjaro 10 mg SQ once a week, Metformin 1000 mg BID, Lantus 32 units SQ at bedtime and Farxiga 5 mg QD Follow up with [facility] as scheduled (3) Benign essential hypertension: Code(s): I10 - Essential (primary) hypertension Category: Medical Plan: Reinforced low sodium diet - goal is systolic BP of at least 120 mm or less Continue Lisinopril 30 mg QD (4) Chronic kidney disease, stage III (moderate): Code(s): N18.30 - Chronic kidney disease, stage 3 unspecified Category: Medical Qualifiers: Chronic kidney disease stage 3 subtype: stage 3a (GFR 45-59) Qualified Code(s): N18.31 - Chronic kidney disease, stage 3a Plan: Her renal function appears stable on her recent labs Have again stressed to her the importance of strict control of her diabetes and high blood pressure to slow down the progression of her CKD Will continue to monitor her renal function regularly/closely (5) Acquired hypothyroidism: Code(s): E03.9 - Hypothyroidism, unspecified Category: Medical Plan: Her TSH has risen significantly and is now at 55.60 on her recent labs; her free T4 is low She was supposed to be on Tirosint 175 mcg QD but patient states that she has not been able to get her medication for a few weeks now as her insurance is refusing to cover her Rx As she is scheduled to see Dr. Batista at [facility] tomorrow for her follow up visit, I will leave this up to Dr. Batista to determine how to go about managing this patient's thyroid issue(s) (6) Neuropathy: Code(s): G62.9 - Polyneuropathy, unspecified Category: Medical Plan: Patient's recurrent right hand numbness/symptoms suggest neuropathy as the most likely etiology of her symptoms EMG and NCV done last year revealed findings of early CTS bilaterally She is encouraged to continue wearing her wrist braces as needed to help manage her symptoms (7) Asthma: Code(s): J45.909 - Unspecified asthma, uncomplicated Category: Medical Qualifiers: Asthma severity: moderate Asthma persistence: persistent Asthma compl ication type: uncomplicated Qualified Code(s): J45.40 - Moderate persistent asthma, uncomplicated Plan: Controlled Continue Montelukast 10 mg QD and Albuterol HFA 1 to 2 inhalations Q 6 hours PRN (Rx refilled) (8) Vitamin B12 deficiency: Code(s): E53.8 - Deficiency of other specified B group vitamins Category: Medical Plan: Continue Vitamin B12 1000 mcg QD (9) Vitamin D deficiency: Code(s): E55.9 - Vitamin D deficiency, unspecified Category: Medical Plan: Continue Vitamin D3 2000 units QD (10) Lumbar degenerative disc disease: Code(s): M51.36 - Other intervertebral disc degeneration, lumbar region Category: Medical Qualifiers: Disc-related pain type: discogenic back pain only Qualified Code(s): M51.360 - Other intervertebral disc degeneration, lumbar region with discogenic back pain only Plan: Reinforced activity and weight lifting restrictions Continue Orphenadrine 100 mg BID PRN with food; Lidocaine patches help as well Repeat lumbar spine, sacral spine and coccygeal x-rays done last year revealed no acute osseus abnormalities although her imaging studies have demonstrated findings of multiple calcified fibroids (11) Thoracic back pain: Code(s): M54.6 - Pain in thoracic spine Category: Medical Qualifiers: Chronicity: unspecified Back pain laterality: bilateral Qualified Code(s): M54.6 - Pain in thoracic spine Plan: Thoracic spine x-rays done back in May 2024 revealed (+) mild multilevel degenerative changes in the thoracic spine (12) Osteoarthritis of left knee: Code(s): M17.12 - Unilateral primary osteoarthritis, left knee Category: Medical Qualifiers: Osteoarthritis type: primary Qualified Code(s): M17.12 - Unilateral primary osteoarthritis, left knee Plan: X-rays of the left knee done in May 2023 revealed (+) mild tricompartmental arthritis that has progressed slightly from 2020 Follow up with orthopedics as scheduled (13) Fibroids: Code(s): D21.9 - Benign neoplasm of connective and other soft tissue, unspecified Category: Medical Plan: Abdominal and pelvic US done back in August 2023 revealed (+) punctate 2 mm mural echogenic focus that may represent a focal mural calcification. No mobile gallstones identified. Hepatomegaly was also incidentally noted on her recent abdominal sonogram Follow up with gynecology as scheduled (14) Anxiety: Code(s): F41.9 - Anxiety disorder, unspecified Category: Medical Plan: Continue Lorazepam 0.5 mg TID PRN (15) Bipolar depression: Code(s): F31.9 - Bipolar disorder, unspecified Category: Medical Plan: Continue Risperidone 1 mg Q HS She was taken off her Paroxetine and Topiramate by Neurology last month She was started on a trial of Duloxetine 30 mg QD but reports that she felt very tired and sleepy after taking Duloxetine so she stopped taking it after a couple of days Follow up with psychiatry as scheduled (16) Obesity (BMI 30-39.9): Code(s): E66.9 - Obesity, unspecified Category: Medical Plan: Reinforced diet/exercise as tolerated/ lose weight Plan Follow up in 4 months Orders: Orders Complete Blood Count Auto Diff 4 Months D64.9 - Anemia, unspecified Comprehensive Roberta. Panel Fast 4 Months E78.00 - Pure hypercholesterolemia, unspecified Lipid Panel 4 Months E78.00 - Pure hypercholesterolemia, unspecified Microalbumin, Random (w Creat) 4 Months E11.9 - Type 2 diabetes mellitus without complications Thyroid Stimulating Hormone 4 Months E03.9 - Hypothyroidism, unspecified UA CC w/rflx Micro + Cult 4 Months R30.0 - Dysuria Vitamin B12 and Folate 4 Months E53.8 - Deficiency of other specified B group vitamins Hemoglobin A1c 4 Months E11.9 - Type 2 diabetes mellitus without complications Free T4 (Free Thyroxine) 4 Months E03.9 - Hypothyroidism, unspecified Vitamin D 25-OH Total 4 Months E55.9 - Vitamin D deficiency, unspecified Medications: Refilled albuterol sulfate 90 mcg/actuation (Ventolin HFA) 2 puffs inhalation Q6H 30 days PRN 8.5 grams 5RF shortness of breath or wheezing J45.40 - Moderate persistent asthma, uncomplicated
[2024-11-26 12:47] VITALS: BP 126/84; PULSE 87; O2SAT 99; BMI 34.6
== END 2024-11-26 13:34 | disposition home or self-care (01) ==
LOC: HO.HMCH 12:01
PROVIDERS: PCP Internal Medicine; Visit Provider Internal Medicine
DX: I12.9 Hypertensive chronic kidney disease with stage 1 through stage 4 chronic kidney disease, or unspecified chronic kidney disease (principal); E11.22 Type 2 diabetes mellitus with diabetic chronic kidney disease; N18.2 Chronic kidney disease, stage 2 (mild); Z79.4 Long term (current) use of insulin; N18.31 Chronic kidney disease, stage 3a; F31.9 Bipolar disorder, unspecified; E78.00 Pure hypercholesterolemia, unspecified; E03.9 Hypothyroidism, unspecified; G62.9 Polyneuropathy, unspecified; J45.40 Moderate persistent asthma, uncomplicated; E53.8 Deficiency of other specified B group vitamins; E55.9 Vitamin D deficiency, unspecified

== ENCOUNTER → 2024-11-26 12:00 | Outpatient (BNVA) | payer OTHER, SELFPAY | PROVIDERS: PCP Internal Medicine; Visit Provider Internal Medicine | DX: E78.00 Pure hypercholesterolemia, unspecified (principal); E11.22 Type 2 diabetes mellitus with diabetic chronic kidney disease; I12.9 Hypertensive chronic kidney disease with stage 1 through stage 4 chronic kidney disease, or unspecified chronic kidney disease; N18.31 Chronic kidney disease, stage 3a; E03.9 Hypothyroidism, unspecified; E11.40 Type 2 diabetes mellitus with diabetic neuropathy, unspecified; J45.40 Moderate persistent asthma, uncomplicated; E53.8 Deficiency of other specified B group vitamins; E55.9 Vitamin D deficiency, unspecified; M51.360 Other intervertebral disc degeneration, lumbar region with discogenic back pain only; M54.6 Pain in thoracic spine; M17.12 Unilateral primary osteoarthritis, left knee; D21.9 Benign neoplasm of connective and other soft tissue, unspecified; F41.9 Anxiety disorder, unspecified; F31.9 Bipolar disorder, unspecified; E66.9 Obesity, unspecified; Z68.34 Body mass index [BMI] 34.0-34.9, adult; Z79.4 Long term (current) use of insulin; Z79.84 Long term (current) use of oral hypoglycemic drugs; Z79.899 Other long term (current) drug therapy | CPT/HCPCS: 96127; 99212 ==

== ENCOUNTER 2024-11-27 14:59 | Outpatient (AMB) | payer OTHER, SELFPAY ==
--- NOTE | 2024-11-27 15:01 | MHC.OFFVIS ---
Vital Signs 11/27/24 15:02 Height 4 ft 11 in Weight 172 lb 2.896 oz BMI 34.8 BP 124/72 Blood Pressure Location Lt brachial Position Sitting Pulse 74 Pulse Source Pulse Oximeter Pulse Oximetry (%) 97 Oxygen Delivery Method Room Air Intake Visit Reasons: DM, hyperlipidemia, HTN, hypothyroidism Intake Note: Patient present today for Type 2 Diabetes Mellitus, hyperlipidemia, HTN and hypothyroidism. 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 Accompanied by: Self / Same As Patient Allergies aspirin [ASPIRIN] Allergy (Severe, Verified 11/27/24 15:08) RASH, itchiness Penicillins [PENICILLINS] Allergy (Mild, Verified 11/27/24 15:08) RASH Medication List - Last Reconciled 11/27/24 by Deysi Batista MD [ABDOMINAL BINDER (elastic) - LARGE As directed] albuterol sulfate 2.5 mg (3 mL) continuous nebulization Q6H PRN 30 days albuterol sulfate 90 mcg/actuation (Ventolin HFA) 2 puffs inhalation Q6H PRN 30 days atorvastatin 80 mg PO BEDTIME 90 days blood pressure monitor As directed blood sugar diagnostic (FreeStyle Lite Strips) As directed 3 times a day blood-glucose sensor (FreeStyle Galina 3 Sensor device) As directed blood-glucose,ranch rider,cont (FreeStyle Galina 3 [place]) As directed [id number] 50-325-40 mg 1 cap PO BID-TID PRN 30 days cholecalciferol (vitamin D3) 50 mcg PO DAILY 90 days clobetasol 0.05% 1 appl topical BID 4 weeks [Commode As directed] cyclobenzaprine 10 mg PO TID PRN 30 days dapagliflozin propanediol (Farxiga) 5 mg PO DAILY duloxetine 30 mg PO DAILY ezetimibe 10 mg PO DAILY ferrous fumarate 325 mg PO QWEEK flash glucose scanning reader (FreeStyle Galina 2 [place]) As directed flash glucose sensor (FreeStyle Galina 2 Sensor kit) USE DIRECTED CHANGE EVERY 14 DAYS insulin glargine (Lantus Solostar U-100 Insulin) 34 units (0.34 mL) subcut DAILY lancets (FreeStyle Lancets) As directed checks 4 X/day levothyroxine 175 mcg PO DAILY lidocaine 5% 1 patch topical DAILY PRN 30 days lidocaine HCl 2% (Lidocaine Viscous) 5 mL mucous membrane BID PRN lisinopril 30 mg PO DAILY lorazepam 0.5 mg PO TID PRN 30 days metformin 1,000 mg PO BID miscellaneous medical supply 1 ea miscellaneous DAILY montelukast 10 mg PO QPM 90 days [NEBULIZER and all related accessories As directed] orphenadrine citrate ER 100 mg PO BID PRN 30 days [OVER TOILET COMMODE CHAIR As directed] risperidone 1 mg PO BEDTIME 30 days sumatriptan succinate mg PO tirzepatide (Mounjaro) 10 mg (0.5 mL) subcut QWEEK tramadol 50 mg PO TID PRN HPI Comments Details: Patient is 58 yo female with DM type 2 who presents for follow up of diabetes mellitus and hypothyroidism and MNG. Last visit 08/23/2024. 1) Diabetes mellitus 2 Type 2 diabetes diagnosed in 2013. . Prior [facility] Diabetes medication: Three weeks ago patient has stopped taking all of her medications as she was having headaches and she could not figure out which of her medications was responsible for it, restarted taking it 1 week time. She was only taking the insulin and Mounjaro. Lantus 32 units once daily at night Mounjaro 10 mg per weekly metformin 1000mg BID, ( somes times she only does half a tablet at night) (stopped taking it for the past 3 weeks then restarted 1 week ago) Farxiga 5 mg QD ((stopped taking it for the past 3 weeks then restarted 1 week ago) Complications Mild neuropathy , doesnt see podiatry No retinopathy , hasnt seen an eye doctor in 3 years , has history of [place] CKD stage 2/3, GFR 59 No microalbuminuria , labs 11/23/24 urine microalbumin <5 No DC or stroke No MASLD, FIB 4 per labs 04/24 is 0.8 Hypoglycemia: denies Hyperglycemia: denies urinary frequency, nocturia, polydypsia Freestyle Galina 2 downloaded August 10-08/23/2024. Time CGM active 71% Average glucose 209 mg/dL G DC 8.3% Glucose variability 22% Within target range 30% High 52% Very high 18% Low 0% Interpretation: She has stopped taking all of her oral medications for the past 3 weeks, just restarted a few days back, hence running hyperglycemic. Random Glucose: 155 mg/dl Weight remained stable at 172 lb, her weight has plateaued, despite increased dose of Mounjaro. 2) Hypothyroidism Levothyroxine decreased to 175 mcg daily on 05/17/2024 Repeat labs 08/17/2024 showed TSH elevated at 4.48, normal free T4 of 1.3 Interval history Was on brand-name Tirosint, PA denied, has been out of her medication for a few weeks Most recent labs from 11/20/2024 showed TSH elevated at 55.6 with a free T4 low at 0.47. 3)Thyroid nodules :no need for further follow up unless patient has any clinical changes. Patient also has history of multinodular goiter. Diagnosed 2017. Underwent biopsy of the right lower pole 1.4 cm nodules sometime in which was atypia of indeterminate significance. Afirma was benign. Denies compressive symptoms. ultrasound October 2021 shows stable size of both the right-sided nodules. Thyroid ultrasound 05/23/2024 showed stable size of both the right-sided nodules. Another new subcentimeter 0.4 cm TR 3 category nodule noted. Given stability of the size of these nodules, no need for further follow up unless patient has any clinical changes. Last ultrasound October 2021 shows stable size of both the right-sided nodules. Thyroid ultrasound 05/23/2024 showed stable size of both the right-sided nodules. Another new subcentimeter 0.4 cm TR 3 category nodule noted. Given stability of the size of these nodules, no need for further follow up unless patient has any clinical changes. 4) HLD LDL at 124 , on atorvastatin 80 mg daily ,adherent Started ezetimibe 10 mg daily 05/17/24 LDL 122 08/17/24 LDL 140 from 11/23/2024., she has stopped taking all of her oral pills for the past 3 weeks. Could have been more. 5) HTN On lisinopril 30 mg daily Physical exam General: sitting comfortably in no acute distress HEENT: normocephalic/atraumatic, moist oral mucosa Neck: supple, symmetrical, no thyromegaly , no dorsocervical or supraclavicular fat pads Cardiac: normal heart sounds Pulm: normal breath sounds B/L, no added breath sounds Abd: not distended, no tenderness Extremities: no edema, no signs of myxedema Neuro: AAO x3, Speech: normal, no facial droop, moving all 4 extremities Skin: no rash Foot exam: Done August 2024 intact sensation to monofilament, intact pulses, intact vibration Laboratory Tests 03/07/23 08/31/23 10/03/23 10:40 08:42 12:04 Hgb Hct Plt Count Sodium Potassium Creatinine Estimated GFR Estimat Average Glucose Hemoglobin A1c % 7.9 7.2 H AST ALT Albumin Triglycerides Cholesterol LDL Cholesterol, Calc HDL Cholesterol Vitamin B12 25-OH Vitamin D Total TSH 2.53 12.68 H Free T4 Urine Creatinine Urine Microalbumin 01/02/24 04/30/24 04/30/24 12:21 13:12 13:14 Hgb Hct Plt Count 260 Sodium Potassium Creatinine 1.07 Estimated GFR 52 Estimat Average Glucose Hemoglobin A1c % 7.5 H 7.7 H AST 17 ALT 24 Albumin Triglycerides 95 Cholesterol 186 LDL Cholesterol, Calc 127 H HDL Cholesterol 40 L Vitamin B12 271 25-OH Vitamin D Total TSH 1.25 0.26 L Free T4 1.24 1.24 Urine Creatinine 69.27 Urine Microalbumin < 5.0 08/17/24 08/17/24 08/17/24 12:21 12:25 12:25 Hgb 12.8 Hct 38.9 Plt Count 309 Sodium 142 Potassium 3.8 Creatinine 1.01 Estimated GFR 56 Estimat Average Glucose 174 Hemoglobin A1c % 7.7 H AST 22 ALT 24 Albumin 4.3 Triglycerides Cholesterol 178 LDL Cholesterol, Calc 117 H 122 H HDL Cholesterol 42 Vitamin B12 25-OH Vitamin D Total 29.1 L TSH 4.48 H Free T4 1.31 Urine Creatinine 95.44 Urine Microalbumin < 5.0 08/17/24 12:25 Hgb Hct Plt Count Sodium Potassium Creatinine Estimated GFR Estimat Average Glucose Hemoglobin A1c % AST ALT Albumin Triglycerides 95 Cholesterol LDL Cholesterol, Calc HDL Cholesterol Vitamin B12 25-OH Vitamin D Total TSH 4.53 H Free T4 Urine Creatinine Urine Microalbumin Laboratory Tests 11/20/24 11/20/24 14:10 Unknown Hgb 12.8 Hct 39.1 Plt Count 305 Sodium 141 Potassium 3.6 Creatinine 1.09 Estimated GFR 51 Fasting Glucose 165 H Hemoglobin A1c % 7.2 H AST 23 ALT 31 Cholesterol 209 H LDL Cholesterol, Calc 140 H HDL Cholesterol 44 TSH 55.60 H Free T4 0.47 L Urine Creatinine 115.12 Urine Microalbumin 6.0 Microalb/Creat Ratio 5.2 US THYROID 05/23/24 CLINICAL INFORMATION: Other specified hypothyroidism. COMPARISON: Thyroid ultrasound 11/03/2021 and 07/01/2020. TECHNIQUE: Linear transducer grayscale and color Doppler examination with attention to the region of the thyroid. FINDINGS: SIZE: Measurements of the thyroid lobes and nodules are given in sagittal, anteroposterior and transverse dimensions respectively. Right Thyroid Lobe: 5.0 x 1.8 x 1.5 cm, volume 6.8 mL. Previously 4.6 x 1.7 x 2.0 cm, volume 8.2 mL. Parenchyma: The gland echotexture is heterogeneous. Thyroid vascularity is increased. Left Thyroid Lobe: 3.3 x 1.0 x 1.1 cm, volume 1.8 mL. Previously 3.5 x 1.4 x 1.6 cm, volume 4.1 mL. Parenchyma: The gland echotexture is heterogeneous. Thyroid vascularity is normal. Isthmus: 0.45 cm in maximum AP dimension. Previously 0.50 cm. Estimated total number of nodules greater than or equal to 1 cm: 1. Pipe Jeeper nodules are described as follows: 1. Location: Right inferior. Size: 1.1 x 1.0 x 1.1 cm, volume 0.61 mL. Previously: 1.2 x 1.2 x 1.4 cm, volume 1.0 mL. Nodule characteristics: Composition: Solid (2). Echogenicity: Hyperechoic (1). Shape: Not taller than wide (0). Margins: Smooth (0). Echogenic Foci: None (0). ACR TI-RADS total points: 3 Previous: 3 ACR TI-RADS category: 3 Previous: 3 Significant change in size (>/= 20% in 2 dimensions and minimal increase of 2 mm or 50% or greater increase in volume): No Change in features: No Change in ACR TI-RADS risk category: No 2. Location: Right inferior. Size: 0.64 x 0.43 x 0.47 cm, volume 0.07 mL. Previously: 0.60 x 0.60 x 0.60 cm, volume 0.10 mL. Nodule characteristics: Composition: Solid (2). Echogenicity: Hyperechoic (1). Shape: Not taller than wide (0). Margins: Smooth (0). Echogenic Foci: None (0). ACR TI-RADS total points: 3 Previous: 3 ACR TI-RADS category: 3 Previous: 3 Significant change in size (>/= 20% in 2 dimensions and minimal increase of 2 mm or 50% or greater increase in volume): No Change in features: No Change in ACR TI-RADS risk category: No 3. Location: Right mid. Size: 0.40 x 0.32 x 0.37 cm, volume 0.02 mL. Previously: Not documented on the previous study. Nodule characteristics: Composition: Solid (2). Echogenicity: Hyperechoic (1). Shape: Not taller than wide (0). Margins: Smooth (0). Echogenic Foci: None (0). ACR TI-RADS total points: 3 ACR TI-RADS category: 3 NODES: No lymphadenopathy is seen in the tissue surrounding the thyroid gland. US/US thyroid IMPRESSION: 1. Heterogeneous, hypervascular, multinodular thyroid gland. 2. A 1.1 cm RIGHT TR 3 thyroid nodule. Subcentimeter nodules as detailed above. Continued surveillance recommended. US THYROID 11/20 CLINICAL INFORMATION: Nontoxic multinodular goiter. COMPARISON: Ultrasound thyroid 07/01/2020. Ultrasound thyroid soft tissue neck 10/10/2019. TECHNIQUE: Linear transducer grayscale and color Doppler examination with attention to the region of the thyroid. FINDINGS: SIZE: Measurements of the thyroid lobes and nodules are given in sagittal, anteroposterior and transverse dimensions respectively. Right Thyroid Lobe: 4.6 x 1.7 x 2.0 cm, volume 8.2 mL. Previously 5.0 x 2.0 x 1.8 cm, volume 9.5 mL. Parenchyma: The gland echotexture is heterogeneous. Thyroid vascularity is normal. Left Thyroid Lobe: 3.5 x 1.4 x 1.6 cm, volume 4.1 mL. Previously 3.7 x 2.1 x 1.5 cm, volume 5.9 mL. Parenchyma: The gland echotexture is heterogeneous. Thyroid vascularity is normal. Isthmus: 0.5 cm in maximum AP dimension. Previously 0.6 cm. Estimated total number of nodules greater than or equal to 1 cm: 1. Pipe Jeeper nodules are described as follows: 1. Location: Right lower pole. Size: 1.4 x 1.2 x 1.2 cm, volume 1.0 mL. Previously: 1.3 x 1.2 x 1.5 cm, volume 1.2 mL. Nodule characteristics: Composition: Solid (2). Echogenicity: Hyperechoic (1). Shape: Not taller than wide (0). Margins: Ill-defined (0). Echogenic Foci: None (0). ACR TI-RADS total points: 1 Previous: 1 ACR TI-RADS category: 3 Previous: 1 Significant change in size (>/= 20% in 2 dimensions and minimal increase of 2 mm or 50% or greater increase in volume): None Change in features: None Change in ACR TI-RADS risk category: Not applicable 2. Location: Right lower pole. Size: 0.6 x 0.6 x 0.6 cm, volume 0.1 mL. Previously: 0.6 x 0.7 x 0.6 cm, volume 0.1 mL. Nodule characteristics: Composition: Solid (2). Echogenicity: Hyperechoic (1). Shape: Not taller than wide (0). Margins: Smooth (0). Echogenic Foci: None (0). ACR TI-RADS total points: 3 Previous: 1 ACR TI-RADS category: 3 Previous: 1 Significant change in size (>/= 20% in 2 dimensions and minimal increase of 2 mm or 50% or greater increase in volume): None Change in features: None Change in ACR TI-RADS risk category: Not applicable NODES: No lymphadenopathy is seen in the tissue surrounding the thyroid gland. US/US thyroid IMPRESSION: No major change in the size of the nodules and thyroid gland. [facility] Medical History HLD (hyperlipidemia) Chronic kidney disease, stage III (moderate) Recurrent ventral incisional hernia Bipolar depression Anxiety Depression Left hip pain B12 deficiency Abnormal thyroid biopsy Non-toxic multinodular goiter Hypothyroidism Other and unspecified hyperlipidemia Type 2 diabetes mellitus with unspecified complications Obesity (BMI 30-39.9) Lumbar degenerative disc disease Vitamin B12 deficiency Acquired hypothyroidism Nonintractable headache Pure hypercholesterolemia Benign essential hypertension Chronic kidney disease, stage 2 (mild) Type 2 diabetes mellitus with diabetic chronic kidney disease Knee pain, bilateral Anxiety IBS (irritable bowel syndrome) Visual loss Tendonitis Neck pain Hernia Chronic abdominal pain Lumbar disc disease Depression Asthma Hx of headache Type 2 diabetes mellitus with hyperglycemia Autoimmune thyroiditis Hyperlipidemia LDL goal <100 Essential hypertension Vitamin D deficiency Obesity due to excess calories Surgical History S/P laparoscopy (~11/20/10) History of hernia repair Hx of exploratory laparotomy Family History Father Medical history unknown Mother Medical history unknown Social History Household Members: Spouse Housing: Apartment Alcohol intake: never Patient Tobacco Use Status: Never used Tobacco e-Cigarette/Vaping Use: Never Used Second Hand Smoke Exposure: Yes service: No Current occupational status: disabled Cognitive needs: No Hearing needs: No Vision needs: Yes Physical Exam Vital Signs: Last Vital Signs Pulse 74 11/27/24 15:02 BP 124/72 11/27/24 15:02 Pulse Ox 97 11/27/24 15:02 Oxygen Delivery Method Room Air 11/27/24 15:02 BMI result Body Mass Index 34.8 Office Procedures Glucose Monitoring Details Details: see [facility] [id number] - Glucose monitoring, continuous-physician I&R Procedure code (CPT) selection complete Assessment & Plan Assessment & Plan (1) Hypothyroidism: Code(s): E03.9 - Hypothyroidism, unspecified Category: Medical Qualifiers: 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 Most recent labs from October 2024 showed TSH is elevated at 55.6 with low free T4 of 0.47. Patient states she has been out of her medication for the past few weeks, also she has stopped taking all of her oral pills for the past 3 weeks because she was having headaches. The headaches could be from the hypothyroidism itself. Regardless I discussed with her importance of being on levothyroxine. She was on brand-name Tirosint, because per patient she was having fluctuations in her TSH on generic levothyroxine, however her PA for Tirosint was denied, we will try the generic levothyroxine, however if she has ineffective results we will have to appeal for brand-name Tirosint again. She resumed generic levothyroxine 175 mcg daily a few days back. Plan: -continue levothyroxine 175 mcg daily -do TSH and free T4 in 6 weeks (2) Non-toxic multinodular goiter: Code(s): E04.2 - Nontoxic multinodular goiter Category: Medical Plan: Patient with a history of thyroid nodules at least since 2018. Underwent biopsy of the right lower pole 1.4 cm nodules sometime in which was atypia of indeterminate significance. Afirma was benign. Denies compressive symptoms. Last ultrasound October 2021 shows stable size of both the right-sided nodules. Thyroid ultrasound 05/23/2024 showed stable size of both the right-sided nodules. Another new subcentimeter 0.4 cm TR 3 category nodule noted. Given stability of the size of these nodules, no need for further follow up unless patient has any clinical changes. 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 A1c of 7.2% from October 2024 down from 7.7% from August 2024 however her GMI is at 8.2%. She stopped taking all of her oral medications including Farxiga and metformin for the past 3 weeks just started a few days back. She was only taking the insulin and Mounjaro. Apparently she did that because she was having headaches and she was attributing it to 1 of her medications but did know which 1 to blame. I discussed with her risks of hyperglycemia as well as complications. For now we will continue her on the same regimen, I am and I have asked her to come back in 8 weeks. Plan: -continue Mounjaro to 10 mg weekly -continue Lantus 34 units daily at bedtime, -continue Farxiga 5 mg daily -continue metformin 1000 mg b.i.d. -advised 150 minutes of exercise in a week -she is very overdue for eye visit, no history of retinopathy, ophthalmology referral is in place -foot exam unremarkable August 2024, has a mild history of neuropathy . Advised daily foot exams -urine microalbumin less than 5 from October 2024. Has CKD stage 3. Continue lisinopril 30 mg daily -follow up in 8 weeks (4) Essential hypertension: Code(s): I10 - Essential (primary) hypertension Category: Medical Plan: Blood pressure within normal range Advised low-salt diet. Plan: -continue lisinopril 30 mg daily. (5) HLD (hyperlipidemia): Code(s): E78.5 - Hyperlipidemia, unspecified Category: Medical Qualifiers: Hyperlipidemia type: mixed hyperlipidemia Qualified Code(s): E78.2 - Mixed hyperlipidemia Plan: LDL at 140, from October 2024. She has been on atorvastatin 80 mg daily which was titrated up from 40 mg daily at least for the past year. Started ezetimibe 10 mg daily 05/17/24 LDL goal is less than 70 mg/dL. She has not any her medications for the past month. Plan: -resume ezetimibe 10 mg daily and atorvastatin 80 mg daily -repeat lipid panel in 3 months sometime around January 2025 - (6) Obesity (BMI 30-39.9): Code(s): E66.9 - Obesity, unspecified Category: Medical Plan: Patient is BMI 34.8 kg per m2 which is about the same as last time 35.3 kg per m2 Weight has been static around 172- 174 lb over the past year. She only lost 3 lb since May 2024, weight down to 171 lb after Mounjaro was increased from 5 mg to 10 mg weekly. She is not really showing an adequate response. We will continue to up titrate Mounjaro. At today's visit, I just resumed all of her medications that she was not taking, we will plan to up titrate Mounjaro at next visit. Plan: -continue Mounjaro 10 mg weekly. -advised 30 minutes of exercise daily or 150 minutes in a week Plan I spent 30 minutes in reviewing the record, seeing the patient and documenting in the medical record. Orders: Orders AMB Glucose Monitoring Today E11.22 - Type 2 diabetes mellitus with diabetic chronic kidney disease, N18.2 - Chronic kidney disease, stage 2 (mild), Z79.4 - [facility] (current) use of insulin Patient Instructions: continue Mounjaro to 10 mg weekly continue Lantus to 34 units daily at bedtime, continue Farxiga 5 mg daily -continue metformin 1000 mg b.i.d. 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
[2024-11-27 15:02] VITALS: BP 124/72; PULSE 74; O2SAT 97; BMI 34.8
[2024-11-27 15:15] LABS: Glucose, Whole Blood 155 mg/dL (60-115)
== END 2024-11-27 15:30 | disposition home or self-care (01) ==
LOC: HO.ENCR 15:00
PROVIDERS: PCP Internal Medicine; Visit Provider Student in an Organized Health Care Education/Training Program
DX: E03.8 Other specified hypothyroidism (principal); E06.3 Autoimmune thyroiditis; E04.2 Nontoxic multinodular goiter; E11.22 Type 2 diabetes mellitus with diabetic chronic kidney disease; N18.2 Chronic kidney disease, stage 2 (mild); Z79.4 Long term (current) use of insulin; I12.9 Hypertensive chronic kidney disease with stage 1 through stage 4 chronic kidney disease, or unspecified chronic kidney disease; E78.2 Mixed hyperlipidemia; E66.9 Obesity, unspecified
CPT/HCPCS: 95251; 99214

== ENCOUNTER → 2024-11-27 14:59 | Outpatient (BNVA) | payer OTHER, SELFPAY | PROVIDERS: PCP Internal Medicine; Visit Provider Student in an Organized Health Care Education/Training Program | DX: E11.22 Type 2 diabetes mellitus with diabetic chronic kidney disease (principal); I12.9 Hypertensive chronic kidney disease with stage 1 through stage 4 chronic kidney disease, or unspecified chronic kidney disease; N18.30 Chronic kidney disease, stage 3 unspecified; E78.2 Mixed hyperlipidemia; E03.8 Other specified hypothyroidism; E04.2 Nontoxic multinodular goiter; E06.3 Autoimmune thyroiditis; E66.9 Obesity, unspecified; Z68.34 Body mass index [BMI] 34.0-34.9, adult; Z79.4 Long term (current) use of insulin; Z79.84 Long term (current) use of oral hypoglycemic drugs; Z79.899 Other long term (current) drug therapy | CPT/HCPCS: 82947; 99212 ==

== ENCOUNTER 2025-01-22 11:05 | Outpatient (REF) | payer OTHER, SELFPAY ==
[2025-01-22 12:14] LABS: TSH reflex Free T4 21.19 uIU/mL (0.32-4.0)
[2025-01-22 13:00] LABS: Free T4 (Free Thyroxine) 0.81 ng/dL (0.71-1.85)
== END 2025-01-22 11:06 | disposition home or self-care (01) ==
LOC: HO.LAB 11:05
PROVIDERS: PCP Internal Medicine; Visit Provider Student in an Organized Health Care Education/Training Program
DX: E04.2 Nontoxic multinodular goiter (principal); E03.8 Other specified hypothyroidism; E06.3 Autoimmune thyroiditis; E03.9 Hypothyroidism, unspecified
CPT/HCPCS: 36415; 84439; 84443

== ENCOUNTER 2025-01-25 10:46 | Outpatient (AMB) | payer OTHER, SELFPAY ==
[2025-01-25 10:48] VITALS: BP 156/66; PULSE 78; O2SAT 97; BMI 34.1
--- NOTE | 2025-01-25 10:48 | A.OFFVIS_ITS ---
Vital Signs 3 01/25/25 10:48 Height 4 ft 11 in Weight 169 lb 1.513 oz BMI 34.1 BP 156/66 H Blood Pressure Location Lt brachial Position Sitting Pulse 78 Pulse Source Pulse Oximeter Pulse Oximetry (%) 97 Oxygen Delivery Method Room Air Intake Visit Reasons: DM, hyperlipidemia, HTN, hypothyroidism Intake Note: Patient present today for Type 2 Diabetes Mellitus, hyperlipidemia, HTN and hypothyroidism. Last Diabetic eye exam: 2 years ago Last Podiatry Visit: Doesn't have one Random Glucose: 154 mg/dl HgA1C: 7.2% 11/20/24 Business Analytics Specialist Required: No Accompanied by: Self / Same As Patient Allergies aspirin (ASPIRIN) Allergy (Severe, Verified 01/25/25 10:53) RASH, itchiness Penicillins (PENICILLINS) Allergy (Mild, Verified 01/25/25 10:53) RASH HPI Comments Details: Patient is 58 yo female with DM type 2 who presents for follow up of diabetes mellitus and hypothyroidism and MNG. Last visit 08/23/2024. 1) Diabetes mellitus 2 Type 2 diabetes diagnosed in 2013. . Prior [facility] Diabetes medication: Lantus 34 units once daily at night Mounjaro 10 mg per weekly metformin 1000mg BID, ( somes times she only does half a tablet at night) (stopped taking it for the past 3 weeks then restarted 1 week ago) Farxiga 5 mg QD ((stopped taking it for the past 3 weeks then restarted 1 week ago) Complications Mild neuropathy , doesnt see podiatry No retinopathy , hasnt seen an eye doctor in 3 years , has history of [place] CKD stage 2/3, GFR 59 No microalbuminuria , labs 11/23/24 urine microalbumin <5 No LA or stroke No MASLD, FIB 4 per labs 04/24 is 0.8 Hypoglycemia: denies Hyperglycemia: denies urinary frequency, nocturia, polydypsia HgA1C: 7.2% 11/20/24 Random Glucose: 154 mg/dl CGM data downloaded from January 08 to 12/31/2022 Time CGM active 3% Average glucose 154 mg/dL Glucose variability 18% Within target range 85% High 15% Low 0% Basically she only wore the CGM on January 21, when her blood sugars were in the 150s to 180s mostly. Weight remained stable , her weight has plateaued, despite increased dose of Mounjaro. 2) Hypothyroidism Levothyroxine decreased to 175 mcg daily on 05/17/2024 Repeat labs 08/17/2024 showed TSH elevated at 4.48, normal free T4 of 1.3 Interval history Was on brand-name Tirosint, LAURA denied, has been out of her medication for a few weeks Most recent labs from 11/20/2024 showed TSH elevated at 55.6 with a free T4 low at 0.47. Now on levothyroxine 175 mcg daily generic. In the past apparently TSH was ineffectively controlled on generic brand. Right now we are still trying the generic but if her TSH remains elevated, I will have to switch her back. 01/22/2025: TSH 21.19, free T4 0.81 3)Thyroid nodules :no need for further follow up unless patient has any clinical changes. Patient also has history of multinodular goiter. Diagnosed 2017. Underwent biopsy of the right lower pole 1.4 cm nodules sometime in which was atypia of indeterminate significance. Afirma was benign. Denies compressive symptoms. ultrasound October 2021 shows stable size of both the right-sided nodules. Thyroid ultrasound 05/23/2024 showed stable size of both the right-sided nodules. Another new subcentimeter 0.4 cm TR 3 category nodule noted. Given stability of the size of these nodules, no need for further follow up unless patient has any clinical changes. Last ultrasound October 2021 shows stable size of both the right-sided nodules. Thyroid ultrasound 05/23/2024 showed stable size of both the right-sided nodules. Another new subcentimeter 0.4 cm TR 3 category nodule noted. Given stability of the size of these nodules, no need for further follow up unless patient has any clinical changes. 4) HLD LDL at 124 , on atorvastatin 80 mg daily ,adherent Started ezetimibe 10 mg daily 05/17/24 LDL 122 08/17/24 LDL 140 from 11/23/2024., she has stopped taking all of her oral pills for the past 3 weeks. Could have been more. 5) HTN On lisinopril 30 mg daily Physical exam General: sitting comfortably in no acute distress HEENT: normocephalic/atraumatic, moist oral mucosa Neck: supple, symmetrical, no thyromegaly , no dorsocervical or supraclavicular fat pads Cardiac: normal heart sounds Pulm: normal breath sounds B/L, no added breath sounds Abd: not distended, no tenderness Extremities: no edema, no signs of myxedema Neuro: AAO x3, Speech: normal, no facial droop, moving all 4 extremities Skin: no rash Foot exam: Done August 2024 intact sensation to monofilament, intact pulses, intact vibration Laboratory Tests 03/07/23 08/31/23 10/03/23 10:40 08:42 12:04 Hgb Hct Plt Count Sodium Potassium Creatinine Estimated GFR Estimat Average Glucose Hemoglobin A1c % 7.9 7.2 H AST ALT Albumin Triglycerides Cholesterol LDL Cholesterol, Calc HDL Cholesterol Vitamin B12 25-OH Vitamin D Total TSH 2.53 12.68 H Free T4 Urine Creatinine Urine Microalbumin 01/02/24 04/30/24 04/30/24 12:21 13:12 13:14 Hgb Hct Plt Count 260 Sodium Potassium Creatinine 1.07 Estimated GFR 52 Estimat Average Glucose Hemoglobin A1c % 7.5 H 7.7 H AST 17 ALT 24 Albumin Triglycerides 95 Cholesterol 186 LDL Cholesterol, Calc 127 H HDL Cholesterol 40 L Vitamin B12 271 25-OH Vitamin D Total TSH 1.25 0.26 L Free T4 1.24 1.24 Urine Creatinine 69.27 Urine Microalbumin < 5.0 08/17/24 08/17/24 08/17/24 12:21 12:25 12:25 Hgb 12.8 Hct 38.9 Plt Count 309 Sodium 142 Potassium 3.8 Creatinine 1.01 Estimated GFR 56 Estimat Average Glucose 174 Hemoglobin A1c % 7.7 H AST 22 ALT 24 Albumin 4.3 Triglycerides Cholesterol 178 LDL Cholesterol, Calc 117 H 122 H HDL Cholesterol 42 Vitamin B12 25-OH Vitamin D Total 29.1 L TSH 4.48 H Free T4 1.31 Urine Creatinine 95.44 Urine Microalbumin < 5.0 08/17/24 12:25 Hgb Hct Plt Count Sodium Potassium Creatinine Estimated GFR Estimat Average Glucose Hemoglobin A1c % AST ALT Albumin Triglycerides 95 Cholesterol LDL Cholesterol, Calc HDL Cholesterol Vitamin B12 25-OH Vitamin D Total TSH 4.53 H Free T4 Urine Creatinine Urine Microalbumin Laboratory Tests 11/20/24 11/20/24 14:10 Unknown Hgb 12.8 Hct 39.1 Plt Count 305 Sodium 141 Potassium 3.6 Creatinine 1.09 Estimated GFR 51 Fasting Glucose 165 H Hemoglobin A1c % 7.2 H AST 23 ALT 31 Cholesterol 209 H LDL Cholesterol, Calc 140 H HDL Cholesterol 44 TSH 55.60 H Free T4 0.47 L Urine Creatinine 115.12 Urine Microalbumin 6.0 Microalb/Creat Ratio 5.2 Laboratory Tests 01/22/25 11:20 TSH 21.19 H Free T4 0.81 US THYROID 05/23/24 CLINICAL INFORMATION: Other specified hypothyroidism. COMPARISON: Thyroid ultrasound 11/03/2021 and 07/01/2020. TECHNIQUE: Linear transducer grayscale and color Doppler examination with attention to the region of the thyroid. FINDINGS: SIZE: Measurements of the thyroid lobes and nodules are given in sagittal, anteroposterior and transverse dimensions respectively. Right Thyroid Lobe: 5.0 x 1.8 x 1.5 cm, volume 6.8 mL. Previously 4.6 x 1.7 x 2.0 cm, volume 8.2 mL. Parenchyma: The gland echotexture is heterogeneous. Thyroid vascularity is increased. Left Thyroid Lobe: 3.3 x 1.0 x 1.1 cm, volume 1.8 mL. Previously 3.5 x 1.4 x 1.6 cm, volume 4.1 mL. Parenchyma: The gland echotexture is heterogeneous. Thyroid vascularity is normal. Isthmus: 0.45 cm in maximum AP dimension. Previously 0.50 cm. Estimated total number of nodules greater than or equal to 1 cm: 1. Super[employer] nodules are described as follows: 1. Location: Right inferior. Size: 1.1 x 1.0 x 1.1 cm, volume 0.61 mL. Previously: 1.2 x 1.2 x 1.4 cm, volume 1.0 mL. Nodule characteristics: Composition: Solid (2). Echogenicity: Hyperechoic (1). Shape: Not taller than wide (0). Margins: Smooth (0). Echogenic Foci: None (0). ACR TI-RADS total points: 3 Previous: 3 ACR TI-RADS category: 3 Previous: 3 Significant change in size (>/= 20% in 2 dimensions and minimal increase of 2 mm or 50% or greater increase in volume): No Change in features: No Change in ACR TI-RADS risk category: No 2. Location: Right inferior. Size: 0.64 x 0.43 x 0.47 cm, volume 0.07 mL. Previously: 0.60 x 0.60 x 0.60 cm, volume 0.10 mL. Nodule characteristics: Composition: Solid (2). Echogenicity: Hyperechoic (1). Shape: Not taller than wide (0). Margins: Smooth (0). Echogenic Foci: None (0). ACR TI-RADS total points: 3 Previous: 3 ACR TI-RADS category: 3 Previous: 3 Significant change in size (>/= 20% in 2 dimensions and minimal increase of 2 mm or 50% or greater increase in volume): No Change in features: No Change in ACR TI-RADS risk category: No 3. Location: Right mid. Size: 0.40 x 0.32 x 0.37 cm, volume 0.02 mL. Previously: Not documented on the previous study. Nodule characteristics: Composition: Solid (2). Echogenicity: Hyperechoic (1). Shape: Not taller than wide (0). Margins: Smooth (0). Echogenic Foci: None (0). ACR TI-RADS total points: 3 ACR TI-RADS category: 3 NODES: No lymphadenopathy is seen in the tissue surrounding the thyroid gland. US/US thyroid IMPRESSION: 1. Heterogeneous, hypervascular, multinodular thyroid gland. 2. A 1.1 cm RIGHT TR 3 thyroid nodule. Subcentimeter nodules as detailed above. Continued surveillance recommended. US THYROID 11/20 CLINICAL INFORMATION: Nontoxic multinodular goiter. COMPARISON: Ultrasound thyroid 07/01/2020. Ultrasound thyroid soft tissue neck 10/10/2019. TECHNIQUE: Linear transducer grayscale and color Doppler examination with attention to the region of the thyroid. FINDINGS: SIZE: Measurements of the thyroid lobes and nodules are given in sagittal, anteroposterior and transverse dimensions respectively. Right Thyroid Lobe: 4.6 x 1.7 x 2.0 cm, volume 8.2 mL. Previously 5.0 x 2.0 x 1.8 cm, volume 9.5 mL. Parenchyma: The gland echotexture is heterogeneous. Thyroid vascularity is normal. Left Thyroid Lobe: 3.5 x 1.4 x 1.6 cm, volume 4.1 mL. Previously 3.7 x 2.1 x 1.5 cm, volume 5.9 mL. Parenchyma: The gland echotexture is heterogeneous. Thyroid vascularity is normal. Isthmus: 0.5 cm in maximum AP dimension. Previously 0.6 cm. Estimated total number of nodules greater than or equal to 1 cm: 1. Super[employer] nodules are described as follows: 1. Location: Right lower pole. Size: 1.4 x 1.2 x 1.2 cm, volume 1.0 mL. Previously: 1.3 x 1.2 x 1.5 cm, volume 1.2 mL. Nodule characteristics: Composition: Solid (2). Echogenicity: Hyperechoic (1). Shape: Not taller than wide (0). Margins: Ill-defined (0). Echogenic Foci: None (0). ACR TI-RADS total points: 1 Previous: 1 ACR TI-RADS category: 3 Previous: 1 Significant change in size (>/= 20% in 2 dimensions and minimal increase of 2 mm or 50% or greater increase in volume): None Change in features: None Change in ACR TI-RADS risk category: Not applicable 2. Location: Right lower pole. Size: 0.6 x 0.6 x 0.6 cm, volume 0.1 mL. Previously: 0.6 x 0.7 x 0.6 cm, volume 0.1 mL. Nodule characteristics: Composition: Solid (2). Echogenicity: Hyperechoic (1). Shape: Not taller than wide (0). Margins: Smooth (0). Echogenic Foci: None (0). ACR TI-RADS total points: 3 Previous: 1 ACR TI-RADS category: 3 Previous: 1 Significant change in size (>/= 20% in 2 dimensions and minimal increase of 2 mm or 50% or greater increase in volume): None Change in features: None Change in ACR TI-RADS risk category: Not applicable NODES: No lymphadenopathy is seen in the tissue surrounding the thyroid gland. US/US thyroid IMPRESSION: No major change in the size of the nodules and thyroid gland. [facility] Medical History HLD (hyperlipidemia) Chronic kidney disease, stage III (moderate) Recurrent ventral incisional hernia Bipolar depression Anxiety Depression Left hip pain B12 deficiency Abnormal thyroid biopsy Non-toxic multinodular goiter Hypothyroidism Other and unspecified hyperlipidemia Type 2 diabetes mellitus with unspecified complications Obesity (BMI 30-39.9) Lumbar degenerative disc disease Vitamin B12 deficiency Acquired hypothyroidism Nonintractable headache Pure hypercholesterolemia Benign essential hypertension Chronic kidney disease, stage 2 (mild) Type 2 diabetes mellitus with diabetic chronic kidney disease Knee pain, bilateral Anxiety IBS (irritable bowel syndrome) Visual loss Tendonitis Neck pain Hernia Chronic abdominal pain Lumbar disc disease Depression Asthma Hx of headache Type 2 diabetes mellitus with hyperglycemia Autoimmune thyroiditis Hyperlipidemia LDL goal <100 Essential hypertension Vitamin D deficiency Obesity due to excess calories Surgical History S/P laparoscopy (~11/20/10) History of hernia repair Hx of exploratory laparotomy Family History Father Medical history unknown Mother Medical history unknown Social History Household Members: Spouse Housing: Apartment Alcohol intake: never Patient Tobacco Use Status: Never used Tobacco e-Cigarette/Vaping Use: Never Used Second Hand Smoke Exposure: Yes service: No Current occupational status: disabled Cognitive needs: No Hearing needs: No Vision needs: Yes Assessment & Plan Assessment & Plan (1) Hypothyroidism: Code(s): E03.9 - Hypothyroidism, unspecified Category: Medical Qualifiers: 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 She was on brand-name Tirosint, because per patient she was having fluctuations in her TSH on generic levothyroxine, however her PA for Tirosint was denied, we will try the generic levothyroxine, however if she has ineffective results we will have to appeal for brand-name Tirosint again. She resumed generic levothyroxine 175 mcg daily Now on levothyroxine 175 mcg daily generic. In the past apparently TSH was ineffectively controlled on generic brand. Right now we are still trying the generic but if her TSH remains elevated, I will have to switch her back. 01/22/2025: TSH 21.19, free T4 0.81 Plan: -increase levothyroxine to 200 mcg daily -do TSH and free T4 in 6 weeks (2) Non-toxic multinodular goiter: Code(s): E04.2 - Nontoxic multinodular goiter Category: Medical Plan: Patient with a history of thyroid nodules at least since 2018. Underwent biopsy of the right lower pole 1.4 cm nodules sometime in which was atypia of indeterminate significance. Afirma was benign. Denies compressive symptoms. Last ultrasound October 2021 shows stable size of both the right-sided nodules. Thyroid ultrasound 05/23/2024 showed stable size of both the right-sided nodules. Another new subcentimeter 0.4 cm TR 3 category nodule noted. Given stability of the size of these nodules, no need for further follow up unless patient has any clinical changes. (3) Type 2 diabetes mellitus with diabetic chronic kidney disease: Code(s): E11.22 - Type 2 diabetes mellitus with diabetic chronic kidney disease Category: Medical Qualifiers: Diabetes mellitus retirement insulin use: with retirement use Chronic kidney disease stage: stage 2 (mild) Qualified Code(s): E11.22 - Type 2 diabetes mellitus with diabetic chronic kidney disease; N18.2 - Chronic kidney disease, stage 2 (mild); Z79.4 - skilled nursing (current) use of insulin Plan: Patient with insulin-dependent type 2 diabetes mellitus with complication of CKD stage 3. A1c of 7.2% from October 2024 down from 7.7% from August 2024 I do not have much data today from her CGM, however the day did she did wear the CGM her blood sugar readings were in the 160s to 180s. She says she has been checking her fingersticks which fasting are mostly in the 150s. Plan: -continue Mounjaro to 10 mg weekly -increase Lantus to 36 units daily -continue Farxiga 5 mg daily -continue metformin 1000 mg b.i.d. -advised 150 minutes of exercise in a week -she is very overdue for eye visit, no history of retinopathy, ophthalmology referral is in place -foot exam unremarkable August 2024, has a mild history of neuropathy . Advised daily foot exams -urine microalbumin less than 5 from October 2024. Has CKD stage 3. Continue lisinopril 30 mg daily -follow up in 7 weeks (4) Essential hypertension: Code(s): I10 - Essential (primary) hypertension Category: Medical Plan: Blood pressure within normal range Advised low-salt diet. Plan: -continue lisinopril 30 mg daily. (5) HLD (hyperlipidemia): Code(s): E78.5 - Hyperlipidemia, unspecified Category: Medical Qualifiers: Hyperlipidemia type: mixed hyperlipidemia Qualified Code(s): E78.2 - Mixed hyperlipidemia Plan: LDL at 140, from October 2024. She has been on atorvastatin 80 mg daily which was titrated up from 40 mg daily at least for the past year. Started ezetimibe 10 mg daily 05/17/24 LDL goal is less than 70 mg/dL. She has not any her medications for the past month. Plan: -resume ezetimibe 10 mg daily and atorvastatin 80 mg daily -repeat lipid panel ordered - (6) Obesity (BMI 30-39.9): Code(s): E66.9 - Obesity, unspecified Category: Medical Plan: Patient is BMI 34.2 kg per m2 which is about the same as last time 35.3 kg per m2 Weight has been static Plan: -continue Mounjaro 10 mg weekly. -advised 30 minutes of exercise daily or 150 minutes in a week (7) Long-term insulin use: Code(s): Z79.4 - skilled nursing (current) use of insulin Category: Medical Plan: See above Plan I spent 30 minutes in reviewing the record, seeing the patient and documenting in the medical record. Orders: Orders 2 Free T4 (Free Thyroxine) 6 Weeks E03.8 - Other specified hypothyroidism, E06.3 - Autoimmune thyroiditis Lipid Panel 6 Weeks E11.22 - Type 2 diabetes mellitus with diabetic chronic kidney disease, N18.2 - Chronic kidney disease, stage 2 (mild), Z79.4 - skilled nursing (current) use of insulin Hemoglobin A1c 6 Weeks E11.22 - Type 2 diabetes mellitus with diabetic chronic kidney disease, N18.2 - Chronic kidney disease, stage 2 (mild), Z79.4 - skilled nursing (current) use of insulin Thyroid Stimulating Hormone 6 Weeks E03.8 - Other specified hypothyroidism, E06.3 - Autoimmune thyroiditis Medications: New 2 blood-glucose sensor (FreeStyle [place] 3 Plus Sensor device) As directed every 15 days 6 ea 5RF E11.22 - Type 2 diabetes mellitus with diabetic chronic kidney disease, N18.2 - Chronic kidney disease, stage 2 (mild), Z79.4 - ferry terminal agent (current) use of insulin levothyroxine (Synthroid) 200 mcg PO DAILY 30 tabs 4RF Changed 2 From insulin glargine (Lantus Solostar U-100 Insulin) 34 units (0.34 mL) subcut DAILY 15 mL 8RF To insulin glargine (Lantus Solostar U-100 Insulin) 36 units (0.36 mL) subcut DAILY 15 mL 8RF Discontinued 2 flash glucose sensor (FreeStyle Gal[place] 2 Sensor kit) Discontinued Reason: Doctor's Order USE DIRECTED CHANGE EVERY 14 DAYS 2 ea 8RF levothyroxine Discontinued Reason: Doctor's Order 175 mcg PO DAILY 90 tabs 3RF flash glucose scanning reader (FreeStyle Galina 2 [place]) Discontinued Reason: Doctor's Order As directed 1 ea 0RF Patient Instructions: Do fasting blood work in 6 weeks Increase levothyroxine to 200 mcg daily Coding Level of Care Code Est Pt Level 4 (10490) Complex EM visit Add On G2211 Diagnoses 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
[2025-01-25 11:01] LABS: Glucose, Whole Blood 154 mg/dL (60-115)
== END 2025-01-25 11:10 | disposition home or self-care (01) ==
LOC: HO.ENCR 10:47
PROVIDERS: PCP Internal Medicine; Visit Provider Student in an Organized Health Care Education/Training Program
DX: E03.8 Other specified hypothyroidism (principal); E06.3 Autoimmune thyroiditis; E04.2 Nontoxic multinodular goiter; E11.22 Type 2 diabetes mellitus with diabetic chronic kidney disease; N18.2 Chronic kidney disease, stage 2 (mild); Z79.4 Long term (current) use of insulin; I12.9 Hypertensive chronic kidney disease with stage 1 through stage 4 chronic kidney disease, or unspecified chronic kidney disease; E78.2 Mixed hyperlipidemia; E66.9 Obesity, unspecified
CPT/HCPCS: 99214; G2211

== ENCOUNTER → 2025-01-25 10:46 | Outpatient (BNVA) | payer OTHER, SELFPAY | PROVIDERS: PCP Internal Medicine; Visit Provider Student in an Organized Health Care Education/Training Program | DX: E11.22 Type 2 diabetes mellitus with diabetic chronic kidney disease (principal); I10 Essential (primary) hypertension; E04.2 Nontoxic multinodular goiter; E03.8 Other specified hypothyroidism; E78.2 Mixed hyperlipidemia; E06.3 Autoimmune thyroiditis; Z79.4 Long term (current) use of insulin; N18.2 Chronic kidney disease, stage 2 (mild) | CPT/HCPCS: 82947; 99212 ==

== ENCOUNTER 2025-02-14 13:10 | Outpatient (AMB) | payer OTHER, SELFPAY ==
--- NOTE | 2025-02-14 13:18 | A.OFFVIS_ITS ---
Vital Signs 02/14/25 13:22 Height 4 ft 11 in Weight 164 lb BMI 33.1 BP 126/74 Intake Visit Reasons: annual/ vulva reinspection/ u/s results Raw Products Director Required: Yes Raw Products Director Language: Instrument Specialist Services: Raw Products Director Present (in person) Raw Products Director Name: JOSE Zhou Information Interpreted: non-clinical & clinical Photolithographic Stripper: Photolithographic Stripper Present (JOSE Zhou) Accompanied by: Self / Same As Patient Allergies aspirin (ASPIRIN) Allergy (Severe, Verified 02/14/25 13:22) RASH, itchiness Penicillins (PENICILLINS) Allergy (Mild, Verified 02/14/25 13:22) RASH HPI Comments Details: Presenting for annual exam. No complaints. Last Pap/HPV was negative in 10/22 Last Mammogram was BI-RADS 1 in 04/23 Last Colonoscopy? Last ultrasound in 08/20 size showed mild increase in uterine myomas, the patient was referred for minimally invasive hospital orderly surgery at [facility], the patient has states that had an ultrasound 10 years prior was compare to current ultrasound there was no change in myomas and was advised against any surgical intervention. The patient is doing well with no complaints no pelvic pain and or pressure or vaginal bleeding [facility] Medical History Long-term insulin use HLD (hyperlipidemia) Chronic kidney disease, stage III (moderate) Recurrent ventral incisional hernia Bipolar depression Anxiety Depression Left hip pain B12 deficiency Abnormal thyroid biopsy Non-toxic multinodular goiter Hypothyroidism Other and unspecified hyperlipidemia Type 2 diabetes mellitus with unspecified complications Obesity (BMI 30-39.9) Lumbar degenerative disc disease Vitamin B12 deficiency Acquired hypothyroidism Nonintractable headache Pure hypercholesterolemia Benign essential hypertension Chronic kidney disease, stage 2 (mild) Type 2 diabetes mellitus with diabetic chronic kidney disease Knee pain, bilateral Anxiety IBS (irritable bowel syndrome) Visual loss Tendonitis Neck pain Hernia Chronic abdominal pain Lumbar disc disease Depression Asthma Hx of headache Type 2 diabetes mellitus with hyperglycemia Autoimmune thyroiditis Hyperlipidemia LDL goal <100 Essential hypertension Vitamin D deficiency Obesity due to excess calories Surgical History S/P laparoscopy (~11/20/10) History of hernia repair Hx of exploratory laparotomy Family History Father Medical history unknown Mother Medical history unknown Social History Household Members: Spouse Housing: Apartment Alcohol intake: never Patient Tobacco Use Status: Never used Tobacco e-Cigarette/Vaping Use: Never Used Second Hand Smoke Exposure: Yes service: No Current occupational status: disabled Cognitive needs: No Hearing needs: No Vision needs: Yes Female Reproductive History Menstrual control method: none Date of last pap smear: 10/03/23 (negative pap smear, negative hpv ) Date of Mammogram: 04/16/23 (bi rad 1) Review of Systems Const All systems reviewed & are unremarkable except as noted in HPI and below Card Reports as per HPI Resp Reports as per HPI GI Reports as per HPI and Reports no additional complaints Reports as per HPI Physical Exam Vital Signs: Last Vital Signs BP 126/74 02/14/25 13:22 BMI result Body Mass Index 33.1 Const General: cooperative, healthy appearing and comfortable Chest Chest palpation & inspection: normal inspection of the chest and normal palpation of entire chest wall Breast/axilla inspection: normal inspection of the breasts and normal inspection of the axillae Breast/axilla palpation: normal palpation of the breasts, normal palpation of the axillae and no axillary lymphadenopathy Resp Effort & Inspection: normal respiratory effort Auscultation: clear to auscultation bilaterally Percussion: percussion normal Cardio Palpation: normal PMI Rate: regular rate Rhythm: regular rhythm Heart sounds: no murmurs and no rubs Peripheral pulses: Peripheral pulses 2+ throughout GI Inspection: Yes normal to inspection Palpation (GI): Soft to palpation, nontender, no guarding, not rigid and No hepatosplenomegaly present Percussion: Yes normal to percussion Auscultation: normal bowel sounds Rectal Exam - Female: deferred General: Yes bladder normal to palpation External Female Exam: No lesion Speculum Exam - Vagina: normal appearance of the vagina, normal palpation, normal vaginal discharge and not erythematous Speculum Exam - Cervix: normal appearance of the cervix and normal palpation Bimanual exam- vagina & uterus: normal bimanual exam, normal palpation, uterine size normal, bladder normal to palpation, consistency normal and normal palpation Bimanual Exam- Adnexa, other: normal adnexae, no masses and no tenderness Assessment & Plan Assessment & Plan (1) Uterine myoma: Code(s): D25.9 - Leiomyoma of uterus, unspecified Category: Medical Plan: Will order ultrasound for 08/26. Instructions given to patient to schedule ultrasound follow-up appointment and to call in case of vaginal bleeding pelvic pressure or pain. All questions answered, the patient verbalized understanding (2) Well woman exam: Code(s): Z01.419 - Encounter for gynecological examination (general) (routine) without abnormal findings Category: Medical Plan: Co testing not indicated this. Counseled the patient about the recommended dietary allowance of 1200 mg of Calcium & 600 IU of vitamin D. Mammogram ordered. The patient was referred to GI for screening colonoscopy . The patient was instructed to perform monthly self-breast exams and schedule annual exam in a year. All questions answered and the patient verbalized understanding. (3) Lichen sclerosus: Code(s): L90.0 - Lichen sclerosus et atrophicus Category: Medical Plan: Instructed the patient to schedule an appointment in a year to examine the affected area, with possible biopsy of suspicious lesions, in addition explained to the patient that she should look at the skin of the affected area and touch with fingertips monthly to search for thickened lumps or sores that do not heal & to report such findings for inspection & possible biopsy to rule out vulvar cancer Will refill Clobetasol propionate 0.05% ointment to be applied daily at night f as maintenance therapy two to three times per week . Orders: Orders MM tomosynthesis screening BI Today Z12.31 - Encounter for screening mammogram for malignant neoplasm of breast US pelvic and transvaginal 4 Months D25.9 - Leiomyoma of uterus, unspecified Referrals Gastroenterology Referral Z12.11 - Encounter for screening for malignant neoplasm of colon Medications: Refilled clobetasol 0.05% 3.5 g per application Then maintenance therapy for 2-3 times per week 1 appl topical BID 60 grams 1RF 4 weeks Coding Level of Care Code Est Pt Level 3 (91907) Est Pt Prev Care 40-64y(72537) Diagnoses Uterine myoma D25.9 Well woman exam Z01.419 Lichen sclerosus L90.0
[2025-02-14 13:22] VITALS: BP 126/74; BMI 33.1
== END 2025-02-14 13:41 | disposition home or self-care (01) ==
LOC: HO.HWS 13:10
PROVIDERS: PCP Internal Medicine; Visit Provider Obstetrics & Gynecology
DX: Z01.419 Encounter for gynecological examination (general) (routine) without abnormal findings (principal); D25.9 Leiomyoma of uterus, unspecified; L90.0 Lichen sclerosus et atrophicus
CPT/HCPCS: 99213; 99396; 99459

== ENCOUNTER → 2025-02-14 13:10 | Outpatient (BNVA) | payer OTHER, SELFPAY | PROVIDERS: PCP Internal Medicine; Visit Provider Obstetrics & Gynecology | DX: Z01.419 Encounter for gynecological examination (general) (routine) without abnormal findings (principal); D25.9 Leiomyoma of uterus, unspecified; L90.0 Lichen sclerosus et atrophicus | CPT/HCPCS: 99212; 99396 ==

== ENCOUNTER 2025-02-19 10:43 | Outpatient (REF) | payer OTHER, SELFPAY ==
--- NOTE | ~2025-02-19 | MM_ITS ---
EXAMINATION: MM SCREENING DIGITAL BREAST TOMOSYNTHESIS, BILATERAL CLINICAL INFORMATION: Screening. Asymptomatic. COMPARISON: Mammography: Comparison is made with available priors TECHNIQUE: Digital breast mammography with tomosynthesis is performed in both the craniocaudal and mediolateral oblique views along with computer-aided detection (CAD). FINDINGS: There are scattered areas of fibroglandular density (ACR BI-RADS breast composition Category b). There are no significant masses, abnormal calcifications, or other abnormalities. MM/MM tomosynthesis screening BI IMPRESSION: No mammographic evidence of malignancy. ASSESSMENT: BI-RADS BI-RADS 1 - Negative RECOMMENDATION: Routine annual mammography screening. 1 year F/U This examination should not preclude the clinical evaluation of a suspicious palpable abnormality. This patient's information was entered into a reminder system with a target due date for their next mammogram. Electronically signed by: Gisela Ewing DO 02/26/2025 02:43 PM EDT
== END 2025-02-19 10:44 | disposition home or self-care (01) ==
LOC: HO.MAMMO 10:43
PROVIDERS: PCP Internal Medicine; Visit Provider Obstetrics & Gynecology
DX: Z12.31 Encounter for screening mammogram for malignant neoplasm of breast (principal)
CPT/HCPCS: 77063; 77067

== ENCOUNTER → 2025-02-19 10:45 | Outpatient (BNV) | payer OTHER, SELFPAY | PROVIDERS: PCP Internal Medicine; Visit Provider Internal Medicine | DX: Z12.31 Encounter for screening mammogram for malignant neoplasm of breast (principal) | CPT/HCPCS: 77063; 77067 ==

== ENCOUNTER 2025-03-14 13:34 | Outpatient (REF) | payer OTHER, SELFPAY ==
[2025-03-14 14:16] LABS: Hemoglobin A1C 201.6511 umol/L; Total Hemoglobin (HGBA1C) 3374.0490 umol/L
[2025-03-14 14:56] LABS: Cholesterol 189 mg/dL (<200); HDL Cholesterol 38 mg/dL (>40); Triglycerides 100 mg/dL (<150)
[2025-03-14 15:13] LABS: Free T4 (Free Thyroxine) 1.08 ng/dL (0.71-1.85); Thyroid Stimulating Hormone 19.90 uIU/mL (0.32-4.0)
== END 2025-03-14 13:35 | disposition home or self-care (01) ==
LOC: HO.LAB 13:34
PROVIDERS: Visit Provider Student in an Organized Health Care Education/Training Program
DX: E11.22 Type 2 diabetes mellitus with diabetic chronic kidney disease (principal); N18.2 Chronic kidney disease, stage 2 (mild); E03.8 Other specified hypothyroidism; Z79.4 Long term (current) use of insulin; E06.3 Autoimmune thyroiditis
CPT/HCPCS: 36415; 80061; 83036; 84439; 84443

== ENCOUNTER 2025-03-29 12:56 | Outpatient (REF) | payer OTHER, SELFPAY ==
[2025-03-29 14:30] LABS: MANUAL DIFF FLAG NO
[2025-03-29 14:49] LABS: Hematocrit 40.1 % (37.0-47.0); Hemoglobin 12.9 g/dl (12.0-16.0); Imm Gran Abs Auto 0.03 X10*3/uL (0.00-0.03); Imm Gran Pct Auto 0.5 % (0.0-0.4); Lymphocytes Absolute Auto 2.0 X10*3/uL (1.2-4.9); Mean Corpuscular HGB Conc 32.2 g/dl (31.0-35.0); Mean Corpuscular Hemoglobin 27.5 pg (27.0-33.0); Mean Corpuscular Volume 85.5 fL (80.0-98.0); NRBC Abs Auto 0.000 X10*3/uL (0.0-0.012); NRBC Pct Auto 0.0 /100WBC (0.0-0.2); Platelet Count 294 X10*3/uL (160-400); Red Blood Count 4.69 X10*6/uL (4.20-5.50); White Blood Count 5.9 X10*3/uL (4.8-10.8)
[2025-03-29 15:26] LABS: Hemoglobin A1C 268.5973 umol/L; Total Hemoglobin (HGBA1C) 4488.9886 umol/L
[2025-03-29 16:01] LABS: Appearance Urine Clear; Glucose Urine UA 100 mg/dL (Negative); PH 6.0 (5.0-9.0); Specific Gravity - Urine 1.015 (1.005-1.025)
[2025-03-29 18:47] LABS: Alanine Aminotransferase 18 U/L (0-31); Albumin Level 4.4 g/dL (3.5-5.0); Alkaline Phosphatase 72 U/L (39-117); Anion Gap 11 (12-20); Aspartate Amino Transferase 20 U/L (5-31); Blood Urea Nitrogen 12 mg/dL (9-16); Calcium 9.2 mg/dL (8.4-10.2); Carbon Dioxide 29 mmol/L (22-29); Chloride 108 mmol/L (96-108); Cholesterol 222 mg/dL (<200); Estimated Glomerular Filt Rate 58; Free T4 (Free Thyroxine) 0.84 ng/dL (0.71-1.85); HDL Cholesterol 36 mg/dL (>40); Potassium 4.1 mmol/L (3.3-5.1); Sodium 144 mmol/L (135-145); Thyroid Stimulating Hormone 26.93 uIU/mL (0.32-4.0); Total Protein 7.6 g/dL (6.5-8.0); Triglycerides 146 mg/dL (<150)
[2025-03-29 18:56] LABS: Folate 6.7 ng/mL (> or = 4.0); Vitamin B12 217 pg/mL (200-900)
== END 2025-03-29 12:57 | disposition home or self-care (01) ==
LOC: HO.WFDLDS 12:56
PROVIDERS: Visit Provider Internal Medicine
DX: E78.00 Pure hypercholesterolemia, unspecified (principal); E11.9 Type 2 diabetes mellitus without complications; E03.9 Hypothyroidism, unspecified; R30.0 Dysuria; E55.9 Vitamin D deficiency, unspecified; D64.9 Anemia, unspecified; E53.8 Deficiency of other specified B group vitamins
CPT/HCPCS: 36415; 80053; 80061; 81003; 82043; 82306; 82570; 82607; 82746; 83036; 84439; 84443; 85025

== ENCOUNTER 2025-04-02 12:46 | Outpatient (AMB) | payer OTHER, SELFPAY ==
[2025-04-02 13:00] VITALS: BP 134/68; PULSE 74; O2SAT 98; BMI 33.4
--- NOTE | 2025-04-02 13:00 | A.OFFVIS_ITS ---
Vital Signs 3 04/02/25 13:00 Height 4 ft 11 in Weight 165 lb 9.074 oz BMI 33.4 BP 134/68 Blood Pressure Location Rt brachial Position Sitting Pulse 74 Pulse Source Pulse Oximeter Pulse Oximetry (%) 98 Oxygen Delivery Method Room Air Intake Visit Reasons: DM, hyperlipidemia, HTN, hypothyroidism Intake Note: Patient present today for Type 2 Diabetes Mellitus, hyperlipidemia, HTN and hypothyroidism. Last Diabetic eye exam: Over 3 years ago. Patient would like a referral. Last Podiatry Visit: Needs referral Random Glucose: 135 mg/dl HgA1C: 7.66% 03/14/25 Human Resources Consultant Required: No Accompanied by: Self / Same As Patient Allergies aspirin (ASPIRIN) Allergy (Severe, Verified 04/02/25 13:08) RASH, itchiness Penicillins (PENICILLINS) Allergy (Mild, Verified 04/02/25 13:08) RASH HPI Comments Details: Patient is 59 yo female with DM type 2 who presents for follow up of diabetes mellitus and hypothyroidism and MNG. Last visit 12/2024. 1) Diabetes mellitus 2 Type 2 diabetes diagnosed in 2013. . Prior meds [facility] Diabetes medication: Lantus 34 units once daily at night Mounjaro 10 mg per weekly Sundays metformin 1000mg BID, Farxiga 5 mg QD Complications Mild neuropathy , doesnt see podiatry No retinopathy , hasnt seen an eye doctor in 3 years , has history of [place] CKD stage 2/3, GFR 59 No microalbuminuria , labs 03/25 urine microalbumin <5 No UT or stroke No MASLD, FIB 4 per labs 04/24 is 0.8 Hypoglycemia: denies Hyperglycemia: denies urinary frequency, nocturia, polydypsia HgA1C: 7.2% 11/20/24 A1c 7.6% 03/29/2025 Freestyle [place] 3 downloaded from March 22 April 02 Time CGM active 98% Average glucose 161 mg/dL G UT 7.2% Glucose variability 21.8% Within target range 75% High 23% Very high 2% Low 0% Very low 0% Interpretation: Does have some hypoglycemic episodes here in there following hyperglycemia. Over the last 5 days or so she has had excellent glycemic control. Weight remained stable , her weight has plateaued, despite increased dose of Mounjaro. 2) Hypothyroidism Levothyroxine decreased to 175 mcg daily on 05/17/2024 Repeat labs 08/17/2024 showed TSH elevated at 4.48, normal free T4 of 1.3 Interval history 01/25/25 Was on brand-name Tirosint, LAURA denied, has been out of her medication for a few weeks Most recent labs from 11/20/2024 showed TSH elevated at 55.6 with a free T4 low at 0.47. Now on levothyroxine 175 mcg daily generic. In the past apparently TSH was ineffectively controlled on generic brand. Right now we are still trying the generic but if her TSH remains elevated, I will have to switch her back. 01/22/2025: TSH 21.19, free T4 0.81 Interval history 04/02/2025 Levothyroxine increased to 200 mcg daily 01/22/2025 03/29/2025: TSH 26.93, free T4 0.84 3)Thyroid nodules :no need for further follow up unless patient has any clinical changes. Patient also has history of multinodular goiter. Diagnosed 2017. Underwent biopsy of the right lower pole 1.4 cm nodules sometime in which was atypia of indeterminate significance. Afirma was benign. Denies compressive symptoms. ultrasound October 2021 shows stable size of both the right-sided nodules. Thyroid ultrasound 05/23/2024 showed stable size of both the right-sided nodules. Another new subcentimeter 0.4 cm TR 3 category nodule noted. Given stability of the size of these nodules, no need for further follow up unless patient has any clinical changes. Last ultrasound October 2021 shows stable size of both the right-sided nodules. Thyroid ultrasound 05/23/2024 showed stable size of both the right-sided nodules. Another new subcentimeter 0.4 cm TR 3 category nodule noted. Given stability of the size of these nodules, no need for further follow up unless patient has any clinical changes. 4) HLD LDL at 124 , on atorvastatin 80 mg daily ,adherent Started ezetimibe 10 mg daily 05/17/24 LDL 122 08/17/24 LDL 140 from 11/23/2024., she has stopped taking all of her oral pills at that time LDL 157 mg/dL 03/29/25 5) HTN On lisinopril 30 mg daily Physical exam General: sitting comfortably in no acute distress HEENT: normocephalic/atraumatic, moist oral mucosa Neck: supple, Cardiac: normal heart sounds Pulm: normal breath sounds B/L, no added breath sounds Abd: not distended, no tenderness Extremities: no edema, no signs of myxedema Neuro: AAO x3, Speech: normal, no facial droop, moving all 4 extremities Skin: no rash Foot exam: Done August 2024 intact sensation to monofilament, intact pulses, intact vibration Laboratory Tests 03/07/23 08/31/23 10/03/23 10:40 08:42 12:04 Hgb Hct Plt Count Sodium Potassium Creatinine Estimated GFR Estimat Average Glucose Hemoglobin A1c % 7.9 7.2 H AST ALT Albumin Triglycerides Cholesterol LDL Cholesterol, Calc HDL Cholesterol Vitamin B12 25-OH Vitamin D Total TSH 2.53 12.68 H Free T4 Urine Creatinine Urine Microalbumin 01/02/24 04/30/24 04/30/24 12:21 13:12 13:14 Hgb Hct Plt Count 260 Sodium Potassium Creatinine 1.07 Estimated GFR 52 Estimat Average Glucose Hemoglobin A1c % 7.5 H 7.7 H AST 17 ALT 24 Albumin Triglycerides 95 Cholesterol 186 LDL Cholesterol, Calc 127 H HDL Cholesterol 40 L Vitamin B12 271 25-OH Vitamin D Total TSH 1.25 0.26 L Free T4 1.24 1.24 Urine Creatinine 69.27 Urine Microalbumin < 5.0 08/17/24 08/17/24 08/17/24 12:21 12:25 12:25 Hgb 12.8 Hct 38.9 Plt Count 309 Sodium 142 Potassium 3.8 Creatinine 1.01 Estimated GFR 56 Estimat Average Glucose 174 Hemoglobin A1c % 7.7 H AST 22 ALT 24 Albumin 4.3 Triglycerides Cholesterol 178 LDL Cholesterol, Calc 117 H 122 H HDL Cholesterol 42 Vitamin B12 25-OH Vitamin D Total 29.1 L TSH 4.48 H Free T4 1.31 Urine Creatinine 95.44 Urine Microalbumin < 5.0 08/17/24 12:25 Hgb Hct Plt Count Sodium Potassium Creatinine Estimated GFR Estimat Average Glucose Hemoglobin A1c % AST ALT Albumin Triglycerides 95 Cholesterol LDL Cholesterol, Calc HDL Cholesterol Vitamin B12 25-OH Vitamin D Total TSH 4.53 H Free T4 Urine Creatinine Urine Microalbumin Laboratory Tests 11/20/24 11/20/24 14:10 Unknown Hgb 12.8 Hct 39.1 Plt Count 305 Sodium 141 Potassium 3.6 Creatinine 1.09 Estimated GFR 51 Fasting Glucose 165 H Hemoglobin A1c % 7.2 H AST 23 ALT 31 Cholesterol 209 H LDL Cholesterol, Calc 140 H HDL Cholesterol 44 TSH 55.60 H Free T4 0.47 L Urine Creatinine 115.12 Urine Microalbumin 6.0 Microalb/Creat Ratio 5.2 Laboratory Tests 01/22/25 11:20 TSH 21.19 H Free T4 0.81 Laboratory Tests 03/29/25 13:00 Sodium 144 Potassium 4.1 Creatinine 0.98 Hemoglobin A1c % 7.6 H AST 20 ALT 18 Triglycerides 146 Cholesterol 222 H LDL Cholesterol, Calc 157 H HDL Cholesterol 36 L Vitamin B12 217 25-OH Vitamin D Total 37.0 TSH 26.93 H Free T4 0.84 Urine Creatinine 89.02 Urine Microalbumin < 5.0 US THYROID 05/23/24 CLINICAL INFORMATION: Other specified hypothyroidism. COMPARISON: Thyroid ultrasound 11/03/2021 and 07/01/2020. TECHNIQUE: Linear transducer grayscale and color Doppler examination with attention to the region of the thyroid. FINDINGS: SIZE: Measurements of the thyroid lobes and nodules are given in sagittal, anteroposterior and transverse dimensions respectively. Right Thyroid Lobe: 5.0 x 1.8 x 1.5 cm, volume 6.8 mL. Previously 4.6 x 1.7 x 2.0 cm, volume 8.2 mL. Parenchyma: The gland echotexture is heterogeneous. Thyroid vascularity is increased. Left Thyroid Lobe: 3.3 x 1.0 x 1.1 cm, volume 1.8 mL. Previously 3.5 x 1.4 x 1.6 cm, volume 4.1 mL. Parenchyma: The gland echotexture is heterogeneous. Thyroid vascularity is normal. Isthmus: 0.45 cm in maximum AP dimension. Previously 0.50 cm. Estimated total number of nodules greater than or equal to 1 cm: 1. Technical Marketing Engineer nodules are described as follows: 1. Location: Right inferior. Size: 1.1 x 1.0 x 1.1 cm, volume 0.61 mL. Previously: 1.2 x 1.2 x 1.4 cm, volume 1.0 mL. Nodule characteristics: Composition: Solid (2). Echogenicity: Hyperechoic (1). Shape: Not taller than wide (0). Margins: Smooth (0). Echogenic Foci: None (0). ACR TI-RADS total points: 3 Previous: 3 ACR TI-RADS category: 3 Previous: 3 Significant change in size (>/= 20% in 2 dimensions and minimal increase of 2 mm or 50% or greater increase in volume): No Change in features: No Change in ACR TI-RADS risk category: No 2. Location: Right inferior. Size: 0.64 x 0.43 x 0.47 cm, volume 0.07 mL. Previously: 0.60 x 0.60 x 0.60 cm, volume 0.10 mL. Nodule characteristics: Composition: Solid (2). Echogenicity: Hyperechoic (1). Shape: Not taller than wide (0). Margins: Smooth (0). Echogenic Foci: None (0). ACR TI-RADS total points: 3 Previous: 3 ACR TI-RADS category: 3 Previous: 3 Significant change in size (>/= 20% in 2 dimensions and minimal increase of 2 mm or 50% or greater increase in volume): No Change in features: No Change in ACR TI-RADS risk category: No 3. Location: Right mid. Size: 0.40 x 0.32 x 0.37 cm, volume 0.02 mL. Previously: Not documented on the previous study. Nodule characteristics: Composition: Solid (2). Echogenicity: Hyperechoic (1). Shape: Not taller than wide (0). Margins: Smooth (0). Echogenic Foci: None (0). ACR TI-RADS total points: 3 ACR TI-RADS category: 3 NODES: No lymphadenopathy is seen in the tissue surrounding the thyroid gland. US/US thyroid IMPRESSION: 1. Heterogeneous, hypervascular, multinodular thyroid gland. 2. A 1.1 cm RIGHT TR 3 thyroid nodule. Subcentimeter nodules as detailed above. Continued surveillance recommended. US THYROID 11/20 CLINICAL INFORMATION: Nontoxic multinodular goiter. COMPARISON: Ultrasound thyroid 07/01/2020. Ultrasound thyroid soft tissue neck 10/10/2019. TECHNIQUE: Linear transducer grayscale and color Doppler examination with attention to the region of the thyroid. FINDINGS: SIZE: Measurements of the thyroid lobes and nodules are given in sagittal, anteroposterior and transverse dimensions respectively. Right Thyroid Lobe: 4.6 x 1.7 x 2.0 cm, volume 8.2 mL. Previously 5.0 x 2.0 x 1.8 cm, volume 9.5 mL. Parenchyma: The gland echotexture is heterogeneous. Thyroid vascularity is normal. Left Thyroid Lobe: 3.5 x 1.4 x 1.6 cm, volume 4.1 mL. Previously 3.7 x 2.1 x 1.5 cm, volume 5.9 mL. Parenchyma: The gland echotexture is heterogeneous. Thyroid vascularity is normal. Isthmus: 0.5 cm in maximum AP dimension. Previously 0.6 cm. Estimated total number of nodules greater than or equal to 1 cm: 1. Technical Marketing Engineer nodules are described as follows: 1. Location: Right lower pole. Size: 1.4 x 1.2 x 1.2 cm, volume 1.0 mL. Previously: 1.3 x 1.2 x 1.5 cm, volume 1.2 mL. Nodule characteristics: Composition: Solid (2). Echogenicity: Hyperechoic (1). Shape: Not taller than wide (0). Margins: Ill-defined (0). Echogenic Foci: None (0). ACR TI-RADS total points: 1 Previous: 1 ACR TI-RADS category: 3 Previous: 1 Significant change in size (>/= 20% in 2 dimensions and minimal increase of 2 mm or 50% or greater increase in volume): None Change in features: None Change in ACR TI-RADS risk category: Not applicable 2. Location: Right lower pole. Size: 0.6 x 0.6 x 0.6 cm, volume 0.1 mL. Previously: 0.6 x 0.7 x 0.6 cm, volume 0.1 mL. Nodule characteristics: Composition: Solid (2). Echogenicity: Hyperechoic (1). Shape: Not taller than wide (0). Margins: Smooth (0). Echogenic Foci: None (0). ACR TI-RADS total points: 3 Previous: 1 ACR TI-RADS category: 3 Previous: 1 Significant change in size (>/= 20% in 2 dimensions and minimal increase of 2 mm or 50% or greater increase in volume): None Change in features: None Change in ACR TI-RADS risk category: Not applicable NODES: No lymphadenopathy is seen in the tissue surrounding the thyroid gland. US/US thyroid IMPRESSION: No major change in the size of the nodules and thyroid gland. [facility] Medical History Long-term insulin use HLD (hyperlipidemia) Chronic kidney disease, stage III (moderate) Recurrent ventral incisional hernia Bipolar depression Anxiety Depression Left hip pain B12 deficiency Abnormal thyroid biopsy Non-toxic multinodular goiter Hypothyroidism Other and unspecified hyperlipidemia Type 2 diabetes mellitus with unspecified complications Obesity (BMI 30-39.9) Lumbar degenerative disc disease Vitamin B12 deficiency Acquired hypothyroidism Nonintractable headache Pure hypercholesterolemia Benign essential hypertension Chronic kidney disease, stage 2 (mild) Type 2 diabetes mellitus with diabetic chronic kidney disease Knee pain, bilateral Anxiety IBS (irritable bowel syndrome) Visual loss Tendonitis Neck pain Hernia Chronic abdominal pain Lumbar disc disease Depression Asthma Hx of headache Type 2 diabetes mellitus with hyperglycemia Autoimmune thyroiditis Hyperlipidemia LDL goal <100 Essential hypertension Vitamin D deficiency Obesity due to excess calories Surgical History S/P laparoscopy (~11/20/10) History of hernia repair Hx of exploratory laparotomy Family History Father Medical history unknown Mother Medical history unknown Social History Household Members: Spouse Housing: Apartment Alcohol intake: never Patient Tobacco Use Status: Never used Tobacco e-Cigarette/Vaping Use: Never Used Second Hand Smoke Exposure: Yes service: No Current occupational status: disabled Cognitive needs: No Hearing needs: No Vision needs: Yes Office Procedures Glucose Monitoring Details Details: see [facility] [id number] - Glucose monitoring, continuous-physician I&R Procedure code (CPT) selection complete Assessment & Plan Assessment & Plan (1) Hypothyroidism: Code(s): E03.9 - Hypothyroidism, unspecified Category: Medical Qualifiers: 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 She was on brand-name Tirosint, because per patient she was having fluctuations in her TSH on generic levothyroxine, however her PA for Tirosint was denied, we tried generic levothyroxine and patient endorses extremely good adherence with no missing of medications, however her TSH remains elevated. Levothyroxine increased to 200 mcg daily 01/22/2025 03/29/2025: TSH 26.93, free T4 0.84 At this point I would like to switch her back to Tirosint. We will send a prescription and try to do another PA. I am not going to take out her levothyroxine prescription just for now to avoid any labs in therapy. Plan: -switch to brand-name Tirosint 200 mcg daily -do TSH and free T4 in 6 weeks, we will reach out with the results (2) Non-toxic multinodular goiter: Code(s): E04.2 - Nontoxic multinodular goiter Category: Medical Plan: Patient with a history of thyroid nodules at least since 2018. Underwent biopsy of the right lower pole 1.4 cm nodules sometime in which was atypia of indeterminate significance. Afirma was benign. Denies compressive symptoms. Last ultrasound October 2021 shows stable size of both the right-sided nodules. Thyroid ultrasound 05/23/2024 showed stable size of both the right-sided nodules. Another new subcentimeter 0.4 cm TR 3 category nodule noted. Given stability of the size of these nodules, no need for further follow up unless patient has any clinical changes. (3) Type 2 diabetes mellitus with diabetic chronic kidney disease: Code(s): E11.22 - Type 2 diabetes mellitus with diabetic chronic kidney disease Category: Medical Qualifiers: Chronic kidney disease stage: stage 2 (mild) Diabetes mellitus senior care insulin use: with intermodal customer service use Qualified Code(s): E11.22 - Type 2 diabetes mellitus with diabetic chronic kidney disease; N18.2 - Chronic kidney disease, stage 2 (mild); Z79.4 - group home (current) use of insulin Plan: Patient with insulin-dependent type 2 diabetes mellitus with complication of CKD stage 3. A1c of 7.8% March 2025 up from 7.2% from October 2024 down from 7.7% from August 2024 CGM shows that she is having some hypoglycemia early a.m./overnight and sometimes following hyperglycemia. Over the past 3-4 days she has had good control. Plan: -continue Mounjaro to 10 mg weekly -decrease Lantus to 30 units daily -continue Farxiga 5 mg daily -continue metformin 1000 mg b.i.d. -advised 150 minutes of exercise in a week -she is very overdue for eye visit, no history of retinopathy, ophthalmology referral placed again -foot exam unremarkable August 2024, has a mild history of neuropathy . Advised daily foot exams -urine microalbumin less than 5 from 03/2025. Has CKD stage 3. Continue lisinopril 30 mg daily -follow up in 6 months (4) Essential hypertension: Code(s): I10 - Essential (primary) hypertension Category: Medical Plan: Blood pressure within normal range Advised low-salt diet. Plan: -continue lisinopril 30 mg daily. (5) HLD (hyperlipidemia): Code(s): E78.5 - Hyperlipidemia, unspecified Category: Medical Qualifiers: Hyperlipidemia type: mixed hyperlipidemia Qualified Code(s): E78.2 - Mixed hyperlipidemia Plan: LDL at 140, from October 2024. She has been on atorvastatin 80 mg daily which was titrated up from 40 mg daily at least for the past year. Started ezetimibe 10 mg daily 05/17/24 LDL goal is less than 70 mg/dL. LDL again elevated at 157 mg/dL from March 2025, I sense she might not have been taking the Zetia to regularly. Plan: -continue ezetimibe 10 mg daily and atorvastatin 80 mg daily -plan to repeat lipid panel early next year 2025 - (6) Obesity (BMI 30-39.9): Code(s): E66.9 - Obesity, unspecified Category: Medical Plan: Patient is BMI 33.4 kg per m2 down from 34.2 kg per m2 in December 2024 Weight has been static Plan: -continue Mounjaro 10 mg weekly. -advised 30 minutes of exercise daily or 150 minutes in a week (7) Long-term insulin use: Code(s): Z79.4 - keno terminal operator (current) use of insulin Category: Medical Plan: See above Plan I spent 30 minutes in reviewing the record, seeing the patient and documenting in the medical record. Orders: Orders 2 Thyroid Stimulating Hormone 6 Weeks E03.8 - Other specified hypothyroidism, E06.3 - Autoimmune thyroiditis Free T4 (Free Thyroxine) 6 Weeks E03.8 - Other specified hypothyroidism, E06.3 - Autoimmune thyroiditis AMB Glucose Monitoring Today E11.22 - Type 2 diabetes mellitus with diabetic chronic kidney disease, N18.2 - Chronic kidney disease, stage 2 (mild), Z79.4 - keno terminal operator (current) use of insulin Referrals 2 Ophthalmology Referral E11.22 - Type 2 diabetes mellitus with diabetic chronic kidney disease, N18.2 - Chronic kidney disease, stage 2 (mild), Z79.4 - keno terminal operator (current) use of insulin Medications: New 2 Tirosint (levothyroxine) BRAND NAME ONLY CHAU 0 No substitution allowed 200 mcg PO DAILY 30 caps 6RF NS Changed 2 From insulin glargine (Lantus Solostar U-100 Insulin) 36 units (0.36 mL) subcut DAILY 15 mL 8RF To insulin glargine (Lantus Solostar U-100 Insulin) 34 units (0.34 mL) subcut DAILY 15 mL 8RF From insulin glargine (Lantus Solostar U-100 Insulin) 34 units (0.34 mL) subcut DAILY 15 mL 8RF To insulin glargine (Lantus Solostar U-100 Insulin) 30 units (0.3 mL) subcut DAILY 15 mL 8RF Refilled 2 metformin 1,000 mg PO BID 180 tabs 7RF ezetimibe 10 mg PO DAILY 30 tabs 8RF atorvastatin 80 mg PO BEDTIME 90 tabs 3RF 90 days E78.5 - Hyperlipidemia, unspecified tirzepatide (Mounjaro) 10 mg (0.5 mL) subcut QWEEK 6 mL 8RF Patient Instructions: Decrease insulin lantus to 30 units Continue rest as it is Do thyroid blood work in 6 weeks We will hopefully try to switch you from generic levothyroxine 200 mcg to Tirosint 200 mcg daily Coding Level of Care Code Est Pt Level 4 (44275) Diagnoses 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 E03.8; E06.3 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
[2025-04-02 13:14] LABS: Glucose, Whole Blood 135 mg/dL (60-115)
== END 2025-04-02 13:36 | disposition home or self-care (01) ==
LOC: HO.ENCR 12:46
PROVIDERS: PCP Internal Medicine; Visit Provider Student in an Organized Health Care Education/Training Program
DX: E03.8 Other specified hypothyroidism (principal); E06.3 Autoimmune thyroiditis; E04.2 Nontoxic multinodular goiter; E11.22 Type 2 diabetes mellitus with diabetic chronic kidney disease; N18.2 Chronic kidney disease, stage 2 (mild); Z79.4 Long term (current) use of insulin; I12.9 Hypertensive chronic kidney disease with stage 1 through stage 4 chronic kidney disease, or unspecified chronic kidney disease; E78.2 Mixed hyperlipidemia; E66.9 Obesity, unspecified
CPT/HCPCS: 95251; 99214

== ENCOUNTER → 2025-04-02 12:46 | Outpatient (BNVA) | payer OTHER, SELFPAY | PROVIDERS: PCP Internal Medicine; Visit Provider Student in an Organized Health Care Education/Training Program | DX: E11.22 Type 2 diabetes mellitus with diabetic chronic kidney disease (principal); E04.2 Nontoxic multinodular goiter; N18.2 Chronic kidney disease, stage 2 (mild); E03.8 Other specified hypothyroidism; I10 Essential (primary) hypertension; E78.2 Mixed hyperlipidemia; E66.9 Obesity, unspecified; Z79.4 Long term (current) use of insulin | CPT/HCPCS: 82947; 99212 ==

== ENCOUNTER 2025-04-22 15:01 | Outpatient (AMB) | payer OTHER, SELFPAY ==
--- NOTE | 2025-04-22 15:19 | MHC.PC.OV ---
Vital Signs 04/22/25 15:20 Height 4 ft 11 in Weight 165 lb 8 oz BMI 33.4 BP 140/70 H Blood Pressure Location Rt brachial Position Sitting Pulse 83 Pulse Source Pulse Oximeter Temp 97.1 F Temp Source Temporal Artery Scan Pulse Oximetry (%) 98 Oxygen Delivery Method Room Air Intake Visit Reasons: she has a red spot on her stomach and she is conse Intake Note: Patient is here to follow up on Red spot on her stomach. Equipment Validation Engineer Required: No Community Liaison Officer: Not Required per policy Accompanied by: Self / Same As Patient Allergies aspirin (ASPIRIN) Allergy (Severe, Verified 04/22/25 15:32) RASH, itchiness Penicillins (PENICILLINS) Allergy (Mild, Verified 04/22/25 15:32) RASH Medication List - Last Reconciled 04/22/25 by SHINE Moya [ABDOMINAL BINDER (elastic) - LARGE As directed] albuterol sulfate 2.5 mg (3 mL) continuous nebulization Q6H PRN 30 days albuterol sulfate 90 mcg/actuation (Ventolin HFA) 2 puffs inhalation Q6H PRN 30 days atorvastatin 80 mg PO BEDTIME 90 days blood pressure monitor As directed blood sugar diagnostic (FreeStyle Lite Strips) As directed 3 times a day blood-glucose sensor (FreeStyle Galina 3 Sensor device) As directed blood-glucose sensor (FreeStyle Galina 3 Plus Sensor device) As directed every 15 days blood-glucose,ambulatory care nurse,cont (FreeStyle Galina 3 [place]) As directed aqzqupxfqp-[id number]-[id number] 50-325-40 mg 1 cap PO BID-TID PRN 30 days cholecalciferol (vitamin D3) 50 mcg PO DAILY 90 days clobetasol 0.05% 1 appl topical BID 4 weeks [Commode As directed] cyclobenzaprine 10 mg PO TID PRN 30 days dapagliflozin propanediol (Farxiga) 5 mg PO DAILY duloxetine 30 mg PO DAILY ezetimibe 10 mg PO DAILY ferrous fumarate 325 mg PO QWEEK insulin glargine (Lantus Solostar U-100 Insulin) 30 units (0.3 mL) subcut DAILY lancets (FreeStyle Lancets) As directed checks 4 X/day levothyroxine (Synthroid) 200 mcg PO DAILY lidocaine 5% 1 patch topical DAILY PRN 30 days lidocaine HCl 2% (Lidocaine Viscous) 5 mL mucous membrane BID PRN lisinopril 30 mg PO DAILY lorazepam 0.5 mg PO TID PRN 30 days metformin 1,000 mg PO BID miscellaneous medical supply 1 ea miscellaneous DAILY montelukast 10 mg PO QPM 90 days [NEBULIZER and all related accessories As directed] orphenadrine citrate ER 100 mg PO BID PRN 30 days [OVER TOILET COMMODE CHAIR As directed] risperidone 1 mg PO BEDTIME 30 days sumatriptan succinate mg PO Tirosint (levothyroxine) 200 mcg PO DAILY NS tirzepatide (Mounjaro) 10 mg (0.5 mL) subcut QWEEK tramadol 50 mg PO TID PRN Tobacco use date assessed: 04/22/25 Dental Screening Dental Screen Date: 11/26/24 HPI she has a red spot on her stomach and she is conse HPI Details The patient is a 59-year-old female presenting with concerns about abdominal discomfort and possible infection in the abdominal area. The patient reports experiencing abdominal discomfort for the past four days, which she describes as unusual and concerning. She mentions a sensation of something pushing out from the abdominal area, which has caused her distress. The patient has a history of diabetes mellitus, which complicates her current condition due to the risk of infection and impaired healing. She has undergone multiple abdominal surgeries in the past, resulting in significant scar tissue formation, which may contribute to her current symptoms. The patient reports that she has difficulty feeling pain in her abdomen due to all her scar tissues. Recently, she noticed redness and a bruise-like appearance on her abdomen, which has started to scab over. She has been cleaning the area with alcohol but is concerned about the potential for infection, especially given her diabetic status. [facility] Medical History Long-term insulin use HLD (hyperlipidemia) Chronic kidney disease, stage III (moderate) Recurrent ventral incisional hernia Bipolar depression Anxiety Depression Left hip pain B12 deficiency Abnormal thyroid biopsy Non-toxic multinodular goiter Hypothyroidism Other and unspecified hyperlipidemia Type 2 diabetes mellitus with unspecified complications Obesity (BMI 30-39.9) Lumbar degenerative disc disease Vitamin B12 deficiency Acquired hypothyroidism Nonintractable headache Pure hypercholesterolemia Benign essential hypertension Chronic kidney disease, stage 2 (mild) Type 2 diabetes mellitus with diabetic chronic kidney disease Knee pain, bilateral Anxiety IBS (irritable bowel syndrome) Visual loss Tendonitis Neck pain Hernia Chronic abdominal pain Lumbar disc disease Depression Asthma Hx of headache Type 2 diabetes mellitus with hyperglycemia Autoimmune thyroiditis Hyperlipidemia LDL goal <100 Essential hypertension Vitamin D deficiency Obesity due to excess calories Surgical History S/P laparoscopy (~11/20/10) History of hernia repair Hx of exploratory laparotomy Family History Father Medical history unknown Mother Medical history unknown Social History Household Members: Spouse Housing: Apartment Alcohol intake: never Patient Tobacco Use Status: Never used Tobacco e-Cigarette/Vaping Use: Never Used Second Hand Smoke Exposure: No service: No Current occupational status: disabled Cognitive needs: No Hearing needs: No Vision needs: Yes Questionnaire Thrive Questionnaire Date Thrive assessed: 11/26/24 I am a: Patient What is your living situation today?: I have a steady place to live Within the past 12 months, did the food you bought not last and you didn't have the money to get more?: I choose not to answer this question Within the past 12 months, did you worry whether your food would run out before you got money to buy more?: I choose not to answer this question Do you have trouble paying for medicines?: I choose not to answer this question Do you have trouble getting transportation to medical appointments?: No Do you have trouble paying your heating and electricity bill?: No Do you have trouble taking care of your child, family member or friend?: No Do you have trouble with day-to-day activities such as bathing, preparing meals, shopping, managing finances, etc.?: Yes Are you currently unemployed and looking for a job?: No Are you interested in more education?: No Please select the resources that you would like help with: None Currently or been in a relationship where the following occur: I choose not to answer THRIVE Score: 0 STALIN-7 AMB Questionnaire STALIN-7 Date STALIN - 7 assessed: 11/26/24 Source: Developed by Livia Gandhi Charanjit, Kristian Heredia and colleagues, with an educational jono from [employer]. Review of Systems Const Denies body aches, Denies chills, Denies fever(s), Denies headache(s) and Denies poor appetite Eyes Reports no additional complaints ENT Denies dysphagia, Denies dizziness, Denies headache(s) and Denies odynophagia Card Denies chest pain, Denies syncope, Denies edema, Denies irregular heart rhythm, Denies lightheadedness and Denies dyspnea Resp Denies cough and Denies dyspnea GI Denies abdominal pain, Reports constipation, Denies dysphagia, Denies diarrhea, Denies nausea, Denies odynophagia, Denies vomiting and Reports other (abdominal wound) Reports no additional complaints Musc Reports no additional complaints and Denies abnormal gait Skin/Breast Reports wounds (small abdominal wound) Neuro Denies abnormal gait, Denies dizziness, Denies syncope and Denies headache(s) Psych Reports no additional complaints Physical exam (Primary Care) Vital Signs: Last Vital Signs Temp 97.1 F 04/22/25 15:20 Pulse 83 04/22/25 15:20 BP 140/70 H 04/22/25 15:20 Pulse Ox 98 04/22/25 15:20 Oxygen Delivery Method Room Air 04/22/25 15:20 BMI result Body Mass Index 33.4 Tobacco/Smoking Status: Tobacco use Status Tobacco use date assessed 04/22/25 04/22/25 15:26 Patient Tobacco Use Status Never used Tobacco 04/22/25 15:26 e-Cigarette/Vaping Use Never Used 04/22/25 15:26 Thrive Assessment: Date of Thrive Assessment Date Thrive assessed 11/26/24 04/22/25 15:26 Currently or been in a relationship where the following occur: I choose not to answer Const General: cooperative, healthy appearing, comfortable and no acute distress Orientation/consciousness: patient oriented x3 HENMT Head: Yes normocephalic Ears: hearing grossly normal bilaterally General nose exam: Normal external nose present Eyes General: appearance normal, both eyes and all related structures Conjunctivae: conjunctivae normal Neck Neck: Yes full ROM and Yes no lymphadenopathy Resp Effort & Inspection: normal respiratory effort Auscultation: clear to auscultation bilaterally, no crackles, no rales, no rhonchi and no wheezes Cardio Rate: regular rate Rhythm: regular rhythm GI Abdomen image:  1. scab over wound with pinkish sp-wound, warm to touch Skin General skin exam: no rashes or lesions noted Neuro General: patient oriented x3 Gait exam (Neuro): Normal gait present Extrem General: Yes normal to inspection, Yes full ROM and No edema Psych Affect: normal affect Attitude: cooperative Insight: Good insight present (Psych) Judgement: Good judgement present (Psych) Coding Level of Care Code Est Pt Level 3 (21531) Diagnoses Open wound of anterior abdominal wall, initial encounter S31.109A Encounter type: initial encounter Time Spent (min) 31 Assessment & Plan Assessment & Plan (1) Wound, open, abdominal wall, anterior: Code(s): S31.109A - Unspecified open wound of abdominal wall, unspecified quadrant without penetration into peritoneal cavity, initial encounter Category: Medical Qualifiers: Encounter type: initial encounter Qualified Code(s): S31.109A - Unspecified open wound of abdominal wall, unspecified quadrant without penetration into peritoneal cavity, initial encounter Plan: The patient will be started on antibiotics to prevent infection, considering her diabetic status which increases the risk of complications. Topical antibiotics will also be applied to the affected area, and the patient will be re-evaluated in three weeks to assess healing progress. Medications: New mupirocin 2% 1 appl topical BID 15 grams 0RF doxycycline monohydrate 100 mg PO BID 20 caps 0RF 10 days
[2025-04-22 15:20] VITALS: BP 140/70; PULSE 83; TEMP 36.2; O2SAT 98; BMI 33.4
== END 2025-04-22 16:11 | disposition home or self-care (01) ==
LOC: HO.HMCH 15:02
PROVIDERS: PCP Internal Medicine
DX: S31.109A Unspecified open wound of abdominal wall, unspecified quadrant without penetration into peritoneal cavity, initial encounter (principal)

== ENCOUNTER → 2025-04-22 15:01 | Outpatient (BNVA) | payer OTHER, SELFPAY | PROVIDERS: PCP Internal Medicine | DX: E11.9 Type 2 diabetes mellitus without complications (principal); S31.109A Unspecified open wound of abdominal wall, unspecified quadrant without penetration into peritoneal cavity, initial encounter; X58.XXXA Exposure to other specified factors, initial encounter; Y93.9 Activity, unspecified; Y92.9 Unspecified place or not applicable; Y99.9 Unspecified external cause status | CPT/HCPCS: 99212 ==

== ENCOUNTER 2025-05-15 13:10 | Outpatient (AMB) | payer OTHER, SELFPAY ==
--- NOTE | 2025-05-15 13:15 | A.OFFPC_ITS ---
Vital Signs 3 05/15/25 13:16 Height 4 ft 11 in Weight 168 lb 8 oz BMI 34.0 BP 168/60 H Blood Pressure Location Lt brachial Position Sitting Respiration 18 Pulse 74 Pulse Source Pulse Oximeter Temp 97.3 F Temp Source Temporal Artery Scan Pulse Oximetry (%) 97 Oxygen Delivery Method Room Air Intake Visit Reasons: 3 week f/u Medical Anthropology Director Required: No Accompanied by: Self / Same As Patient Allergies aspirin (ASPIRIN) Allergy (Severe, Verified 05/15/25 13:40) RASH, itchiness Penicillins (PENICILLINS) Allergy (Mild, Verified 05/15/25 13:40) RASH Medication List - Last Reconciled 05/15/25 by EVAN Moya-C [ABDOMINAL BINDER (elastic) - LARGE As directed] albuterol sulfate 2.5 mg (3 mL) continuous nebulization Q6H PRN 30 days albuterol sulfate 90 mcg/actuation (Ventolin HFA) 2 puffs inhalation Q6H PRN 30 days atorvastatin 80 mg PO BEDTIME 90 days blood pressure monitor As directed blood sugar diagnostic (FreeStyle Lite Strips) As directed 3 times a day blood-glucose sensor (FreeStyle Galina 3 Sensor device) As directed blood-glucose sensor (FreeStyle Galina 3 Plus Sensor device) As directed every 15 days blood-glucose,hired hand,cont (FreeStyle Galina 3 [place]) As directed [id number] 50-325-40 mg 1 cap PO BID-TID PRN 30 days cholecalciferol (vitamin D3) 50 mcg PO DAILY 90 days clobetasol 0.05% 1 appl topical BID 4 weeks [Commode As directed] cyclobenzaprine 10 mg PO TID PRN 30 days dapagliflozin propanediol (Farxiga) 5 mg PO DAILY doxycycline monohydrate 100 mg PO BID 10 days duloxetine 30 mg PO DAILY ezetimibe 10 mg PO DAILY ferrous fumarate 325 mg PO QWEEK insulin glargine (Lantus Solostar U-100 Insulin) 30 units (0.3 mL) subcut DAILY lancets (FreeStyle Lancets) As directed checks 4 X/day levothyroxine (Synthroid) 200 mcg PO DAILY lidocaine 5% 1 patch topical DAILY PRN 30 days lidocaine HCl 2% (Lidocaine Viscous) 5 mL mucous membrane BID PRN lisinopril 30 mg PO DAILY lorazepam 0.5 mg PO TID PRN 30 days metformin 1,000 mg PO BID miscellaneous medical supply 1 ea miscellaneous DAILY montelukast 10 mg PO QPM 90 days mupirocin 2% 1 appl topical BID [NEBULIZER and all related accessories As directed] orphenadrine citrate ER 100 mg PO BID PRN 30 days [OVER TOILET COMMODE CHAIR As directed] risperidone 1 mg PO BEDTIME 30 days sumatriptan succinate mg PO Tirosint (levothyroxine) 200 mcg PO DAILY NS tirzepatide (Mounjaro) 10 mg (0.5 mL) subcut QWEEK tramadol 50 mg PO TID PRN Tobacco use date assessed: 05/15/25 Dental Screening Dental Screen Date: 05/15/25 Did you have a dental visit in the last 12 months?: Yes Did you have a dental problem in the last 6 months where you did not have access to dental care?: No Was dental information given to patient?: Patient has dentist HPI 3 week f/u 2 HPI0 Details The patient is a 59-year-old female presenting with concerns regarding abdominal wound. The wound has been persistent and she was seen in the office 3 weeks ago. At time, the area was a scabbed over area surrounded by redness and warmth. The patient was treated with Doxycycline 100mg bid x10 days, along with topical antibiotic ointment. Today the patient is presenting with slough in the wound bed. Redness around the wound has resolved. The patient has a history of diabetes mellitus, which complicates the healing process of the wound. She has been advised against self-removal of the tissue due to the risk of infection and complications associated with her diabetic status. [facility] Medical History Long-term insulin use HLD (hyperlipidemia) Chronic kidney disease, stage III (moderate) Recurrent ventral incisional hernia Bipolar depression Anxiety Depression Left hip pain B12 deficiency Abnormal thyroid biopsy Non-toxic multinodular goiter Hypothyroidism Other and unspecified hyperlipidemia Type 2 diabetes mellitus with unspecified complications Obesity (BMI 30-39.9) Lumbar degenerative disc disease Vitamin B12 deficiency Acquired hypothyroidism Nonintractable headache Pure hypercholesterolemia Benign essential hypertension Chronic kidney disease, stage 2 (mild) Type 2 diabetes mellitus with diabetic chronic kidney disease Knee pain, bilateral Anxiety IBS (irritable bowel syndrome) Visual loss Tendonitis Neck pain Hernia Chronic abdominal pain Lumbar disc disease Depression Asthma Hx of headache Type 2 diabetes mellitus with hyperglycemia Autoimmune thyroiditis Hyperlipidemia LDL goal <100 Essential hypertension Vitamin D deficiency Obesity due to excess calories Surgical History S/P laparoscopy (~11/20/10) History of hernia repair Hx of exploratory laparotomy Family History Father Medical history unknown Mother Medical history unknown Social History Household Members: Spouse Housing: Apartment Alcohol intake: never Patient Tobacco Use Status: Never used Tobacco e-Cigarette/Vaping Use: Never Used Second Hand Smoke Exposure: No service: No Current occupational status: disabled Cognitive needs: No Hearing needs: No Vision needs: Yes Questionnaire Thrive Questionnaire Date Thrive assessed: 11/26/24 I am a: Patient What is your living situation today?: I have a steady place to live Within the past 12 months, did the food you bought not last and you didn't have the money to get more?: I choose not to answer this question Within the past 12 months, did you worry whether your food would run out before you got money to buy more?: I choose not to answer this question Do you have trouble paying for medicines?: I choose not to answer this question Do you have trouble getting transportation to medical appointments?: No Do you have trouble paying your heating and electricity bill?: No Do you have trouble taking care of your child, family member or friend?: No Do you have trouble with day-to-day activities such as bathing, preparing meals, shopping, managing finances, etc.?: Yes Are you currently unemployed and looking for a job?: No Are you interested in more education?: No Please select the resources that you would like help with: None Currently or been in a relationship where the following occur: I choose not to answer THRIVE Score: 0 STALIN-7 AMB Questionnaire STALIN-7 Date STALIN - 7 assessed: 11/26/24 Source: Developed by Drs. Ryland Guzman, Livia BKristian Barnes and colleagues, with an educational jono from [employer]. Review of Systems Const Denies body aches, Denies chills, Denies fever(s), Denies headache(s) and Denies poor appetite Eyes Reports no additional complaints ENT Denies dysphagia, Denies dizziness, Denies headache(s) and Denies odynophagia Card Denies chest pain, Denies syncope, Denies edema, Denies irregular heart rhythm, Denies lightheadedness and Denies dyspnea Resp Denies cough and Denies dyspnea GI Denies abdominal pain, Denies constipation, Denies dysphagia, Denies diarrhea, Denies nausea, Denies odynophagia, Denies vomiting and Reports other (abdominal wound) Reports no additional complaints Musc Reports no additional complaints and Denies abnormal gait Skin/Breast Reports system reviewed and no additional complaints, except as documented Neuro Denies abnormal gait, Denies dizziness, Denies syncope and Denies headache(s) Psych Reports no additional complaints Physical exam (Primary Care) Vital Signs: Last Vital Signs Temp 97.3 F 05/15/25 13:16 Pulse 74 05/15/25 13:16 Resp 18 05/15/25 13:16 BP 168/60 H 05/15/25 13:16 Pulse Ox 97 05/15/25 13:16 Oxygen Delivery Method Room Air 05/15/25 13:16 BMI result Body Mass Index 34.0 Tobacco/Smoking Status: Tobacco use Status Tobacco use date assessed 05/15/25 05/15/25 13:25 Patient Tobacco Use Status Never used Tobacco 05/15/25 13:25 e-Cigarette/Vaping Use Never Used 05/15/25 13:25 Thrive Assessment: Date of Thrive Assessment Date Thrive assessed 11/26/24 05/15/25 13:25 Currently or been in a relationship where the following occur: I choose not to answer Const General: cooperative, healthy appearing, comfortable and no acute distress Orientation/consciousness: patient oriented x3 HENMT Head: Yes normocephalic Ears: hearing grossly normal bilaterally General nose exam: Normal external nose present Eyes General: appearance normal, both eyes and all related structures Conjunctivae: conjunctivae normal Neck Neck: Yes full ROM and Yes no lymphadenopathy Resp Effort & Inspection: normal respiratory effort Auscultation: clear to auscultation bilaterally, no crackles, no rales, no rhonchi and no wheezes Cardio Rate: regular rate Rhythm: regular rhythm GI Inspection: Yes distended, Yes incision (mid abdomen) and Yes obesity Palpation (GI): Soft to palpation and nontender Auscultation: normal bowel sounds Abdomen image: 2 1. left lower abdomen wound with slough in the wound bed. Skin Wounds: wounds noted (left low quadrant wound with slough in the wound bed) Neuro General: patient oriented x3 Gait exam (Neuro): Normal gait present Extrem General: Yes normal to inspection, Yes full ROM and No edema Psych Affect: normal affect Attitude: cooperative Insight: Good insight present (Psych) Judgement: Good judgement present (Psych) Coding Level of Care Code Est Pt Level 3 (58241) Diagnoses Open wound of anterior abdominal wall, initial encounter S31.109A Encounter type: initial encounter Time Spent (min) 31 Assessment & Plan Assessment & Plan (1) Wound, open, abdominal wall, anterior: Code(s): S31.109A - Unspecified open wound of abdominal wall, unspecified quadrant without penetration into peritoneal cavity, initial encounter Category: Medical Qualifiers: Encounter type: initial encounter Qualified Code(s): S31.109A - Unspecified open wound of abdominal wall, unspecified quadrant without penetration into peritoneal cavity, initial encounter Plan: The patient will be referred to a general surgeon for debridement of the yellow slough to promote healing of the wound. The patient is advised against self- removal of the tissue to prevent infection, especially given her diabetic status. The patient has a significant past medical history of multiple abdomen surgeries. The patient to return in 4 week re-evaluate the area, concerns for re-infection. Orders: Referrals 2 General Surgery Referral S31.109A - Unspecified open wound of abdominal wall, unspecified quadrant without penetration into peritoneal cavity, initial encounter
[2025-05-15 13:16] VITALS: BP 168/60; PULSE 74; RESP 18; TEMP 36.3; O2SAT 97; BMI 34.0
== END 2025-05-15 13:57 | disposition home or self-care (01) ==
LOC: HO.HMCH 13:11
PROVIDERS: PCP Internal Medicine
DX: S31.109A Unspecified open wound of abdominal wall, unspecified quadrant without penetration into peritoneal cavity, initial encounter (principal)

== ENCOUNTER → 2025-05-15 13:10 | Outpatient (BNVA) | payer OTHER, SELFPAY | PROVIDERS: PCP Internal Medicine | DX: E11.69 Type 2 diabetes mellitus with other specified complication (principal); S31.109A Unspecified open wound of abdominal wall, unspecified quadrant without penetration into peritoneal cavity, initial encounter; X58.XXXA Exposure to other specified factors, initial encounter; Y93.9 Activity, unspecified; Y92.9 Unspecified place or not applicable; Y99.9 Unspecified external cause status | CPT/HCPCS: 99212 ==

== ENCOUNTER 2025-05-30 12:29 | Outpatient (AMB) | payer OTHER, SELFPAY ==
--- NOTE | 2025-05-30 12:33 | A.OFFVIS_ITS ---
Vital Signs 05/30/25 12:36 Height 4 ft 11 in Weight 163 lb 2.273 oz BMI 32.9 BP 162/79 H Blood Pressure Location Lt brachial Position Sitting Pulse 83 Intake Visit Reasons: Colonoscopy screening Intake Note: Michelle presents in the office as a colonoscopy screening. CC: She states he is not sure if she has ever had a colonoscopy. She states that she has had lots of surgeries in the stomach - states she cannot feel her stomach. She is not sure if there is an infection and was given antibiotics. Lifter Driver Required: No Allergies aspirin (ASPIRIN) Allergy (Severe, Verified 05/30/25 12:36) RASH, itchiness Penicillins (PENICILLINS) Allergy (Mild, Verified 05/30/25 12:36) RASH Medication List - Last Reconciled 05/30/25 by Ariela Boyd CNP [ABDOMINAL BINDER (elastic) - LARGE As directed] albuterol sulfate 2.5 mg (3 mL) continuous nebulization Q6H PRN 30 days albuterol sulfate 90 mcg/actuation (Ventolin HFA) 2 puffs inhalation Q6H PRN 30 days ascorbic acid (vitamin C) (Alive Vitamin C) mg PO atorvastatin 80 mg PO BEDTIME 90 days blood pressure monitor As directed blood sugar diagnostic (FreeStyle Lite Strips) As directed 3 times a day blood-glucose sensor (FreeStyle [place] 3 Sensor device) As directed blood-glucose sensor (FreeStyle [place] 3 Plus Sensor device) As directed every 15 days blood-glucose,plant engineering manager,cont (FreeStyle [place] 3 [place]) As directed ondcfdrmnc-pgrizmazmuyiu-cyli 50-325-40 mg 1 cap PO BID-TID PRN 30 days clobetasol 0.05% 1 appl topical BID 4 weeks [Commode As directed] cyclobenzaprine 10 mg PO TID PRN 30 days dapagliflozin propanediol (Farxiga) 5 mg PO DAILY duloxetine 30 mg PO DAILY ezetimibe 10 mg PO DAILY ferrous fumarate 325 mg PO QWEEK insulin glargine (Lantus Solostar U-100 Insulin) 30 units (0.3 mL) subcut DAILY lancets (FreeStyle Lancets) As directed checks 4 X/day levothyroxine (Synthroid) 200 mcg PO DAILY lidocaine 5% 1 patch topical DAILY PRN 30 days lidocaine HCl 2% (Lidocaine Viscous) 5 mL mucous membrane BID PRN lisinopril 30 mg PO DAILY lorazepam 0.5 mg PO TID PRN 30 days metformin 1,000 mg PO BID miscellaneous medical supply 1 ea miscellaneous DAILY montelukast 10 mg PO QPM 90 days mupirocin 2% 1 appl topical BID [NEBULIZER and all related accessories As directed] orphenadrine citrate ER 100 mg PO BID PRN 30 days [OVER TOILET COMMODE CHAIR As directed] risperidone 1 mg PO BEDTIME 30 days sumatriptan succinate mg PO Tirosint (levothyroxine) 200 mcg PO DAILY NS tirzepatide (Mounjaro) 10 mg (0.5 mL) subcut QWEEK tramadol 50 mg PO TID PRN walker (Ultra-Light Rollator misc) As directed HPI HPI Colonoscopy screening: Details: Patient is a 59-year-old female with PMH of obesity, depression, anxiety, hypertension, hyperlipidemia, diabetes, acquired hypothyroidism, asthma. Referred by PCP for pre colonoscopy screening This will be clearance 1st colonoscopy, without any air stool base CRC screening. She reports altered bowel habits since multiple abdominal surgeries, including chronic daily bowel movements with increased frequency (three to five times per day), occasionally at night. Stools are described as consistently soft but not watery, without overt diarrhea or blood. She denies abdominal pain, nausea, vomiting, heartburn, or swallowing difficulties. Appetite is reportedly good. She notes gradual, unintentional weight loss from 172 lbs in October to the mid- 160s over recent months, without dietary restriction or intent to lose weight. Notably, she has a history of diabetes and thyroid dysfunction, both of which are currently under medical management but not well controlled, with recent laboratory evidence of elevated thyroid levels. She recalls extensive surgical history for hernia repairs (22 prior operations), as well as past lipoma excision. No current abdominal pain, fever, or systemic symptoms are reported. No personal or family history of cancer reported. Review of prior labs (Mar) shows normal kidney, liver function, and no anemia. Social hx: -denies ETOH use -denies recreational drug use -non-smoker - family hx as below -denies personal hx of CA -denies significant cardiopulmonary history -tolerated anesthesia in the past without difficulty. [facility] Medical History (Updated 05/30/25 @ 13:16 by Ariela Boyd CNP) Altered bowel habits Weight loss Colon cancer screening Long-term insulin use HLD (hyperlipidemia) Chronic kidney disease, stage III (moderate) Recurrent ventral incisional hernia Bipolar depression Anxiety Depression Left hip pain B12 deficiency Abnormal thyroid biopsy Non-toxic multinodular goiter Hypothyroidism Other and unspecified hyperlipidemia Type 2 diabetes mellitus with unspecified complications Obesity (BMI 30-39.9) Lumbar degenerative disc disease Vitamin B12 deficiency Acquired hypothyroidism Nonintractable headache Pure hypercholesterolemia Benign essential hypertension Chronic kidney disease, stage 2 (mild) Type 2 diabetes mellitus with diabetic chronic kidney disease Knee pain, bilateral Anxiety IBS (irritable bowel syndrome) Visual loss Tendonitis Neck pain Hernia Chronic abdominal pain Lumbar disc disease Depression Asthma Hx of headache Type 2 diabetes mellitus with hyperglycemia Autoimmune thyroiditis Hyperlipidemia LDL goal <100 Essential hypertension Vitamin D deficiency Obesity due to excess calories Surgical History S/P laparoscopy (~11/20/10) History of hernia repair Hx of exploratory laparotomy Family History Father Medical history unknown Mother Medical history unknown Social History Household Members: Spouse Housing: Apartment Alcohol intake: never Patient Tobacco Use Status: Never used Tobacco e-Cigarette/Vaping Use: Never Used Second Hand Smoke Exposure: No service: No Current occupational status: disabled Cognitive needs: No Hearing needs: No Vision needs: Yes Review of Systems Const Reports as per HPI ENT Reports as per HPI Card Reports as per HPI Resp Reports as per HPI GI Reports as per HPI Reports as per HPI Physical Exam Vital Signs: Last Vital Signs Pulse 83 05/30/25 12:36 BP 162/79 H 05/30/25 12:36 BMI result Body Mass Index 32.9 Const General: healthy appearing, no acute distress and well developed Nutritional Appearance: average body habitus Orientation/consciousness: patient oriented x3 HEENT Head: Yes normal to inspection, Yes normocephalic and Yes atraumatic Face and sinus: Yes normal facial exam Eyes General: appearance normal, both eyes and all related structures Neck Neck: Yes normal visual inspection Resp Effort & Inspection: normal respiratory effort, able to speak in complete sentences, no tracheal deviation and symmetric chest movement Cardio Jugular venous distension: no JVD GI Inspection: Yes obesity and Yes scar (midline ) Neuro General: patient oriented x3 Gait exam (Neuro): Normal gait present Psych Appearance: grossly normal Mental Status: mental status grossly normal Speech and movement: Normal speech and movement present Affect: normal affect Attitude: cooperative Thought process: Normal thought process present Thought content: Normal thought content present Insight: Good insight present (Psych) Judgement: Good judgement present (Psych) Assessment & Plan Assessment & Plan (1) Colon cancer screening: Code(s): Z12.11 - Encounter for screening for malignant neoplasm of colon Category: Medical Plan: No prior colonoscopy on record; age and risk factors (chronic altered bowel habits, history of multiple abdominal surgeries, unintentional weight loss) warrant screening. Additional Testing:Colonoscopy scheduled with Miralax split prep. Alternative stool-based testing discussed but patient elects for colonoscopy. Medication Management:Hold/adjust diabetes and thyroid meds per procedural prot ocol; nurse to provide detailed instructions. Lifestyle Recommendations:Strict adherence to clear liquid diet and bowel prep instructions; ensure adequate hydration. Follow-Up:Post-procedure follow-up to review findings and pathology if biopsies taken. (2) Altered bowel habits: Code(s): R19.4 - Change in bowel habit Category: Medical Plan: Chronic change in bowel frequency and consistency after multiple abdominal and hernia surgeries, coinciding with history of partial intestinal resection. Additional Testing:Colonoscopy as above; recent labs reviewed (no anemia, normal renal/liver fx). Miralax split bowel prep ordered. Medication Management:Diabetes and thyroid meds to be held or adjusted sp- colonoscopy; instructions to be confirmed by procedural nursing team. Lifestyle Recommendations:Increase dietary fiber via whole foods where able; hydrate adequately; avoid red/blue/purple liquids during prep. Monitor for changes in stool pattern. Follow-Up:Post-colonoscopy GI follow-up; earlier if symptoms worsen. (3) Weight loss: Code(s): R63.4 - Abnormal weight loss Category: Medical Plan: Ongoing weight loss without intent over several months; possible GI, endocrine, or medication etiology. - Additional Testing: chest X-ray, hepatitis and HIV screen ordered. - Medication Management: Continue current regimen; pending further endocrine management per labs. - Lifestyle Recommendations: Maintain adequate caloric and protein intake until cause is clear. Report any further weight loss, GI bleeding, or new symptoms. - Follow-Up: Review of labs and imaging at next GI/post-procedure visit. (4) Type 2 diabetes mellitus with unspecified complications: Code(s): E11.8 - Type 2 diabetes mellitus with unspecified complications Category: Medical Plan: On multiple antihyperglycemic agents, blood sugar reportedly variable. Additional Testing:None beyond routine panel. Medication Management:Schedule adjustment of meds sp-procedure by procedural nursing; continue usual management otherwise. Lifestyle Recommendations:Maintain current diabetic dietary guidelines. Follow-Up:Next GI and endocrinology appointments. (5) Acquired hypothyroidism: Code(s): E03.9 - Hypothyroidism, unspecified Category: Medical Plan: Recent labs show elevation; under endocrinology care, dose adjustment recently made. Additional Testing:Repeat thyroid per PCP/Endo Medication Management:Continue current thyroid regimen per endocrinology; monitor for side effects impacting GI function or weight. Lifestyle Recommendations:As per endocrinology advisement. Follow-Up:Ongoing endocrinology/PCP follow-up; GI to monitor for bowel-related effects. Plan Follow-up after colonoscopy or sooner as needed Time: I spent a total of 30 minutes on the date of encounter which includes: Preparing to see the patient (reviewed previous documentation, test results and medical history) Performing a medically appropriate exam and/or evaluation Ordering medications, tests, and procedures Documenting clinical information in the health record Orders: Orders Hepatitis A,B,C Profile Today R63.4 - Abnormal weight loss HIV Ab/Ag Today R63.4 - Abnormal weight loss XR chest 2V Today R63.4 - Abnormal weight loss Referrals GI Procedure Notification Z12.11 - Encounter for screening for malignant neoplasm of colon Medications: New polyethylene glycol 3350 (Miralax) per colonoscopy prep instructions 238 grams PO ONCE 238 grams 0RF bisacodyl Take per colonoscopy instructions 20 mg (4 x 5 mg) PO ONCE 4 tabs 0RF Coding Level of Care Code New Pt New Pt Level 3 (33667) Patient Type New Diagnoses Colon cancer screening Z12.11 Altered bowel habits R19.4 Weight loss R63.4 Type 2 diabetes mellitus with unspecified complications E11.8 Acquired hypothyroidism E03.9
[2025-05-30 12:36] VITALS: BP 162/79; PULSE 83; BMI 32.9
== END 2025-05-30 13:10 | disposition home or self-care (01) ==
LOC: HO.HGI 12:30
PROVIDERS: PCP Internal Medicine; Visit Provider Nurse Practitioner Family
DX: Z01.818 Encounter for other preprocedural examination (principal); Z12.11 Encounter for screening for malignant neoplasm of colon; R19.4 Change in bowel habit; R63.4 Abnormal weight loss; E11.8 Type 2 diabetes mellitus with unspecified complications; E03.9 Hypothyroidism, unspecified
CPT/HCPCS: 99203

== ENCOUNTER → 2025-05-30 12:29 | Outpatient (BNVA) | payer OTHER, SELFPAY | PROVIDERS: PCP Internal Medicine; Visit Provider Nurse Practitioner Family | DX: Z12.11 Encounter for screening for malignant neoplasm of colon (principal); R19.4 Change in bowel habit; R63.4 Abnormal weight loss; E11.8 Type 2 diabetes mellitus with unspecified complications; E03.9 Hypothyroidism, unspecified | CPT/HCPCS: 99202 ==

== ENCOUNTER 2025-06-17 13:35 | Outpatient (AMB) | payer OTHER, SELFPAY ==
--- NOTE | 2025-06-17 13:44 | A.OFFPC_ITS ---
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 Required: No Accompanied by: Self / Same As Patient Allergies aspirin (ASPIRIN) Allergy (Severe, Verified 06/17/25 14:04) RASH, itchiness Penicillins (PENICILLINS) Allergy (Mild, Verified 06/17/25 14:04) RASH Medication List - Last Reconciled 06/17/25 by Lennox Ann SECURITY COORDINATOR-C [ABDOMINAL BINDER (elastic) - LARGE As directed] albuterol sulfate 2.5 mg (3 mL) continuous nebulization Q6H PRN 30 days albuterol sulfate 90 mcg/actuation (Ventolin HFA) 2 puffs inhalation Q6H PRN 30 days ascorbic acid (vitamin C) (Alive Vitamin C) mg PO atorvastatin 80 mg PO BEDTIME 90 days bisacodyl 20 mg (4 x 5 mg) PO ONCE blood pressure monitor As directed blood sugar diagnostic (FreeStyle Lite Strips) As directed 3 times a day blood-glucose sensor (FreeStyle Galina 3 Sensor device) As directed blood-glucose sensor (FreeStyle Galina 3 Plus Sensor device) As directed every 15 days blood-glucose,plant protection supervisor,cont (FreeStyle Galina 3 [place]) As directed [id number] 50-325-40 mg 1 cap PO BID-TID PRN 30 days clobetasol 0.05% 1 appl topical BID 4 weeks [Commode As directed] cyclobenzaprine 10 mg PO TID PRN 30 days dapagliflozin propanediol (Farxiga) 5 mg PO DAILY duloxetine 30 mg PO DAILY ezetimibe 10 mg PO DAILY ferrous fumarate 325 mg PO QWEEK insulin glargine (Lantus Solostar U-100 Insulin) 30 units (0.3 mL) subcut DAILY lancets (FreeStyle Lancets) As directed checks 4 X/day levothyroxine (Synthroid) 200 mcg PO DAILY lidocaine 5% 1 patch topical DAILY PRN 30 days lidocaine HCl 2% (Lidocaine Viscous) 5 mL mucous membrane BID PRN lisinopril 30 mg PO DAILY lorazepam 0.5 mg PO TID PRN 30 days metformin 1,000 mg PO BID miscellaneous medical supply 1 ea miscellaneous DAILY montelukast 10 mg PO QPM 90 days mupirocin 2% 1 appl topical BID [NEBULIZER and all related accessories As directed] orphenadrine citrate ER 100 mg PO BID PRN 30 days [OVER TOILET COMMODE CHAIR As directed] polyethylene glycol 3350 (Miralax) 238 grams PO ONCE risperidone 1 mg PO BEDTIME 30 days sumatriptan succinate mg PO Tirosint (levothyroxine) 200 mcg PO DAILY NS tirzepatide (Mounjaro) 10 mg (0.5 mL) subcut QWEEK tramadol 50 mg PO TID PRN walker (Ultra-Light Rollator misc) As directed Tobacco use date assessed: 06/17/25 Dental Screening Dental Screen Date: 06/17/25 Did you have a dental visit in the last 12 months?: No Did you have a dental problem in the last 6 months where you did not have access to dental care?: No Was dental information given to patient?: Patient has dentist HPI 1 month f/u HPI Details The patient is a 59-year-old female presenting for abdominal wound follow up Ongoing left lower abdomen wound that was treated with doxycycline 100 mg b.i.d. times 10 days The patient was also given topical antibiotic ointment. At that appointment the patient had slough covering the wound bed and redness around the wound Today the patient is presenting with granulated tissue in the wound bed, no signs of infection The patient has an upcoming appointment with her surgeon regarding her abdomen on the 26 of this month The patient has a history of diabetes mellitus, which complicates the healing process of the wound. She has been advised against self-removal of the tissue due to the risk of infection and complications associated with her diabetic status A1c 9.4% today in office, reports that every time she gets mad at her kids her blood sugar goes up. The patient reports not taking metformin consistently due to vomiting each time she takes the medication States that she was tolerating the medication but has been having issues with it lately Her next appointment with endocrine is in August [facility] Medical History Altered bowel habits Weight loss Colon cancer screening Long-term insulin use HLD (hyperlipidemia) Chronic kidney disease, stage III (moderate) Recurrent ventral incisional hernia Bipolar depression Anxiety Depression Left hip pain B12 deficiency Abnormal thyroid biopsy Non-toxic multinodular goiter Hypothyroidism Other and unspecified hyperlipidemia Type 2 diabetes mellitus with unspecified complications Obesity (BMI 30-39.9) Lumbar degenerative disc disease Vitamin B12 deficiency Acquired hypothyroidism Nonintractable headache Pure hypercholesterolemia Benign essential hypertension Chronic kidney disease, stage 2 (mild) Type 2 diabetes mellitus with diabetic chronic kidney disease Knee pain, bilateral Anxiety IBS (irritable bowel syndrome) Visual loss Tendonitis Neck pain Hernia Chronic abdominal pain Lumbar disc disease Depression Asthma Hx of headache Type 2 diabetes mellitus with hyperglycemia Autoimmune thyroiditis Hyperlipidemia LDL goal <100 Essential hypertension Vitamin D deficiency Obesity due to excess calories Surgical History S/P laparoscopy (~11/20/10) History of hernia repair Hx of exploratory laparotomy Family History Father Medical history unknown Mother Medical history unknown Social History Household Members: Spouse Housing: Apartment Alcohol intake: never Patient Tobacco Use Status: Never used Tobacco e-Cigarette/Vaping Use: Never Used Second Hand Smoke Exposure: No service: No Current occupational status: disabled Cognitive needs: No Hearing needs: No Vision needs: Yes Questionnaire Thrive Questionnaire Date Thrive assessed: 11/26/24 I am a: Patient What is your living situation today?: I have a steady place to live Within the past 12 months, did the food you bought not last and you didn't have the money to get more?: I choose not to answer this question Within the past 12 months, did you worry whether your food would run out before you got money to buy more?: I choose not to answer this question Do you have trouble paying for medicines?: I choose not to answer this question Do you have trouble getting transportation to medical appointments?: No Do you have trouble paying your heating and electricity bill?: No Do you have trouble taking care of your child, family member or friend?: No Do you have trouble with day-to-day activities such as bathing, preparing meals, shopping, managing finances, etc.?: Yes Are you currently unemployed and looking for a job?: No Are you interested in more education?: No Please select the resources that you would like help with: None Currently or been in a relationship where the following occur: I choose not to answer THRIVE Score: 0 AUDIT C Alcohol Use Questionnaire (AUDIT-C) 1. How often do you have a drink containing alcohol?: Never 3. How often do you have six or more drinks on one occasion?: Never Total Score: 0 Score Reviewed/Action Taken: Yes STALIN-7 AMB Questionnaire STALIN-7 Date STALIN - 7 assessed: 11/26/24 Feeling nervous, anxious, or on edge: 0 = Not at all Not being able to stop or control worryin = Not at all Worrying too much about different things: 0 = Not at all Trouble relaxin = Not at all Being so restless that it is hard to sit still: 0 = Not at all Becoming easily annoyed or irritable: 0 = Not at all Feeling afraid as if something awful might happen: 0 = Not at all Total STALIN-7 score (0-4 normal; 5-9 mild; 10-14 moderate; 15-21 severe): 0 Source: Developed by Drs. Ryland Guzman, Livia Donohue, Kristian Heredia and colleagues, with an educational jono from [employer]. Review of Systems Const Denies body aches, Denies chills, Denies fever(s), Denies headache(s) and Denies poor appetite Eyes Reports no additional complaints ENT Denies dysphagia, Denies dizziness, Denies headache(s) and Denies odynophagia Card Denies chest pain, Denies syncope, Denies edema, Denies irregular heart rhythm, Denies lightheadedness and Denies dyspnea Resp Denies cough and Denies dyspnea GI Denies abdominal pain, Denies constipation, Denies dysphagia, Denies diarrhea, Denies nausea, Denies odynophagia, Denies vomiting and Reports other (abdominal wound) Reports no additional complaints Musc Reports no additional complaints and Denies abnormal gait Skin/Breast Reports system reviewed and no additional complaints, except as documented Neuro Denies abnormal gait, Denies dizziness, Denies syncope and Denies headache(s) Psych Reports no additional complaints Physical exam (Primary Care) Vital Signs: Last Vital Signs Pulse 75 06/17/25 13:53 Resp 18 06/17/25 13:53 BP 142/52 H 06/17/25 13:53 Pulse Ox 98 06/17/25 13:53 Oxygen Delivery Method Room Air 06/17/25 13:53 BMI result Body Mass Index 34.0 Tobacco/Smoking Status: Tobacco use Status Tobacco use date assessed 06/17/25 06/17/25 14:02 Patient Tobacco Use Status Never used Tobacco 06/17/25 13:45 e-Cigarette/Vaping Use Never Used 06/17/25 13:45 Thrive Assessment: Date of Thrive Assessment Date Thrive assessed 11/26/24 06/17/25 13:45 Currently or been in a relationship where the following occur: I choose not to answer Const General: cooperative, healthy appearing, comfortable and no acute distress Orientation/consciousness: patient oriented x3 HENMT Head: Yes normocephalic Ears: hearing grossly normal bilaterally General nose exam: Normal external nose present Eyes General: appearance normal, both eyes and all related structures Conjunctivae: conjunctivae normal Neck Neck: Yes full ROM and Yes no lymphadenopathy Resp Effort & Inspection: normal respiratory effort Auscultation: clear to auscultation bilaterally, no crackles, no rales, no rhonchi and no wheezes Cardio Rate: regular rate Rhythm: regular rhythm GI Inspection: Yes distended, Yes incision (mid abdomen) and Yes obesity Palpation (GI): Soft to palpation and nontender Auscultation: normal bowel sounds Skin Wounds: wounds noted (left low quadrant wound granulation tissue in wound bed) Neuro General: patient oriented x3 Gait exam (Neuro): Normal gait present Extrem General: Yes normal to inspection, Yes full ROM and No edema Psych Affect: normal affect Attitude: cooperative Insight: Good insight present (Psych) Judgement: Good judgement present (Psych) Results AMB Hemoglobin A1c AMB Hemoglobin A1c 9.4 % Last Edit by Leila Cooley MA on 06/17/25 14:08 Results Reviewed Results Reviewed: Laboratory Last Values Hgb A1c (Clinic) 9.4 % (4.0-6.0) H 06/17/25 13:47 Coding Level of Care Code Est Pt Level 3 (84042) Diagnoses Type 2 diabetes mellitus with unspecified complications E11.8 Open wound of anterior abdominal wall, initial encounter S31.109A Encounter type: initial encounter Time Spent (min) 36 Assessment & Plan Assessment & Plan (1) Type 2 diabetes mellitus with unspecified complications: Code(s): E11.8 - Type 2 diabetes mellitus with unspecified complications Category: Medical Plan: Reports stomach disturbance on metformin 1000mg bid. Reports that she used to take this without any issues before. The patient A1c increased from 7.6% to 9.4%. We will decrease the patient metformin to 500 mg b.i.d. and increase Farxiga to 10 mg daily. Continue Lantus 30 units subQ, Mounjaro 10 mg Q weekly. Reinforced low sugar/carbohydrate diet. Follow up with Endocrine as scheduled (2) Wound, open, abdominal wall, anterior: Code(s): S31.109A - Unspecified open wound of abdominal wall, unspecified quadrant without penetration into peritoneal cavity, initial encounter Category: Medical Qualifiers: Encounter type: initial encounter Qualified Code(s): S31.109A - Unspecified open wound of abdominal wall, unspecified quadrant without penetration into peritoneal cavity, initial encounter Plan: Left lower abdomen wound. Patient has a history of multiple surgeries on her abdomen. Recurrent wound, compounded by diabetes and poor wound healing. On previous visit the patient was treated for infection of the wound with the doxycycline. Returning today with healthy appearing granulated tissue in wound bed. Xeroform dressing ordered for the patient to apply daily. A wound cleanser and gauze was also ordered to aid with wound management/dressing change. Plan Patient has follow up appointment with Dr. Obregon for chronic conditions. Encouraged the patient to follow up sooner for any concerns with the wound. She will be seeing her surgeon on the of this month. Orders: Orders AMB Hemoglobin A1c Today E11.22 - Type 2 diabetes mellitus with diabetic chronic kidney disease, N18.2 - Chronic kidney disease, stage 2 (mild), Z79.4 - [facility] (current) use of insulin Medications: New metformin 500 mg PO BID 180 tabs 0RF 90 days [wound cleanser] As directed cleanse wound area daily 1 ea 0RF S31.109A - Unspecified open wound of abdominal wall, unspecified quadrant without penetration into peritoneal cavity, initial encounter [xeroform dsg] As directed apply small piece daily and cover with adhesive dressing 1 ea 3RF S31.109A - Unspecified open wound of abdominal wall, unspecified quadrant without penetration into peritoneal cavity, initial encounter [gauze dressing] As directed dry wound area with gauze daily 1 ea 0RF S31.109A - Unspecified open wound of abdominal wall, unspecified quadrant without penetration into peritoneal cavity, initial encounter [adhesive dressing] As directed 30 ea 0RF S31.109A - Unspecified open wound of abdominal wall, unspecified quadrant without penetration into peritoneal cavity, initial encounter Changed From dapagliflozin propanediol (Farxiga) 5 mg PO DAILY 90 tabs 4RF To dapagliflozin propanediol (Farxiga) 10 mg (2 x 5 mg) PO DAILY 180 tabs 4RF 90 days
[2025-06-17 13:53] VITALS: BP 142/52; PULSE 75; RESP 18; O2SAT 98; BMI 34.0
== END 2025-06-17 14:54 | disposition home or self-care (01) ==
LOC: HO.HMCH 13:36
PROVIDERS: PCP Internal Medicine
DX: E11.22 Type 2 diabetes mellitus with diabetic chronic kidney disease (principal); N18.2 Chronic kidney disease, stage 2 (mild); Z79.4 Long term (current) use of insulin; E11.8 Type 2 diabetes mellitus with unspecified complications; S31.109A Unspecified open wound of abdominal wall, unspecified quadrant without penetration into peritoneal cavity, initial encounter

== ENCOUNTER → 2025-06-17 13:35 | Outpatient (BNVA) | payer OTHER, SELFPAY | PROVIDERS: PCP Internal Medicine | DX: E11.9 Type 2 diabetes mellitus without complications (principal); S31.104A Unspecified open wound of abdominal wall, left lower quadrant without penetration into peritoneal cavity, initial encounter; X58.XXXA Exposure to other specified factors, initial encounter; Y93.9 Activity, unspecified; Y92.9 Unspecified place or not applicable; Y99.9 Unspecified external cause status | CPT/HCPCS: 83036; 99212 ==

== ENCOUNTER 2025-06-26 11:48 | Outpatient (AMB) | payer OTHER, SELFPAY ==
--- NOTE | 2025-06-26 11:48 | A.OFFVIS_ITS ---
Intake Visit Reasons: open wound of abdominal wall Allergies aspirin (ASPIRIN) Allergy (Severe, Verified 06/17/25 14:04) RASH, itchiness Penicillins (PENICILLINS) Allergy (Mild, Verified 06/17/25 14:04) RASH Medication List - Last Reconciled 06/26/25 by Reynaldo Justin MD [ABDOMINAL BINDER (elastic) - LARGE As directed] [adhesive dressing As directed] albuterol sulfate 2.5 mg (3 mL) continuous nebulization Q6H PRN 30 days albuterol sulfate 90 mcg/actuation (Ventolin HFA) 2 puffs inhalation Q6H PRN 30 days ascorbic acid (vitamin C) (Alive Vitamin C) mg PO atorvastatin 80 mg PO BEDTIME 90 days bisacodyl 20 mg (4 x 5 mg) PO ONCE blood pressure monitor As directed blood sugar diagnostic (FreeStyle Lite Strips) As directed 3 times a day blood-glucose sensor (FreeStyle Galina 3 Sensor device) As directed blood-glucose sensor (FreeStyle Galina 3 Plus Sensor device) As directed every 15 days blood-glucose,air traffic control specialist center,cont (FreeStyle Galina 3 [place]) As directed [id number] 50-325-40 mg 1 cap PO BID-TID PRN 30 days clobetasol 0.05% 1 appl topical BID 4 weeks [Commode As directed] cyclobenzaprine 10 mg PO TID PRN 30 days dapagliflozin propanediol (Farxiga) 10 mg (2 x 5 mg) PO DAILY 90 days duloxetine 30 mg PO DAILY ezetimibe 10 mg PO DAILY ferrous fumarate 325 mg PO QWEEK [gauze dressing As directed dry wound area with gauze daily] insulin glargine (Lantus Solostar U-100 Insulin) 30 units (0.3 mL) subcut DAILY lancets (FreeStyle Lancets) As directed checks 4 X/day levothyroxine (Synthroid) 200 mcg PO DAILY lidocaine 5% 1 patch topical DAILY PRN 30 days lidocaine HCl 2% (Lidocaine Viscous) 5 mL mucous membrane BID PRN lisinopril 30 mg PO DAILY lorazepam 0.5 mg PO TID PRN 30 days metformin 1,000 mg PO BID metformin 500 mg PO BID 90 days miscellaneous medical supply 1 ea miscellaneous DAILY montelukast 10 mg PO QPM 90 days mupirocin 2% 1 appl topical BID [NEBULIZER and all related accessories As directed] orphenadrine citrate ER 100 mg PO BID PRN 30 days [OVER TOILET COMMODE CHAIR As directed] polyethylene glycol 3350 (Miralax) 238 grams PO ONCE risperidone 1 mg PO BEDTIME 30 days sumatriptan succinate mg PO Tirosint (levothyroxine) 200 mcg PO DAILY NS tirzepatide (Mounjaro) 10 mg (0.5 mL) subcut QWEEK tramadol 50 mg PO TID PRN walker (Ultra-Light Rollator misc) As directed [wound cleanser As directed cleanse wound area daily] [xeroform dsg As directed apply small piece daily and cover with adhesive dressing] HPI HPI open wound of abdominal wall: Details: 59-year-old female referred for a nonhealing wound. She says that she has had this area of redness on the skin on the abdominal wall for about 3 months now. She says that this has open up before and had some raw areas. She feels that this has not healing. She was therefore referred to me She denies any trauma or insect bite to the area. She does have a history of multiple abdominal surgeries with a long laparotomy incision. She says she has had multiple hernias in the past. [facility] Medical History Altered bowel habits Weight loss Colon cancer screening Long-term insulin use HLD (hyperlipidemia) Chronic kidney disease, stage III (moderate) Recurrent ventral incisional hernia Bipolar depression Anxiety Depression Left hip pain B12 deficiency Abnormal thyroid biopsy Non-toxic multinodular goiter Hypothyroidism Other and unspecified hyperlipidemia Type 2 diabetes mellitus with unspecified complications Obesity (BMI 30-39.9) Lumbar degenerative disc disease Vitamin B12 deficiency Acquired hypothyroidism Nonintractable headache Pure hypercholesterolemia Benign essential hypertension Chronic kidney disease, stage 2 (mild) Type 2 diabetes mellitus with diabetic chronic kidney disease Knee pain, bilateral Anxiety IBS (irritable bowel syndrome) Visual loss Tendonitis Neck pain Hernia Chronic abdominal pain Lumbar disc disease Depression Asthma Hx of headache Type 2 diabetes mellitus with hyperglycemia Autoimmune thyroiditis Hyperlipidemia LDL goal <100 Essential hypertension Vitamin D deficiency Obesity due to excess calories Surgical History S/P laparoscopy (~04/22/11) History of hernia repair Hx of exploratory laparotomy Family History Father Medical history unknown Mother Medical history unknown Social History Household Members: Spouse Housing: Apartment Alcohol intake: never Patient Tobacco Use Status: Never used Tobacco e-Cigarette/Vaping Use: Never Used Second Hand Smoke Exposure: No service: No Current occupational status: disabled Cognitive needs: No Hearing needs: No Vision needs: Yes Review of Systems Const Denies chills and Denies fever(s) Card Denies chest pain, Denies dyspnea and Denies dyspnea on exertion Resp Denies cough, Denies dyspnea and Denies dyspnea on exertion GI Denies hematochezia and Denies change in bowel habits Denies hematuria Musc Denies back pain and Denies limited range of motion Neuro Denies focal weakness and Denies convulsions Psych Denies depression and Denies mood swings Physical Exam Const Other: Morbidly obese General: comfortable and no acute distress Orientation/consciousness: patient oriented x3 Neck Neck: Yes no lymphadenopathy Resp Auscultation: clear to auscultation bilaterally Cardio Rhythm: regular rhythm GI Other: Area of mild induration to the left of the midline in the skin of the abdominal wall, about 2 cm in diameter, no erythema, no fluctuance, no drainage, dry Palpation (GI): Soft to palpation, nontender and no guarding Neuro General: patient oriented x3 Assessment & Plan Assessment & Plan (1) Wound, open, abdominal wall, anterior: Code(s): S31.109A - Unspecified open wound of abdominal wall, unspecified quadrant without penetration into peritoneal cavity, initial encounter Category: Medical Qualifiers: Encounter type: initial encounter Qualified Code(s): S31.109A - Unspecified open wound of abdominal wall, unspecified quadrant without penetration into peritoneal cavity, initial encounter Plan: She apparently had a poorly healing open wound on the abdominal wall as described above. Current exam shows that this is actually epithelializing well. There is no obvious infection. There is no redness, discharge, or fluctuance. This probably was an epidermal cyst that may have ruptured The area is dry, nontender and noninflamed. She does not seem to require any surgical intervention at this time. I advised her on good wound care. I did tell her that she can come back to the office to be re-evaluated down the line if she feels that this does not improve. Coding Level of Care Code New Pt Level 3 (08946) Diagnoses Open wound of anterior abdominal wall, initial encounter S31.109A Encounter type: initial encounter
== END 2025-06-26 12:13 | disposition home or self-care (01) ==
LOC: HO.HGS 11:49
PROVIDERS: PCP Internal Medicine; Visit Provider Surgery
DX: S31.109A Unspecified open wound of abdominal wall, unspecified quadrant without penetration into peritoneal cavity, initial encounter (principal)
CPT/HCPCS: 99203

== ENCOUNTER → 2025-06-26 11:48 | Outpatient (BNVA) | payer OTHER, SELFPAY | PROVIDERS: PCP Internal Medicine; Visit Provider Surgery | DX: S31.109A Unspecified open wound of abdominal wall, unspecified quadrant without penetration into peritoneal cavity, initial encounter (principal); X58.XXXA Exposure to other specified factors, initial encounter; Z98.890 Other specified postprocedural states | CPT/HCPCS: 99202 ==

== ENCOUNTER 2025-07-29 11:07 | Outpatient (REF) | payer OTHER, SELFPAY ==
--- NOTE | ~2025-07-29 | US_ITS ---
CLINICAL HISTORY: D25.9 - Leiomyoma of uterus, unspecified Ultrasound of the female pelvis Comparison: US/AR/SR - US PELVIS TRANSABDOMINAL AND TRANSVAGINAL - 08/06/24 11:40 EST Technique: Grayscale ultrasound with assistance of color Doppler. Transabdominal scanning performed for overall anatomy. Transvaginal scanning performed for better anatomic delineation. Findings: The uterus and ovaries are not seen transabdominally, curvilinear hyperechogenicity with posterior acoustic shadowing at the expected location of the uterus due to calcified fibroids. On transvaginal ultrasound, the uterus is incompletely visualized due to shadowing, anteverted and enlarged, 14.4 x 5.3 x 8.1 cm, multifocal curvilinear shadowing echogenicities are likely fibroids, which are obscured by shadowing, reliable assessment of these masses and comparison to prior exam are impossible. The endometrium is not seen. Normal cervix. Ovaries are not visualized, adnexa are mostly obscured by shadowing and bowel gas. No free fluid. Impression: Extremely limited exam, presumably calcified uterine fibroids, endometrium, ovaries and most of the uterus are not seen. Recommend pelvic MRI without and with IV contrast for further evaluation. This document has been electronically signed by: Chastity Pedraza MD on 07/30/2025 14:27:22
== END 2025-07-29 11:08 | disposition home or self-care (01) ==
LOC: HO.US 11:07
PROVIDERS: PCP Internal Medicine; Visit Provider Obstetrics & Gynecology
DX: D25.9 Leiomyoma of uterus, unspecified (principal)
CPT/HCPCS: 76830; 76856

== ENCOUNTER → 2025-07-29 11:13 | Outpatient (BNV) | payer OTHER, SELFPAY | PROVIDERS: PCP Internal Medicine; Visit Provider Radiology Diagnostic Radiology | DX: D25.9 Leiomyoma of uterus, unspecified (principal) | CPT/HCPCS: 76830; 76856 ==